=== PATIENT | female | born 1940 | race Caucasian/White ===

== ENCOUNTER → 2016-11-12 | Outpatient (CLI) | payer OTHER, MEDICARE ==
[~2016-11-12] MED LIST: ALBINS INH; CARV25TA2 PO; CITA10TA4 PO; DYZ PO; PANT1TAB48 PO; THY30 PO; ZNTT/150 PO
[2016-11-12 10:51] LABS: ALT/SGPT 24 U/L (12-78); AST/SGOT 16 U/L (15-37); BLOOD UREA NITROGEN 30 mg/dl (7-18); BUN/CREATININE RATIO 22.8 (10-20); CALCIUM 8.9 mg/dl (8.5-10.1); CARBON DIOXIDE 27 mmol/L (21-32); CHLORIDE 106 mmol/L (98-107); GLUCOSE 105 mg/dl (70-99); POTASSIUM 3.5 mmol/L (3.5-5.1); SODIUM 143 mmol/L (136-145)
[2016-11-12 10:54] LABS: ALB/GLOB RATIO 1.2 (0.9-2); ALKALINE PHOSPHATASE 60 U/L (45-117); CHOLESTEROL 234 mg/dl (0-200); CHOLESTEROL/HDL RATIO 3.6; HDL CHOLESTEROL 65 mg/dl; LDL CHOLESTEROL CALCULATED 145 mg/dl; TRIGLYCERIDES 118 mg/dl (0-150); VERY LOW DENSITY LIPOPROT CALC 24 mg/dl
== END | disposition home or self-care (01) ==
LOC: C.LAB1850 08:59
PROVIDERS: ATTEND Nurse Practitioner
DX: E03.9 Hypothyroidism, unspecified (principal); E55.9 Vitamin D deficiency, unspecified; E78.5 Hyperlipidemia, unspecified; I10 Essential (primary) hypertension

== ENCOUNTER → 2016-12-18 | Outpatient (CLI) | payer OTHER, MEDICARE ==
[2016-12-18 12:03] LABS: MEAN CELL VOLUME 91.1 fL (80-100); MEAN CORPUSCULAR HEMOGLOBIN 30.4 pg (25-34); MEAN CORPUSCULAR HGB CONC 33.4 g/dl (32-36); MEAN PLATELET VOLUME 10.6 fL (7.4-10.4); PLATELET COUNT 228 K/uL (130-400); WHITE BLOOD COUNT 5.83 K/uL (4.8-10.8)
[2016-12-18 12:09] LABS: URINE APPEARANCE CLEAR (CLEAR); URINE BILIRUBIN NEG (NEG); URINE COLOR YELLOW; URINE EPITHELIAL CELL AUTO 20-30 /lpf (0-5); URINE NITRITE NEG (NEG); URINE PH 6.5 (4.5-7.5); URINE SPECIFIC GRAVITY 1.016 (1.000-1.030); UROBILINOGEN NEG (NEG)
[2016-12-18 12:16] LABS: MANUAL MICROSCOPIC REQUIRED? NO; REVIEW REQ? NO
[2016-12-18 12:28] LABS: URINE PROTIEN/CREAT RATIO 0.1 (0-0.2); URINE TOTAL PROTEIN 8.8 mg/dl (0-11.9)
[2016-12-18 13:04] LABS: ESTIMATED AVERAGE GLUCOSE 128 mg/dl; HA1C FLAG Normal (Normal)
[2016-12-18 13:24] LABS: BLOOD UREA NITROGEN 33 mg/dl (7-18); BUN/CREATININE RATIO 25.2 (10-20); CARBON DIOXIDE 29 mmol/L (21-32); CHLORIDE 106 mmol/L (98-107); GLUCOSE 75 mg/dl (70-99); SODIUM 141 mmol/L (136-145)
== END | disposition home or self-care (01) ==
LOC: C.LAB1850 10:46
PROVIDERS: ATTEND Nurse Practitioner
DX: I10 Essential (primary) hypertension (principal); R79.89 Other specified abnormal findings of blood chemistry; E06.3 Autoimmune thyroiditis; N28.9 Disorder of kidney and ureter, unspecified; R73.01 Impaired fasting glucose; N18.3 Chronic kidney disease, stage 3 (moderate); M54.2 Cervicalgia

== ENCOUNTER → 2016-12-18 | Outpatient (CLI) | payer OTHER, MEDICARE ==
--- NOTE | 2016-12-18 12:12 | DIAGNOSTIC IMAGING REPORT ---
CERVICAL SPINE 5 VIEWS HISTORY: Pain. Neuropathy. MUSCULOSKELETAL NECK PAIN, NECK PAIN COMPARISON: None. FINDINGS: The cervical spine is visualized from C1 through the superior endplate of T1. There is no fracture. Subtle grade 1. Reversal subluxation of C5 on C6 felt to be secondary to degenerative changes of posterior elements. Moderate degenerative disc changes throughout. Prevertebral soft tissues and the atlantodens interval are intact. IMPRESSION: Degenerative change. No acute process. Electronically signed by: Bobby Orozco M.D. 12/18/2016 12:11 PM Dictated Date/Time: 12/18/2016 12:10 PM
== END | disposition home or self-care (01) ==
LOC: C.RADBC 11:47
PROVIDERS: ATTEND Nurse Practitioner
DX: M54.2 Cervicalgia (principal)

== ENCOUNTER → 2017-03-14 | Outpatient (CLI) | payer OTHER, MEDICARE ==
[2017-03-14 18:29] LABS: BLOOD UREA NITROGEN 29 mg/dl (7-18); BUN/CREATININE RATIO 23.8 (10-20); CALCIUM 9.9 mg/dl (8.5-10.1); CARBON DIOXIDE 27 mmol/L (21-32); CHLORIDE 104 mmol/L (98-107); GLUCOSE 104 mg/dl (70-99); POTASSIUM 3.7 mmol/L (3.5-5.1); SODIUM 140 mmol/L (136-145)
== END | disposition home or self-care (01) ==
LOC: C.LABPVFM 13:50
PROVIDERS: ATTEND Nurse Practitioner
DX: N18.3 Chronic kidney disease, stage 3 (moderate) (principal)

== ENCOUNTER → 2017-05-24 | Outpatient (CLI) | payer OTHER, MEDICARE ==
[2017-05-24 13:42] LABS: THYROID STIMULATING HORMONE 2.84 uIu/ml (0.300-4.500)
== END | disposition home or self-care (01) ==
LOC: C.LAB1850 11:29
PROVIDERS: ATTEND Internal Medicine Endocrinology, Diabetes & Metabolism
DX: E03.9 Hypothyroidism, unspecified (principal)

== ENCOUNTER → 2017-06-04 | Outpatient (CLI) | payer OTHER, MEDICARE ==
--- NOTE | 2017-06-04 14:30 | DIAGNOSTIC IMAGING REPORT ---
LEFT ELBOW 3 VIEWS HISTORY: Left ELBOW PAIN COMPARISON: None. FINDINGS: There is no fracture or dislocation. No elbow effusion. Mild soft tissue swelling at the olecranon. No radiopaque foreign bodies. IMPRESSION: No fracture or dislocation within the left elbow. Mild soft tissue swelling at the olecranon. This could be due to the recent trauma or an olecranon bursitis. Electronically signed by: Juan Carlos Schmitz M.D. 06/04/2017 2:29 PM Dictated Date/Time: 06/04/2017 2:26 PM
== END | disposition home or self-care (01) ==
LOC: C.RADPV 14:05
PROVIDERS: ATTEND Nurse Practitioner
DX: M25.522 Pain in left elbow (principal)

== ENCOUNTER → 2017-06-24 | Outpatient (CLI) | payer OTHER, MEDICARE ==
[2017-06-24 16:42] LABS: HEMATOCRIT 42.3 % (37-47); MEAN CELL VOLUME 92.2 fL (80-100); MEAN CORPUSCULAR HEMOGLOBIN 30.1 pg (25-34); MEAN CORPUSCULAR HGB CONC 32.6 g/dl (32-36); MEAN PLATELET VOLUME 10.9 fL (7.4-10.4); PLATELET COUNT 253 K/uL (130-400); RED BLOOD COUNT 4.59 M/uL (4.2-5.4); WHITE BLOOD COUNT 6.49 K/uL (4.8-10.8)
[2017-06-24 16:53] LABS: BLOOD UREA NITROGEN 21 mg/dl (7-18); BUN/CREATININE RATIO 14.3 (10-20); CALCIUM 9.2 mg/dl (8.5-10.1); CARBON DIOXIDE 29 mmol/L (21-32); CHLORIDE 104 mmol/L (98-107); GLUCOSE 145 mg/dl (70-99); PHOSPHORUS 2.6 mg/dl (2.5-4.9); POTASSIUM 3.4 mmol/L (3.5-5.1); SODIUM 140 mmol/L (136-145)
[2017-06-24 16:55] LABS: URINE APPEARANCE CLOUDY (CLEAR); URINE BILIRUBIN NEG (NEG); URINE COLOR YELLOW; URINE EPITHELIAL CELL AUTO 0-5 /lpf (0-5); URINE NITRITE NEG (NEG); URINE SPECIFIC GRAVITY 1.015 (1.000-1.030); UROBILINOGEN NEG (NEG)
[2017-06-24 17:00] LABS: MANUAL MICROSCOPIC REQUIRED? NO; REVIEW REQ? NO
[2017-06-24 17:01] LABS: THYROID STIMULATING HORMONE 1.4 uIu/ml (0.300-4.500)
[2017-06-24 17:06] LABS: URINE PROTIEN/CREAT RATIO 0.1 (0-0.2); URINE TOTAL PROTEIN 7.9 mg/dl (0-11.9)
== END | disposition home or self-care (01) ==
LOC: C.LAB1850 14:12
PROVIDERS: ATTEND Internal Medicine Nephrology
DX: E03.9 Hypothyroidism, unspecified (principal); I12.9 Hypertensive chronic kidney disease with stage 1 through stage 4 chronic kidney disease, or unspecified chronic kidney disease; N18.3 Chronic kidney disease, stage 3 (moderate); E55.9 Vitamin D deficiency, unspecified

== ENCOUNTER → 2017-06-28 | Outpatient (CLI) | payer OTHER, MEDICARE ==
--- NOTE | 2017-06-28 13:21 | DIAGNOSTIC IMAGING REPORT ---
THYROID ULTRASOUND HISTORY: MULTIPLE THYROID NODULES COMPARISON: Thyroid ultrasound 12/15/2013. FINDINGS: Right lobe: 5.0 x 1.1 x 1.5 cm. 4 mm hypoechoic nodule within the lower pole. This is similar to the prior study. Left lobe: 5.0 x 1.4 x 1.2 cm. There is a heterogeneous and solid 1.4 x 1.1 x 0.7 cm nodule. This is unchanged compared to the prior study. A 3 mm cyst within the upper pole. Isthmus: 5 mm in thickness. A 1.0 x 0.9 x 0.7 cm heterogeneous solid nodule is not significantly changed. IMPRESSION: Stable bilateral thyroid nodules. These do not meet sonographic criteria for biopsy at this time. Electronically signed by: Juan Carlos Schmitz M.D. 06/28/2017 1:19 PM Dictated Date/Time: 06/28/2017 1:16 PM
== END | disposition home or self-care (01) ==
LOC: C.ULTR 12:35
PROVIDERS: ATTEND Internal Medicine Endocrinology, Diabetes & Metabolism
DX: E04.2 Nontoxic multinodular goiter (principal)

== ENCOUNTER → 2017-10-17 | Outpatient (CLI) | payer OTHER, MEDICARE ==
[~2017-10-17] MED LIST changes: +PANT1TAB3 PO; -PANT1TAB48 PO
== END | disposition home or self-care (01) ==
LOC: C.LABSPEC 16:59
PROVIDERS: ATTEND Podiatrist Primary Podiatric Medicine
DX: B35.1 Tinea unguium (principal)

== ENCOUNTER → 2017-11-08 | Outpatient (CLI) | payer OTHER, MEDICARE ==
[~2017-11-08] MED LIST changes: +RANI150T85 PO; -ZNTT/150 PO
== END | disposition home or self-care (01) ==
LOC: C.RDSM 09:35
PROVIDERS: ATTEND Physical Medicine & Rehabilitation Sports Medicine
DX: M70.22 Olecranon bursitis, left elbow (principal)

== ENCOUNTER → 2017-12-25 | Outpatient (CLI) | payer OTHER, MEDICARE ==
[2017-12-25 10:27] LABS: HEMATOCRIT 42.1 % (37-47); HEMOGLOBIN 14.4 g/dL (12.0-16.0); MEAN CELL VOLUME 91.3 fL (80-100); MEAN CORPUSCULAR HEMOGLOBIN 31.2 pg (25-34); MEAN CORPUSCULAR HGB CONC 34.2 g/dl (32-36); MEAN PLATELET VOLUME 10.2 fL (7.4-10.4); PLATELET COUNT 238 K/uL (130-400); RED CELL DISTRIBUTION WIDTH CV 13.2 % (11.5-14.5); RED CELL DISTRIBUTION WIDTH SD 43.7 fL (36.4-46.3); WHITE BLOOD COUNT 5.32 K/uL (4.8-10.8)
[2017-12-25 10:41] LABS: ALBUMIN 3.9 gm/dl (3.4-5.0); BLOOD UREA NITROGEN 26 mg/dl (7-18); CALCIUM 9.4 mg/dl (8.5-10.1); CARBON DIOXIDE 28 mmol/L (21-32); CREATININE 1.29 mg/dl (0.60-1.20); GLUCOSE 114 mg/dl (70-99); POTASSIUM 3.5 mmol/L (3.5-5.1); SODIUM 139 mmol/L (136-145)
[2017-12-25 10:45] LABS: HEMOGLOBIN A1C 6.2 % (4.5-5.6)
[2017-12-25 10:52] LABS: PHOSPHORUS 3.3 mg/dl (2.5-4.9)
== END | disposition home or self-care (01) ==
LOC: C.LAB1850 08:53
PROVIDERS: ATTEND Nurse Practitioner
DX: E03.9 Hypothyroidism, unspecified (principal); N18.3 Chronic kidney disease, stage 3 (moderate)

== ENCOUNTER 2018-12-25 11:55 | Observation (INO) ==
[2018-12-25 12:43] LABS: Basophils # (auto) 0.01 K/uL (0-0.2); Basophils % (auto) 0.1 %; Eosinophils # (auto) 0.32 K/uL (0-0.5); Eosinophils % (auto) 4.5 %; Hematocrit (blood only) 41.3 % (37-47); Hemoglobin 13.9 g/dL (12.0-16.0); Immature Granulocytes # (auto) 0.02 K/uL (0.00-0.02); Immature Granulocytes % (auto) 0.3 %; Lymphocytes # (auto) 1.73 K/uL (1.2-3.4); Lymphocytes % (auto) 24.4 %; Mean Corpuscular Hgb Conc 33.7 g/dL (32-36); Mean Corpuscular Volume 91.4 fL (80-100); Mean Platelet Volume 10.7 fL (7.4-10.4); Monocytes # (auto) 0.87 K/uL (0.11-0.59); Monocytes % (auto) 12.3 %; Neutrophils # (auto) 4.14 K/uL (1.4-6.5); Neutrophils % (auto) 58.4 %; Platelet Count 213 K/uL (130-400); RDW Coefficient of Variation 13.2 % (11.5-14.5); RDW Standard Deviation 43.9 fL (36.4-46.3); Red Blood Count 4.52 M/uL (4.2-5.4); White Blood Count 7.09 K/uL (4.8-10.8)
[2018-12-25 12:55] LABS: Partial Thromboplastin Time 26.1 Seconds (21.0-31.0); Prothrombin Time 10.3 Seconds (9.0-12.0)
--- NOTE | 2018-12-25 12:56 | XRay Report ---
TWO VIEW CHEST CLINICAL HISTORY: Atypical chest pain. FINDINGS: PA and lateral chest radiographs are compared to study dated 12/20/2015. The heart is mildly enlarged and there is atherosclerotic calcification of the thoracic aorta. The pulmonary vasculature is noncongested. Chronic interstitial thickening is similar to previous. There is mild elevation of right hemidiaphragm and bibasilar atelectasis. No airspace consolidation or pleural effusion is ident ified. There is no pneumothorax. The skeletal structures are osteopenic. Degenerative change is noted throughout the thoracic spine. The bony thorax appears intact. IMPRESSION: Mild cardiac enlargement with no acute cardiopulmonary abnormality. Electronically signed by: Satish Dyson M.D. 12/25/2018 12:54 PM
[2018-12-25 12:58] LABS: D Dimer 1280 ug/L FEU (0-500)
[2018-12-25 12:59] LABS: Alanine Aminotransferase 23 U/L (12-78); Albumin Level 3.6 gm/dl (3.4-5.0); Aspartate Aminotransferase 19 U/L (15-37); BUN Creatinine Ratio 19.2 (10-20); Bilirubin Direct 0.1 mg/dl (0-0.2); Blood Urea Nitrogen 24 mg/dl (7-18); Calcium 9.1 mg/dl (8.5-10.1); Carbon Dioxide 29 mmol/L (21-32); Chloride 106 mmol/L (98-107); Creatinine Clr Calc Pharmacy 40.6 ml/min; Est GFR (African American) 46.2; Est GFR (Non-African American) 39.8; Glucose 85 mg/dl (70-99); Potassium 3.7 mmol/L (3.5-5.1); Sodium 141 mmol/L (136-145)
[2018-12-25 13:04] LABS: Alkaline Phosphatase 73 U/L (45-117); Bilirubin,Total 0.6 mg/dl (0.2-1); Total Protein 7.1 gm/dl (6.4-8.2); Troponin I < 0.015 ng/ml (0-0.045)
[2018-12-25] MEDS ORDERED: methylPREDNISolone 125 MG/2 ML VIAL IV STA (13:13)
[2018-12-25] MEDS ORDERED: DiphenhydrAMINE HCL 50 MG/ML VIAL IV STA (13:13)
[2018-12-25] MEDS ORDERED: SODIUM CHLORIDE 0.9% 1000ML 1,000 ML IV SCH (13:15)
[2018-12-25] MEDS ORDERED: OPTIRAY 320 125ml IV PRN (13:30)
--- NOTE | 2018-12-25 13:52 | CT Scan Report ---
CT angio chest PE protocol CLINICAL HISTORY: 78 years-old Female presenting with atypical chest pain, concern for pulmonary embo jo. TECHNIQUE: Multidetector CT angiography of the chest was performed after administration of intravenou s contrast. 3-D volumetric and/or maximum intensity projection (MIP) images were subsequently reconst ructed for review. IV contrast: 119 mL of Optiray 320. One or more dose lowering techniques were used consistent with the principles of ALARA (as low as reasonably achievable), including automatic expos ure control, mA or kV adjustment to individual patient size, and/or use of iterative reconstruction. COMPARISON: Chest x-ray from earlier today. CT DOSE (mGy.cm): The estimated cumulative dose is 387.94 mGy.cm. 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 Pulmonary vasculature: The study is suboptimal for the assessment of the pulmonary vascular tree secondary to respiratory mo tion artifact. No filling defect within the pulmonary arteries to suggest embolus. Main pulmonary art britt is mildly enlarged, measuring 3.3 cm in diameter. No flattening of the interventricular septum. N o intracardiac filling defect. No reflux of contrast into the hepatic veins. Remaining chest: Soft tissues: Subcentimeter nodule in the left lobe of the thyroid. No axillary, supraclavicular, med iastinal, or hilar lymphadenopathy. Atherosclerosis of the aorta. Ectasia of the ascending aorta, kulwant suring 4.3 cm in diameter. Mild multichamber enlargement of the heart. No pericardial or pleural effu harini. Upper abdomen normal. Lungs and airways: No pneumothorax. Central airways patent. Linear arteries mildly enlarged relative to adjacent bronchi. No interlobular septal thickening. Allowing for respiratory motion artifact, whi ch mildly degrades evaluation of the lung parenchyma, groundglass opacities noted dependently in the lower lobes likely atelectasis. Pulmonary nodules enumerated below: 1. Solid 3 mm nodule in the posterior segment of the right upper lobe (series 4 image 121). 2. Solid 6 mm nodule in the superior segment of the right lower lobe (series 4 image 89). 3. Solid 5 mm nodule in the lateral-basal segment of the right lower lobe (series 4 image 41). 4. Solid 3 mm nodule in the superior segment of the lingula (series 4 image 155). Musculoskeletal: Degenerative changes of the spine. IMPRESSION: 1. No evidence of pulmonary embolus. 2. Multiple solid pulmonary nodules measuring up to 6 mm. Follow-up per Fleischner Society 2017 zaria mmendations below. 3. Mild cardiomegaly with trace volume overload. No congestive change or pulmonary edema. 4. Ectasia of the ascending aorta and main pulmonary artery. Summary of Fleischner Society 2017 Recommendations (Alesia López et al. Guidelines for management of i ncidental pulmonary nodules detected on CT images: From the Fleischner Society 2017. Radiology 2017; 284: 228-243.) SOLID NODULES Single nodule; size < 6 mm * Low risk patients: No routine follow-up * High risk patients: Optional CT at 12 months Single nodule; size 6-8 mm * Low risk patients: CT at 6-12 months, then consider CT at 18-24 months * High risk patients: CT at 6-12 months, then at 18-24 months Single nodule; size > 8 mm * Either low or high risk patients: Considered CT at 3 months, PET/CT, or tissue sampling Multiple nodules; size < 6 mm * Low risk patients: No routine follow up * High risk patients: Optional CT at 12 months Multiple nodules; size 6-8 mm * Low risk patients: CT at 3-6 months, then consider CT at 18-24 months * High risk patients: CT at 3-6 months, then at 18-24 months Multiple nodules; size > 8 mm * Low risk patients: CT at 3-6 months, then consider at 18-24 months * High risk patients: CT at 3-6 months, then at 18-24 months SUBSOLID NODULES Single ground-glass nodule * Nodule size < 6 mm: No routine follow-up * Nodule size > or = 6 mm: CT at 6-12 months to confirm persistence, then CT every 2 years until 5 y ears Single part-solid nodule * Nodule size < 6 mm: No routine follow-up * Nodules size > or = 6 mm: CT at 3-6 months to confirm persistence. If unchanged and solid componen t remains < 6 mm, annual CT should be performed for 5 years Multiple nodules * Nodule size < 6 mm: CT at 3-6 months. If stable, consider CT at 2 and 4 years. * Nodules size > or = 6 mm: CT at 3-6 months. Subsequent management based on the most suspicious nod ule(s) NOTE: 1) These guidelines apply to incidental nodules. These guidelines do NOT apply to patients younger th an 35 years, immunocompromised patients, or patients with cancer. 2) Risk categories: * Low risk patients: Minimal or absent history of smoking and/or other known risk factors * High risk patients: History of smoking, exposure to other carcinogens, emphysema, fibrosis, upper lobe location, family history of lung cancer, etc. 3) If a nodule up to 8 mm is partly solid or is ground glass, further follow-up is required after 24 months to exclude possible slow growing adenocarcinoma. Electronically signed by: Jerad Miranda M.D. 12/25/2018 1:51 PM
--- NOTE | 2018-12-25 14:37 | Emergency Department Note ---
Entered by Chana Canas acting as a scribe for History of Present Illness General Chief complaint: Chest Pain Stated complaint: PAIN HEART Time Seen by Provider: 12/25/18 12:09 Source: patient Limitations: no limitations History of Present Illness Provider complaint: chest pain Onset (ago): hour(s) Location: chest Radiation: back Maximum Pain Intensity: 5 Current Pain Intensity: 5 Quality: + sharp Associated symptoms: + denies other symptoms (blood in urine, blood in stool) and + other (+back pain); no nausea/vomiting Treatments prior to arrival: none The patient is a 78 year old female who presents to the Emergency Room with complaints of chest pain that began earlier in the morning prior to arrival. The patient describes the pain as sudden and sharp and rates her pain a 5/10 in severity upon arrival. The patient states that the pain radiates to her back. The patient states that she waited to see if her pain would subside but states that it didn't go away completely. The patient denies any blood in her urine, blood in her stool, nausea, and vomiting. The patient denies using any hormone creams or any long recent travels. The patient states that she has a history of Takotsubo cardiomyopathy and states that she sees Dr. Camp for Cardiology. She states that the chest pain does not feel similar to when she was diagnosed with Takotsubo cardia myopathy in the past. Home Medications Home Medications Medication Instructions Recorded Confirmed Type carvedilol 12.5 mg PO QAM 12/25/18 12/25/18 History carvedilol 25 mg PO DAILY 12/25/18 12/25/18 History lorazepam 1 mg PO DAILY PRN 12/25/18 12/25/18 History pantoprazole 40 mg PO DAILY 12/25/18 12/25/18 History sucralfate 1 g PO QPM 12/25/18 12/25/18 History temazepam 15 mg PO HS PRN 12/25/18 12/25/18 History thyroid (pork) [[place] Thyroid] 60 mg PO DAILY 12/25/18 12/25/18 History triamterene-hydrochlorothiazid 1 cap PO BID 12/25/18 12/25/18 History Allergies Allergy/AdvReac Type Severity Reaction Status Date / Time aspirin Allergy Unknown UPSET Verified 12/25/18 12:35 STOMACH/STOMACH PAIN codeine Allergy Unknown Verified 12/25/18 12:35 ketorolac Allergy Unknown kidney Verified 12/25/18 12:35 failure latex Allergy Unknown LOCAL RASH Verified 12/25/18 12:35 Sulfa (Sulfonamide Allergy Unknown Verified 12/25/18 12:35 Antibiotics) tromethamine Allergy Unknown kidney Verified 12/25/18 12:35 failure CONTRASTMEDIA Allergy Intermediate Unknown Uncoded 12/25/18 12:35 Past Med/Surg History Medical History Acute tubular necrosis Anxiety Asthma Coronary artery disease Diverticulosis GERD (gastroesophageal reflux disease) Hyperlipidemia Hypertension Hypothyroidism Major depression Myocardial infarction Takotsubo syndrome Vitamin D deficiency Surgical History History of right hip replacement Social History Feels Safe at Home: Yes Smoking Status: Never smoker Review of Systems See HPI for pertinent positives & negatives. and A total of 10 systems reviewed and were otherwise negative See HPI for pertinent positives & negatives. A total of 10 systems reviewed and were otherwise negative. Physical Exam Vital Signs Vital Signs - 24 hr 12/25/18 12:02 12/25/18 12:21 12/25/18 13:56 Temperature 36.4 C L Temperature Source Oral Sepsis Recent Fever Within 48 Hours No Sepsis New/Unexplained Change in Mental Status No Sepsis Action Taken by Nursing No Action Required Pulse Rate 72 Pulse Rate [Right Apical] 85 Respiratory Rate 20 16 Respiratory Effort / Characteristics Non-Labored Respiratory Depth Normal Blood Pressure 186/89 H Blood Pressure [Right Arm] 150/77 H Blood Pressure Mean 121 Blood Pressure Mean [Right Arm] 101 Pulse Oximetry 95 95 97 Oxygen Delivery Method Room Air Room Air Room Air GENERAL: She is oriented to person, place, and time. She appears well-developed and well-nourished. She does not appear distressed. HENT: Exam performed. Head: Normocephalic and atraumatic. Right Ear: External ear normal. No mastoid tenderness. Left Ear: External ear normal. No mastoid tenderness. Mouth/Throat: The oropharynx is clear and moist. No trismus in the jaw. No dental abscesses or uvula swelling. No oropharyngeal exudate or tonsillar abscesses. EYES: Conjunctivae and EOM are normal. Pupils are equal, round, and reactive to light. Right eye exhibits no discharge. Left eye exhibits no discharge. No scleral icterus. NECK: Normal range of motion. Neck supple. No JVD present. No spinous process tenderness present. No carotid bruit present. No rigidity. No tracheal deviation and normal range of motion present. No Brudzinski's sign and no Kernig's sign noted. CV: Normal rate, regular rhythm, normal heart sounds and intact distal pulses. There is no peripheral edema. Palpable radial pulses bue. PULM/CHEST: Effort normal and breath sounds normal. No respiratory distress. No stridor. She has no wheezes. She has no rales. Chest Wall: She exhibits no tenderness. ABD: The abdomen is soft. Bowel sounds are normal. She has no distension. No mass is present. There is no tenderness. There is no rebound, no guarding, no Henley's sign and no tenderness at McBurney's point. Rovsig negative MUSC/SKEL: Normal range of motion. There is no peripheral edema, tenderness or deformity. LYMPH: No cervical adenopathy. NEURO: She is alert and oriented to person, place, and time. She has normal strength. No cranial nerve deficit or sensory deficit. Coordination and gait normal. GCS eye subscore is 4. GCS verbal subscore is 5. GCS motor subscore is 6. cerbellar tests wnl. SKIN: Skin is warm and dry. She is not diaphoretic. PSYCH: She has a normal mood and affect. Her behavior is normal. Judgment and thought content normal. Course 1215: Past medical records reviewed. The patient was evaluated in room A11B, and a complete history and physical examination were performed. 1320: EKG shows new T wave inversions. Vital signs stable. Troponin negative. The patient's DDimer came back positive. Will obtain CT of the chest. Patient reports she has an allergy to contrast dye, reports she has had hives in the past after receiving catheterization. Patient will be treated prior to CTA with Benadryl and Solu-Medrol. 1408: The patient's vital signs are stable. No rash status post CTA. CT of the chest shows no PE. Given the patient's new T wave inversions in her long history and age, the patient will be admitted to the hospital service for further cardiac workup. I [facility] the patient's [facility] who will evaluate the patient for further hospitalization. Consultations Consultation #1[facility] Time: 14:08 Administered Medications Sodium Chloride (Nss 1000ml) 1,000 mls @ 125 mls/hr IV .Q8H MEDINA Stop: 01/24/19 13:14 Last Admin: 12/25/18 13:25 Dose: 125 mls/hr Documented by: [id number] Ioversol (Optiray 320 125ml) 119 ml IV ONCE PRN PRN Reason: Interaction Checking Stop: 12/29/18 13:29 Last Admin: 12/25/18 13:31 Dose: 1 ml Documented by: [id number] Discontinued Medications Diphenhydramine HCl (Benadryl) 25 mg IV NOW STA Stop: 12/25/18 13:14 Last Admin: 12/25/18 13:20 Dose: 25 mg Documented by: [id number] Methylprednisolone (Solumedrol) 125 mg IV NOW STA Stop: 12/25/18 13:14 Last Admin: 12/25/18 13:21 Dose: 125 mg Documented by: [id number] Medical Decision Making Medical Records Attestation: I reviewed the patient's medical records. Home Medications Current Medication List: was personally reviewed by me Laboratory Data Attestation: I reviewed the patient's lab results. Result diagrams: 12/25/18 12:30 12/25/18 12:30 Lab Results 12/25/18 12/25/18 12/25/18 Range/Units 12:30 12:30 12:30 WBC 7.09 (4.8-10.8) K/uL RBC 4.52 (4.2-5.4) M/uL Hgb 13.9 (12.0-16.0) g/dL Hct 41.3 (37-47) % MCV 91.4 (80-100) fL MCH 30.8 (25-34) pg MCHC 33.7 (32-36) g/dL RDW Std Deviation 43.9 (36.4-46.3) fL RDW Coeff of Virgilio 13.2 (11.5-14.5) % Plt Count 213 (130-400) K/uL MPV 10.7 H (7.4-10.4) fL Immature Gran % (Auto) 0.3 % Neut % (Auto) 58.4 % Lymph % (Auto) 24.4 % [place] % (Auto) 12.3 % Eos % (Auto) 4.5 % Baso % (Auto) 0.1 % Immature Gran # (Auto) 0.02 (0.00-0.02) K/uL Neut # (Auto) 4.14 (1.4-6.5) K/uL Lymph # (Auto) 1.73 (1.2-3.4) K/uL [place] # (Auto) 0.87 H (0.11-0.59) K/uL Eos # (Auto) 0.32 (0-0.5) K/uL Baso # (Auto) 0.01 (0-0.2) K/uL PT 10.3 (9.0-12.0) Seconds INR 1.0 (0.9-1.1) APTT 26.1 (21.0-31.0) Seconds PTT Ratio 1.0 D-Dimer 1280 H* (0-500) ug/L FEU Sodium 141 (136-145) mmol/L Potassium 3.7 (3.5-5.1) mmol/L Chloride 106 (98-107) mmol/L Carbon Dioxide 29 (21-32) mmol/L Anion Gap 6.0 (3-11) BUN 24 H (7-18) mg/dl Creatinine 1.27 H (0.6-1.2) mg/dl Est Cr Clr Drug Dosing 40.6 ml/min Est GFR ( Amer) 46.2 Est GFR (Non-Af Amer) 39.8 BUN/Creatinine Ratio 19.2 (10-20) Glucose 85 (70-99) mg/dl Calcium 9.1 (8.5-10.1) mg/dl Total Bilirubin 0.6 (0.2-1) mg/dl Direct Bilirubin 0.1 (0-0.2) mg/dl AST 19 (15-37) U/L ALT 23 (12-78) U/L Alkaline Phosphatase 73 (45-117) U/L Troponin I < 0.015 (0-0.045) ng/ml Total Protein 7.1 (6.4-8.2) gm/dl Albumin 3.6 (3.4-5.0) gm/dl Lipase 109 (73-393) U/L Imaging Data Radiologist's Impression: Radiology results as stated below per my review and the radiologist's interpretation: TWO VIEW CHEST CLINICAL HISTORY: Atypical chest pain. FINDINGS: PA and lateral chest radiographs are compared to study dated 12/20/2015. The heart is mildly enlarged and there is atherosclerotic calcifica tion of the thoracic aorta. The pulmonary vasculature is noncongested. Chronic interstitial thickening is similar to previous. There is mild elevation of right hemidiaphragm and bibasilar atelectasis. No airspace consolidation or pleural effusion is identified. There is no pneumothorax. The skeletal structures are osteopenic. Degenerative change is noted throughout the thoracic spine. The bony thorax appears intact. IMPRESSION: Mild cardiac enlargement with no acute cardiopulmonary abnormality. Electronically signed by: Satish Dyson M.D. 12/25/2018 12:[address] angio chest PE protocol CLINICAL HISTORY: 78 years-old Female presenting with atypical chest pain, co ncern for pulmonary embolus. TECHNIQUE: Multidetector CT angiography of the chest was performed after administration of intravenous contrast. 3-D volumetric and/or maximum intensity projection (MIP) images were subsequently reconstructed for review. IV contrast: 119 mL of Optiray 320. One or more dose lowering techniques were used consistent with the principles of ALARA (as low as reasonably achievable), including automatic exposure control, mA or kV adjustment to individual patient size, and/ or use of iterative reconstruction. COMPARISON: Chest x-ray from earlier today. CT DOSE (mGy.cm): The estimated cumulative dose is 387.94 mGy.cm. FINDINGS: Woven Label Designer topogram: Unremarkable. Pulmonary vasculature: The study is suboptimal for the assessment of the pulmonary vascular tree secondary to respiratory motion artifact. No filling defect within the pulmonary arteries to suggest embolus. Main pulmonary artery is mildly enlarged, measuring 3.3 cm in diameter. No flattening of the interventricular septum. No intracardiac filling defect. No reflux of contrast into the hepatic veins. Remaining chest: Soft tissues: Subcentimeter nodule in the left lobe of the thyroid. No axillary, supraclavicular, mediastinal, or hilar lymphadenopathy. Atherosclerosis of the aorta. Ectasia of the ascending aorta, measuring 4.3 cm in diameter. Mild multichamber enlargement of the heart. No pericardial or pleural effusion. Upper abdomen normal. Lungs and airways: No pneumothorax. Central airways patent. Linear arteries mildly enlarged relative to adjacent bronchi. No interlobular septal thickening. Allowing for respiratory motion artifact, which mildly degrades evaluation of the lung parenchyma, groundglass opacities noted dependently in the lower lobes likely atelectasis. Pulmonary nodules enumerated below: 1. Solid 3 mm nodule in the posterior segment of the right upper lobe (series 4 image 121). 2. Solid 6 mm nodule in the superior segment of the right lower lobe (series 4 image 89). 3. Solid 5 mm nodule in the lateral-basal segment of the right lower lobe (series 4 image 41). 4. Solid 3 mm nodule in the superior segment of the lingula (series 4 image 155). Musculoskeletal: Degenerative changes of the spine. IMPRESSION: 1. No evidence of pulmonary embolus. 2. Multiple solid pulmonary nodules measuring up to 6 mm. Follow-up per Fleischner Society 2017 recommendations below. 3. Mild cardiomegaly with trace volume overload. No congestive change or pulmonary edema. 4. Ectasia of the ascending aorta and main pulmonary artery. Summary of Fleischner Society 2017 Recommendations (H Maribel et al. Guidelines for management of incidental pulmonary nodules detected on CT images: From the Fleischner Society 2017. Radiology 2017; 284: 228-243.) SOLID NODULES Single nodule; size < 6 mm * Low risk patients: No routine follow-up * High risk patients: Optional CT at 12 months Single nodule; size 6-8 mm * Low risk patients: CT at 6-12 months, then consider CT at 18-24 months * High risk patients: CT at 6-12 months, then at 18-24 months Single nodule; size > 8 mm * Either low or high risk patients: Considered CT at 3 months, PET/CT, or tissue sampling Multiple nodules; size < 6 mm * Low risk patients: No routine follow up * High risk patients: Optional CT at 12 months Multiple nodules; size 6-8 mm * Low risk patients: CT at 3-6 months, then consider CT at 18-24 months * High risk patients: CT at 3-6 months, then at 18-24 months Multiple nodules; size > 8 mm * Low risk patients: CT at 3-6 months, then consider at 18-24 months * High risk patients: CT at 3-6 months, then at 18-24 months SUBSOLID NODULES Single ground-glass nodule * Nodule size < 6 mm: No routine follow-up * Nodule size > or = 6 mm: CT at 6-12 months to confirm persistence, then CT every 2 years until 5 years Single part-solid nodule * Nodule size < 6 mm: No routine follow-up * Nodules size > or = 6 mm: CT at 3-6 months to confirm persistence. If unchanged and solid component remains < 6 mm, annual CT should be performed for 5 years Multiple nodules * Nodule size < 6 mm: CT at 3-6 months. If stable, consider CT at 2 and 4 years. * Nodules size > or = 6 mm: CT at 3-6 months. Subsequent management based on the most suspicious nodule(s) NOTE: 1) These guidelines apply to incidental nodules. These guidelines do NOT apply to patients younger than 35 years, immunocompromised patients, or patients with cancer. 2) Risk categories: * Low risk patients: Minimal or absent history of smoking and/or other known risk factors * High risk patients: History of smoking, exposure to other carcinogens, emphysema, fibrosis, upper lobe location, family history of lung cancer, etc. 3) If a nodule up to 8 mm is partly solid or is ground glass, further follow-up is required after 24 months to exclude possible slow growing adenocarcinoma. Electronically signed by: Jerad Miranda M.D. 12/25/2018 1:51 PM ECG Data Attestation: I personally reviewed and interpreted this ECG as follows: Indication: chest pain Rate (beats per minute): 66 Rhythm: sinus rhythm Findings: + other (NH and QRS intervals within normal limits, left ventricular hypertrophy ) and + T-wave inversion (in AVL leads V4-V6); no ST depression and no ST elevation Comparison ECG Date: from (2010) Change: the following changes noted (T waves in leads V4-V6 are new ) Blood Pressure Blood Pressure Findings: Elevated blood pressure Blood Pressure Disposition: further management by hospitalist RUBEN Narrative 1215: Past medical records reviewed. The patient was evaluated in room A11B, and a complete history and physical examination were performed. 1320: EKG shows new T wave inversions. Vital signs stable. Troponin negative. The patient's DDimer came back positive. Will obtain CT of the chest. Patient reports she has an allergy to contrast dye, reports she has had hives in the past after receiving catheterization. Patient will be treated prior to CTA with Benadryl and Solu-Medrol. 1408: The patient's vital signs are stable. No rash status post CTA. CT of the chest shows no PE. Given the patient's new T wave inversions in her long history and age, the patient will be admitted to the hospital service for further cardiac workup. I discussed the patient's case with Luis Meléndez- [facility] Hospitalist who will evaluate the patient for further hospitalization. Impression & Plan Chest pain Discharge Plan Visit Data Chief Complaint: Chest Pain Stated Complaint: PAIN HEART ED Provider: Fran Willis Discharge Problem: Chest pain Patient Disposition: Admitted As Inpatient Forms Stand Alone Forms: Call Back Authorization, My [facility] Prescriptions Prescriptions: No Action carvedilol 25 mg tablet 12.5 mg PO QAM RF: 0 carvedilol 25 mg tablet 25 mg PO DAILY RF: 0 sucralfate 1 gram tablet 1 g PO QPM RF: 0 triamterene-hydrochlorothiazid 37.5-25 mg capsule 1 cap PO BID RF: 0 temazepam 15 mg capsule 15 mg PO HS PRN (Reason: Sleep) RF: 0 pantoprazole 40 mg tablet,delayed release (DR/EC) 40 mg PO DAILY RF: 0 lorazepam 1 mg tablet 1 mg PO DAILY PRN (Reason: Anxiety) RF: 0 thyroid (pork) [[place] Thyroid] 60 mg tablet 60 mg PO DAILY RF: 0 Referrals Referrals: Marvin Avila MD [Primary Care Provider] - Discharge Problem: Chest pain Qualifiers: Chest pain type: unspecified Qualified Code(s): R07.9 - Chest pain, unspecified The scribe's documentation has been prepared under my direction and personally reviewed by me in its entirety. I confirm that the note above accurately reflects all work, treatment, procedures, and medical decision making performed by me.
--- NOTE | 2018-12-25 15:31 | History & Physical Report ---
Date of Service December 25, 2018 Assessment & Plan (1) Chest pain: Atypical story with chest pain onset at rest, sharp, non-radiating, and no associated symptoms. EKG shows TWI in I, aVL, and V4-V6. No ST changes per my read. First troponin negative. No prior coronary artery disease. Pain abated without treatment. Stress echo in 2014 was negative for ischemia. - Trend troponins and EKGs - Telemetry - Discussed with patient that she is fairly low risk and can pursue outpatient stress; patient agreed. (2) Takotsubo syndrome: Two episodes of Takotsubo's in 1996 & 2006. Mostly for this reason she came to the ED. - Echo - If normal, can follow up with outpatient ward supervisor, Dr. Camp (3) Hypertension: BP is 140/70 at present. - Continue home meds (4) Hypothyroidism: TSH was 2.5 in 11/2018. No signs/symptoms of hypo-/hyperthyroidism. - Hold home pig thyroid while in the hospital; can restart it if she desires after discharge (5) CKD (chronic kidney disease) stage 3, GFR 30-59 ml/min: Baseline Cr ~1.1 - 1.2, eGFR ~40. Cr was 1.3 on admission, so mildly higher, but not an RUTH. - Monitor Cr - Renally-dose medications (6) GERD (gastroesophageal reflux disease): No GERD-type symptoms at present. - Continue home medications (7) Anxiety: - Continue home benzo. (8) Pulmonary nodules: Pulmonary nodules seen on CTA chest on 12/25. Recommend repeat CT chest in 6-12 months. (9) DVT prophylaxis: SCDs - Low risk per calculator History of Present Illness Primary Care Provider: Marvin Avila MD Pleasant 78-year-old female with past mental history of 2 episodes of cardiomyopathy, hypertension, GERD who presents with chest pain. She reports that she went to bed in her normal state of health; however, she woke up feeling "tired." She was sitting at her table after eating breakfast and reports an acute onset, sharp, 6/10 left substernal chest pain which radiated around to the sternum and then around to the back. She denies any other symptoms with the chest pain, including shortness of breath, lightheadedness, dizziness, cris phoresis, nausea, vomiting. She did not attempt to take anything for the pain, but presented to the emergency department due to her prior history of cardiomyopathies. She reports that the pain has gradually faded while in the emergency department, and that she is now chest pain-free. She denies any previous pain like this. Her prior cardiomyopathy presented more with fatigue than any sort of pain. Allergies Allergy/AdvReac Type Severity Reaction Status Date / Time aspirin Allergy Unknown UPSET Verified 12/25/18 12:35 STOMACH/STOMACH PAIN codeine Allergy Unknown Verified 12/25/18 12:35 ketorolac Allergy Unknown kidney Verified 12/25/18 12:35 failure latex Allergy Unknown LOCAL RASH Verified 12/25/18 12:35 Sulfa (Sulfonamide Allergy Unknown Verified 12/25/18 12:35 Antibiotics) tromethamine Allergy Unknown kidney Verified 12/25/18 12:35 failure CONTRASTMEDIA Allergy Intermediate Unknown Uncoded 12/25/18 12:35 Home Medications Home Medications Medication Instructions Recorded Confirmed Type carvedilol 12.5 mg PO QAM 12/25/18 12/25/18 History carvedilol 25 mg PO DAILY 12/25/18 12/25/18 History lorazepam 1 mg PO DAILY PRN 12/25/18 12/25/18 History pantoprazole 40 mg PO DAILY 12/25/18 12/25/18 History sucralfate 1 g PO QPM 12/25/18 12/25/18 History temazepam 15 mg PO HS PRN 12/25/18 12/25/18 History thyroid (pork) [[place] Thyroid] 60 mg PO DAILY 12/25/18 12/25/18 History triamterene-hydrochlorothiazid 1 cap PO BID 12/25/18 12/25/18 History Past Med/Surg History Medical History Acute tubular necrosis Anxiety Asthma Coronary artery disease Diverticulosis GERD (gastroesophageal reflux disease) Hyperlipidemia Hypertension Hypothyroidism Major depression Myocardial infarction Takotsubo syndrome Vitamin D deficiency Surgical History History of right hip replacement Family History Mother Hypertension Social History Preferred Language: Lao Communication Ability: Effective Business Development Professional Required: No Beliefs That Will Affect Care: None Current Living Situation: Spouse Other Information That Helps Us Care for You: No Feels Safe at Home: Yes Safety Concerns: Feels Safe At This Time Smoking Status: Never smoker Hx Alcohol Use: Yes Hx Substance Use: No Review of Systems Constitutional: no fever, no chills and no sweats Eyes: no diplopia Ear, Nose, Mouth, Throat: no ear trauma, no nasal discharge and no dental pain Respiratory: no cough, no chest congestion and no dyspnea Cardiovascular: + chest pain and + chest pain at rest; no chest pain with activity, no radiating jaw, neck or arm pain, no dyspnea, no dyspnea at rest, no dyspnea on exertion, no palpitations, no lightheadedness, no syncope and no edema Gastrointestinal: no abdominal pain, no belching, no constipation, no diarrhea/loose stools, no blood in stools and no melena Musculoskeletal: no back pain, no joint pain and no muscle weakness Integumentary: no rash, no skin ulcer and no erythema Neurologic: no generalized weakness, no loss of sensation, no numbness and no paresthesia Psychiatric: no depression and no anxiety Endocrine: no fatigue, no polydipsia and no polyphagia Physical Exam Vital Signs (Past 24 Hours): Last Vital Signs Temp 36.4 C L 12/25/18 12:02 Pulse 67 12/25/18 15:26 Resp 18 12/25/18 15:26 BP 182/68 H 12/25/18 15:26 Pulse Ox 96 12/25/18 15:26 Constitutional: WD/WN, vitals as above Eyes: EOM intact bilaterally; no conjunctival abnormality ENMT: external ear and nose normal, oropharynx normal Neck: trachea midline, no thyromegaly normal visual inspection Respiratory: normal respiratory effort, lungs clear to auscultation no respiratory distress Cardiovascular: RRR, no murmur, no edema Gastrointestinal (Abdomen): Inspection/Auscultation: abdomen normal to inspection; abdomen not distended Percussion/Palpation: abdomen soft; abdomen nontender, no guarding and abdomen not rigid Musculoskeletal: no cyanosis or clubbing, extremities motor strength 5/5 Skin: no rashes, warm and dry Neurologic: moves all extremities and awake Psychiatric: Orientation: alert, oriented to person and cooperative (1) Chest pain Chest pain type: unspecified Qualified Code(s): R07.9 - Chest pain, unspecified
[2018-12-25] MEDS ORDERED: LORazepam 1 MG TAB PO PRN (16:46)
[2018-12-25] MEDS ORDERED: ACETAMINOPHEN 325 MG TAB PO PRN (16:46)
[2018-12-25] MEDS ORDERED: ALUMINUM/MAGNESIUM SUSP 30 ML UDC PO PRN (16:46)
[2018-12-25] MEDS ORDERED: Nursing to Pharmacy Communication ONE (17:17)
[2018-12-25] MEDS: PANTOprazole 40 MG TAB PO SCH (17:38)
[2018-12-25] MEDS: TRIAMTERENE/HCTZ 37.5/25MG CAP PO SCH (19:13)
[2018-12-25] MEDS ORDERED: CARVEDILOL 25 MG TAB PO SCH (21:00)
[2018-12-25] MEDS ORDERED: SUCRALFATE 1 GM TAB PO SCH (21:00)
[2018-12-25] MEDS ORDERED: ZOLPIDEM TARTRATE 5 MG TAB PO ONE (22:45)
[2018-12-26 06:54] LABS: Hematocrit (blood only) 40.6 % (37-47); Hemoglobin 13.7 g/dL (12.0-16.0); Mean Corpuscular Hgb Conc 33.7 g/dL (32-36); Mean Corpuscular Volume 90.6 fL (80-100); Platelet Count 207 K/uL (130-400); RDW Coefficient of Variation 13.2 % (11.5-14.5); Red Blood Count 4.48 M/uL (4.2-5.4); White Blood Count 10.71 K/uL (4.8-10.8)
[2018-12-26 07:24] LABS: BUN Creatinine Ratio 18.7 (10-20); Blood Urea Nitrogen 29 mg/dl (7-18); Calcium 9.2 mg/dl (8.5-10.1); Carbon Dioxide 29 mmol/L (21-32); Chloride 108 mmol/L (98-107); Creatinine Clr Calc Pharmacy 33.8 ml/min; Est GFR (African American) 36.8; Est GFR (Non-African American) 31.8; Glucose 157 mg/dl (70-99); Magnesium 2.1 mg/dl (1.8-2.4); Potassium 3.8 mmol/L (3.5-5.1); Sodium 142 mmol/L (136-145)
[2018-12-26 07:29] LABS: Troponin I < 0.015 ng/ml (0-0.045)
[2018-12-26] MEDS: TRIAMTERENE/HCTZ 37.5/25MG CAP PO SCH (07:43)
[2018-12-26] MEDS ORDERED: SODIUM CHLORIDE 0.9% 1000ML 1,000 ML IV SCH (08:45)
[2018-12-26] MEDS ORDERED: PANTOprazole 40 MG TAB PO SCH (09:00)
[2018-12-26] MEDS ORDERED: CARVEDILOL 12.5 MG TAB PO SCH (09:00)
--- NOTE | 2018-12-26 12:23 | Cardiology Consultation ---
Date of Consultation December 26, 2018 Assessment & Plan (1) Chest pain: All the patient's symptoms of chest discomfort could be ischemic in nature, she had a fairly extended episode of symptoms without elevation in her biomarkers. Her EKG is abnormal but generally unchanged from prior. She was mainly concerned about a repeat episode of stress cardiomyopathy. However, she has not had any increased stress recently. She is feeling better today. Echocardiogram performed today did not reveal any evidence of repeat LV dysfunction. With her normal biomarkers, atypical nature of her symptoms and normal echocardiogram, I think it would be safe for discharge. I did not recommend any change in her medical regimen. History of Present Illness Reason for Consultation: Chest pain Requesting Physician: Neelam Attending Physician: Christina Richter MD History of Present Illness Patient is an 78-year-old woman with a history of stress-induced cardiomyopathy who experienced an episode of chest discomfort yesterday. Patient states that around 930 in the morning she began to experience some sharp discomfort in the left lateral chest area. This was around the axilla. This discomfort later generalized to involve the left side of the chest and left arm. There also was some intrascapular discomfort. Patient did not have associated breathing difficulty in the did not appear to be a pleuritic component to her symptoms. The symptoms were not reminiscent of prior episodes of stress-induced cardiomyopathy. The discomfort was not positional. It lasted approximately 2 hours before it eventually resolved. There was no specific intervention which led to the resolution of her symptoms. In general she is a sedentary individual but is accustomed to routine work around the house and in the yard. She did not report symptoms of exertional chest discomfort or limiting dyspnea. She does go hiking fairly frequently and does have some dyspnea while at ascending hills or hiking at altitude. She has not had dizziness or lightheadedness recently. She has not suffered a syncopal episode. She has not been aware of any palpitations. She denies any significant swelling in her lower extremities. Currently she is feeling well. She has not had any recurrence of her chest discomfort. Allergies Allergy/AdvReac Type Severity Reaction Status Date / Time codeine Allergy Unknown Unknown Verified 12/26/18 08:40 latex Allergy Unknown LOCAL RASH Verified 12/25/18 12:35 Sulfa (Sulfonamide Allergy Unknown Unknown Verified 12/26/18 08:40 Antibiotics) tromethamine Allergy Unknown kidney Verified 12/25/18 12:35 failure aspirin AdvReac Unknown UPSET Verified 12/26/18 08:40 STOMACH/STOMACH PAIN ketorolac AdvReac Unknown kidney Verified 12/26/18 08:40 failure CONTRASTMEDIA Allergy Intermediate Unknown Uncoded 12/25/18 12:35 Home Medications Home Medications Medication Instructions Recorded Confirmed Type carvedilol 12.5 mg PO QAM 12/25/18 12/25/18 History carvedilol 25 mg PO DAILY 12/25/18 12/25/18 History lorazepam 1 mg PO DAILY PRN 12/25/18 12/25/18 History pantoprazole 40 mg PO DAILY 12/25/18 12/25/18 History sucralfate 1 g PO QPM 12/25/18 12/25/18 History temazepam 15 mg PO HS PRN 12/25/18 12/25/18 History thyroid (pork) [[place] Thyroid] 60 mg PO DAILY 12/25/18 12/25/18 History triamterene-hydrochlorothiazid 1 cap PO BID 12/25/18 12/25/18 History Patient History Medical History Acute tubular necrosis Anxiety Asthma Coronary artery disease Diverticulosis GERD (gastroesophageal reflux disease) Hyperlipidemia Hypertension Hypothyroidism Major depression Myocardial infarction Takotsubo syndrome Vitamin D deficiency Surgical History History of right hip replacement Family History Mother Hypertension Social History Preferred Language: Bengali Communication Ability: Effective 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 Pertinent positives noted in history of present illness. No recent constitutional symptoms such as fevers or chills. No notable the emotional events recently. Physical Exam Vital Signs (Past 24 Hours): Last Vital Signs Temp 36.7 C 12/26/18 11:41 Pulse 67 12/26/18 11:41 Resp 18 12/26/18 11:41 BP 100/55 L 12/26/18 11:41 Pulse Ox 93 12/26/18 11:41 Physical Exam: She is alert and oriented x3. Mood affect appear normal. She answered all questions appropriately. HEENT: Sclerae are anicteric. Pupils are equal and reactive to light and accommodation. Extraocular movements were intact. Neuro: Cranial nerves intact Neck: Examination of the submandibular region did not reveal any significant lymphadenopathy. Carotids are palpable bilaterally and free of bruits on auscultation. There was no evidence of jugular venous distention. The thyroid was not enlarged. Lungs: Lungs are clear to auscultation bilaterally. There are no rales wheezes or rhonchi. She has normal respiratory effort without use of accessory muscles. There is normal pulmonary excursion. Cardiac: The rhythm was regular. S1 and S2 were normal. There are no murmurs on examination. The PMI was not markedly displaced on palpation. Abdomen: The abdomen was soft and nontender. Extremities: Patient has bilateral radial pulses that are equal in intensity. There is no evidence cyanosis or clubbing. There was no evidence of significant peripheral edema bilaterally. Skin: There are no rashes noted on examination today. Results & Data Laboratory Results Abnormal Lab Results 12/25/18 12/25/18 12/25/18 12:30 12:30 12:30 WBC 7.09 RBC 4.52 Hgb 13.9 Hct 41.3 MCV 91.4 MCH 30.8 MCHC 33.7 RDW Std Deviation 43.9 RDW Coeff of Virgilio 13.2 Plt Count 213 MPV 10.7 H Immature Gran % (Auto) 0.3 Neut % (Auto) 58.4 Lymph % (Auto) 24.4 [place] % (Auto) 12.3 Eos % (Auto) 4.5 Baso % (Auto) 0.1 Immature Gran # (Auto) 0.02 Neut # (Auto) 4.14 Lymph # (Auto) 1.73 [place] # (Auto) 0.87 H Eos # (Auto) 0.32 Baso # (Auto) 0.01 PT 10.3 INR 1.0 APTT 26.1 PTT Ratio 1.0 D-Dimer 1280 H* Sodium 141 Potassium 3.7 Chloride 106 Carbon Dioxide 29 Anion Gap 6.0 BUN 24 H Creatinine 1.27 H Est Cr Clr Drug Dosing 40.6 Est GFR ( Amer) 46.2 Est GFR (Non-Af Amer) 39.8 BUN/Creatinine Ratio 19.2 Glucose 85 Calcium 9.1 Magnesium Total Bilirubin 0.6 Direct Bilirubin 0.1 AST 19 ALT 23 Alkaline Phosphatase 73 Troponin I < 0.015 Total Protein 7.1 Albumin 3.6 Lipase 109 12/25/18 12/26/18 12/26/18 22:08 06:19 06:19 WBC 10.71 RBC 4.48 Hgb 13.7 Hct 40.6 MCV 90.6 MCH 30.6 MCHC 33.7 RDW Std Deviation 43.0 RDW Coeff of Virgilio 13.2 Plt Count 207 MPV 11.0 H Immature Gran % (Auto) Neut % (Auto) Lymph % (Auto) [place] % (Auto) Eos % (Auto) Baso % (Auto) Immature Gran # (Auto) Neut # (Auto) Lymph # (Auto) [place] # (Auto) Eos # (Auto) Baso # (Auto) PT INR APTT PTT Ratio D-Dimer Sodium 142 Potassium 3.8 Chloride 108 H Carbon Dioxide 29 Anion Gap 5.0 BUN 29 H Creatinine 1.53 H Est Cr Clr Drug Dosing 33.8 Est GFR ( Amer) 36.8 Est GFR (Non-Af Amer) 31.8 BUN/Creatinine Ratio 18.7 Glucose 157 H Calcium 9.2 Magnesium 2.1 Total Bilirubin Direct Bilirubin AST ALT Alkaline Phosphatase Troponin I < 0.015 < 0.015 Total Protein Albumin Lipase Diagnostic Findings Echocardiogram performed today revealed preserved LV systolic function without regional wall motion abnormalities. ECG Additional Comments: EKG demonstrates sinus rhythm with chronic ST and T-wave changes. (1) Chest pain Chest pain type: unspecified Qualified Code(s): R07.9 - Chest pain, unspecified
[2018-12-26] MEDS: PANTOprazole 40 MG TAB PO SCH (16:22)
--- NOTE | 2018-12-26 16:54 | Ultrasound Report ---
US venous doppler LE CLINICAL HISTORY: 78 years-old Female presenting with leg swelling,elevated D-dimer,r/o DVT. TECHNIQUE: Real-time grayscale and color and spectral Doppler ultrasound imaging of the veins of the bilateral lower extremities was performed. Compression and augmentation were also utilized. COMPARISON: 05/04/2010. FINDINGS: RIGHT: Common femoral vein: Patent. Greater saphenous vein (superficial): Patent. Deep femoral vein: Patent. Femoral vein: Patent. Popliteal vein: Patent. Calf veins: Patent. LEFT: Common femoral vein: Patent. Greater saphenous vein (superficial): Patent. Deep femoral vein: Patent. Femoral vein: Patent. Popliteal vein: Patent. Calf veins: Patent. Other: None. IMPRESSION: No evidence of deep venous thrombosis. Electronically signed by: Jerad Miranda M.D. 12/26/2018 4:52 PM
--- NOTE | 2018-12-26 17:56 | Discharge Summary ---
Date of Service December 26, 2018 Admission HPI Per Admitting Provider Pleasant 78-year-old female with past mental history of 2 episodes of cardiomyopathy, hypertension, GERD who presents with chest pain. She reports that she went to bed in her normal state of health; however, she woke up feeling "tired." She was sitting at her table after eating breakfast and reports an acute onset, sharp, 6/10 left substernal chest pain which radiated around to the sternum and then around to the back. She denies any other symptoms with the chest pain, including shortness of breath, lightheadedness, dizziness, diaphoresis, nausea, vomiting. She did not attempt to take anything for the pain, but presented to the emergency department due to her prior history of cardiomyopathies. She reports that the pain has gradually faded while in the emergency department, and that she is now chest pain-free. She denies any previous pain like this. Her prior cardiomyopathy presented more with fatigue than any sort of pain. Principal Diagnosis Atypical chest pain Discharge Exam Constitutional WD/WN, vitals as above Eyes PERRL, conjunctivae normal, anicteric sclerae ENMT external ear and nose normal, oropharynx normal Neck trachea midline, no thyromegaly Respiratory normal respiratory effort, lungs clear to auscultation Cardiovascular RRR, no murmur, no edema Gastrointestinal (Abdomen) normal bowel sounds, soft, nontender, no hepatosplenomegaly Musculoskeletal Extremities: extremities normal to inspection; no cyanosis and no clubbing Skin no rashes, warm and dry Neurologic moves all extremities and awake; no focal motor deficits Psychiatric A+Ox3, euthymic affect Discharge Data Allergies Allergy/AdvReac Type Severity Reaction Status Date / Time codeine Allergy Unknown Unknown Verified 12/26/18 08:40 latex Allergy Unknown LOCAL RASH Verified 12/25/18 12:35 Sulfa (Sulfonamide Allergy Unknown Unknown Verified 12/26/18 08:40 Antibiotics) tromethamine Allergy Unknown kidney Verified 12/25/18 12:35 failure aspirin AdvReac Unknown UPSET Verified 12/26/18 08:40 STOMACH/STOMACH PAIN ketorolac AdvReac Unknown kidney Verified 12/26/18 08:40 failure CONTRASTMEDIA Allergy Intermediate Unknown Uncoded 12/25/18 12:35 Consultations 12/25/18 14:07 ED Decision to Admit Stat 12/26/18 07:34 Consult Cardiology Routine Ordered Studies 12/25/18 13:04 CT angio chest PE protocol Stat 12/26/18 13:30 US venous doppler [facility] Urgent Chest x-ray Hospital Course (1) Chest pain: Atypical story with chest pain onset at rest, sharp, non-radiating, left- sided and around the rib cage to the back and no associated symptoms. EKG shows TWI in I, aVL, and V4-V6 which improved on subsequent ECG. Cardiology reviewed the case in consultation and did not feel it was significant. Serial troponins were negative. Echocardiogram was without wall motion abnormalities and had normal LV function. No prior coronary artery disease. Pain abated without treatment and may have been related to either musculoskeletal pain, early shingles, or perhaps esophageal spasm.. A d-dimer was drawn in the ER which was positive at 1200. CT angiogram of the chest showed no large PEs but was nondiagnostic for smaller PEs. Doppler of lower extremities was negative for DVT. Stress echo in 2014 was negative for ischemia and did not feel that she needed an ischemic risk assessment as an inpatient or an outpatient. She had no recurrence of the pain at all through 24 hours of hospital stay. She had no significant events on telemetry. Stable for discharge to home (2) Takotsubo syndrome: Two episodes of Takotsubo's in 1996 & 2006. Mostly for this reason she came to the ED. - Echo here is normal (3) Hypertension: Controlled -Continue home Dyazide (4) Hypothyroidism: TSH was 2.5 in 11/2018. No signs/symptoms of hypo-/hyperthyroidism. -Continue home pig thyroid (5) CKD (chronic kidney disease) stage 3, GFR 30-59 ml/min: Baseline Cr ~1.1 - 1.2, eGFR ~40. Cr was 1.3 on admission and increased to 1.5 on the day after admission, so mildly higher, but not an RUTH. This may been due to mild prerenal AK I secondary to poor p.o. intake the day of admission, but she also did receive IV contrast with her CT scan of the chest - Monitor Cr as an outpatient early next week with PCP - Renally-dose medications (6) GERD (gastroesophageal reflux disease): No GERD-type symptoms at present. - Continue home medications (7) Anxiety: - Continue home benzo. (8) Pulmonary nodules: Pulmonary nodules seen on CTA chest on 12/25. Recommend repeat CT chest in 6-12 months. She is low risk with no history of smoking (9) DVT prophylaxis: SCDs were provided Disposition-stable for discharge to home Total Time Total Time Spent Total Time Spent (In Minutes): Greater than 30 minutes Total Time Includes: Examination of the Patient, Discharge Planning, Medication Reconciliation and Communication With Other Providers (Cardiology) Discharge Plan Discharge Items Patient Disposition: Home - Self-Care Reason For Visit: CHEST PAIN Discharge Diagnosis: Chest pain Condition: Good Discharge Goals: Decrease discomfort, Diagnostic testing and Learn about illness Activity: Resume your previous activity Lifting: Gradually increase as tolerated Bathing: No limitations Exercise/Sports: Gradually increase as tolerated Driving/Machine Use: No limitations Non-emergency contact: Primary Care Provider Call non-emergency contact if: you have any medication questions, your symptoms worsen, your pain is not controlled, your pain is worsening, your pain is unusual for you and your pain is concerning for you Follow-up/Referrals: Marvin Avila MD [Primary Care Provider] - Diet: Heart Healthy Addtl Provider Instructions: You were admitted with chest pain and had testing of your heart that showed all was normal. You had a CT of the chest and an ultrasound of you rlegs that were negative for blood clots. This pain may have been related to a GI issue, a musculoskeletal issue, or perhaps early shingles. Please have your kidney function checked early next week by your PCP. Your CT of the chest incidentally found some small nodules. You should talk to your doctor about ordering a repeat CT of the chest in 3-6 months to follow these to make sure they are not getting larger. Please follow up with your PCP within 1 week after discharge. Prescriptions: Continued carvedilol 25 mg tablet 12.5 mg PO QAM RF: 0 sucralfate 1 gram tablet 1 g PO QPM RF: 0 triamterene-hydrochlorothiazid 37.5-25 mg capsule 1 cap PO BID RF: 0 temazepam 15 mg capsule 15 mg PO HS PRN (Reason: Sleep) RF: 0 pantoprazole 40 mg tablet,delayed release (DR/EC) 40 mg PO DAILY RF: 0 lorazepam 1 mg tablet 1 mg PO DAILY PRN (Reason: Anxiety) RF: 0 thyroid (pork) [[place] Thyroid] 60 mg tablet 60 mg PO DAILY RF: 0 Changed carvedilol 25 mg tablet 25 mg PO HS Qty: 0 RF: 0 Stand-Alone Forms: Call Back Authorization, [facility] Discharge Orders: Discharge Order (Routine); Ordered 12/26/18 Ordered By: Christina Richter Admission Data Admit Date/Time: 12/25/18 15:25 Attending Provider: Christina Richter Admit Provider: Luis Meléndez Primary Care Provider: Marvin Avila Other Providers: Luis Meléndez ; [place] Service: Telemetry Medical Other Pending Studies at Discharge: No
== END 2018-12-26 18:54 | disposition home or self-care (01) ==
LOC: ED 11:55 → 2N 11:55 → SUATTDRO 15:25 → 2N 16:23

== ENCOUNTER 2019-02-09 18:34 | Inpatient (IN) ==
--- NOTE | 2019-02-09 19:33 | Emergency Department Note ---
ED Provider Note CHIEF COMPLAINT: Nausea, fever HISTORY OF PRESENT ILLNESS: The patient is a 79 y/o female with cardiomyopathy, hypertension, GERD who presents to the ER because of nausea and fatigue. The patient also notes the following associated symptoms: low grade fever, constipation and new urinary difficulty and occasional incontinence. SHe was recently treated with amoxicillin and prednisone for bronchitis. The symptoms started 24 hrs ago and are worsening. The patient has tried the following for relief : No medication. She has no appetite. Pt denies LOC, headache, fevers, chills, diaphoresis, visual changes, neck pain, chest pain, breathing difficulties, vomiting, abdominal pain, back pain, melena, hematochezia, numbness, weakness, lymphadenopathy, rash, or other complaints. REVIEW OF SYSTEMS: See HPI for pertinent positives and negatives. A total of ten systems were reviewed and were otherwise negative. PMHx/PSHx: cardiomyopathy, hypertension, GERD SOCIAL HISTORY: Patient lives at home. PHYSICAL EXAM: GENERAL: Awake, alert, well-appearing, in no distress HENT: Normocephalic, atraumatic. Oropharynx unremarkable. EYES: PERRL. Normal conjunctiva. Sclera non-icteric. NECK: Inspection normal. Non-tender. Supple. No nuchal rigidity. FROM. No masses. RESPIRATORY: Clear to auscultation. No wheezes. No rales. Normal respiratory effort. CARDIAC: Normal rate. Normal rhythm. No murmurs. No rubs. Extremities warm and well perfused. Pulses equal. No JVD. GI: Soft, non-distended. No tenderness to palpation. No rebound or guarding. No masses. RECTAL: Deferred. MUSCULOSKELETAL: Atraumatic. Chest examination reveals no tenderness. The back is symmetrical on inspection without obvious abnormality. There is no CVA tenderness to palpation. No joint edema. LOWER EXTREMITIES: Calves are equal size bilaterally and non-tender. No edema. No discoloration. NEURO: Normal sensorium. No sensory or motor deficits noted. SKIN: No rash or jaundice noted. MEDICAL DECISION MAKING: Triage Nursing notes reviewed. The patient's presentation and history were concerning for fever, nausea and urinary symptoms. Etiologies such as viral syndrome, medication side effect, otitis, pharyngitis, pneumonia, urinary tract infection, sepsis, bacteremia, diverticulitis, gastritis,, as well as others were entertained. The patient states she is a significant history of GERD. She was treated with amoxicillin and prednisone recently respiratory issues. The patient was treated with IV Zofran tonight for her nausea. Her bladder imaging was unremarkable. CBC and chemistry panel was unremarkable except for minimal decrease in her potassium. LFTs and lipase negative. The patient did note some new urinary symptoms however she has a negative urinalysis. Her troponin was within normal limits at 0.021. A repeat troponin was ordered. Patient's ECG shows a normal sinus rhythm at 87 bpm. There is left axis deviation with LVH and repolarization abnormality. When compared to January [id number] there is no significant change. The troponin was still in process. Her case was signed out to Dr. Ramirez at the change of shift. IMPRESSION: Nausea History of cardiomyopathy PLAN: Still a patient Impression & Plan Nausea Past Med/Surg History Medical History GERD (gastroesophageal reflux disease) (Chronic) Acute tubular necrosis Anxiety Asthma Bronchospasm Coronary artery disease Diverticulosis Hyperlipidemia Hypertension Hypothyroidism Major depression Myocardial infarction Takotsubo syndrome Vitamin D deficiency Surgical History History of right hip replacement Social History Preferred Language: Bulgarian Communication Ability: Effective Residential Mortgage Underwriter Required: No Beliefs That Will Affect Care: None Current Living Situation: Spouse Other Information That Helps Us Care for You: No Feels Safe at Home: Yes Safety Concerns: Feels Safe At This Time Smoking Status: Never smoker Do You Dip or Chew Tobacco: No Second Hand Exposure: No Hx Alcohol Use: No Hx Substance Use: No Results & Data Vital Signs Vital Signs - 24 hr 02/09/19 18:37 02/09/19 21:14 02/09/19 22:56 Temperature 36.9 C Temperature Source Oral Sepsis Recent Fever Within 48 Hours No Sepsis New/Unexplained Change in Mental Status No Sepsis Action Taken by Nursing No Action Required Pulse Rate 100 H Pulse Rate [Right] 82 80 Pulse Rhythm [Right] Regular Regular Pulse Strength [Right] Normal Normal Respiratory Rate 16 18 17 Respiratory Effort / Characteristics Non-Labored Spontaneous Non-Labored Respiratory Depth Normal Normal Respiratory Pattern Regular Regular Blood Pressure 160/80 H Blood Pressure [Left Arm] 135/68 149/87 H Blood Pressure Mean 106 Blood Pressure Mean [Left Arm] 90 107 Blood Pressure Position [Left Arm] Lying Sitting Pulse Oximetry 97 91 90 Oxygen Delivery Method Room Air Room Air Room Air Oxygen Flow Rate 02/09/19 23:29 02/09/19 23:42 02/09/19 23:45 Temperature Temperature Source Sepsis Recent Fever Within 48 Hours Sepsis New/Unexplained Change in Mental Status Sepsis Action Taken by Nursing Pulse Rate Pulse Rate [Right] 84 90 Pulse Rhythm [Right] Regular Pulse Strength [Right] Respiratory Rate 18 18 18 Respiratory Effort / Characteristics Non-Labored Spontaneous Non-Labored Spontaneous Respiratory Depth Normal Normal Respiratory Pattern Blood Pressure Blood Pressure [Left Arm] 145/69 H Blood Pressure Mean Blood Pressure Mean [Left Arm] 94 Blood Pressure Position [Left Arm] Sitting Pulse Oximetry 94 86 L 95 Oxygen Delivery Method Room Air Room Air Nasal Cannula Oxygen Flow Rate 2 02/10/19 00:29 Temperature 37.6 C H Temperature Source Oral Sepsis Recent Fever Within 48 Hours Sepsis New/Unexplained Change in Mental Status Sepsis Action Taken by Nursing Pulse Rate Pulse Rate [Right] Pulse Rhythm [Right] Pulse Strength [Right] Respiratory Rate Respiratory Effort / Characteristics Respiratory Depth Respiratory Pattern Blood Pressure Blood Pressure [Left Arm] Blood Pressure Mean Blood Pressure Mean [Left Arm] Blood Pressure Position [Left Arm] Pulse Oximetry Oxygen Delivery Method Oxygen Flow Rate Laboratory Data Result diagrams: 02/10/19 06:31 02/10/19 06:31 Lab Results 02/09/19 02/09/19 02/09/19 Range/Units 19:45 19:54 19:54 WBC 7.66 (4.8-10.8) K/uL RBC 4.82 (4.2-5.4) M/uL Hgb 14.9 (12.0-16.0) g/dL Hct 42.2 (37-47) % MCV 87.6 (80-100) fL MCH 30.9 (25-34) pg MCHC 35.3 (32-36) g/dL RDW Std Deviation 43.1 (36.4-46.3) fL RDW Coeff of Virgilio 13.4 (11.5-14.5) % Plt Count 121 L (130-400) K/uL MPV 9.8 (7.4-10.4) fL Immature Gran % (Auto) 0.8 % Neut % (Auto) 84.7 % Lymph % (Auto) 6.4 % Scurry % (Auto) 8.0 % Eos % (Auto) 0.0 % Baso % (Auto) 0.1 % Immature Gran # (Auto) 0.06 H (0.00-0.02) K/uL Neut # (Auto) 6.49 (1.4-6.5) K/uL Lymph # (Auto) 0.49 L (1.2-3.4) K/uL Scurry # (Auto) 0.61 H (0.11-0.59) K/uL Eos # (Auto) 0.00 (0-0.5) K/uL Baso # (Auto) 0.01 (0-0.2) K/uL Sodium 135 L (136-145) mmol/L Potassium 3.2 L (3.5-5.1) mmol/L Chloride 100 (98-107) mmol/L Carbon Dioxide 26 (21-32) mmol/L Anion Gap 9.0 (3-11) BUN 24 H (7-18) mg/dl Creatinine 1.28 H (0.6-1.2) mg/dl Est Cr Clr Drug Dosing 40.4 ml/min Est GFR ( Amer) 45.4 Est GFR (Non-Af Amer) 39.2 BUN/Creatinine Ratio 18.5 (10-20) Glucose 116 H (70-99) mg/dl POC Lactic Acid Jose Eduardo 0.93 (0.90-1.70) mmol/L Calcium 9.2 (8.5-10.1) mg/dl Total Bilirubin 0.7 (0.2-1) mg/dl AST 31 (15-37) U/L ALT 28 (12-78) U/L Alkaline Phosphatase 66 (45-117) U/L Troponin I 0.021 (0-0.045) ng/ml Total Protein 6.8 (6.4-8.2) gm/dl Albumin 3.3 L (3.4-5.0) gm/dl Globulin 3.5 (2.5-4.0) gm/dl Albumin/Globulin Ratio 0.9 (0.9-2) Lipase 161 (73-393) U/L Urine Color Urine Appearance (Clear) Urine pH (4.5-7.5) Ur Specific [place] (1.000-1.030) Urine Protein (Negative) Urine Glucose (UA) (Negative) Urine Ketones (Negative) Urine Blood (Negative) Urine Nitrite (Negative) Urine Bilirubin (Negative) Urine Urobilinogen (Negative) Ur Leukocyte Esterase (Negative) Urine WBC (Auto) (0-5) /hpf Urine RBC (Auto) (0-4) /hpf U Hyaline Cast (Auto) (0-5) /lpf U Epithel Cells (Auto) (0-5) /lpf Urine Bacteria (Auto) (Negative) 02/09/19 02/09/19 02/09/19 Range/Units 20:00 21:20 23:36 WBC (4.8-10.8) K/uL RBC (4.2-5.4) M/uL Hgb (12.0-16.0) g/dL Hct (37-47) % MCV (80-100) fL MCH (25-34) pg MCHC (32-36) g/dL RDW Std Deviation (36.4-46.3) fL RDW Coeff of Virgilio (11.5-14.5) % Plt Count (130-400) K/uL MPV (7.4-10.4) fL Immature Gran % (Auto) % Neut % (Auto) % Lymph % (Auto) % Scurry % (Auto) % Eos % (Auto) % Baso % (Auto) % Immature Gran # (Auto) (0.00-0.02) K/uL Neut # (Auto) (1.4-6.5) K/uL Lymph # (Auto) (1.2-3.4) K/uL Scurry # (Auto) (0.11-0.59) K/uL Eos # (Auto) (0-0.5) K/uL Baso # (Auto) (0-0.2) K/uL Sodium (136-145) mmol/L Potassium (3.5-5.1) mmol/L Chloride (98-107) mmol/L Carbon Dioxide (21-32) mmol/L Anion Gap (3-11) BUN (7-18) mg/dl Creatinine (0.6-1.2) mg/dl Est Cr Clr Drug Dosing ml/min Est GFR ( Amer) Est GFR (Non-Af Amer) BUN/Creatinine Ratio (10-20) Glucose (70-99) mg/dl POC Lactic Acid Jose Eduardo (0.90-1.70) mmol/L Calcium (8.5-10.1) mg/dl Total Bilirubin (0.2-1) mg/dl AST (15-37) U/L ALT (12-78) U/L Alkaline Phosphatase (45-117) U/L Troponin I 0.027 0.035 (0-0.045) ng/ml Total Protein (6.4-8.2) gm/dl Albumin (3.4-5.0) gm/dl Globulin (2.5-4.0) gm/dl Albumin/Globulin Ratio (0.9-2) Lipase (73-393) U/L Urine Color Yellow Urine Appearance Clear (Clear) Urine pH 5.5 (4.5-7.5) Ur Specific [place] 1.021 (1.000-1.030) Urine Protein 1+ H (Negative) Urine Glucose (UA) Negative (Negative) Urine Ketones Negative (Negative) Urine Blood Trace H (Negative) Urine Nitrite Negative (Negative) Urine Bilirubin Negative (Negative) Urine Urobilinogen Negative (Negative) Ur Leukocyte Esterase Negative (Negative) Urine WBC (Auto) 1-5 (0-5) /hpf Urine RBC (Auto) 5-10 H (0-4) /hpf U Hyaline Cast (Auto) 0 (0-5) /lpf U Epithel Cells (Auto) >30 H (0-5) /lpf Urine Bacteria (Auto) Negative (Negative) Administered Medications Carvedilol (Coreg) 12.5 mg PO QAM [facility] Stop: 03/12/19 08:59 Last Admin: 02/10/19 08:19 Dose: 12.5 mg Documented by: [id number] Heparin Sodium (Porcine) (Heparin Sodium (Porcine)) 5,000 units SQ Q12 [facility] Stop: 03/12/19 08:59 Last Admin: 02/10/19 08:20 Dose: 5,000 units Documented by: [id number] Cosigned by: [id number] Ioversol (Optiray 320 125ml) 125 ml IV ONCE PRN PRN Reason: Interaction Checking Stop: 02/13/19 23:25 Last Admin: 02/09/19 23:27 Dose: 80 ml Documented by: [id number] Pantoprazole Sodium (Protonix) 40 mg PO DAILY [facility] Stop: 03/12/19 08:59 Last Admin: 02/10/19 10:20 Dose: 40 mg Documented by: [id number] Thyroid ([place] Thyroid) 60 mg PO DAILY [facility] Stop: 03/12/19 08:59 Last Admin: 02/10/19 08:19 Dose: 60 mg Documented by: [id number] Triamterene/HCTZ (Dyazide 37.5/25mg) 1 cap PO BID [facility] Stop: 03/12/19 08:59 Last Admin: 02/10/19 08:20 Dose: 1 cap Documented by: [id number] Discontinued Medications Diphenhydramine HCl (Benadryl) 25 mg IV NOW STA Stop: 02/09/19 22:45 Last Admin: 02/09/19 22:52 Dose: 25 mg Documented by: [id number] Sodium Chloride (Nss) 500 mls @ 999 mls/hr IV .Q31M [facility] Stop: 02/09/19 20:15 Last Infusion: 02/09/19 20:33 Dose: 0 mls/hr Documented by: [id number] Admin: 02/09/19 19:56 Dose: 999 mls/hr Documented by: [id number] Methylprednisolone 125 mg/ (Syringe) 2 mls @ 1.5 mls/min IV NOW STA Stop: 02/09/19 22:44 Last Admin: 02/09/19 23:01 Dose: Not Given Documented by: [id number] Sodium Chloride (Nss 1000ml) 1,000 mls @ 150 mls/hr IV .[id number] [facility] Stop: 03/11/19 22:44 Last Admin: 02/10/19 04:29 Dose: Not Given Documented by: [id number] Magnesium Sulfate/Dextrose (Magnesium Sulfate / D5w) 1 gm in 100 mls @ 100 mls/hr IV ONE ONE Stop: 02/10/19 04:14 Last Infusion: 02/10/19 05:12 Dose: 0 mls/hr Documented by: [id number] Admin: 02/10/19 03:52 Dose: 100 mls/hr Documented by: [id number] Sodium Chloride (Nss 1000ml) 1,000 mls @ 80 mls/hr IV .[id number] [facility] Stop: 02/10/19 15:18 Last Infusion: 02/10/19 16:21 Dose: 0 mls/hr Documented by: [id number] Admin: 02/10/19 03:52 Dose: 80 mls/hr Documented by: [id number] Potassium Chloride (K Chidi / Wtr) 10 meq in 100 mls @ 100 mls/hr IV Q1H [facility] Stop: 02/10/19 05:29 Last Infusion: 02/10/19 06:14 Dose: 0 mls/hr Documented by: [id number] Admin: 02/10/19 05:08 Dose: 100 mls/hr Documented by: [id number] Infusion: 02/10/19 04:56 Dose: 100 mls/hr Documented by: [id number] Admin: 02/10/19 03:56 Dose: 100 mls/hr Documented by: [id number] Methylprednisolone (Solumedrol) Confirm Administered Dose 125 mg .ROUTE .STK-MED ONE Stop: 02/09/19 22:50 Last Admin: 02/09/19 22:53 Dose: 125 mg Documented by: [id number] Ondansetron HCl (Zofran) 4 mg IV NOW STA Stop: 02/09/19 19:35 Last Admin: 02/09/19 19:56 Dose: 4 mg Documented by: [id number] Ondansetron HCl (Zofran) 4 mg IV NOW STA Stop: 02/09/19 21:21 Last Admin: 02/09/19 21:28 Dose: 4 mg Documented by: [id number] Discharge Plan Visit Data *Final* Discharge Date/Time: 02/10/19 02:21 Chief Complaint: Nausea Stated Complaint: NAUSEA, FATIGUE ED Provider: Sudheer Kate Discharge Problem: Nausea Patient Disposition: Admitted As Inpatient Discharge Instructions Interventions: ED Discharge Assessment Last Done: 02/10/19 02:21
[2019-02-09] MEDS ORDERED: ONDANSETRON INJ 2 MG/ML 2 ML VIAL IV STA ×2 (19:34→21:20)
[2019-02-09] MEDS ORDERED: SODIUM CHLORIDE 0.9% 500 ML IV SCH (19:45)
--- NOTE | 2019-02-09 20:08 | XRay Report ---
XR chest 1V portable HISTORY: 79 years-old Female fever acute fever with nausea COMPARISON: Chest radiograph and CTA chest 12/25/2018 TECHNIQUE: Portable AP view of the chest FINDINGS: Cardiomediastinal and hilar silhouettes are unchanged. Mild mostly linear subsegmental bibasilar opac ities are noted. No pneumothorax, large pleural effusion or overt pulmonary edema. Ill-defined opacit ies about the right midlung suggests summation density with pulmonary vasculature. Mild blunting abou t the left costophrenic angle likely secondary to atelectasis or scarring. IMPRESSION: Mild subsegmental bibasilar opacities suggest probable atelectasis. The above report was generated using voice recognition software. It may contain grammatical, syntax o r spelling errors. Electronically signed by: Trever Geller M.D. 02/09/2019 8:06 PM
[2019-02-09 20:09] LABS: Basophils # (auto) 0.01 K/uL (0-0.2); Basophils % (auto) 0.1 %; Hematocrit (blood only) 42.2 % (37-47); Hemoglobin 14.9 g/dL (12.0-16.0); Immature Granulocytes # (auto) 0.06 K/uL (0.00-0.02); Immature Granulocytes % (auto) 0.8 %; Lymphocytes # (auto) 0.49 K/uL (1.2-3.4); Lymphocytes % (auto) 6.4 %; Mean Corpuscular Hgb Conc 35.3 g/dL (32-36); Mean Corpuscular Volume 87.6 fL (80-100); Mean Platelet Volume 9.8 fL (7.4-10.4); Monocytes # (auto) 0.61 K/uL (0.11-0.59); Neutrophils # (auto) 6.49 K/uL (1.4-6.5); Neutrophils % (auto) 84.7 %; Platelet Count 121 K/uL (130-400); RDW Coefficient of Variation 13.4 % (11.5-14.5); RDW Standard Deviation 43.1 fL (36.4-46.3); Red Blood Count 4.82 M/uL (4.2-5.4); White Blood Count 7.66 K/uL (4.8-10.8)
[2019-02-09 20:22] LABS: Albumin Level 3.3 gm/dl (3.4-5.0); BUN Creatinine Ratio 18.5 (10-20); Calcium 9.2 mg/dl (8.5-10.1); Creatinine Clr Calc Pharmacy 40.4 ml/min; Est GFR (African American) 45.4; Est GFR (Non-African American) 39.2; Potassium 3.2 mmol/L (3.5-5.1)
[2019-02-09 20:27] LABS: Albumin Globulin Ratio 0.9 (0.9-2); Bilirubin,Total 0.7 mg/dl (0.2-1); Globulin 3.5 gm/dl (2.5-4.0); Total Protein 6.8 gm/dl (6.4-8.2); Troponin I 0.021 ng/ml (0-0.045)
[2019-02-09 20:47] LABS: Appearance Urine Clear (Clear); Bacteria Urine Automated Negative (Negative); Bilirubin Urine Negative (Negative); Blood Urine Trace (Negative); Cast Urine Automated 0 /lpf (0-5); Color Urine Yellow; Epithelial Cell Urine Auto >30 /lpf (0-5); Glucose Urine UA Negative (Negative); Ketones Urine Negative (Negative); Leukocyte Esterase Urine Negative (Negative); Nitrite Urine Negative (Negative); Protein Urine 1+ (Negative); Specific Gravity Urine 1.021 (1.000-1.030); Urobilinogen Urine Negative (Negative); pH Urine 5.5 (4.5-7.5)
--- NOTE | 2019-02-09 21:02 | Ultrasound Report ---
US gallbladder HISTORY: 79 years-old Female ruq abd pain, fever acute right upper quadrant abdominal pain with feve r COMPARISON: CT abdomen and pelvis 12/05/2010 TECHNIQUE: Multiple real-time sonographic images of the abdominal right upper quadrant were obtained assessing grayscale appearance and color flow FINDINGS: Limited exam secondary to patient cooperation and coughing throughout the study. Nonspecific mildly heterogeneous appearance of the visualized pancreas. Slightly heterogeneous appear ance of the liver without focal mass or marginal nodularity to suggest cirrhosis. No intrahepatic del ayed ductal dilation. The gallbladder is unremarkable without shadowing cholelithiasis, wall thickeni ng or pericholecystic fluid. Sonographic Henley sign was not reported. Common bile duct is normal, 4 mm. Imaged right kidney is unremarkable without hydronephrosis. IMPRESSION: 1. No cholelithiasis or sonographic evidence of acute cholecystitis. 2. No biliary ductal dilation. The above report was generated using voice recognition software. It may contain grammatical, syntax o r spelling errors. Electronically signed by: Trever Geller M.D. 02/09/2019 9:00 PM
--- NOTE | 2019-02-09 21:30 | CT Scan Report ---
ABDOMEN AND PELVIS CT WITHOUT CONTRAST CT DOSE: 693.75 mGy.cm HISTORY: Acute nausea with fever fever, nausea TECHNIQUE: Multiaxial CT images of the abdomen and pelvis were performed without contrast. A dose lo wering technique was utilized adhering to the principles of ALARA. COMPARISON STUDY: Right upper quadrant abdominal ultrasound of same day, CT abdomen and pelvis 011. FINDINGS: Subsegmental bibasilar atelectasis/scarring. No pneumatosis or pneumoperitoneum. Imaged inferior card iac chambers are mildly enlarged with aortic annular calcifications noted. Is suggestion of mild hepatic steatosis. The liver is otherwise unremarkable. Gallbladder, spleen and adrenal glands are unremarkable. Moderate generalized pancreatic atrophy. No biliary ductal dilation identified. Probable cyst of the superior pole right kidney, 1.3 cm. The kidneys, ureters, urinary b ladder, uterus and adnexa appear unremarkable. Trace free pelvic fluid. Moderate calcified plaque of the aorta without aneurysm. No adenopathy. No bowel obstruction or focal bowel wall thickening. Moderate formed stool noted about the colon and rectum. Colonic diverticulosis without acute diverticulitis. Terminal ileum and appendix appear afua l. No ascites or mesenteric inflammation. Streak artifact from right hip arthroplasty limits evaluati on of the pelvic structures. The breast parenchyma and soft tissues are within normal limits. Degener ative changes of the pelvis, hips and spine. IMPRESSION: 1. No bowel obstruction or focal bowel wall thickening. Normal appendix. 2. Moderate constipation. 3. Colonic diverticulosis without acute diverticulitis. 4. Additional findings as above. Electronically signed by: Trever Geller M.D. 02/09/2019 9:28 PM
[2019-02-09] MEDS ORDERED: methylPREDNISolone 125 MG in SYRINGE 0 ML IV STA (22:43)
[2019-02-09] MEDS ORDERED: DiphenhydrAMINE HCL 50 MG/ML VIAL IV STA (22:44)
[2019-02-09] MEDS ORDERED: SODIUM CHLORIDE 0.9% 1000ML 1,000 ML IV SCH (22:45)
[2019-02-09] MEDS ORDERED: methylPREDNISolone 125 MG/2 ML VIAL ONE (22:49)
[2019-02-09] MEDS ORDERED: OPTIRAY 320 125ml IV PRN (23:26)
--- NOTE | 2019-02-10 00:34 | Emergency Department Note ---
Entered by Larissa Pink acting as a scribe for Wendy Ramirez MD ED Visit Note I received this patient in signout at the change of shift from Dr. Kate pending repeat troponin. The patient has had some vague symptoms with a low- grade fever, nausea and some upper chest discomfort but denies any pain. She describes a "bronchitis or pneumonia" over the last several weeks that she has been taking clindamycin for, per her account. Patient also has been using a nebulizer. Patient had a repeat troponin at 90 minutes that was slightly higher than the initial. On my reevaluation, patient was noted to have a moist cough. Chest x-ray was reviewed once again and reveals atelectasis at the bases bilaterally. Given the persistent shortness of breath and cough despite antibiotic therapy and a low-grade fever, CT rule out PE was ordered. Patient did require IV Solu-Medrol and IV Benadryl for pretreatment prior to contrast. This study is read as below: CTA CHEST: Compared to 12/25/18 No clear PE within limitations due to motion. Distended central arteries suggesting pulmonary hypertension. Ascending aortic ectasia measuring 4 cm. No dissection in the ascending segment. Left greater than right base subsegmental atelectasis. Cardiomegaly. Radiologist: Wilfrid Amador M.D. . On my reevaluation the patient, she was diaphoretic. She is noted to have a temperature of 37 6 orally. The results were discussed. Patient was noted to desaturate to 86% on room air by nursing staff. The etiology of the patient's symptoms are unclear but may be related to pulmonary hypertension as noted above. Given the patient's hypoxia, slightly elevated troponin, shortness of breath and nausea/chest discomfort, the patient will be evaluated by the hospitalist, Dr. Hernadez, for further management. Patient is aware of the plan and agrees. The scribe's documentation has been prepared under my direction and personally reviewed by me in its entirety. I confirm that the note above accurately reflects all work, treatment, procedures, and medical decision making performed by me.
--- NOTE | 2019-02-10 02:15 | History & Physical Report ---
Date of Service February 10, 2019 Assessment & Plan (1) NSTEMI (non-ST elevated myocardial infarction): 79-year-old female with a past medical history of hypertension, Takotsubo cardiomyopathy, hypothyroidism, GERD, asthma presents with severe nausea. In the ED, the patient was found to be hypoxic, febrile and with a positive troponin. NSTEMIendocarditis/myocarditis versus cardiomyopathy versus demand ischemia Mild elevation in troponin, continue to trend until peak Admit to telemetry Blood cultures Echocardiogram, cardiology consult Nausea, febrile illness, hypoxia IV fluids 80 cc/h Tylenol for fevers Albuterol as needed No consolidation seen on chest x-ray, UA negative/asymptomatic Determine need for antibiotics based on blood cultures Acute on chronic kidney disease Appears to be around baseline Holding triameterene-hctz Hypertension Continue carvedilol GERD Continue PPI Hypothyroidism Continue [place] Thyroid DVT prophylaxis Heparin subcu CODE STATUS Full code, patient has advanced directive. Discussed with patient to bring in to confirm (2) Bronchitis: (3) Nausea: (4) Hypoxia: (5) Hypothyroid: (6) Asthma: (7) Anxiety: (8) CKD (chronic kidney disease) stage 3, GFR 30-59 ml/min: (9) GERD (gastroesophageal reflux disease): History of Present Illness Primary Care Provider: Marvin Avila MD 79-year-old female with a past medical history of hypertension, Takotsubo cardiomyopathy and GERD presents with acute nausea. Patient states that she woke up yesterday morning from a restless sleep and felt extremely weak and nauseated. She stated that she slept most of the day which is unusual for her. Later in the day, the nausea became severe enough that she decided to come to the hospital. She states that she has been suffering from an upper respiratory infection for the past 2 weeksshe was treated with antibiotics, steroids and nebulized breathing treatments. She states that her symptoms have improved overall, but she still has a lingering cough. Today in the ED, the patient is requiring oxygen and is febrile. She denies being on oxygen at home. She does endorse having asthma. She denies being a smoker. She endorses a history of Takotsubo cardiomyopathy (1996, 2006). She has since been placed on a beta-verónica to control adrenergic activity. She is also treated for hypertension. 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 Cough as described above Abdomen; nausea as described above, denies abdominal pain, vomiting or diarrhea Allergies Allergy/AdvReac Type Severity Reaction Status Date / Time codeine Allergy Unknown Unknown Verified 02/09/19 23:22 latex Allergy Unknown LOCAL RASH Verified 02/09/19 23:22 Sulfa (Sulfonamide Allergy Unknown Unknown Verified 02/09/19 23:22 Antibiotics) tromethamine Allergy Unknown kidney Verified 02/09/19 23:22 failure aspirin AdvReac Unknown UPSET Verified 02/09/19 23:22 STOMACH/STOMACH PAIN ketorolac AdvReac Unknown kidney Verified 02/09/19 23:22 failure CONTRASTMEDIA Allergy Intermediate Unknown Uncoded 02/09/19 23:22 Home Medications Home Medications Medication Instructions Recorded Confirmed Type carvedilol 12.5 mg PO QAM 12/25/18 02/09/19 History lorazepam 1 mg PO DAILY PRN 12/25/18 02/09/19 History pantoprazole 40 mg PO DAILY 12/25/18 02/09/19 History sucralfate 1 g PO QPM PRN 12/25/18 02/09/19 History temazepam 15 mg PO HS PRN 12/25/18 02/09/19 History thyroid (pork) [[place] Thyroid] 60 mg PO DAILY 12/25/18 02/09/19 History triamterene-hydrochlorothiazid 1 cap PO BID 12/25/18 02/09/19 History carvedilol 25 mg PO HS #0 tab 12/26/18 02/09/19 Rx albuterol sulfate 2.5 mg INH Q6H PRN #30 ea 01/31/19 02/09/19 Rx benzonatate 200 mg PO TID PRN 01/31/19 02/09/19 History Past Med/Surg History Medical History GERD (gastroesophageal reflux disease) (Chronic) Acute tubular necrosis Anxiety Asthma Bronchospasm Coronary artery disease Diverticulosis Hyperlipidemia Hypertension Hypothyroidism Major depression Myocardial infarction Takotsubo syndrome Vitamin D deficiency Surgical History History of right hip replacement Social History Preferred Language: Nigerien Communication Ability: Effective Beliefs That Will Affect Care: None Current Living Situation: Spouse Feels Safe at Home: Yes Smoking Status: Never smoker Second Hand Exposure: No Hx Alcohol Use: Yes Alcohol type: beer Hx Substance Use: No Review of Systems Review of Systems: All systems reviewed & are unremarkable except as noted in HPI & below Physical Exam Constitutional: WD/WN, vitals as above Eyes: PERRL, conjunctivae normal, anicteric sclerae ENMT: external ear and nose normal, oropharynx normal Neck: trachea midline, no thyromegaly Respiratory: normal respiratory effort, lungs clear to auscultation Cardiovascular: Rate/Rhythm: regular rate and regular rhythm Heart Sounds: no gallop, no murmur and no cardiac rub Vessels: normal peripheral pulses Extremities: + pedal edema (+1); no calf tenderness Gastrointestinal (Abdomen): normal bowel sounds, soft, nontender, no hepatosplenomegaly Skin: no rashes, warm and dry Neurologic: PERRL, EOMI, accommodation nl, no face palsy, no dysarthria Psychiatric: A+Ox3, euthymic affect Results & Data Vital Signs (Past 12 Hours) Vital Signs Temp Pulse Pulse Resp BP BP Pulse Ox 02/10/19 00:29 37.6 C H 02/09/19 23:45 18 95 02/09/19 23:42 90 18 86 L 02/09/19 23:29 84 18 145/69 H 94 02/09/19 22:56 80 17 149/87 H 90 02/09/19 21:14 82 18 135/68 91 02/09/19 18:37 36.9 C 100 H 16 160/[address] Scan Report Patient: DESIRE REES Date: 02/09/19 MR#: [id number]: [address] [place] [address] Acct ID:[id number]: Date: 1940[facility] [address] Zip: [place] [address] Age: 79Location: ED Sex: F Room/Bed: Att Phy: Diagnosis: NAUSEA, FATIGUE Daisy Phy: MarvinViki MDService Date: 02/09/19 [facility] Phy: Interpreting Phy: Rashawn Geller Admit Phy: Ordering Phy: Sudheer Kate MD cc: ~ ABDOMEN AND PELVIS CT WITHOUT CONTRAST CT DOSE: 693.75 mGy.cm HISTORY: Acute nausea with fever fever, nausea TECHNIQUE: Multiaxial CT images of the abdomen and pelvis were performed without contrast. A dose lowering technique was utilized adhering to the principles of ALARA. COMPARISON STUDY: Right upper quadrant abdominal ultrasound of same day, CT abdomen and pelvis 12/05/2010. FINDINGS: Subsegmental bibasilar atelectasis/scarring. No pneumatosis or pneumoperitoneum. Imaged inferior cardiac chambers are mildly enlarged with aortic annular calcifications noted. Is suggestion of mild hepatic steatosis. The liver is otherwise unremarkable. Gallbladder, spleen and adrenal glands are unremarkable. Moderate generalized pancreatic atrophy. No biliary ductal dilation identified. Probable cyst of the superior pole right kidney, 1.3 cm. The kidneys, ureters, urinary bladder, uterus and adnexa appear unremarkable. Trace free pelvic fluid. Moderate calcified plaque of the aorta without aneurysm. No adenopathy. No bowel obstruction or focal bowel wall thickening. Moderate formed stool noted about the colon and rectum. Colonic diverticulosis without acute diverticulitis. Terminal ileum and appendix appear normal. No ascites or mesenteric inflammation . Streak artifact from right hip arthroplasty limits evaluation of the pelvic structures. The breast parenchyma and soft tissues are within normal limits. Degenerative changes of the pelvis, hips and spine. IMPRESSION: 1. No bowel obstruction or focal bowel wall thickening. Normal appendix. 2. Moderate constipation. 3. Colonic diverticulosis without acute diverticulitis. 4. Additional findings as above. Electronically signed by: Trever Geller M.D. 02/09/2019 9:28 PM Dictated: 02/09/192121 Transcribed: 02/09/192121 [facility] [phone] Ultrasound Report Patient: DESIRE REES Date: 02/09/19 MR#: [id number]: [address] [place] [address] Acct ID:[id number]: Date: 1940[facility] Zip: [place] [address] Age: 79Location: ED Sex: F Room/Bed: Att Phy: Diagnosis: NAUSEA, FATIGUE Daisy Phy: Marvin Avila MDService Date: 02/09/19 Fam Phy: Interpreting Phy: Rashawn Geller Admit Phy: Ordering Phy: Sudheer Kate MD cc: ~ US gallbladder HISTORY: 79 years-old Female ruq abd pain, fever acute right upper quadrant abdominal pain with fever COMPARISON: CT abdomen and pelvis 12/05/2010 TECHNIQUE: Multiple real-time sonographic images of the abdominal right upper quadrant were obtained assessing grayscale appearance and color flow FINDINGS: Limited exam secondary to patient cooperation and coughing throughout the study. Nonspecific mildly heterogeneous appearance of the visualized pancreas. Slightly heterogeneous appearance of the liver without focal mass or marginal nodularity to suggest cirrhosis. No intrahepatic delayed ductal dilation. The gallbladder is unremarkable without shadowing cholelithiasis, wall thickening or pericholecystic fluid. Sonographic Henley sign was not reported. Common bile duct is normal, 4 mm. Imaged right kidney is unremarkable without hydronephrosis. IMPRESSION: 1. No cholelithiasis or sonographic evidence of acute cholecystitis. 2. No biliary ductal dilation. The above report was generated using voice recognition software. It may contain grammatical, syntax or spelling errors. Electronically signed by: Trever Geller M.D. 02/09/2019 9:00 PM Dictated: 02/09/192057 Transcribed: 02/09/192057 [place] [phone] XRay Report Patient: DESIRE REES Date: 02/09/19 MR#: [id number]: [address] [place] [address] Acct ID:[id number]: Date: 1940City Zip: [place] [address] Age: 79Location: ED Sex: F Room/Bed: Att Phy: Diagnosis: NAUSEA, FATIGUE Daisy Phy: Marvin Avila MDService Date: 02/09/19 Fam Phy: Interpreting Phy: Rashawn Geller Admit Phy: Ordering Phy: Sudheer Kate MD cc: ~ XR chest 1V portable HISTORY: 79 years-old Female fever acute fever with nausea COMPARISON: Chest radiograph and CTA chest 12/25/2018 TECHNIQUE: Portable AP view of the chest FINDINGS: Cardiomediastinal and hilar silhouettes are unchanged. Mild mostly linear subsegmental bibasilar opacities are noted. No pneumothorax, large pleural effusion or overt pulmonary edema. Ill-defined opacities about the right midlung suggests summation density with pulmonary vasculature. Mild blunting about the left costophrenic angle likely secondary to atelectasis or scarring. IMPRESSION: Mild subsegmental bibasilar opacities suggest probable atelectasis. The above report was generated using voice recognition software. It may contain grammatical, syntax or spelling errors. Electronically signed by: Trever Geller M.D. 02/09/2019 8:06 PM Dictated: 02/09/192004 Transcribed: 02/09/192004 Supervising Physician Co-Signing Physician Notes Pt seen/examined in conjunction with resident MD Rao Waggoner. Orders and plan of admission formulated with resident. 79 y/o F Hx HTN, hypothyroid, CKD III, Takotsubo syndrome, GERD - presents with acute nausea and fever. Initial labs were notable for a detectable trop although not technically +, and mild hypokalemia. There were no acute changes noted on EKG. A CT chest was clear. OE AAO x 3 S1,2 R CTAB NT, ND No CCE P: Fever and nausea are of unclear etiology. Blood cultures are pending although we have not treated her empirically. She will have a repeat echo AM. We would consider a cardiology consult if her trop trended upward. We will continue her B verónica and Synthroid. Resident Activity Tracking Resident Involvement: Resident Care Provided Care Provided: Adult [facility]
[2019-02-10] MEDS ORDERED: ACETAMINOPHEN 325 MG TAB PO PRN (02:49)
[2019-02-10] MEDS ORDERED: SODIUM CHLORIDE 0.9% 1000ML 1,000 ML IV SCH (02:49)
[2019-02-10] MEDS ORDERED: LORazepam 1 MG TAB PO PRN (02:49)
[2019-02-10] MEDS ORDERED: ALBUT/IPRATROP 3MG/0.5MG NEB 3 ML VIAL INH PRN (02:49)
[2019-02-10] MEDS ORDERED: SUCRALFATE 1 GM TAB PO PRN (02:49)
[2019-02-10] MEDS ORDERED: MAGNESIUM SULFATE / D5W 1 GM/100 ML BAG IV ONE (03:15)
[2019-02-10] MEDS: POTASSIUM CHLORIDE / WTR 10 MEQ/100 ML PLCT IV SCH ×2 (03:56→05:08)
--- NOTE | 2019-02-10 06:24 | CT Scan Report ---
CT angio chest PE protocol CT DOSE: 311.36 mGy.cm HISTORY: Chest pain. Dyspnea. PE-CKD, low dose contrast, premedicated TECHNIQUE: Multiaxial CT images of the chest were performed following the intravenous administration of contrast to evaluate the pulmonary arteries. Maximal intensity projection images were also obtaine d. A dose lowering technique was utilized adhering to the principles of ALARA. COMPARISON STUDY: 12/25/2018 FINDINGS: Slightly compromised exam due to respiratory and somatic motion. The major pulmonary vessel s enhance appropriately. Continues to be mild 4 cm ectasia of the thoracic aorta as a cine component. The lungs are grossly clear. Minimal basilar atelectatic change. May be minimal infiltrative process at the left base posteriorly. Prominence of the central pulmonary arterial vasculature is again noted which is unchanged. Mid and u pper lungs are completely clear. IMPRESSION: 1. No evidence for pulmonary embolus. 2. Suboptimal exam due to patient respiratory and somatic motion. 3. Unchanging ectasia of the descending thoracic aorta at 4 cm. 4. Mild bibasilar atelectatic change with potential minimal infiltrative change posterior left base. The above report was generated using voice recognition software. It may contain grammatical, syntax or spelling errors. Electronically signed by: Bobby Orozco M.D. 02/10/2019 6:23 AM
[2019-02-10 06:53] LABS: Hematocrit (blood only) 41.4 % (37-47); Hemoglobin 14.1 g/dL (12.0-16.0); Immature Granulocytes # (auto) 0.04 K/uL (0.00-0.02); Immature Granulocytes % (auto) 0.6 %; Lymphocytes # (auto) 0.31 K/uL (1.2-3.4); Lymphocytes % (auto) 4.5 %; Mean Corpuscular Hgb Conc 34.1 g/dL (32-36); Mean Corpuscular Volume 88.7 fL (80-100); Mean Platelet Volume 10.2 fL (7.4-10.4); Monocytes # (auto) 0.16 K/uL (0.11-0.59); Monocytes % (auto) 2.3 %; Neutrophils # (auto) 6.33 K/uL (1.4-6.5); Neutrophils % (auto) 92.6 %; Platelet Count 106 K/uL (130-400); RDW Coefficient of Variation 13.7 % (11.5-14.5); RDW Standard Deviation 44.2 fL (36.4-46.3); Red Blood Count 4.67 M/uL (4.2-5.4); White Blood Count 6.84 K/uL (4.8-10.8)
[2019-02-10 07:20] LABS: BUN Creatinine Ratio 16.1 (10-20); Calcium 8.2 mg/dl (8.5-10.1); Est GFR (African American) 39.7; Est GFR (Non-African American) 34.3; Potassium 3.6 mmol/L (3.5-5.1)
[2019-02-10] MEDS: ARMOUR THYROID 30 MG TAB PO SCH (08:19)
[2019-02-10] MEDS: CARVEDILOL 12.5 MG TAB PO SCH (08:19)
[2019-02-10] MEDS: HEPARIN SOD 5,000 UNIT/0.5 ML VIAL SQ SCH ×2 (08:20→20:43)
[2019-02-10] MEDS ORDERED: TRIAMTERENE/HCTZ 37.5/25MG CAP PO SCH ×2 (09:00)
[2019-02-10] MEDS: PANTOprazole 40 MG TAB PO SCH (10:20)
--- NOTE | 2019-02-10 17:33 | Family Medicine Progress Note ---
Date of Service February 10, 2019 Assessment & Plan (1) NSTEMI (non-ST elevated myocardial infarction): 79-year-old female with a past medical history of hypertension, Takotsubo cardiomyopathy, hypothyroidism, GERD, asthma presents with severe nausea. In the ED, the patient was found to be hypoxic, febrile, with RUTH Fever, unknown cause -May be related to residual bronchitis Troponin never positive -Blood cultures pending Echocardiogram normal -Tylenol PRN Bronchitis IV fluids 80 cc/h Tylenol for fevers Duoneb q6h -Will repeat CXR in AM Determine need for antibiotics based on blood cultures, unlikely Acute on chronic kidney disease Baseline 1.2. On admit, 1.4 -IVF NSS @ 80; monitor Holding triameterene-hctz Hypertension Continue carvedilol GERD Continue PPI Hypothyroidism Continue [place] Thyroid DVT prophylaxis Heparin subcu CODE STATUS Full code, patient has advanced directive. Discussed with patient to bring in to confirm Dispo: med/surg. Home tomorrow if prelim blood cultures negative, fever free x 24 hours, no oxygen req's, improved renal fx. (2) Bronchitis: (3) Nausea: (4) Hypoxia: (5) Hypothyroid: (6) Asthma: (7) Anxiety: (8) CKD (chronic kidney disease) stage 3, GFR 30-59 ml/min: (9) GERD (gastroesophageal reflux disease): Supervising Physician Co-Signing Physician Notes I saw the patient concurrent with the resident physician and confirmed aponte portions of the history and physical exam. Agree with the impression and plan as noted above The patient feels pretty well this morning. She does note some constipation. Denies nausea or vomiting. Her troponins were all negative. There is no indication that this is a cardiac event. She does tell me that she took a Hemp supplement yesterday and she wonders if this could cause the nausea and other symptoms she had yesterday. This is a possibility and though it does not explain fever, low-grade albeit. The patient does tell me that she was treated for an upper respiratory infection with Zithromax and a short course of prednisone as an outpatient. Fever Perhaps residual from her upper respiratory infection Repeat chest x-ray in AM Cultures pending Acute on chronic kidney Gentle fluids BMP in AM Subjective Patient feels great this morning. Reports minimal residual chest congestion related to bronchitis. Denies fever, dyspnea, chest pain, diaphoresis. She states that she thinks she knows what happened to her and reports that as she was feeling unwell with the bronchitis, she took a CBD gummy at her friend's recommendation. She ended up sleeping for over 24 hours straight, felt nauseated, had not drank anything, etc. She also wonders if being on the z pack and steroid course, with that ending, if it would make a difference in her symptoms. Review of Systems Review of Systems: All systems reviewed & are unremarkable except as noted in HPI & below Constitutional: no fever, no chills and no body aches Respiratory: + cough and + chest congestion; no dyspnea and no pain with cough Cardiovascular: no chest pain and no radiating jaw, neck or arm pain Gastrointestinal: no abdominal pain, no nausea and no vomiting Physical Exam Constitutional: WD/WN, vitals as above Eyes: PERRL, conjunctivae normal, anicteric sclerae ENMT: external ear and nose normal, oropharynx normal Neck: trachea midline, no thyromegaly Respiratory: normal respiratory effort, lungs clear to auscultation Cardiovascular: Rate/Rhythm: regular rate and regular rhythm Heart Sounds: no gallop, no murmur and no cardiac rub Vessels: normal peripheral pulses Extremities: + pedal edema (+1); no calf tenderness Gastrointestinal (Abdomen): normal bowel sounds, soft, nontender, no hepatosplenomegaly Skin: no rashes, warm and dry Neurologic: PERRL, EOMI, accommodation nl, no face palsy, no dysarthria Psychiatric: A+Ox3, euthymic affect Results & Data Vital Signs (Past 12 Hours) Vital Signs Temp Pulse Pulse Resp BP Pulse Ox 02/10/19 16:00 59 L 02/10/19 15:39 36.5 C 66 18 146/78 H 92 02/10/19 11:26 36.4 C L 58 L 18 103/60 91 02/10/19 10:31 54 L 02/10/19 07:45 36.5 C 57 L 19 112/62 93 Laboratory Results 02/10/19 02/10/19 02/10/19 Range/Units 13:48 06:31 06:31 WBC (4.8-10.8) K/uL RBC (4.2-5.4) M/uL Hgb (12.0-16.0) g/dL Hct (37-47) % MCV (80-100) fL MCH (25-34) pg MCHC (32-36) g/dL RDW Std Deviation (36.4-46.3) fL RDW Coeff of Virgilio (11.5-14.5) % Plt Count (130-400) K/uL MPV (7.4-10.4) fL Immature Gran % (Auto) % Neut % (Auto) % Lymph % (Auto) % Carroll % (Auto) % Eos % (Auto) % Baso % (Auto) % Immature Gran # (Auto) (0.00-0.02) K/uL Neut # (Auto) (1.4-6.5) K/uL Lymph # (Auto) (1.2-3.4) K/uL Carroll # (Auto) (0.11-0.59) K/uL Eos # (Auto) (0-0.5) K/uL Baso # (Auto) (0-0.2) K/uL Sodium 134 L (136-145) mmol/L Potassium 3.6 (3.5-5.1) mmol/L Chloride 99 (98-107) mmol/L Carbon Dioxide 28 (21-32) mmol/L Anion Gap 7.0 (3-11) BUN 23 H (7-18) mg/dl Creatinine 1.43 H (0.6-1.2) mg/dl Est Cr Clr Drug Dosing 36.0 ml/min Est GFR ( Amer) 39.7 Est GFR (Non-Af Amer) 34.3 BUN/Creatinine Ratio 16.1 (10-20) Glucose 183 H (70-99) mg/dl POC Lactic Acid Jose Eduardo (0.90-1.70) mmol/L Calcium 8.2 L (8.5-10.1) mg/dl Total Bilirubin (0.2-1) mg/dl AST (15-37) U/L ALT (12-78) U/L Alkaline Phosphatase (45-117) U/L Troponin I < 0.015 0.022 (0-0.045) ng/ml Total Protein (6.4-8.2) gm/dl Albumin (3.4-5.0) gm/dl Globulin (2.5-4.0) gm/dl Albumin/Globulin Ratio (0.9-2) Lipase (73-393) U/L Urine Color Urine Appearance (Clear) Urine pH (4.5-7.5) Ur Specific [place] (1.000-1.030) Urine Protein (Negative) Urine Glucose (UA) (Negative) Urine Ketones (Negative) Urine Blood (Negative) Urine Nitrite (Negative) Urine Bilirubin (Negative) Urine Urobilinogen (Negative) Ur Leukocyte Esterase (Negative) Urine WBC (Auto) (0-5) /hpf Urine RBC (Auto) (0-4) /hpf U Hyaline Cast (Auto) (0-5) /lpf U Epithel Cells (Auto) (0-5) /lpf Urine Bacteria (Auto) (Negative) 02/10/19 02/09/19 02/09/19 Range/Units 06:31 23:36 21:20 WBC 6.84 (4.8-10.8) K/uL RBC 4.67 (4.2-5.4) M/uL Hgb 14.1 (12.0-16.0) g/dL Hct 41.4 (37-47) % MCV 88.7 (80-100) fL MCH 30.2 (25-34) pg MCHC 34.1 (32-36) g/dL RDW Std Deviation 44.2 (36.4-46.3) fL RDW Coeff of Virgilio 13.7 (11.5-14.5) % Plt Count 106 L (130-400) K/uL MPV 10.2 (7.4-10.4) fL Immature Gran % (Auto) 0.6 % Neut % (Auto) 92.6 % Lymph % (Auto) 4.5 % Carroll % (Auto) 2.3 % Eos % (Auto) 0.0 % Baso % (Auto) 0.0 % Immature Gran # (Auto) 0.04 H (0.00-0.02) K/uL Neut # (Auto) 6.33 (1.4-6.5) K/uL Lymph # (Auto) 0.31 L (1.2-3.4) K/uL Carroll # (Auto) 0.16 (0.11-0.59) K/uL Eos # (Auto) 0.00 (0-0.5) K/uL Baso # (Auto) 0.00 (0-0.2) K/uL Sodium (136-145) mmol/L Potassium (3.5-5.1) mmol/L Chloride (98-107) mmol/L Carbon Dioxide (21-32) mmol/L Anion Gap (3-11) BUN (7-18) mg/dl Creatinine (0.6-1.2) mg/dl Est Cr Clr Drug Dosing ml/min Est GFR ( Amer) Est GFR (Non-Af Amer) BUN/Creatinine Ratio (10-20) Glucose (70-99) mg/dl POC Lactic Acid Jose Eduardo (0.90-1.70) mmol/L Calcium (8.5-10.1) mg/dl Total Bilirubin (0.2-1) mg/dl AST (15-37) U/L ALT (12-78) U/L Alkaline Phosphatase (45-117) U/L Troponin I 0.035 0.027 (0-0.045) ng/ml Total Protein (6.4-8.2) gm/dl Albumin (3.4-5.0) gm/dl Globulin (2.5-4.0) gm/dl Albumin/Globulin Ratio (0.9-2) Lipase (73-393) U/L Urine Color Urine Appearance (Clear) Urine pH (4.5-7.5) Ur Specific [place] (1.000-1.030) Urine Protein (Negative) Urine Glucose (UA) (Negative) Urine Ketones (Negative) Urine Blood (Negative) Urine Nitrite (Negative) Urine Bilirubin (Negative) Urine Urobilinogen (Negative) Ur Leukocyte Esterase (Negative) Urine WBC (Auto) (0-5) /hpf Urine RBC (Auto) (0-4) /hpf U Hyaline Cast (Auto) (0-5) /lpf U Epithel Cells (Auto) (0-5) /lpf Urine Bacteria (Auto) (Negative) 02/09/19 02/09/19 02/09/19 Range/Units 20:00 19:54 19:54 WBC 7.66 (4.8-10.8) K/uL RBC 4.82 (4.2-5.4) M/uL Hgb 14.9 (12.0-16.0) g/dL Hct 42.2 (37-47) % MCV 87.6 (80-100) fL MCH 30.9 (25-34) pg MCHC 35.3 (32-36) g/dL RDW Std Deviation 43.1 (36.4-46.3) fL RDW Coeff of Virgilio 13.4 (11.5-14.5) % Plt Count 121 L (130-400) K/uL MPV 9.8 (7.4-10.4) fL Immature Gran % (Auto) 0.8 % Neut % (Auto) 84.7 % Lymph % (Auto) 6.4 % Carroll % (Auto) 8.0 % Eos % (Auto) 0.0 % Baso % (Auto) 0.1 % Immature Gran # (Auto) 0.06 H (0.00-0.02) K/uL Neut # (Auto) 6.49 (1.4-6.5) K/uL Lymph # (Auto) 0.49 L (1.2-3.4) K/uL [place] # (Auto) 0.61 H (0.11-0.59) K/uL Eos # (Auto) 0.00 (0-0.5) K/uL Baso # (Auto) 0.01 (0-0.2) K/uL Sodium 135 L (136-145) mmol/L Potassium 3.2 L (3.5-5.1) mmol/L Chloride 100 (98-107) mmol/L Carbon Dioxide 26 (21-32) mmol/L Anion Gap 9.0 (3-11) BUN 24 H (7-18) mg/dl Creatinine 1.28 H (0.6-1.2) mg/dl Est Cr Clr Drug Dosing 40.4 ml/min Est GFR ( Amer) 45.4 Est GFR (Non-Af Amer) 39.2 BUN/Creatinine Ratio 18.5 (10-20) Glucose 116 H (70-99) mg/dl POC Lactic Acid Jose Eduardo (0.90-1.70) mmol/L Calcium 9.2 (8.5-10.1) mg/dl Total Bilirubin 0.7 (0.2-1) mg/dl AST 31 (15-37) U/L ALT 28 (12-78) U/L Alkaline Phosphatase 66 (45-117) U/L Troponin I 0.021 (0-0.045) ng/ml Total Protein 6.8 (6.4-8.2) gm/dl Albumin 3.3 L (3.4-5.0) gm/dl Globulin 3.5 (2.5-4.0) gm/dl Albumin/Globulin Ratio 0.9 (0.9-2) Lipase 161 (73-393) U/L Urine Color Yellow Urine Appearance Clear (Clear) Urine pH 5.5 (4.5-7.5) Ur Specific [place] 1.021 (1.000-1.030) Urine Protein 1+ H (Negative) Urine Glucose (UA) Negative (Negative) Urine Ketones Negative (Negative) Urine Blood Trace H (Negative) Urine Nitrite Negative (Negative) Urine Bilirubin Negative (Negative) Urine Urobilinogen Negative (Negative) Ur Leukocyte Esterase Negative (Negative) Urine WBC (Auto) 1-5 (0-5) /hpf Urine RBC (Auto) 5-10 H (0-4) /hpf U Hyaline Cast (Auto) 0 (0-5) /lpf U Epithel Cells (Auto) >30 H (0-5) /lpf Urine Bacteria (Auto) Negative (Negative) 02/09/19 Range/Units 19:45 WBC (4.8-10.8) K/uL RBC (4.2-5.4) M/uL Hgb (12.0-16.0) g/dL Hct (37-47) % MCV (80-100) fL MCH (25-34) pg MCHC (32-36) g/dL RDW Std Deviation (36.4-46.3) fL RDW Coeff of Virgilio (11.5-14.5) % Plt Count (130-400) K/uL MPV (7.4-10.4) fL Immature Gran % (Auto) % Neut % (Auto) % Lymph % (Auto) % Carroll % (Auto) % Eos % (Auto) % Baso % (Auto) % Immature Gran # (Auto) (0.00-0.02) K/uL Neut # (Auto) (1.4-6.5) K/uL Lymph # (Auto) (1.2-3.4) K/uL [place] # (Auto) (0.11-0.59) K/uL Eos # (Auto) (0-0.5) K/uL Baso # (Auto) (0-0.2) K/uL Sodium (136-145) mmol/L Potassium (3.5-5.1) mmol/L Chloride (98-107) mmol/L Carbon Dioxide (21-32) mmol/L Anion Gap (3-11) BUN (7-18) mg/dl Creatinine (0.6-1.2) mg/dl Est Cr Clr Drug Dosing ml/min Est GFR ( Amer) Est GFR (Non-Af Amer) BUN/Creatinine Ratio (10-20) Glucose (70-99) mg/dl POC Lactic Acid Jose Eduardo 0.93 (0.90-1.70) mmol/L Calcium (8.5-10.1) mg/dl Total Bilirubin (0.2-1) mg/dl AST (15-37) U/L ALT (12-78) U/L Alkaline Phosphatase (45-117) U/L Troponin I (0-0.045) ng/ml Total Protein (6.4-8.2) gm/dl Albumin (3.4-5.0) gm/dl Globulin (2.5-4.0) gm/dl Albumin/Globulin Ratio (0.9-2) Lipase (73-393) U/L Urine Color Urine Appearance (Clear) Urine pH (4.5-7.5) Ur Specific [place] (1.000-1.030) Urine Protein (Negative) Urine Glucose (UA) (Negative) Urine Ketones (Negative) Urine Blood (Negative) Urine Nitrite (Negative) Urine Bilirubin (Negative) Urine Urobilinogen (Negative) Ur Leukocyte Esterase (Negative) Urine WBC (Auto) (0-5) /hpf Urine RBC (Auto) (0-4) /hpf U Hyaline Cast (Auto) (0-5) /lpf U Epithel Cells (Auto) (0-5) /lpf Urine Bacteria (Auto) (Negative) Medications Administered Current Inpatient Medications Acetaminophen (Tylenol) 650 mg PO Q4H PRN PRN Reason: Pain or Fever Stop: 03/12/19 02:48 Albuterol (Duoneb) 3 ml INH Q6H PRN PRN Reason: shortness of breath or wheezing Stop: 03/12/19 02:48 Albuterol (Duoneb) 3 ml NEB Q6R MEDINA Stop: 03/12/19 19:59 Carvedilol (Coreg) 12.5 mg PO QAM MEDINA Stop: 03/12/19 08:59 Last Admin: 02/10/19 08:19 Dose: 12.5 mg Documented by: Carvedilol (Coreg) 25 mg PO HS MEDINA Stop: 03/12/19 20:59 Heparin Sodium (Porcine) (Heparin Sodium (Porcine)) 5,000 units SQ Q12 MEDINA Stop: 03/12/19 08:59 Last Admin: 02/10/19 08:20 Dose: 5,000 units Documented by: Sodium Chloride (Nss 1000ml) 1,000 mls @ 80 mls/hr IV .[id number] MEDINA Stop: 03/12/19 16:29 Ioversol (Optiray 320 125ml) 125 ml IV ONCE PRN PRN Reason: Interaction Checking Stop: 02/13/19 23:25 Last Admin: 02/09/19 23:27 Dose: 80 ml Documented by: Lorazepam (Ativan) 1 mg PO Q6H PRN PRN Reason: Anxiety Stop: 03/12/19 02:48 Ondansetron HCl (Zofran) 4 mg IV Q6H PRN PRN Reason: Nausea Stop: 03/12/19 02:48 Pantoprazole Sodium (Protonix) 40 mg PO DAILY MEDINA Stop: 03/12/19 08:59 Last Admin: 02/10/19 10:20 Dose: 40 mg Documented by: Sucralfate (Carafate Tab) 1 gm PO QPM PRN PRN Reason: Acid Reflux Stop: 03/12/19 02:48 Thyroid ([place] Thyroid) 60 mg PO DAILY MEDINA Stop: 03/12/19 08:59 Last Admin: 02/10/19 08:19 Dose: 60 mg Documented by: Triamterene/HCTZ (Dyazide 37.5/25mg) 1 cap PO BID MEDINA Stop: 03/12/19 08:59 Last Admin: 02/10/19 08:20 Dose: 1 cap Documented by: Resident Activity Tracking Resident Involvement: Resident Care Provided Care Provided: Adult Hospital Medicine
[2019-02-10] MEDS: ALBUT/IPRATROP 3MG/0.5MG NEB 3 ML VIAL NEB SCH (18:12)
[2019-02-10] MEDS: SODIUM CHLORIDE 0.9% 1000ML 1,000 ML IV SCH (19:17)
[2019-02-10] MEDS ORDERED: COUGH DROP (SUGAR FREE) LOZ 24 LOZ/1 BOX BUCCAL PRN (19:58)
[2019-02-10] MEDS ORDERED: COUGH DROP (SUGAR FREE) LOZ 24 LOZ/1 BOX BUCCAL ONE (20:09)
[2019-02-10] MEDS ORDERED: CARVEDILOL 25 MG TAB PO SCH (21:00)
[2019-02-11] MEDS: ALBUT/IPRATROP 3MG/0.5MG NEB 3 ML VIAL NEB SCH ×2 (01:52→11:05)
[2019-02-11] MEDS: ONDANSETRON INJ 2 MG/ML 2 ML VIAL IV PRN ×2 (05:01→10:26)
--- NOTE | 2019-02-11 07:09 | XRay Report ---
XR chest 1V portable CLINICAL HISTORY: monitor infiltrative change L base COMPARISON STUDY: 02/09/2019 FINDINGS: Small parenchymal infiltrate/atelectasis left base unchanged. Lungs otherwise appear clear. Mild chronic elevation right hemidiaphragm. Minimal atelectasis right base. IMPRESSION: Stable left and to a lesser extent right basilar atelectatic/infiltrative change. No new findings. The above report was generated using voice recognition software. It may contain grammatical, syntax or spelling errors. Electronically signed by: Bobby Orozco M.D. 02/11/2019 7:07 AM
[2019-02-11 08:07] LABS: Calcium 8.1 mg/dl (8.5-10.1); Creatinine Clr Calc Pharmacy 40.2 ml/min; Est GFR (African American) 45.4; Est GFR (Non-African American) 39.2; Potassium 3.1 mmol/L (3.5-5.1)
[2019-02-11] MEDS: SODIUM CHLORIDE 0.9% 1000ML 1,000 ML IV SCH (08:19)
[2019-02-11] MEDS: PANTOprazole 40 MG TAB PO SCH (08:20)
[2019-02-11] MEDS: ARMOUR THYROID 30 MG TAB PO SCH (08:20)
[2019-02-11] MEDS: CARVEDILOL 12.5 MG TAB PO SCH (08:20)
[2019-02-11] MEDS: HEPARIN SOD 5,000 UNIT/0.5 ML VIAL SQ SCH (08:22)
[2019-02-11 08:30] LABS: Mean Platelet Volume 11.1 fL (7.4-10.4)
[2019-02-11 08:32] LABS: Hemoglobin 12.4 g/dL (12.0-16.0); Mean Corpuscular Hgb Conc 33.5 g/dL (32-36); Mean Corpuscular Volume 89.8 fL (80-100); Platelet Count 44 K/uL (130-400); RDW Coefficient of Variation 13.8 % (11.5-14.5); Red Blood Count 4.12 M/uL (4.2-5.4); White Blood Count 6.24 K/uL (4.8-10.8)
[2019-02-11 08:40] LABS: Immature Granulocytes # (auto) 0.03 K/uL (0.00-0.02); Immature Granulocytes % (auto) 0.5 %; Lymphocytes # (auto) 0.26 K/uL (1.2-3.4); Lymphocytes % (auto) 4.2 %; Monocytes % (auto) 4.8 %; Neutrophils # (auto) 5.65 K/uL (1.4-6.5); Neutrophils % (auto) 90.5 %
[2019-02-11 08:42] LABS: Toxic Vacuolation 1+
[2019-02-11] MEDS ORDERED: ONDANSETRON HOME PACK 4MG OD TAB PO ONE (09:57)
[2019-02-11] MEDS ORDERED: AMOXICILLIN/CLAVULANATE 875MG HOME PACK PO ONE (10:15)
--- NOTE | 2019-02-11 11:27 | Discharge Summary ---
Date of Service February 11, 2019 Admission HPI Per Admitting Provider 79-year-old female with a past medical history of hypertension, Takotsubo cardiomyopathy and GERD presents with acute nausea. Patient states that she woke up yesterday morning from a restless sleep and felt extremely weak and nauseated. She stated that she slept most of the day which is unusual for her. Later in the day, the nausea became severe enough that she decided to come to the hospital. She states that she has been suffering from an upper respiratory infection for the past 2 weeksshe was treated with antibiotics, steroids and nebulized breathing treatments. She states that her symptoms have improved o verall, but she still has a lingering cough. Today in the ED, the patient is requiring oxygen and is febrile. She denies being on oxygen at home. She does endorse having asthma. She denies being a smoker. She endorses a history of Takotsubo cardiomyopathy (1996, 2006). She has since been placed on a beta-verónica to control adrenergic activity. She is also treated for hypertension. 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 Cough as described above Abdomen; nausea as described above, denies abdominal pain, vomiting or diarrhea Principal Diagnosis fever, nausea Discharge Exam Constitutional WD/WN, vitals as above Eyes PERRL, conjunctivae normal, anicteric sclerae ENMT external ear and nose normal, oropharynx normal Neck trachea midline, no thyromegaly Respiratory normal respiratory effort, lungs clear to auscultation Cardiovascular RRR, no murmur, no edema Gastrointestinal (Abdomen) normal bowel sounds, soft, nontender, no hepatosplenomegaly Musculoskeletal Extremities: extremities normal to inspection; no cyanosis and no clubbing Skin no rashes, warm and dry Neurologic moves all extremities and awake; no focal motor deficits Psychiatric A+Ox3, euthymic affect Constitutional WD/WN, vitals as above Eyes PERRL, conjunctivae normal, anicteric sclerae ENMT external ear and nose normal, oropharynx normal Neck trachea midline, no thyromegaly Respiratory normal respiratory effort, lungs clear to auscultation Cardiovascular Rate/Rhythm: regular rate and regular rhythm Heart Sounds: no gallop, no murmur and no cardiac rub Vessels: normal peripheral pulses Extremities: + pedal edema (+1); no calf tenderness Gastrointestinal (Abdomen) normal bowel sounds, soft, nontender, no hepatosplenomegaly Skin no rashes, warm and dry Neurologic PERRL, EOMI, accommodation nl, no face palsy, no dysarthria Psychiatric A+Ox3, euthymic affect Discharge Data Allergies Allergy/AdvReac Type Severity Reaction Status Date / Time Iodinated Contrast- Oral and Allergy Intermediate Unknown Verified 02/10/19 03:06 IV Dye codeine Allergy Unknown Unknown Verified 02/09/19 23:22 latex Allergy Unknown LOCAL RASH Verified 02/09/19 23:22 Sulfa (Sulfonamide Allergy Unknown Unknown Verified 02/09/19 23:22 Antibiotics) tromethamine Allergy Unknown kidney Verified 02/09/19 23:22 failure aspirin AdvReac Unknown UPSET Verified 02/09/19 23:22 STOMACH/STOMACH PAIN ketorolac AdvReac Unknown kidney Verified 02/09/19 23:22 failure Consultations 02/10/19 00:24 ED Decision to Admit Stat 02/10/19 02:49 Consult Case Management - Discharge Planning Routine Ordered Studies 02/09/19 20:15 US gallbladder Stat 02/09/19 20:53 CT abd pelvis wo con Stat 02/09/19 22:42 CT angio chest PE protocol Urgent Hospital Course (1) Bronchitis: 79-year-old female with a past medical history of hypertension, Takotsubo cardiomyopathy, hypothyroidism, GERD, asthma presents with severe nausea. In the ED, the patient was found to be hypoxic, febrile, with RUTH Fever, unknown cause -May be related to residual bronchitis Troponin never positive -Blood cultures pending, no growth after 24 hrs Echocardiogram normal -Tylenol PRN. Two fevers in 24 hours, came down within 30 min of tylenol Bronchitis Tylenol for fevers Duoneb q6h -Never needed oxygen aside from in ER. -Repeat CXR shows small and improving infiltrates. ?pna Will send home with course of augmentin x 1 week Acute on chronic kidney disease Baseline 1.2. On admit, 1.4 -Improved to baseline after IVF Resume home meds, monitor as outpatient Hypertension Continue carvedilol GERD Continue PPI, dietary interventions Hypothyroidism Continue [place] Thyroid CODE STATUS Full code, patient has advanced directive. Discussed with patient to bring in to PCP if she has not already done so (2) Nausea: (3) Hypoxia: (4) Hypothyroid: (5) Asthma: (6) Anxiety: (7) CKD (chronic kidney disease) stage 3, GFR 30-59 ml/min: (8) GERD (gastroesophageal reflux disease): Total Time Total Time Spent Total Time Spent (In Minutes): 30 Discharge Plan Discharge Items Patient Disposition: Home - Self-Care Reason For Visit: NSTEMI, HYPOXIA Discharge Diagnosis: Fever, nausea, elevated creatinine Discharge Goals: Prevent disease and Therapeutic intervention Activity: Per 'Additional Instructions' section Non-emergency contact: Primary Care Provider Call non-emergency contact if: you have any medication questions, your symptoms worsen and your temperature is above 101.5 Follow-up/Referrals: Marvin Avila MD [Primary Care Provider] - Diet: Heart Healthy Addtl Provider Instructions: During this visit you were evaluated for fever, low oxygen, and elevated kidney levels. Chest xray showed what might be a brewing infection in your lungs. In the setting of your fever, we will send you home on a different antibiotic than you had been on. Please take this antibiotic as long as you can. Discuss stopping the antibiotic with your primary care doc to ensure your blood cultures are negative. Please see your PCP within the next 7-14 days. Continue with your home breathing treatments as needed. Use tylenol as needed for fever. If your symptoms worsen, do not hesitate to see your PCP or present to the ER. Continue to drink plenty of fluids. Prescriptions: New amoxicillin-pot clavulanate [Augmentin] 875-125 mg tablet 1 tab PO BID Qty: 14 RF: 0 ondansetron HCl [Zofran] 4 mg tablet 4 mg PO Q6H PRN (Reason: nausea and vomiting) Qty: 10 RF: 0 Continued albuterol sulfate 2.5 mg/0.5 mL solution for nebulization 2.5 mg INH Q6H PRN (Reason: shortness of breath or wheezing) Qty: 30 RF: 0 benzonatate 200 mg capsule 200 mg PO TID PRN (Reason: Cough) RF: 0 carvedilol 25 mg tablet 12.5 mg PO QAM RF: 0 sucralfate 1 gram tablet 1 g PO QPM PRN (Reason: Acid Reflux) RF: 0 temazepam 15 mg capsule 15 mg PO HS PRN (Reason: Sleep) RF: 0 pantoprazole 40 mg tablet,delayed release (DR/EC) 40 mg PO DAILY RF: 0 lorazepam 1 mg tablet 1 mg PO DAILY PRN (Reason: Anxiety) RF: 0 thyroid (pork) [[place] Thyroid] 60 mg tablet 60 mg PO DAILY RF: 0 carvedilol 25 mg tablet 25 mg PO HS Qty: 0 RF: 0 Stand-Alone Forms: [facility] Discharge Orders: Discharge Order (Routine); Ordered 02/11/19 Ordered By: Carrie Waller Admission Data Admit Date/Time: 02/10/19 01:51 Attending Provider: Kendell Alexander Admit Provider: Steve Waggoner Primary Care Provider: Marvin Avila Other Providers: Dez Hernadez Service: Medical Other Interventions: Discharge Summary Assessment (RN) Last Done: 02/11/19 10:28 DC Date/Time DO NOT enter until pt leaves facility: 02/11/19 12:30 Supervising Physician Co-Signing Physician Notes I saw the patient concurrent with the resident physician and confirmed aponte portions of the history and physical exam. Agree with the impression and plan as noted above The patient notes increasing GERD symptoms this morning but otherwise feels fine. 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 Fever Cultures are negative Chest x-ray hints at a infiltrate and this could fit with her recent history of being treated for bronchitis; clinically, her lungs are clear and she is nontoxic. Agree with course of Augmentin as noted above Acute on chronic kidney Creatinine improved this morning Potassium slightly low which should improve with improved p.o. intake Resident Activity Tracking Resident Involvement: Resident Care Provided Care Provided: Adult Hospital Medicine
--- NOTE | 2019-02-17 10:08 | Coding Query ---
CODING QUERY To promote full compliance with coding requirements relating to patient care, provider participation is requested in all cases of core setter uncertainty. Please assist us with the question(s) below: Please clarify the meaning of RUTH. RUTH is not a valid abbreviation. Thank you. ( ) Acute Kidney Injury ( X) Acute Kidney Insufficiency ( ) Other (Specify): Principal Diagnosis: "that condition established after study, to be chiefly responsible for occasioning the admission of the patient to the hospital for care." Co-Existing Principal Diagnosis: "when two or more diagnoses equally meet the criteria for principal diagnosis as determined by the circumstances of admission, diagnostic work up, and/or therapy provided, and the Alphabetic Index, Tabular List, or another coding guideline does not provide sequencing direction, any one of the diagnoses may be sequenced first." "When the physician has documented what appears to be a current diagnosis in the body of the record, but has not included the diagnosis in the final diagnostic statement, the physician should be asked whether the diagnosis should be added." (Source [facility]oding [facility] 2 QTR90. p3-4) RENÉ
--- NOTE | 2019-02-17 10:10 | Coding Query ---
CODING QUERY To promote full compliance with coding requirements relating to patient care, provider participation is requested in all cases of admeasurer uncertainty. Please assist us with the question(s) below: Coding Question(s): Please clarify below, in your clinical opinion, regarding the Bronchitis. ( X ) Acute Bronchitis ( ) Chronic Bronchitis ( ) Other: Please Specify Physician's Response(s): Thank you Susanna Jeter Principal Diagnosis: "that condition established after study, to be chiefly responsible for occasioning the admission of the patient to the hospital for care." Co-Existing Principal Diagnosis: "when two or more diagnoses equally meet the criteria for principal diagnosis as determined by the circumstances of admission, diagnostic work up, and/or therapy provided, and the Alphabetic Index, Tabular List, or another coding guideline does not provide sequencing direction, any one of the diagnoses may be sequenced first." "When the physician has documented what appears to be a current diagnosis in the body of the record, but has not included the diagnosis in the final diagnostic statement, the physician should be asked whether the diagnosis should be added." (Source [facility] 2 QTR90. p3-4) RENÉ
== END 2019-02-11 12:30 | disposition home or self-care (01) | DRG 202 ==
LOC: ED 18:34 → 2S 02-10 01:51 → SUATTDRO 02-10 01:51 → 2S 02-10 02:21 → 4E 02-10 15:03

== ENCOUNTER 2020-11-06 22:14 | Observation (INO) ==
[2020-11-06] MEDS ORDERED: SODIUM CHLORIDE 0.9% 1000ML 500 ML IV ONE (22:48)
[2020-11-06] MEDS ORDERED: ONDANSETRON INJ 2 MG/ML 2 ML VIAL IV STA (23:03)
[2020-11-06] MEDS ORDERED: diphenhydrAMINE 50 MG/ML VIAL IV STA (23:20)
--- NOTE | 2020-11-06 23:20 | Emergency Department Note ---
History of Present Illness General Chief complaint: Syncope (Near Syncope) Stated complaint: HEADACHE, FATIGUE Time Seen by Provider: 11/06/20 22:30 History of Present Illness This 80-year-old presents to the ER complaining of lightheaded not feeling right and weak this evening. Location: Generalized Quality: Not feeling right Severity: Moderate Duration: Tonight Timing: Started tonight Context: Patient was concerned and came in Modifying factors: better with rest; worse with activity Patient states she was laying down and got up felt lightheaded and did not feel right and felt like she might pass out and then was incontinent. She states this lasted for a while but now feels back at baseline. Patient states she has had a decreased appetite and not feeling well for quite some time. Her D-dimer keeps on going up. She worried that she has cancer. Her last year. Patient denies chest pain, dyspnea, abdominal pain, back pain, numbness, tingling, localized weakness, difficulty speaking. Home Medications Medication Instructions Recorded Confirmed Type pantoprazole 40 mg tablet,delayed 40 mg PO PM #30 tab 04/08/20 11/06/20 Rx release triamterene 37.5 1 cap PO DAILY #90 cap 05/02/20 11/06/20 Rx mg-hydrochlorothiazide 25 mg capsule escitalopram oxalate 20 mg tablet 20 mg PO DAILY #30 tab 10/13/20 11/06/20 Rx montelukast 10 mg tablet 10 mg PO DAILY #30 tab 10/13/20 11/06/20 Rx temazepam 15 mg capsule 15 mg PO HS #30 cap 10/13/20 11/06/20 Rx thyroid (pork) 60 mg tablet 60 mg PO QAM #30 tab 10/13/20 11/06/20 Rx Allergies Allergy/AdvReac Type Severity Reaction Status Date / Time tromethamine Allergy Severe kidney Verified 11/06/20 23:07 failure Iodinated Contrast Media Allergy Intermediate Rash Verified 11/06/20 23:57 [Iodinated Contrast- Oral and IV Dye] Penicillins Allergy Intermediate RASH, HIVES Verified 11/06/20 23:07 diclofenac [From Voltaren] Allergy Mild RASH ON Verified 11/06/20 23:07 HANDS latex Allergy Mild LOCAL RASH Verified 11/06/20 23:07 amlodipine [From Norvasc] Allergy Unknown CAN'T Verified 11/06/20 23:07 REMEMBER codeine Allergy Unknown Unknown Verified 11/06/20 23:07 esomeprazole [From Nexium] Allergy Unknown CAN'T Verified 11/06/20 23:07 REMEMBER lisinopril Allergy Unknown CAN'T Verified 11/06/20 23:07 REMEMBER Sulfa (Sulfonamide Allergy Unknown CAN'T Verified 11/06/20 23:07 Antibiotics) REMEMBER ketorolac AdvReac Severe kidney Verified 11/06/20 23:07 failure aspirin AdvReac Intermediate UPSET Verified 11/06/20 23:07 STOMACH/STOMACH PAIN citalopram Allergy Unknown CAN'T Uncoded 11/06/20 23:07 REMEMBER Past Med/Surg History Medical History (Updated 11/07/20 @ 00:55 by Cassandra Weiner PA-C) Acute tubular necrosis Anxiety Asthma Bronchitis (2018) Bronchospasm Diverticulosis Diverticulosis of colon GERD (gastroesophageal reflux disease) Elva's thyroiditis Hyperlipidemia Hypertension Hypothyroidism Impacted cerumen Major depression Mixed hearing loss, bilateral Myocardial infarction Solitary pulmonary nodule on lung CT Spinal stenosis Takotsubo syndrome (1996) Vitamin D deficiency Surgical History History of right hip replacement S/P appendectomy S/P cataract extraction S/P cholecystectomy S/P knee surgery Family History Mother Hypertension Breast cancer COPD (chronic obstructive pulmonary disease) Grandmother Breast cancer Denies family history of Colon cancer Ovarian cancer Prostate cancer Myocardial infarction Social History Smoking Status: Never smoker Second Hand Exposure: No; Hx Alcohol Use: No Hx Substance Use: No Preferred Language: Icelandic Communication Ability: Effective Visual Impairment: No Limitations Hearing Ability: Normal Business Integration Manager Required: No Beliefs That Will Affect Care: None marital status: Current Living Situation: Alone current occupational status: retired Feels Safe at Home: Yes Childhood Exposure to Second-Hand Smoke: Yes Dental Care, Regularly: Yes Physical Activity Frequency: 5-6 Times per Week Seatbelt Use: always Sunscreen Use: No Assistive Devices: Glasses Review of Systems A total of 10 systems reviewed and were otherwise negative Physical Exam Vital Signs Vital Signs - 24 hr 11/06/20 22:18 11/06/20 23:07 11/06/20 23:15 Temperature 36.9 C Temperature Source Temporal Artery Scan Pulse Rate 67 60 63 Pulse Rate from SpO2 Sensor 59 L 59 L Respiratory Rate 18 23 21 Respiratory Effort / Characteristics Non-Labored Spontaneous Respiratory Depth Normal Respiratory Pattern Regular Blood Pressure 148/73 H 147/74 H Blood Pressure Mean 98 98 Blood Pressure Position Sitting Pulse Oximetry 94 94 95 Oxygen Delivery Method Room Air Room Air Room Air Sepsis Recent Fever Within 48 Hours No Sepsis New/Unexplained Change in Mental Status No Sepsis Action Taken by Nursing No Action Required 11/06/20 23:30 Temperature Temperature Source Pulse Rate 71 Pulse Rate from SpO2 Sensor 69 Respiratory Rate 17 Respiratory Effort / Characteristics Respiratory Depth Respiratory Pattern Blood Pressure Blood Pressure Mean Blood Pressure Position Pulse Oximetry 96 Oxygen Delivery Method Room Air Sepsis Recent Fever Within 48 Hours Sepsis New/Unexplained Change in Mental Status Sepsis Action Taken by Nursing VITALS: Vitals are noted on the nurse's note and reviewed by myself. Vital signs stable. GENERAL: Elderly female hard of hearing, in no acute distress, nondiaphoretic, well-developed well-nourished. SKIN: The skin was without rashes, erythema, edema, or bruising. There is no tenting of the skin. Capillary reflex less than 2 seconds. HEAD: Normocephalic atraumatic. EARS: External auditory canals clear EYES: Pupils equal round and reactive to light and accommodation. Conjunctivae without injection, sclerae without icterus. Extraocular movements intact. NOSE: Patent, turbinates without inflammation or discharge. MOUTH: Mucous membranes moist. Pharynx without erythema or exudate. Uvula midline. Airway patent. Tongue does not deviate. NECK: Supple without nuchal rigidity. No lymphadenopathy. No thyromegaly. Cervical spine is nontender. No JVD. HEART: Regular rate and rhythm LUNGS: Clear to auscultation bilaterally without wheezes, rales or rhonchi. No retractions or accessory muscle use. ABDOMEN: Positive bowel sounds x 4. Normal tympanic percussion. Soft, nontender, without masses or organomegaly. Henley sign negative. No guarding or rebound tenderness. No CVA tenderness MUSCULOSKELETAL: No muscle atrophy, erythema, or edema noted. NEURO: Patient was alert and oriented to person place and time. Normal sensation to light and sharp touch. No focal neurological deficits. Cranial nerves II through XII grossly intact. No pronator drift. Cerebellar exam intact. Course Administered Medications Discontinued Medications Diphenhydramine HCl (Diphenhydramine 50 Mg/Ml Vial) 25 mg IV NOW STA Stop: 11/06/20 23:21 Last Admin: 11/06/20 23:28 Dose: 25 mg Documented by: [id number] Sodium Chloride (Nss 1000ml) 500 mls @ 999 mls/hr IV .Q31M ONE Stop: 11/06/20 23:18 Last Infusion: 11/06/20 23:56 Dose: 0 mls/hr Documented by: [id number] Admin: 11/06/20 23:15 Dose: 999 mls/hr Documented by: [id number] Ioversol (Optiray 320 125ml) 125 ml IV ONCE ONE Stop: 11/07/20 00:12 Last Admin: 11/07/20 00:11 Dose: 102 ml Documented by: [id number] Ondansetron HCl (Ondansetron Inj 2 Mg/Ml 2 Ml Vial) 4 mg IV NOW STA Stop: 11/06/20 23:04 Last Admin: 11/06/20 23:14 Dose: 4 mg Documented by: [id number] Medical Decision Making Medical Records Attestation: I reviewed the patient's medical records. Home Medications Current Medication List: was personally reviewed by me Laboratory Data Attestation: I reviewed the patient's lab results. Result diagrams: 11/06/20 23:03 11/06/20 23:03 Lab Results 11/06/20 11/06/20 11/06/20 Range/Units 23:00 23:03 23:03 WBC 7.86 (4.8-10.8) K/uL RBC 4.29 (4.2-5.4) M/uL Hgb 13.4 (12.0-16.0) g/dL Hct 40.2 (37-47) % MCV 93.7 (80-100) fL MCH 31.2 (25-34) pg MCHC 33.3 (32-36) g/dL RDW Std Deviation 45.7 (36.4-46.3) fL RDW Coeff of Virgilio 13.3 (11.5-14.5) % Plt Count 215 (130-400) K/uL MPV 11.1 H (7.4-10.4) fL Immature Gran % (Auto) 0.1 % Neut % (Auto) 69.3 % Lymph % (Auto) 16.9 % [place] % (Auto) 11.1 % Eos % (Auto) 2.5 % Baso % (Auto) 0.1 % Neut # (Auto) 5.44 (1.4-6.5) K/uL Lymph # (Auto) 1.33 (1.2-3.4) K/uL [place] # (Auto) 0.87 H (0.11-0.59) K/uL Eos # (Auto) 0.20 (0-0.5) K/uL Baso # (Auto) 0.01 (0-0.2) K/uL Immature Gran # (Auto) 0.01 (0.00-0.02) K/uL Sodium 142 (136-145) mmol/L Potassium 4.0 (3.5-5.1) mmol/L Chloride 106 (98-107) mmol/L Carbon Dioxide 29 (21-32) mmol/L Anion Gap 7.0 (3-11) BUN 27 H (7-18) mg/dl Creatinine 1.29 H (0.6-1.2) mg/dl Est Cr Clr Drug Dosing 37.0 ml/min Est GFR ( Amer) 44.7 Est GFR (Non-Af Amer) 38.5 BUN/Creatinine Ratio 20.6 H (10-20) Glucose 131 H (70-99) mg/dl Calcium 9.2 (8.5-10.1) mg/dl Magnesium 2.2 (1.8-2.4) mg/dl Total Bilirubin 0.4 (0.2-1) mg/dl AST 30 (15-37) U/L ALT 36 (12-78) U/L Alkaline Phosphatase 78 (45-117) U/L Total Creatine Kinase 94 (26-192) U/L Troponin I < 0.015 (0-0.045) ng/ml Total Protein 6.9 (6.4-8.2) gm/dl Albumin 3.6 (3.4-5.0) gm/dl Globulin 3.3 (2.5-4.0) gm/dl Albumin/Globulin Ratio 1.1 (0.9-2) TSH 3.080 (0.300-4.500) uIu/ml Urine Color Yellow Urine Appearance Clear (Clear) Urine pH 7.5 (4.5-7.5) Ur Specific [place] 1.020 (1.000-1.030) Urine Protein Negative (Negative) Urine Glucose (UA) Negative (Negative) Urine Ketones Negative (Negative) Urine Blood Negative (Negative) Urine Nitrite Negative (Negative) Urine Bilirubin Negative (Negative) Urine Urobilinogen Negative (Negative) Ur Leukocyte Esterase Trace H (Negative) Urine WBC (Auto) 1-5 (0-5) /hpf Urine RBC (Auto) 0-4 (0-4) /hpf U Hyaline Cast (Auto) 0 (0-5) /lpf U Epithel Cells (Auto) 10-20 H (0-5) /lpf Urine Bacteria (Auto) Negative (Negative) Imaging Data Attestation: I personally reviewed and interpreted this imaging study as follows: MDM Narrative Prior records/ancillary studies reviewed and summarized above. Nursing notes reviewed. The patient's history was concerning for not feeling right, elevated D-dimer and near syncope. Differential diagnosis: Etiologies such as metabolic, infection, hypo/hyperglycemia, electrolyte abnormalities, cardiac sources, intracerebral event, toxicologic, neurologic, as well as others were entertained. Physical examination: As above. ER treatment provided: IV Lock An order was placed for continuous cardiac monitoring. The monitor shows a rate of 60-100 with a sinus rhythm. IV fluids, Zofran On reassessment the patient felt better. Diagnostics interpretation by me: ECG: Ordered for near syncope EKG: Normal sinus, T wave inversions in the anterolateral leads, left axis deviation, rate of 62. EKG compared to prior EKG with normal sinus rhythm with new T wave inversions in the anterolateral leads interpreted by myself I think arrhythmia is unlikely. EKG shows normal sinus rhythm with no interval abnormalities such as QT prolongation or WPW. There are no findings to suggest Brugada syndrome. Cardiac monitoring in the emergency department reveals no tachycardic or bradycardic dysrhythmia. Hypertrophic cardiomyopathy was considered but there are no clear historical elements pointing toward this. EKG is not suggestive. The QRS voltage is not extremely large and there are no suggestive Q waves. The labs revealed negative troponin. Negative urine Euthyroid Imaging studies: CT HEAD: No ICH, mass effect or edema. No evidence of acute cortical stroke. Visualized sinuses and mastoid air cells are clear. Radiologist: Dale Huber MD Chest x-ray with no acute consolidation, pneumothorax or free air from interpretation Preliminary Findings Only See Final Report For Complete Findings CTA CHEST: Direct comparison is made to a prior study of June 20, 2020. Heart is mildly enlarged there is left ventricular enlargement and thickening. Aortic root is mildly distended measuring 4.4 cm. There is mild atherosclerotic change in the distal aorta. There is no pulmonary embolism. Thoracic esophagus appears normal. Mediastinal lymph nodes are not enlarged. There are no confluent areas of airspace consolidation. There are 2 subpleural subcentimeter pulmonary nodules in the right lower lobe measuring 7 mm and 5 mm. These were present at the time of the previous study. There is no pneumothorax or pleural fluid collection. Impression: No pulmonary embolism. Stable nonspecific subcentimeter pulmonary nodules in the right lower lobe Radiologist: Dale Huber MD Consultation: A consultation was placed with the hospitalist, Dr Guillory. The case was discussed and diagnostics were reviewed. The patient was evaluated in the ER for further treatment. Exam and history seem consistent with abnormal EKG with near syncope. Patient will be evaluated for admission. Negative imaging. Stable labs. Patient is agreeable. By the evaluation outlined above emergent etiologies such as infection, electrolyte abnormalities, toxologic, abnormalities blood glucose, metabolic, as well as others were deemed relatively unlikely. The pt informed about the findings as listed above. All questions were answered and pleased with the treatment. Case reviewed with my attending. The chart was completed utilizing [employer] Speech voice recognition software. Grammatical errors, random word insertions, pronoun errors, and incomplete sentences are an occassional consequence of this system due to software li mitations, ambient noise, and hardware issues. Any formal questions or concerns about the content, text, or information contained within the body of this dictation should be directly addressed to the physician clinical assistant professor for clarification. Impression & Plan Abnormal ECG, Near syncope Discharge Plan Visit Data Chief Complaint: Syncope (Near Syncope) Stated Complaint: HEADACHE, FATIGUE ED Provider: Nicola Millan ED Midlevel Provider: Cassandra Weiner Discharge Problem: Abnormal ECG, Near syncope Patient Disposition: Admitted As Inpatient Condition: Good Forms Stand Alone Forms: My [employer] Prescriptions Prescriptions: No Action pantoprazole 40 mg tablet,delayed release (DR/EC) 40 mg PO PM Qty: 30 RF: 0 triamterene-hydrochlorothiazid 37.5-25 mg capsule 1 cap PO DAILY Qty: 90 RF: 3 montelukast 10 mg tablet 10 mg PO DAILY Qty: 30 RF: 5 thyroid (pork) [[place] Thyroid] 60 mg tablet 60 mg PO QAM Qty: 30 RF: 5 temazepam 15 mg capsule 15 mg PO HS Qty: 30 RF: 0 escitalopram oxalate 20 mg tablet 20 mg PO DAILY Qty: 30 RF: 6 Referrals Referrals: Marvin Avila MD [Primary Care Provider] -
[2020-11-06 23:22] LABS: Basophils # (auto) 0.01 K/uL (0-0.2); Basophils % (auto) 0.1 %; Eosinophils % (auto) 2.5 %; Hematocrit (blood only) 40.2 % (37-47); Hemoglobin 13.4 g/dL (12.0-16.0); Immature Granulocytes # (auto) 0.01 K/uL (0.00-0.02); Immature Granulocytes % (auto) 0.1 %; Lymphocytes # (auto) 1.33 K/uL (1.2-3.4); Lymphocytes % (auto) 16.9 %; Mean Corpuscular Hemoglobin 31.2 pg (25-34); Mean Corpuscular Hgb Conc 33.3 g/dL (32-36); Mean Corpuscular Volume 93.7 fL (80-100); Mean Platelet Volume 11.1 fL (7.4-10.4); Monocytes # (auto) 0.87 K/uL (0.11-0.59); Monocytes % (auto) 11.1 %; Neutrophils # (auto) 5.44 K/uL (1.4-6.5); Neutrophils % (auto) 69.3 %; Platelet Count 215 K/uL (130-400); RDW Coefficient of Variation 13.3 % (11.5-14.5); RDW Standard Deviation 45.7 fL (36.4-46.3); Red Blood Count 4.29 M/uL (4.2-5.4); White Blood Count 7.86 K/uL (4.8-10.8)
[2020-11-06 23:31] LABS: Appearance Urine Clear (Clear); Bacteria Urine Automated Negative (Negative); Bilirubin Urine Negative (Negative); Blood Urine Negative (Negative); Cast Urine Automated 0 /lpf (0-5); Color Urine Yellow; Glucose Urine UA Negative (Negative); Ketones Urine Negative (Negative); Leukocyte Esterase Urine Trace (Negative); Nitrite Urine Negative (Negative); Protein Urine Negative (Negative); RBC Urine Automated 0-4 /hpf (0-4); Urobilinogen Urine Negative (Negative); pH Urine 7.5 (4.5-7.5)
--- NOTE | 2020-11-06 23:37 | Emergency Department Note ---
ED Visit Note Patient was seen and evaluated at the bedside w/ Corinne Weiner PA-C. Please see their note for history, physical, details, and disposition. Patient does have some EKG changes does have a history of Takotsubo's and did have some near syncopal type symptoms. Patient was admitted to the medicine service. .
[2020-11-06 23:41] LABS: Alanine Aminotransferase 36 U/L (12-78); Albumin Level 3.6 gm/dl (3.4-5.0); Aspartate Aminotransferase 30 U/L (15-37); BUN Creatinine Ratio 20.6 (10-20); Blood Urea Nitrogen 27 mg/dl (7-18); Calcium 9.2 mg/dl (8.5-10.1); Carbon Dioxide 29 mmol/L (21-32); Chloride 106 mmol/L (98-107); Est GFR (African American) 44.7; Est GFR (Non-African American) 38.5; Glucose 131 mg/dl (70-99); Magnesium 2.2 mg/dl (1.8-2.4); Sodium 142 mmol/L (136-145)
[2020-11-06 23:51] LABS: Albumin Globulin Ratio 1.1 (0.9-2); Alkaline Phosphatase 78 U/L (45-117); Bilirubin,Total 0.4 mg/dl (0.2-1); Creatine Kinase 94 U/L (26-192); Globulin 3.3 gm/dl (2.5-4.0); Total Protein 6.9 gm/dl (6.4-8.2); Troponin I < 0.015 ng/ml (0-0.045)
[2020-11-07] MEDS ORDERED: OPTIRAY 320 125ml IV ONE (00:11)
--- NOTE | 2020-11-07 02:04 | History & Physical Report ---
Date of Service November 07, 2020 Assessment & Plan (1) Near syncope: Patient feels well at present. Denies CP, palpitations, SOB. Possibly some lightheadedness and dizziness preceding event. Patient reports urinary incontinence. No known seizure activity. History of takotsubo cardiomyopathy, TWI present on EKG -Admit to medical with telemetry -Check orthostatic VS -Check 2D echo -Fall precautions Present on Admission?: Yes (2) Elevated d-dimer: Patient has had an elevated d-dimer, being followed by outpatient PCP. Etiology uncertain. She does not have SOB, cough, hemoptysis. No PE. She is concerned about possibility of malignancy and is scheduled for outpatient PET scan for workup of this issue. Present on Admission?: Yes (3) Hypertension: Blood pressure mildly elevated -Hold Triamterene/HCTZ for now - patient appears slightly dry, elevated BUN/Cr -Continue to monitor BP Present on Admission?: Yes (4) GERD (gastroesophageal reflux disease): Chronic -Continue Protonix 40mg po daily Present on Admission?: Yes (5) Hypothyroid: Chronic -Continue thyroid supplementation Present on Admission?: Yes (6) CKD (chronic kidney disease) stage 3, GFR 30-59 ml/min: Chronic. Mildly elevated BUN and Cr. Patient appears slightly dry on exam -Check orthostatic VS -Hold diuretic -Avoid nephrotoxic agents -Renal dosing where needed -Gentle IVF - LR at 125ml/hr F/E/N - LR at 125mL/hr x 1 liter, electrolytes WNL, Heart healthy diet as tolerated Ppx - Lovenox Code - DNR/DNI per discussion with patient Dispo - Admit to medical with telemetry DIRK - Jimena (friend and medical POA) [phone] History of Present Illness Chief Complaint: SYNCOPE Primary Care Provider: Marvin Avila MD Korin Pichardo is an 80yo female wtih history of HTN, CAD, GERD, prior Takotsubo cardiomyopathy x 2 episodes presenting from home after a syncopal event. Patient reports feeling ill this evening at 20:30. She felt like she had a pressure in her head. She felt lightheaded, dizzy and weak. She had a syncopal event at home as well as urinary incontinence. She called her friend (who is a retired nurse and patient's medical POA) who stated she sounded confused. Her friend went to check on her and states she was confused, speaking in Burmese, pale, shaky and unsteady on her feet. She did not note any focal weakness, facial droop or dysarthria. Patient denies chest pain, palpitations, SOB Denies abdominal pain, vomiting. She has had some nausea as well as chronic abdominal/pelvic pain No additional complaints at this time ER Course: Jayant. Gage. NSS Allergies Allergy/AdvReac Type Severity Reaction Status Date / Time tromethamine Allergy Severe kidney Verified 11/06/20 23:07 failure Iodinated Contrast Media Allergy Intermediate Rash Verified 11/06/20 23:57 [Iodinated Contrast- Oral and IV Dye] Penicillins Allergy Intermediate RASH, HIVES Verified 11/06/20 23:07 diclofenac [From Voltaren] Allergy Mild RASH ON Verified 11/06/20 23:07 HANDS latex Allergy Mild LOCAL RASH Verified 11/06/20 23:07 amlodipine [From Norvasc] Allergy Unknown CAN'T Verified 11/06/20 23:07 REMEMBER codeine Allergy Unknown Unknown Verified 11/06/20 23:07 esomeprazole [From Nexium] Allergy Unknown CAN'T Verified 11/06/20 23:07 REMEMBER lisinopril Allergy Unknown CAN'T Verified 11/06/20 23:07 REMEMBER Sulfa (Sulfonamide Allergy Unknown CAN'T Verified 11/06/20 23:07 Antibiotics) REMEMBER ketorolac AdvReac Severe kidney Verified 11/06/20 23:07 failure aspirin AdvReac Intermediate UPSET Verified 11/06/20 23:07 STOMACH/STOMACH PAIN citalopram Allergy Unknown CAN'T Uncoded 11/06/20 23:07 REMEMBER Home Medications Medication Instructions Recorded Confirmed Type pantoprazole 40 mg tablet,delayed 40 mg PO PM #30 tab 04/08/20 11/06/20 Rx release triamterene 37.5 1 cap PO DAILY #90 cap 05/02/20 11/06/20 Rx mg-hydrochlorothiazide 25 mg capsule escitalopram oxalate 20 mg tablet 20 mg PO DAILY #30 tab 10/13/20 11/06/20 Rx montelukast 10 mg tablet 10 mg PO DAILY #30 tab 10/13/20 11/06/20 Rx temazepam 15 mg capsule 15 mg PO HS #30 cap 10/13/20 11/06/20 Rx thyroid (pork) 60 mg tablet 60 mg PO QAM #30 tab 10/13/20 11/06/20 Rx Past Med/Surg History Medical History (Updated 11/07/20 @ 02:08 by Regina Guillory DO) Acute tubular necrosis Anxiety Asthma Bronchitis (2019) Bronchospasm Diverticulosis Diverticulosis of colon GERD (gastroesophageal reflux disease) Elva's thyroiditis Hyperlipidemia Hypertension Hypothyroidism Impacted cerumen Major depression Mixed hearing loss, bilateral Myocardial infarction Solitary pulmonary nodule on lung CT Spinal stenosis Takotsubo syndrome (1996) Vitamin D deficiency Surgical History History of right hip replacement S/P appendectomy S/P cataract extraction S/P cholecystectomy S/P knee surgery Family History Mother Hypertension Breast cancer COPD (chronic obstructive pulmonary disease) Grandmother Breast cancer Denies family history of Colon cancer Ovarian cancer Prostate cancer Myocardial infarction Social History Smoking Status: Never smoker Second Hand Exposure: No; Hx Alcohol Use: No Hx Substance Use: No Preferred Language: Persian Communication Ability: Effective Visual Impairment: No Limitations Hearing Ability: Normal Rust Proofer Required: No Beliefs That Will Affect Care: None marital status: Current Living Situation: Alone current occupational status: retired Feels Safe at Home: Yes Childhood Exposure to Second-Hand Smoke: Yes Dental Care, Regularly: Yes Physical Activity Frequency: 5-6 Times per Week Seatbelt Use: always Sunscreen Use: No Assistive Devices: Glasses Review of Systems Review of Systems: All systems reviewed & are unremarkable except as noted in HPI & below Physical Exam Physical Exam: General: patient resting comfortably, NAD, non-toxic in appearance, AA&O x 4 Skin: warm, dry, intact, no rashes or lesions HEENT: NC/AT, PERRL, EOMI, anicteric sclera, conjunctiva without injection, external ear normal to inspection and nontender, nares patent, moist mucus membranes, dentition intact, no oropharyngeal lesions, neck supple, trachea midline, no LAD, no thyromegaly, no JVD Heart: +S1/S2, regular, no m/r/g Lungs: equal air entry bilaterally, no rales/rhonchi/wheezes Abd: +BS, soft, NT/ND, no masses/organomegaly/ascites Ext: warm, 2+ pulses in UE/LE bilaterally, no clubbing/cyanosis or edema Neuro: nonfocal, patient AA&O x 4, speech intact, no facial droop, moving all extremities on command with equal strength 5/5 Results & Data Results & Data ([facility]) Vital Signs (Past 12 Hours) Vital Signs Temp Pulse Resp BP Pulse Ox 11/07/20 01:30 62 22 96 11/07/20 01:01 60 14 96 11/07/20 01:00 64 14 151/64 H 96 11/07/20 00:55 65 17 96 11/07/20 00:54 65 19 168/71 H 95 11/06/20 23:30 71 17 96 11/06/20 23:15 63 21 95 11/06/20 23:07 60 23 147/74 H 94 11/06/20 22:18 36.9 C 67 18 148/73 H 94 Laboratory Results Lab Results 11/06/20 11/06/20 11/06/20 Range/Units 23:00 23:03 23:03 WBC 7.86 (4.8-10.8) K/uL RBC 4.29 (4.2-5.4) M/uL Hgb 13.4 (12.0-16.0) g/dL Hct 40.2 (37-47) % MCV 93.7 (80-100) fL MCH 31.2 (25-34) pg MCHC 33.3 (32-36) g/dL RDW Std Deviation 45.7 (36.4-46.3) fL RDW Coeff of Virgilio 13.3 (11.5-14.5) % Plt Count 215 (130-400) K/uL MPV 11.1 H (7.4-10.4) fL Immature Gran % (Auto) 0.1 % Neut % (Auto) 69.3 % Lymph % (Auto) 16.9 % [place]yer % (Auto) 11.1 % Eos % (Auto) 2.5 % Baso % (Auto) 0.1 % Neut # (Auto) 5.44 (1.4-6.5) K/uL Lymph # (Auto) 1.33 (1.2-3.4) K/uL [place]yer # (Auto) 0.87 H (0.11-0.59) K/uL Eos # (Auto) 0.20 (0-0.5) K/uL Baso # (Auto) 0.01 (0-0.2) K/uL Immature Gran # (Auto) 0.01 (0.00-0.02) K/uL Sodium 142 (136-145) mmol/L Potassium 4.0 (3.5-5.1) mmol/L Chloride 106 (98-107) mmol/L Carbon Dioxide 29 (21-32) mmol/L Anion Gap 7.0 (3-11) BUN 27 H (7-18) mg/dl Creatinine 1.29 H (0.6-1.2) mg/dl Est Cr Clr Drug Dosing 37.0 ml/min Est GFR ( Amer) 44.7 Est GFR (Non-Af Amer) 38.5 BUN/Creatinine Ratio 20.6 H (10-20) Glucose 131 H (70-99) mg/dl Calcium 9.2 (8.5-10.1) mg/dl Magnesium 2.2 (1.8-2.4) mg/dl Total Bilirubin 0.4 (0.2-1) mg/dl AST 30 (15-37) U/L ALT 36 (12-78) U/L Alkaline Phosphatase 78 (45-117) U/L Total Creatine Kinase 94 (26-192) U/L Troponin I < 0.015 (0-0.045) ng/ml Total Protein 6.9 (6.4-8.2) gm/dl Albumin 3.6 (3.4-5.0) gm/dl Globulin 3.3 (2.5-4.0) gm/dl Albumin/Globulin Ratio 1.1 (0.9-2) TSH 3.080 (0.300-4.500) uIu/ml Urine Color Yellow Urine Appearance Clear (Clear) Urine pH 7.5 (4.5-7.5) Ur Specific [place] 1.020 (1.000-1.030) Urine Protein Negative (Negative) Urine Glucose (UA) Negative (Negative) Urine Ketones Negative (Negative) Urine Blood Negative (Negative) Urine Nitrite Negative (Negative) Urine Bilirubin Negative (Negative) Urine Urobilinogen Negative (Negative) Ur Leukocyte Esterase Trace H (Negative) Urine WBC (Auto) 1-5 (0-5) /hpf Urine RBC (Auto) 0-4 (0-4) /hpf U Hyaline Cast (Auto) 0 (0-5) /lpf U Epithel Cells (Auto) 10-20 H (0-5) /lpf Urine Bacteria (Auto) Negative (Negative) COVID-19 Eval Order 11/07/20 Range/Units 01:46 WBC (4.8-10.8) K/uL RBC (4.2-5.4) M/uL Hgb (12.0-16.0) g/dL Hct (37-47) % MCV (80-100) fL MCH (25-34) pg MCHC (32-36) g/dL RDW Std Deviation (36.4-46.3) fL RDW Coeff of Virgilio (11.5-14.5) % Plt Count (130-400) K/uL MPV (7.4-10.4) fL Immature Gran % (Auto) % Neut % (Auto) % Lymph % (Auto) % [place] % (Auto) % Eos % (Auto) % Baso % (Auto) % Neut # (Auto) (1.4-6.5) K/uL Lymph # (Auto) (1.2-3.4) K/uL [place] # (Auto) (0.11-0.59) K/uL Eos # (Auto) (0-0.5) K/uL Baso # (Auto) (0-0.2) K/uL Immature Gran # (Auto) (0.00-0.02) K/uL Sodium (136-145) mmol/L Potassium (3.5-5.1) mmol/L Chloride (98-107) mmol/L Carbon Dioxide (21-32) mmol/L Anion Gap (3-11) BUN (7-18) mg/dl Creatinine (0.6-1.2) mg/dl Est Cr Clr Drug Dosing ml/min Est GFR ( Amer) Est GFR (Non-Af Amer) BUN/Creatinine Ratio (10-20) Glucose (70-99) mg/dl Calcium (8.5-10.1) mg/dl Magnesium (1.8-2.4) mg/dl Total Bilirubin (0.2-1) mg/dl AST (15-37) U/L ALT (12-78) U/L Alkaline Phosphatase (45-117) U/L Total Creatine Kinase (26-192) U/L Troponin I (0-0.045) ng/ml Total Protein (6.4-8.2) gm/dl Albumin (3.4-5.0) gm/dl Globulin (2.5-4.0) gm/dl Albumin/Globulin Ratio (0.9-2) TSH (0.300-4.500) uIu/ml Urine Color Urine Appearance (Clear) Urine pH (4.5-7.5) Ur Specific [place] (1.000-1.030) Urine Protein (Negative) Urine Glucose (UA) (Negative) Urine Ketones (Negative) Urine Blood (Negative) Urine Nitrite (Negative) Urine Bilirubin (Negative) Urine Urobilinogen (Negative) Ur Leukocyte Esterase (Negative) Urine WBC (Auto) (0-5) /hpf Urine RBC (Auto) (0-4) /hpf U Hyaline Cast (Auto) (0-5) /lpf U Epithel Cells (Auto) (0-5) /lpf Urine Bacteria (Auto) (Negative) COVID-19 Eval [facility] Diagnostic Findings CTA - No PE. Stable pulmonary nodules. CT Head - unremarkable ECG Additional Comments: TWI in lateral leads V5-V6 PG Care Time/CCT Total # of Minutes Spent Total Time Spent with Patient: Total time spent is greater than 50% in coordination of care (as documented) at patient's floor/unit and/or counseling patient: Coding Level of Care Code 58130 Initial Inpt Care Lvl 3 Diagnoses Near syncope R55 Elevated d-dimer R79.89 Hypertension I10 Hypertension type: essential hypertension GERD (gastroesophageal reflux disease) K21.9 Esophagitis presence: esophagitis presence not specified Hypothyroid E03.9 Hypothyroidism type: unspecified CKD (chronic kidney disease) stage 3, GFR 30-59 ml/min N18.30 Chronic kidney disease stage 3 subtype: unspecified whether 3a or 3b (1) Hypertension Hypertension type: essential hypertension Qualified Code(s): I10 - Essential (primary) hypertension (2) GERD (gastroesophageal reflux disease) Esophagitis presence: esophagitis presence not specified Qualified Code(s): K21.9 - Gastro-esophageal reflux disease without esophagitis (3) Hypothyroid Hypothyroidism type: unspecified Qualified Code(s): E03.9 - Hypothyroidism, unspecified (4) CKD (chronic kidney disease) stage 3, GFR 30-59 ml/min Chronic kidney disease stage 3 subtype: unspecified whether 3a or 3b Qualified Code(s): N18.30 - Chronic kidney disease, stage 3 unspecified
[2020-11-07] MEDS ORDERED: ONDANSETRON INJ 2 MG/ML 2 ML VIAL IV PRN (03:06)
[2020-11-07] MEDS ORDERED: ACETAMINOPHEN 325 MG TAB PO PRN (03:06)
[2020-11-07] MEDS ORDERED: LACTATED RINGER'S 1,000 ML IV SCH (03:06)
--- NOTE | 2020-11-07 07:34 | XRay Report ---
XR chest 1V portable CLINICAL HISTORY: weak COMPARISON STUDY: Chest radiograph June 07, 2019. Chest CT June 20, 2020. FINDINGS: Lung volumes are normal. Mild left basilar opacity favors atelectasis. There is no pneumoth orax or pleural effusion. Cardiac size is stable. Mediastinal contours are normal. There is no eviden ce for pulmonary edema. IMPRESSION: No acute cardiopulmonary findings. No change in appearance of the chest. ACT 112: Negative or not required by law. Electronically signed by: Max Alvarez M.D. 11/07/2020 7:33 AM
[2020-11-07] MEDS: ARMOUR THYROID 30 MG TAB PO SCH (07:47)
[2020-11-07] MEDS: ESCITALOPRAM OXALATE 20 MG TAB PO SCH (07:47)
[2020-11-07] MEDS: MONTELUKAST SODIUM 10 MG TABLET PO SCH (07:48)
[2020-11-07] MEDS: ENOXAPARIN INJ 30 MG/0.3 ML SYR SQ SCH (07:48)
--- NOTE | 2020-11-07 07:58 | CT Scan Report ---
CT OF THE HEAD WITHOUT CONTRAST CLINICAL HISTORY: syncope COMPARISON STUDY: Head CT August 05, 2020. CT DOSE: 638.56 mGycm TECHNIQUE: Helical axial images of the head were obtained without IV contrast. Automated exposure con trol was utilized for the study. A dose lowering technique was utilized adhering to the principles o f ALARA. FINDINGS: No acute intracranial hemorrhage, midline shift or mass effect is present. Matter hypodensi ties are unchanged and suggest small vessel disease. The ventricular system is unremarkable. The basa l cisterns are patent. No extra-axial collections are present. There are no findings to suggest acute dural sinus thrombosis or acute territorial infarct. No significant calvarial abnormalities are pres ent. Visualized portions of the sinuses and mastoid air cells are clear. IMPRESSION: 1. No acute intracranial findings. 2. No calvarial fracture. ACT 112: Negative or not required by law. Electronically signed by: Max Alvarez M.D. 11/07/2020 7:56 AM
--- NOTE | 2020-11-07 08:27 | CT Scan Report ---
CHEST CTA for PULMONARY ARTERIES CT DOSE: 568.51 mGycm HISTORY: Syncope. Assess for pulmonary embolus. Elevated d-dimer. TECHNIQUE: Multiaxial CT images of the chest were performed following the intravenous administration of contrast to evaluate the pulmonary arteries. Maximal intensity projection images were also obtaine d. A dose lowering technique was utilized adhering to the principles of ALARA. COMPARISON STUDY: Chest CTA 06/12/2020. FINDINGS: The ascending thoracic aorta measures up to 4.4 cm in diameter. No evidence for an aortic d issection. The heart remains enlarged. No filling defects within the pulmonary arteries to suggest pu lmonary embolus. Limited views the upper abdomen demonstrate normal liver and spleen. Normal caliber esophagus. No mediastinal lymphadenopathy. Stable prominent hilar lymph nodes. No pleural or pericard ial effusions. No fractures. No pneumothorax. The central airways are patent. Bibasilar linear densit ies favor subsegmental atelectasis. A few scattered subcentimeter pulmonary nodules remain stable. Do minant nodule within the right lower lobe on image 108 measures 5 mm. No new pulmonary nodules identi fied. No new focal lung consolidations to suggest pneumonia. IMPRESSION: 1. No evidence for pulmonary embolus. 2. Persistent aneurysmal dilatation of the ascending thoracic aorta measures up to 4.4 cm in diameter . 3. Stable cardiomegaly. 4. Stable subcentimeter pulmonary nodules measure up to 5 mm. ACT 112: Negative or not required by law. Electronically signed by: Juan Carlos Schmitz M.D. 11/07/2020 8:25 AM
--- NOTE | 2020-11-07 18:46 | Hospitalist Progress Note ---
Date of Service November 07, 2020 Assessment & Plan (1) Syncope: orthostatics negative today, but did receive IVF yesterday and BUN / Cr were elevated at time of presentation. can't rule out mild volume depletion at presentation. with that said her EKG is markedly changed from previous with inverted T waves anterolateral. repeat EKG today with similar findings. awaiting echo to check wall motion and EF. if echo is normal consider MRI brain, r/o subacute stroke, as cause of syncope/presentation. consider outpatient event monitor -- about 2 months ago there was some concern of tachyarrhythmia. can't rule out abnormal rhythm issue that contributed to yesterday's event. hold off on discharge today (2) Abnormal ECG: see above await echo cont tele (3) Hypertension: hold diuretic likely resume tomorrow (4) Takotsubo syndrome: history of such x 2 episodes most recent echo was normal await repeat echo but negative troponin and no obvious symptoms of Takotsubo at this time (5) Hypothyroid: TSH wnl cont replacement (6) CKD (chronic kidney disease) stage 3, GFR 30-59 ml/min: Cr stable repeat BMP am (7) DVT prophylaxis: lovenox 30mg daily Admission and Anticipated Discharge Date Admission Date: November 07, 2020 Subjective tele normal since admission patient feels well no complaints patient is very good historian states that before passing out she had a "horrible stabbing pain" in her head when she came to after the syncopal episode the pain was not there no headache today she confirms that her friend told her she was speaking in [place] during the spell; patient doesn't recall this before passing out had prodromal dizziness no chest pain or dyspnea of late performs all ADLs goes for hikes outside w/o limitation about 2 months ago visited our ER due to palpitations and HR >100 Dr Camp saw her in f/u in [facility] - tachyarrhythmia suspected Review of Systems Constitutional: no fever, no chills, no fatigue and no anorexia Respiratory: no cough and no dyspnea Cardiovascular: no chest pain, no dyspnea on exertion, no palpitations and no edema Gastrointestinal: no abdominal pain Physical Exam Constitutional: well developed and well nourished; no acute distress and no altered mental status ENMT: external ear and nose normal, oropharynx normal Respiratory: normal respiratory effort, lungs clear to auscultation Cardiovascular: Rate/Rhythm: regular rate and regular rhythm Heart Sounds: normal S1 and normal S2; no murmur Vessels: posterior tibial pulses present and dorsalis pedis pulses present; no JVD Extremities: no edema Gastrointestinal (Abdomen): normal bowel sounds, soft, nontender, no hepatosplenomegaly Neurologic: deep tendon reflexes 2+ bilaterally and moves all extremities; no focal motor deficits Coordination: normal [id number] test Psychiatric: A+Ox3, euthymic affect Results & Data Results & Data ([facility]) Vital Signs (Past 12 Hours) Vital Signs Temp Pulse Pulse Resp BP Pulse Ox 11/07/20 15:18 59 L 11/07/20 15:01 36.8 C 59 L 20 142/69 H 95 11/07/20 11:44 36.6 C 58 L 20 142/74 H 94 11/07/20 07:42 36.5 C 55 L 20 143/69 H 93 Laboratory Results Laboratory Results - last 24 hr 11/06/20 11/06/20 11/06/20 23:00 23:03 23:03 WBC 7.86 RBC 4.29 Hgb 13.4 Hct 40.2 MCV 93.7 MCH 31.2 MCHC 33.3 RDW Std Deviation 45.7 RDW Coeff of Virgilio 13.3 Plt Count 215 MPV 11.1 H Immature Gran % (Auto) 0.1 Neut % (Auto) 69.3 Lymph % (Auto) 16.9 [place] % (Auto) 11.1 Eos % (Auto) 2.5 Baso % (Auto) 0.1 Neut # (Auto) 5.44 Lymph # (Auto) 1.33 [place] # (Auto) 0.87 H Eos # (Auto) 0.20 Baso # (Auto) 0.01 Immature Gran # (Auto) 0.01 Sodium 142 Potassium 4.0 Chloride 106 Carbon Dioxide 29 Anion Gap 7.0 BUN 27 H Creatinine 1.29 H Est Cr Clr Drug Dosing 37.0 Est GFR ( Amer) 44.7 Est GFR (Non-Af Amer) 38.5 BUN/Creatinine Ratio 20.6 H Glucose 131 H Calcium 9.2 Magnesium 2.2 Total Bilirubin 0.4 AST 30 ALT 36 Alkaline Phosphatase 78 Total Creatine Kinase 94 Troponin I < 0.015 Total Protein 6.9 Albumin 3.6 Globulin 3.3 Albumin/Globulin Ratio 1.1 TSH 3.080 Urine Color Yellow Urine Appearance Clear Urine pH 7.5 Ur Specific [place] 1.020 Urine Protein Negative Urine Glucose (UA) Negative Urine Ketones Negative Urine Blood Negative Urine Nitrite Negative Urine Bilirubin Negative Urine Urobilinogen Negative Ur Leukocyte Esterase Trace H Urine WBC (Auto) 1-5 Urine RBC (Auto) 0-4 U Hyaline Cast (Auto) 0 U Epithel Cells (Auto) 10-20 H Urine Bacteria (Auto) Negative COVID-19 Eval Order SARS-CoV-2, RNA, NAAT 11/07/20 11/07/20 01:46 01:46 WBC RBC Hgb Hct MCV MCH MCHC RDW Std Deviation RDW Coeff of Virgilio Plt Count MPV Immature Gran % (Auto) Neut % (Auto) Lymph % (Auto) [place] % (Auto) Eos % (Auto) Baso % (Auto) Neut # (Auto) Lymph # (Auto) [place] # (Auto) Eos # (Auto) Baso # (Auto) Immature Gran # (Auto) Sodium Potassium Chloride Carbon Dioxide Anion Gap BUN Creatinine Est Cr Clr Drug Dosing Est GFR ( Amer) Est GFR (Non-Af Amer) BUN/Creatinine Ratio Glucose Calcium Magnesium Total Bilirubin AST ALT Alkaline Phosphatase Total Creatine Kinase Troponin I Total Protein Albumin Globulin Albumin/Globulin Ratio TSH Urine Color Urine Appearance Urine pH Ur Specific [place] Urine Protein Urine Glucose (UA) Urine Ketones Urine Blood Urine Nitrite Urine Bilirubin Urine Urobilinogen Ur Leukocyte Esterase Urine WBC (Auto) Urine RBC (Auto) U Hyaline Cast (Auto) U Epithel Cells (Auto) Urine Bacteria (Auto) COVID-19 Eval Order Covid19 [facility] SARS-CoV-2, RNA, NAAT NEGATIVE repeat EKG 11/07 -- my reading -- NSR, anterolateral ST depressions - similar to yesterday's EKG, but DIFFERENT in comparison to prior EKGs PG Care Time/CCT Total # of Minutes Spent Total Time Spent with Patient: Total time spent is greater than 50% in c oordination of care (as documented) at patient's floor/unit and/or counseling patient: Coding Level of Care Code 45453 Subseq Hosp Care Lvl 2 Diagnoses Syncope R55 Abnormal ECG R94.31 Hypertension I10 Hypertension type: essential hypertension Takotsubo syndrome I51.81 Hypothyroid E03.9 Hypothyroidism type: unspecified CKD (chronic kidney disease) stage 3, GFR 30-59 ml/min N18.30 Chronic kidney disease stage 3 subtype: unspecified whether 3a or 3b DVT prophylaxis Z29.9 (1) Hypertension Hypertension type: essential hypertension Qualified Code(s): I10 - Essential (primary) hypertension (2) Hypothyroid Hypothyroidism type: unspecified Qualified Code(s): E03.9 - Hypothyroidism, unspecified (3) CKD (chronic kidney disease) stage 3, GFR 30-59 ml/min Chronic kidney disease stage 3 subtype: unspecified whether 3a or 3b Qualified Code(s): N18.30 - Chronic kidney disease, stage 3 unspecified
--- NOTE | 2020-11-07 19:11 | XCELERA ---
[id number]
[2020-11-07] MEDS ORDERED: PANTOprazole 40 MG TAB PO SCH (21:00)
[2020-11-07] MEDS ORDERED: TEMAZEPAM 15 MG CAPSULE PO SCH (21:00)
--- NOTE | 2020-11-08 05:51 | Electrocardiogram Report ---
Test Reason : Blood Pressure : / mmHG Vent. Rate : 062 BPM Atrial Rate : 062 BPM P-R Int : 226 ms QRS Dur : 110 ms QT Int : 448 ms P-R-T Axes : 073 -49 106 degrees QTc Int : 454 ms Sinus rhythm with 1st degree A-V block Left axis deviation Moderate voltage criteria for LVH, may be normal variant T wave abnormality, consider lateral ischemia Abnormal ECG When compared with ECG of 20-JUN-2020 20:28, Vent. rate has decreased BY 46 BPM T wave inversion more evident in Lateral leads Confirmed by Antonio Friedman ([id number]) on 11/08/2020 5:51:12 AM Referred By: REFERRED SELF Confirmed By:Antonio Friedman
[2020-11-08 06:16] LABS: Basophils # (auto) 0.01 K/uL (0-0.2); Basophils % (auto) 0.2 %; Eosinophils # (auto) 0.27 K/uL (0-0.5); Eosinophils % (auto) 5.6 %; Hematocrit (blood only) 39.2 % (37-47); Hemoglobin 12.7 g/dL (12.0-16.0); Immature Granulocytes # (auto) 0.01 K/uL (0.00-0.02); Immature Granulocytes % (auto) 0.2 %; Lymphocytes # (auto) 1.57 K/uL (1.2-3.4); Lymphocytes % (auto) 32.4 %; Mean Corpuscular Hemoglobin 30.4 pg (25-34); Mean Corpuscular Hgb Conc 32.4 g/dL (32-36); Mean Corpuscular Volume 93.8 fL (80-100); Mean Platelet Volume 11.3 fL (7.4-10.4); Monocytes # (auto) 0.67 K/uL (0.11-0.59); Monocytes % (auto) 13.8 %; Neutrophils # (auto) 2.32 K/uL (1.4-6.5); Neutrophils % (auto) 47.8 %; Platelet Count 186 K/uL (130-400); RDW Coefficient of Variation 13.1 % (11.5-14.5); RDW Standard Deviation 44.6 fL (36.4-46.3); Red Blood Count 4.18 M/uL (4.2-5.4); White Blood Count 4.85 K/uL (4.8-10.8)
[2020-11-08 06:43] LABS: BUN Creatinine Ratio 20.5 (10-20); Calcium 8.7 mg/dl (8.5-10.1); Creatinine Clr Calc Pharmacy 42.5 ml/min; Est GFR (African American) 52.4; Est GFR (Non-African American) 45.2; Potassium 3.5 mmol/L (3.5-5.1)
--- NOTE | 2020-11-08 06:44 | Electrocardiogram Report ---
Test Reason : Blood Pressure : / mmHG Vent. Rate : 063 BPM Atrial Rate : 063 BPM P-R Int : 200 ms QRS Dur : 106 ms QT Int : 436 ms P-R-T Axes : 057 -46 105 degrees QTc Int : 446 ms Normal sinus rhythm Left axis deviation T wave abnormality, consider lateral ischemia Abnormal ECG When compared with ECG of 06-NOV-2020 23:03, No significant change was found Confirmed by Antonio Friedman ([id number] on 11/08/2020 6:44:25 AM Referred By: REFERRED SELF Confirmed By:Antonio Friedman
[2020-11-08] MEDS: ARMOUR THYROID 30 MG TAB PO SCH (08:44)
[2020-11-08] MEDS: ENOXAPARIN INJ 30 MG/0.3 ML SYR SQ SCH (08:44)
[2020-11-08] MEDS: MONTELUKAST SODIUM 10 MG TABLET PO SCH (08:44)
[2020-11-08] MEDS: ESCITALOPRAM OXALATE 20 MG TAB PO SCH (08:44)
[2020-11-08] MEDS ORDERED: TRIAMTERENE/HCTZ 37.5/25MG CAP PO SCH (10:30)
--- NOTE | 2020-11-08 12:58 | Magnetic Resonance Report ---
MRI OF THE BRAIN WITHOUT CONTRAST CLINICAL HISTORY: ?TIA, recent headache COMPARISON STUDY: MRI of the brain February 01, 2010. Head CT November 06, 2020. TECHNIQUE: Utilizing a 1.5 Shanika magnet and dedicated coil, multiplanar, multiecho imaging of the bra in was performed without IV contrast. FINDINGS: There are no foci of restricted diffusion to suggest acute infarct. No acute intracranial h emorrhage, midline shift or mass effect is present. No intracranial masses identified on this unenhan cesar examination. Basal cisterns are patent. There are no extra-axial collections. Flow-voids for the major intracranial vessels are present. Multiple white matter T2 hyperintense foci are noted. These h ave mildly progressed since MRI of February 01, 2010. These favor small vessel disease. Moderate atrophy i s noted. Calvarial signal is normal. Orbits are unremarkable on this unenhanced exam. IMPRESSION: 1. No acute intracranial findings. 2. White matter T2 hyperintense foci suggestive of moderate small vessel disease. Moderate atrophy. ACT 112: Negative or not required by law. Electronically signed by: Max Alvarez M.D. 11/08/2020 12:56 PM
--- NOTE | 2020-11-08 15:17 | Ultrasound Report ---
ULTRASOUND OF THE CAROTID ARTERIES CLINICAL HISTORY: TIA COMPARISON STUDY: None. TECHNIQUE: Real-time, grayscale, and color Doppler sonography of the carotid arteries was performed. Imaging reviewed in the transverse and longitudinal planes. NASCET criteria was utilized for stenosis calcification. FINDINGS: There is minor atherosclerotic plaque present . The peak systolic velocity within the right internal carotid artery is 60 cm/sec. The systolic velocity ratio of right internal to common carotid artery is 1.2. The peak systolic velocity within the left internal carotid artery is 99 cm/sec. The systolic velocity ratio left internal to common carotid artery is 0.9. Antegrade flow is seen in the vertebral arteries. The external carotid arteries are patent. IMPRESSION: No evidence of hemodynamically significant carotid stenosis. ACT 112: Negative or not required by law. Electronically signed by: Yonas Rodríguez M.D. 11/08/2020 3:15 PM
--- NOTE | 2020-11-08 16:03 | Communication Note ---
Date of Service: November 08, 2020 By CMS guidelines, a determination that the admission or continued stay is not medically necessary has been made by a member of the UR committee and eleanor gibson for this hospital stay, therefore a Code 44 will be completed and the Inpatient admission will be changed to outpatient. Wilfrid Cade MD
--- NOTE | 2020-11-08 16:15 | Discharge Summary ---
Date of Service date of admission - November 07, 2020 date of discharge - November 08, 2020 Admission HPI Per Admitting Provider Korin Pichardo is an 80yo female wtih history of HTN, CAD, GERD, prior Takotsubo cardiomyopathy x 2 episodes presenting from home after a syncopal event. Preston pina reports feeling ill this evening at 20:30. She felt like she had a pressure in her head. She felt lightheaded, dizzy and weak. She had a syncopal event at home as well as urinary incontinence. She called her friend (who is a retired nurse and patient's medical POA) who stated she sounded confused. Her friend went to check on her and states she was confused, speaking in [place], pale, shaky and unsteady on her feet. She did not note any focal weakness, facial droop or dysarthria. Patient denies chest pain, palpitations, SOB Denies abdominal pain, vomiting. She has had some nausea as well as chronic abdominal/pelvic pain No additional complaints at this time ER Course: Jayant. Gage. NSS Principal Diagnosis Syncope Discharge Exam Constitutional well developed and well nourished; no acute distress and no altered mental status ENMT external ear and nose normal, oropharynx normal Respiratory normal respiratory effort, lungs clear to auscultation Cardiovascular Rate/Rhythm: regular rate and regular rhythm Heart Sounds: normal S1 and normal S2; no murmur Vessels: posterior tibial pulses present and dorsalis pedis pulses present; no JVD Extremities: no edema Gastrointestinal (Abdomen) normal bowel sounds, soft, nontender, no hepatosplenomegaly Neurologic deep tendon reflexes 2+ bilaterally and moves all extremities; no focal motor deficits Coordination: normal [id number] test Psychiatric A+Ox3, euthymic affect Discharge Data Allergies Allergy/AdvReac Type Severity Reaction Status Date / Time tromethamine Allergy Severe kidney Verified 11/06/20 23:07 failure Iodinated Contrast Media Allergy Intermediate Rash Verified 11/06/20 23:57 [Iodinated Contrast- Oral and IV Dye] Penicillins Allergy Intermediate RASH, HIVES Verified 11/06/20 23:07 diclofenac [From Voltaren] Allergy Mild RASH ON Verified 11/06/20 23:07 HANDS latex Allergy Mild LOCAL RASH Verified 11/06/20 23:07 amlodipine [From Norvasc] Allergy Unknown CAN'T Verified 11/06/20 23:07 REMEMBER Citalopram Analogues Allergy Unknown CAN'T Verified 11/07/20 03:11 REMEMBER codeine Allergy Unknown Unknown Verified 11/06/20 23:07 esomeprazole [From Nexium] Allergy Unknown CAN'T Verified 11/06/20 23:07 REMEMBER lisinopril Allergy Unknown CAN'T Verified 11/06/20 23:07 REMEMBER Sulfa (Sulfonamide Allergy Unknown CAN'T Verified 11/06/20 23:07 Antibiotics) REMEMBER ketorolac AdvReac Severe kidney Verified 11/06/20 23:07 failure aspirin AdvReac Intermediate UPSET Verified 11/06/20 23:07 STOMACH/STOMACH PAIN Ordered Studies 11/06/20 22:46 CT head/brain wo con Urgent IMPRESSION: 1. No acute intracranial findings. 2. No calvarial fracture. 11/06/20 22:47 CT angio chest PE protocol Urgent IMPRESSION: 1. No evidence for pulmonary embolus. 2. Persistent aneurysmal dilatation of the ascending thoracic aorta measures up to 4.4 cm in diameter. 3. Stable cardiomegaly. 4. Stable subcentimeter pulmonary nodules measure up to 5 mm. 11/08/20 06:20 MR brain wo con Routine IMPRESSION: 1. No acute intracranial findings. 2. White matter T2 hyperintense foci suggestive of moderate small vessel disease. Moderate atrophy. 11/08/20 15:00 US carotid doppler BI Urgent -- no ICA stenosis. Normal antegrade flow through the vertebrals. Echocardiogram: * EF 65-70% * no regional wall motion abnormalities * moderate mitral regurgitation * moderate tricuspid regurgitation * possible PFO * mildly dilated RV but normal RV systolic function Hospital Course (1) Syncope: The exact cause of the patient's brief syncopal event was uncertain. Orthostatics were negative but she did receive IVF and her BUN / Cr ratio was elevated at time of presentation. Thus, mild volume depletion at time of admission may have contributed to her brief syncopal event (prodromal symptoms support such). With that said her EKG was markedly changed from previous EKG with inverted T waves anterolaterally. Echocardiogram this admission showed normal wall motion and preserved EF. No specific features of Takotsubo were found. To rule out subacute stroke as the cause of her presentation an MRI brain was obtained. This did not show acute/subacute or old stroke. This did not reveal ICH. Carotid duplex study was normal. Telemetry was normal during the stay. Echo showed a possible PFO. Although echo showed a possible PFO I do not think that this event was TIA. Thus, aspirin daily was not recommended to the patient. At discharge a 30-day event monitor was recommended to rule out tachyarrhythmia as the cause of her syncopal event. She does have history of palpitations and rapid heart rate based on records. Her primary demographer, Dr Lenin Camp, was informed of the patient's hospital stay for syncope. (2) Abnormal ECG: see above. echocardiogram with normal wall motion and normal LV function. history of cardiac cath with no obstructive CAD. (3) Hypertension: Labile BPs throughout her hospitalization. Diuretics were initially held briefly on hospital day #1 but resumed hospital day #2. May need BP medication adjustment post-discharge if BPs remain elevated. (4) Takotsubo syndrome: history of such x 2 episodes in the past. repeat echo this admission negative for findings concerning for Takotsubo. negative troponin and no obvious symptoms of Takotsubo at this time despite her EKG findings. (5) Hypothyroid: TSH 3 on 11/06/20. cont synthroid replacement. (6) CKD (chronic kidney disease) stage 3, GFR 30-59 ml/min: Cr stable at 1.1 during the visit (baseline). (7) Thoracic aortic aneurysm: 4.4cm in size. Should have annual screening at minimum. Total Time Total Time Spent Total Time Spent (In Minutes): 45 Total Time Includes: Examination of the Patient, Discharge Planning, Medication Reconciliation and Communication With Other Providers Discharge Plan Discharge Items Patient Disposition: Home - Self-Care Reason For Visit: SYNCOPE Discharge Diagnosis: Dizziness and Syncope (passing out spell) - exact cause uncertain. Condition on Discharge: Good Activity: Resume your previous activity Non-emergency contact: Primary Care Provider and Assistant Winemaker Call non-emergency contact if: you have any medication questions and your symptoms worsen Follow-up/Referrals: Conrado Camp MD [Physician] - (4 weeks ) Marvin Avila MD [Primary Care Provider] - (see Dr Avila within 1 week ) Diet: Heart Healthy Addtl Attending Provider Instructions: Rg San were admitted to the hospital due to a severe episode of dizziness followed by brief episode of passing out. It was also associated with a questionable brief episode of confusion. You underwent an extensive work-up for this. The following were normal -- CAT scan of the lungs; echocardiogram; MRI brain; and carotid ultrasound. We did not find blood clots of the lungs, blood clots in the heart, old or new stroke, brain tumors, blocked arteries in the neck, or "broken heart syndrome." At this time I am uncertain what caused your symptoms. I would recommend -- 1. Consider taking a baby aspirin 81mg every day. Please speak to Dr Avila first before initiating aspirin every day. 2. Complete a 30-day heart monitor at home. It will be mailed to your house with instructions. The results will go to Dr Camp. Follow-up -- see separate section Return to [facility] if - * you have fevers over 100 degrees * you have recurrent episodes of passing out * you have shortness of breath or chest pain * you have weakness of any limb, difficulty speaking or difficulting swallowing * any other concerns I enjoyed caring for you! -Dr Cade Pending Studies at Discharge: No Stand-Alone Forms: My [facility], Smoking Cessation Medications and DC Order Prescriptions: Continued pantoprazole 40 mg tablet,delayed release (DR/EC) 40 mg PO PM Qty: 30 RF: 0 triamterene-hydrochlorothiazid 37.5-25 mg capsule 1 cap PO DAILY Qty: 90 RF: 3 montelukast 10 mg tablet 10 mg PO DAILY Qty: 30 RF: 5 thyroid (pork) [[place] Thyroid] 60 mg tablet 60 mg PO QAM Qty: 30 RF: 5 temazepam 15 mg capsule 15 mg PO HS Qty: 30 RF: 0 escitalopram oxalate 20 mg tablet 20 mg PO DAILY Qty: 30 RF: 6 Discharge Orders: Discharge Order (Routine); Ordered 11/08/20 Ordered By: Wilfrid Cade Admission Data Admit Date/Time: 11/07/20 01:50 Attending Provider: Wilfrid Cade Admit Provider: Regina Guillory Primary Care Provider: Marvin Avila Other Providers: Regina Guilolry Other Interventions: Discharge Summary Assessment (RN) Last Done: 11/08/20 16:03 Coding Level of Care Code 43227 OBS Care - Discharge Diagnoses Syncope R55 Abnormal ECG R94.31 Hypertension I10 Hypertension type: essential hypertension Takotsubo syndrome I51.81 Hypothyroid E03.9 Hypothyroidism type: unspecified CKD (chronic kidney disease) stage 3, GFR 30-59 ml/min N18.30 Chronic kidney disease stage 3 subtype: unspecified whether 3a or 3b Thoracic aortic aneurysm I71.2
== END 2020-11-08 16:35 | disposition home or self-care (01) ==
LOC: ED 22:14 → INTOOBSV 11-07 01:50 → 2W 11-07 01:50 → SUATTDRO 11-07 01:50 → 2W 11-07 02:36
DX: E03.9 Hypothyroidism, unspecified; I51.81 Takotsubo syndrome; R55 Syncope and collapse; Z88.6 Allergy status to analgesic agent; R94.31 Abnormal electrocardiogram [ECG] [EKG]; Z66 Do not resuscitate; H90.6 Mixed conductive and sensorineural hearing loss, bilateral; N18.30 Chronic kidney disease, stage 3 unspecified; Z91.040 Latex allergy status; E55.9 Vitamin D deficiency, unspecified; Z88.8 Allergy status to other drugs, medicaments and biological substances; K21.9 Gastro-esophageal reflux disease without esophagitis; J45.909 Unspecified asthma, uncomplicated; Z88.2 Allergy status to sulfonamides; I12.9 Hypertensive chronic kidney disease with stage 1 through stage 4 chronic kidney disease, or unspecified chronic kidney disease; Z88.5 Allergy status to narcotic agent; E78.5 Hyperlipidemia, unspecified; Z91.041 Radiographic dye allergy status; Z79.899 Other long term (current) drug therapy; R79.89 Other specified abnormal findings of blood chemistry

== ENCOUNTER 2021-01-05 14:10 | Observation (INO) ==
[2021-01-05] MEDS ORDERED: SODIUM CHLORIDE 0.9% 1000ML 1,000 ML IV ONE (15:10)
[2021-01-05] MEDS ORDERED: FAMOTIDINE 20MG IV PUSH 20 MG/5 ML SYR IV STA (15:15)
--- NOTE | 2021-01-05 15:18 | Emergency Department Note ---
Impression & Plan COVID-19, Nausea, Dizziness, Weakness ED Provider Note Provider: Vic Denson MD DATE OF SERVICE: 01/05/2021 CHIEF COMPLAINT: Weakness, dizzy, nausea HISTORY OF PRESENT ILLNESS: Patient is a 80-year-old female with a history of CAD, thyroiditis, CKD, GERD presenting from home today complaining over the last several days of worsening weakness dizziness and nausea. Patient states she felt near faint but has not fainted or fallen at home. Patient states she is currently on a course of steroids from her PCPs office and diagnosed with Covid from a swab 6 days ago. initially had some bronchitis symptoms but this is improving and minimal now. Denies fever. Denies exam myalgias but endorses generalized fatigue. has not been eating or drinking very much and is very fatigued and sleeping. Today again began more weak and somewhat dizzy and became concerned that she could fall. She lives alone and isolated house with multiple stairs and has concerns given her illness that she could fall and harm her self thus presents here. Patient denies falling likely. Patient reports some nausea at this time but no significant diarrhea. Patient does endorse some heartburn symptoms. Not currently on heartburn medication. Did not take her morning dose of steroid prescribed previously has her stomach was off. REVIEW OF SYSTEMS: A total of 10 review of systems was obtained and negative except as stated above in the HPI. PAST MEDICAL HISTORY: As noted above MEDICATIONS: Reviewed home medications SOCIAL HISTORY: , lives at home with dog by herself PHYSICAL EXAM: GENERAL: alert and oriented in no acute distress on stretcher Head: normocephalic and atraumatic EYES: No injection, discharge or icterus. NECK: Trachea midline. LUNGS: Airway patent. No retractions without tachypnea. HEART: Regular rate and rhythm. ABDOMEN: Soft and non-tender, without guarding or rebound. SKIN: Acyanotic, warm, dry, without rashes EXTREMITIES: Without swelling, tenderness or deformity NEUROLOGICAL: No focal deficits. No aphasia. No facial droop or slurred speech. EK bpm sinus bradycardia with sinus arrhythmia and first-degree AV block. No PVC or PAC. No acute ST segment elevation or depression with lateral T wave inversions new version 1 and aVL. CONTINUOUS CARDIAC MONITORING: was ordered and showed a heart rate of 50s and 60s bpm in sinus bradycardia and normal sinus rhythm Patient's laboratory studies and imaging reviewed. Differential includes Infection, dehydration, metabolic abnormality, hypo/hyperglycemia, electrolyte disturbance, anemia, hypoxia, cardiac sources, intracerebral event, toxicologic, neurologic, as well as other pathologies. IMPRESSION/MEDICAL DECISION MAKING: Patient presents known Covid positive with some weakness and dizziness decreased intake. Patient is concerned about possible dehydration and this appears a valid concern. Fatigue and weakness likely related to infection. Benign abdomen on exam and doubt acute intra-abdominal process such as perforation, cholecystitis, appendicitis, diverticulitis, however do have some concern could have some underlying gastritis the patient was agreeable with small amount of Pepcid. EKG was obtained as well as basic blood work. X-rays obtained of the abdomen as well as a chest x-ray. Not significantly hypoxic here. No significant focal neurological deficit or speech issues and doubt this represents acute stroke. Patient does not appear meningitic. No fevers reported and afebrile here and lower suspicion for sepsis at this time. Blood work is reassuring here without significant electrolyte abnormality or renal dysfunction. X-rays per radiology without significant abnormalities noted. Patient after liter of fluids states she was having some improvement states she still dizzy when she tried to sit up. Discussed with her her safety going home and still with some fatigue and likely related to the coronavirus. Given this discussed with the hospitalist further observation here. DIAGNOSIS: COVID-19, nausea, weakness, dizziness DISPOSITION: Hospitalist will evaluate Patient was agreeable with this plan. Past Med/Surg History Medical History Abnormal ECG Acute tubular necrosis Anxiety Asthma Bronchitis (2019) Bronchospasm CKD (chronic kidney disease) stage 3, GFR 30-59 ml/min Diverticulosis Diverticulosis of colon GERD (gastroesophageal reflux disease) GERD (gastroesophageal reflux disease) Elva's thyroiditis Hyperlipidemia Hypothyroid Hypothyroidism Impacted cerumen Major depression Mixed hearing loss, bilateral Myocardial infarction Solitary pulmonary nodule on lung CT Spinal stenosis Vitamin D deficiency Surgical History (Updated 12/27/20 @ 10:40 by Delma Justin MD, FACOG) History of right hip replacement S/P ear surgery Family History Mother Hypertension Breast cancer COPD (chronic obstructive pulmonary disease) Grandmother Breast cancer Denies family history of Colon cancer Ovarian cancer Prostate cancer Myocardial infarction Social History Smoking Status: Never smoker Second Hand Exposure: No; Hx Alcohol Use: No Hx Substance Use: No Preferred Language: Ukrainian Communication Ability: Effective Visual Impairment: No Limitations Hearing Ability: Normal 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 Beliefs That Will Affect Care: None marital status: Current Living Situation: Alone current occupational status: retired Feels Safe at Home: Yes Childhood Exposure to Second-Hand Smoke: Yes Dental Care, Regularly: Yes Physical Activity Frequency: 5-6 Times per Week Seatbelt Use: always Sunscreen Use: No Assistive Devices: None Allergies Allergies Allergy/AdvReac Type Severity Reaction Status Date / Time tromethamine Allergy Severe kidney Verified 01/05/21 16:38 failure Iodinated Contrast Media Allergy Intermediate Rash Verified 01/05/21 16:38 [Iodinated Contrast- Oral and IV Dye] Penicillins Allergy Intermediate RASH, HIVES Verified 01/05/21 16:38 diclofenac [From Voltaren] Allergy Mild RASH ON Verified 01/05/21 16:38 HANDS latex Allergy Mild LOCAL RASH Verified 01/05/21 16:38 amlodipine [From Norvasc] Allergy Unknown CAN'T Verified 01/05/21 16:38 REMEMBER Citalopram Analogues Allergy Unknown CAN'T Verified 01/05/21 16:38 REMEMBER codeine Allergy Unknown Unknown Verified 01/05/21 16:38 esomeprazole [From Nexium] Allergy Unknown CAN'T Verified 01/05/21 16:38 REMEMBER lisinopril Allergy Unknown CAN'T Verified 01/05/21 16:38 REMEMBER Sulfa (Sulfonamide Allergy Unknown CAN'T Verified 01/05/21 16:38 Antibiotics) REMEMBER ketorolac AdvReac Severe kidney Verified 01/05/21 16:38 failure aspirin AdvReac Intermediate UPSET Verified 01/05/21 16:38 STOMACH/STOMACH PAIN Home Meds Home Medications Medication Instructions Recorded Confirmed carvedilol 12.5 mg PO BID 01/05/21 01/05/21 Previous Rx's Medication Instructions Recorded triamterene 37.5 1 cap PO DAILY #90 cap 05/02/20 mg-hydrochlorothiazide 25 mg capsule escitalopram oxalate 20 mg tablet 20 mg PO DAILY #30 tab 10/13/20 montelukast 10 mg tablet 10 mg PO DAILY #30 tab 10/13/20 thyroid (pork) 60 mg tablet 60 mg PO QAM #30 tab 10/13/20 estradiol 1 g VAGINAL .COMPLEX #42.5 g 12/27/20 albuterol sulfate 2.5 mg INHALATION QID PRN #75 ml 12/30/20 methylprednisolone 4 mg tablets in See Rx Instructions .ROUTE 12/30/20 a dose pack .COMPLEX #21 ea Results & Data (ED) Vital Signs Vital Signs - 24 hr 01/05/21 14:24 01/05/21 16:01 Temperature 36.5 C Temperature Source Temporal Artery Scan Pulse Rate 62 Pulse Rate [Right Finger] 51 L Pulse Rhythm [Right Finger] Regular Pulse Strength [Right Finger] Normal Respiratory Rate 18 18 Respiratory Effort / Characteristics Non-Labored Non-Labored Spontaneous Respiratory Depth Normal Normal Respiratory Pattern Regular Blood Pressure 170/82 H Blood Pressure [Left Arm] 161/94 H Blood Pressure Mean 111 Blood Pressure Mean [Left Arm] 116 Blood Pressure Position [Left Arm] Semi-fowlers Pulse Oximetry 95 95 Oxygen Delivery Method Room Air Room Air Sepsis Recent Fever Within 48 Hours No Sepsis New/Unexplained Change in Mental Status No Sepsis Action Taken by Nursing No Action Required Laboratory Data Result diagrams: 01/05/21 15:41 01/05/21 15:41 Lab Results 01/05/21 01/05/21 01/05/21 Range/Units 15:41 15:41 15:41 WBC 6.63 (4.8-10.8) K/uL RBC 4.28 (4.2-5.4) M/uL Hgb 13.3 (12.0-16.0) g/dL Hct 38.5 (37-47) % MCV 90.0 (80-100) fL MCH 31.1 (25-34) pg MCHC 34.5 (32-36) g/dL RDW Std Deviation 44.2 (36.4-46.3) fL RDW Coeff of Virgilio 13.4 (11.5-14.5) % Plt Count 158 (130-400) K/uL MPV 10.7 H (7.4-10.4) fL Immature Gran % (Auto) 0.6 % Neut % (Auto) 61.3 % Lymph % (Auto) 21.0 % [place] % (Auto) 16.0 % Eos % (Auto) 0.9 % Baso % (Auto) 0.2 % Neut # (Auto) 4.07 (1.4-6.5) K/uL Lymph # (Auto) 1.39 (1.2-3.4) K/uL [place] # (Auto) 1.06 H (0.11-0.59) K/uL Eos # (Auto) 0.06 (0-0.5) K/uL Baso # (Auto) 0.01 (0-0.2) K/uL Immature Gran # (Auto) 0.04 H (0.00-0.02) K/uL PT 9.8 (9.0-12.0) Seconds INR 1.0 (0.9-1.1) Sodium 139 (136-145) mmol/L Potassium 3.5 (3.5-5.1) mmol/L Chloride 105 (98-107) mmol/L Carbon Dioxide 28 (21-32) mmol/L Anion Gap 6.0 (3-11) BUN 18 (7-18) mg/dl Creatinine 0.77 (0.6-1.2) mg/dl Est Cr Clr Drug Dosing Not Reportable Est GFR ( Amer) 83.3 Est GFR (Non-Af Amer) 71.9 BUN/Creatinine Ratio 24.0 H (10-20) Glucose 97 (70-99) mg/dl Calcium 8.7 (8.5-10.1) mg/dl Magnesium 2.0 (1.8-2.4) mg/dl Total Bilirubin 0.5 (0.2-1) mg/dl AST 23 (15-37) U/L ALT 30 (12-78) U/L Alkaline Phosphatase 73 (45-117) U/L Troponin I < 0.015 (0-0.045) ng/ml C-Reactive Protein (0-0.29) mg/dl Total Protein 6.6 (6.4-8.2) gm/dl Albumin 3.1 L (3.4-5.0) gm/dl Globulin 3.5 (2.5-4.0) gm/dl Albumin/Globulin Ratio 0.9 (0.9-2) Lipase 102 (73-393) U/L Urine Color Urine Appearance (Clear) Urine pH (4.5-7.5) Ur Specific [place] (1.000-1.030) Urine Protein (Negative) Urine Glucose (UA) (Negative) Urine Ketones (Negative) Urine Blood (Negative) Urine Nitrite (Negative) Urine Bilirubin (Negative) Urine Urobilinogen (Negative) Ur Leukocyte Esterase (Negative) COVID-19 Eval Order SARS-CoV-2 (PCR) (Negative) Influenza Type A (PCR) (Neg) Influenza Type B (PCR) (Neg) RSV (RT-PCR) (Neg) 01/05/21 01/05/21 01/05/21 Range/Units 15:41 Unknown Unknown WBC (4.8-10.8) K/uL RBC (4.2-5.4) M/uL Hgb (12.0-16.0) g/dL Hct (37-47) % MCV (80-100) fL MCH (25-34) pg MCHC (32-36) g/dL RDW Std Deviation (36.4-46.3) fL RDW Coeff of Virgilio (11.5-14.5) % Plt Count (130-400) K/uL MPV (7.4-10.4) fL Immature Gran % (Auto) % Neut % (Auto) % Lymph % (Auto) % [place] % (Auto) % Eos % (Auto) % Baso % (Auto) % Neut # (Auto) (1.4-6.5) K/uL Lymph # (Auto) (1.2-3.4) K/uL [place] # (Auto) (0.11-0.59) K/uL Eos # (Auto) (0-0.5) K/uL Baso # (Auto) (0-0.2) K/uL Immature Gran # (Auto) (0.00-0.02) K/uL PT (9.0-12.0) Seconds INR (0.9-1.1) Sodium (136-145) mmol/L Potassium (3.5-5.1) mmol/L Chloride (98-107) mmol/L Carbon Dioxide (21-32) mmol/L Anion Gap (3-11) BUN (7-18) mg/dl Creatinine (0.6-1.2) mg/dl Est Cr Clr Drug Dosing Est GFR ( Amer) Est GFR (Non-Af Amer) BUN/Creatinine Ratio (10-20) Glucose (70-99) mg/dl Calcium (8.5-10.1) mg/dl Magnesium (1.8-2.4) mg/dl Total Bilirubin (0.2-1) mg/dl AST (15-37) U/L ALT (12-78) U/L Alkaline Phosphatase (45-117) U/L Troponin I (0-0.045) ng/ml C-Reactive Protein 2.38 H (0-0.29) mg/dl Total Protein (6.4-8.2) gm/dl Albumin (3.4-5.0) gm/dl Globulin (2.5-4.0) gm/dl Albumin/Globulin Ratio (0.9-2) Lipase (73-393) U/L Urine Color Yellow Urine Appearance Clear (Clear) Urine pH 6.5 (4.5-7.5) Ur Specific [place] 1.015 (1.000-1.030) Urine Protein Negative (Negative) Urine Glucose (UA) Negative (Negative) Urine Ketones Negative (Negative) Urine Blood Negative (Negative) Urine Nitrite Negative (Negative) Urine Bilirubin Negative (Negative) Urine Urobilinogen Negative (Negative) Ur Leukocyte Esterase Negative (Negative) COVID-19 Eval Order [facility] at [facility] SARS-CoV-2 (PCR) (Negative) Influenza Type A (PCR) (Neg) Influenza Type B (PCR) (Neg) RSV (RT-PCR) (Neg) 01/05/21 Range/Units Unknown WBC (4.8-10.8) K/uL RBC (4.2-5.4) M/uL Hgb (12.0-16.0) g/dL Hct (37-47) % MCV (80-100) fL MCH (25-34) pg MCHC (32-36) g/dL RDW Std Deviation (36.4-46.3) fL RDW Coeff of Virgilio (11.5-14.5) % Plt Count (130-400) K/uL MPV (7.4-10.4) fL Immature Gran % (Auto) % Neut % (Auto) % Lymph % (Auto) % [place] % (Auto) % Eos % (Auto) % Baso % (Auto) % Neut # (Auto) (1.4-6.5) K/uL Lymph # (Auto) (1.2-3.4) K/uL [place] # (Auto) (0.11-0.59) K/uL Eos # (Auto) (0-0.5) K/uL Baso # (Auto) (0-0.2) K/uL Immature Gran # (Auto) (0.00-0.02) K/uL PT (9.0-12.0) Seconds INR (0.9-1.1) Sodium (136-145) mmol/L Potassium (3.5-5.1) mmol/L Chloride (98-107) mmol/L Carbon Dioxide (21-32) mmol/L Anion Gap (3-11) BUN (7-18) mg/dl Creatinine (0.6-1.2) mg/dl Est Cr Clr Drug Dosing Est GFR ( Amer) Est GFR (Non-Af Amer) BUN/Creatinine Ratio (10-20) Glucose (70-99) mg/dl Calcium (8.5-10.1) mg/dl Magnesium (1.8-2.4) mg/dl Total Bilirubin (0.2-1) mg/dl AST (15-37) U/L ALT (12-78) U/L Alkaline Phosphatase (45-117) U/L Troponin I (0-0.045) ng/ml C-Reactive Protein (0-0.29) mg/dl Total Protein (6.4-8.2) gm/dl Albumin (3.4-5.0) gm/dl Globulin (2.5-4.0) gm/dl Albumin/Globulin Ratio (0.9-2) Lipase (73-393) U/L Urine Color Urine Appearance (Clear) Urine pH (4.5-7.5) Ur Specific [place] (1.000-1.030) Urine Protein (Negative) Urine Glucose (UA) (Negative) Urine Ketones (Negative) Urine Blood (Negative) Urine Nitrite (Negative) Urine Bilirubin (Negative) Urine Urobilinogen (Negative) Ur Leukocyte Esterase (Negative) COVID-19 Eval Order SARS-CoV-2 (PCR) POSITIVE A* (Negative) Influenza Type A (PCR) Negative (Neg) Influenza Type B (PCR) Negative (Neg) RSV (RT-PCR) Negative (Neg) Administered Medications Discontinued Medications Sodium Chloride (Nss 1000ml) 1,000 mls @ 999 mls/hr IV .[id number] ONE Stop: 01/05/21 16:10 Last Admin: 01/05/21 15:45 Dose: 999 mls/hr Documented by: [id number] Famotidine (Pepcid 20mg Iv Push) 20 mg in 5 mls @ 2.5 mls/min IV NOW STA Stop: 01/05/21 15:16 Last Admin: 01/05/21 15:45 Dose: 2.5 mls/min Documented by: [id number] Imaging Data Radiologist's Impression: Chest X-Ray 01/05/21 15:16 SINGLE VIEW CHEST CLINICAL HISTORY: Nausea. Covid. FINDINGS: An AP, portable, upright chest radiograph is compared to chest x-ray and chest CT dated 11/06/2020. The heart is enlarged noting atherosclerotic calcification of the thoracic aorta. The pulmonary vasculature is noncongested. Chronic interstitial thickening is similar to previous. There is bibasilar scarring/atelectasis. No airspace consolidation or large pleural effusion is identified. No pneumothorax is seen. The skeletal structures are osteopenic. The bony thorax is grossly intact. IMPRESSION: Cardiomegaly with no active disease in the chest. ACT 112: Negative or not required by law. Electronically signed by: Satish Dyson M.D. 01/05/2021 3:35 PM KUB X-Ray 01/05/21 15:16 KUB CLINICAL HISTORY: Nausea. Covid. FINDINGS: 2 AP, portable, supine abdominal radiographs are correlated with abdominal CT dated 02/09/2019. There is a nonobstructed abdominal bowel gas pa ttern noting moderate colonic fecal retention. No evidence of intraperitoneal free air is seen on these supine images. There are no abnormal abdominal calcifications. The skeletal structures are osteopenic and appear intact. A right hip arthroplasty is in place. There is moderate lumbosacral spondylosis. The heart is enlarged and the lung bases are clear as imaged. IMPRESSION: Moderate colonic fecal retention. Electronically signed by: Satish Dyson M.D. 01/05/2021 3:37 PM Discharge Plan Visit Data Chief Complaint: Nausea Stated Complaint: [id number] POSITIVE ED Provider: Janiya,Vic T Discharge Problem: COVID-19, Nausea, Dizziness, Weakness Forms Stand Alone Forms: My [facility] [employer] Prescriptions Prescriptions: No Action triamterene-hydrochlorothiazid 37.5-25 mg capsule 1 cap PO DAILY Qty: 90 RF: 3 montelukast 10 mg tablet 10 mg PO DAILY Qty: 30 RF: 5 thyroid (pork) [[place] Thyroid] 60 mg tablet 60 mg PO QAM Qty: 30 RF: 5 escitalopram oxalate 20 mg tablet 20 mg PO DAILY Qty: 30 RF: 6 methylprednisolone [Medrol (Castillo)] 4 mg tablets,dose pack See Rx Instructions .ROUTE .COMPLEX Qty: 21 RF: 0 albuterol sulfate 2.5 mg /3 mL (0.083 %) solution for nebulization 2.5 mg inhalation QID PRN (Reason: shortness of breath or wheezing) Qty: 75 RF: 0 estradiol 0.01 % (0.1 mg/gram) cream 1 g vaginal .COMPLEX Qty: 42.5 RF: 2 carvedilol 12.5 mg tablet 12.5 mg PO BID RF: 0
--- NOTE | 2021-01-05 15:36 | XRay Report ---
SINGLE VIEW CHEST CLINICAL HISTORY: Nausea. Covid. FINDINGS: An AP, portable, upright chest radiograph is compared to chest x-ray and chest CT dated 10/24. The heart is enlarged noting atherosclerotic calcification of the thoracic aorta. The pulmona ry vasculature is noncongested. Chronic interstitial thickening is similar to previous. There is biba silar scarring/atelectasis. No airspace consolidation or large pleural effusion is identified. No pne umothorax is seen. The skeletal structures are osteopenic. The bony thorax is grossly intact. IMPRESSION: Cardiomegaly with no active disease in the chest. ACT 112: Negative or not required by law. Electronically signed by: Satish Dyson M.D. 01/05/2021 3:35 PM
--- NOTE | 2021-01-05 15:38 | XRay Report ---
KUB CLINICAL HISTORY: Nausea. Covid. FINDINGS: 2 AP, portable, supine abdominal radiographs are correlated with abdominal CT dated 02/10/20 19. There is a nonobstructed abdominal bowel gas pattern noting moderate colonic fecal retention. No evidence of intraperitoneal free air is seen on these supine images. There are no abnormal abdominal calcifications. The skeletal structures are osteopenic and appear intact. A right hip arthroplasty is in place. There is moderate lumbosacral spondylosis. The heart is enlarged and the lung bases are cl ear as imaged. IMPRESSION: Moderate colonic fecal retention. Electronically signed by: Satish Dyson M.D. 01/05/2021 3:37 PM
[2021-01-05 15:57] LABS: Basophils # (auto) 0.01 K/uL (0-0.2); Basophils % (auto) 0.2 %; Eosinophils # (auto) 0.06 K/uL (0-0.5); Eosinophils % (auto) 0.9 %; Hematocrit (blood only) 38.5 % (37-47); Hemoglobin 13.3 g/dL (12.0-16.0); Immature Granulocytes # (auto) 0.04 K/uL (0.00-0.02); Immature Granulocytes % (auto) 0.6 %; Lymphocytes # (auto) 1.39 K/uL (1.2-3.4); Mean Corpuscular Hemoglobin 31.1 pg (25-34); Mean Corpuscular Hgb Conc 34.5 g/dL (32-36); Mean Platelet Volume 10.7 fL (7.4-10.4); Monocytes # (auto) 1.06 K/uL (0.11-0.59); Neutrophils # (auto) 4.07 K/uL (1.4-6.5); Neutrophils % (auto) 61.3 %; Platelet Count 158 K/uL (130-400); RDW Coefficient of Variation 13.4 % (11.5-14.5); RDW Standard Deviation 44.2 fL (36.4-46.3); Red Blood Count 4.28 M/uL (4.2-5.4); White Blood Count 6.63 K/uL (4.8-10.8)
[2021-01-05 16:06] LABS: Prothrombin Time 9.8 Seconds (9.0-12.0)
[2021-01-05 16:16] LABS: Alanine Aminotransferase 30 U/L (12-78); Albumin Level 3.1 gm/dl (3.4-5.0); Aspartate Aminotransferase 23 U/L (15-37); Blood Urea Nitrogen 18 mg/dl (7-18); Calcium 8.7 mg/dl (8.5-10.1); Carbon Dioxide 28 mmol/L (21-32); Chloride 105 mmol/L (98-107); Est GFR (African American) 83.3; Est GFR (Non-African American) 71.9; Glucose 97 mg/dl (70-99); Lipase 102 U/L (73-393); Potassium 3.5 mmol/L (3.5-5.1); Sodium 139 mmol/L (136-145)
[2021-01-05 16:21] LABS: Albumin Globulin Ratio 0.9 (0.9-2); Alkaline Phosphatase 73 U/L (45-117); Bilirubin,Total 0.5 mg/dl (0.2-1); Globulin 3.5 gm/dl (2.5-4.0); Total Protein 6.6 gm/dl (6.4-8.2); Troponin I < 0.015 ng/ml (0-0.045)
--- NOTE | 2021-01-05 17:10 | History & Physical Report ---
Date of Service January 05, 2021 Assessment & Plan (1) COVID-19: No significant hypoxia or chest x-ray findings to suggest need for treatment. COVID isolation precautions (2) Nausea: Ondansetron as needed (3) Dizziness: Hold triamterene/hydrochlorothiazide. (4) Weakness: PT/OT (5) Asthma: DuoNebs as needed (6) Hypothyroidism: TSH WNL in October Continue [place] Thyroid 60 mg p.o. daily (7) Hypertension: Hold Dyazide as above. Continue carvedilol 12.5 mg p.o. twice daily (8) Anxiety: Continue Lexapro 20 mg p.o. daily (9) DVT prophylaxis: Lovenox 40 mg subcu daily Admission and Anticipated Discharge Date Admission Date: January 05, 2021 History of Present Illness Chief Complaint: Fatigue, poor appetite Primary Care Provider: Marvin Avila MD Korin Pichardo is an 80-year-old female who presents to the ER with generalized fatigue, weakness and dizziness with known COVID-19. She denies any significant fever, chills, shortness of breath, loss of taste or smell, headache, sore throat, diarrhea, nausea/vomiting, nasal congestion, chest or abdominal pain. She received monoclonal antibody 2 days ago reports feeling more fatigued after this. She lives alone and currently feels she is not coping well at home, not eating well or drinking enough. She has chronic bronchitis with a chronic cough which is no worse than usual with this illness. She believes her initial symptoms started on December 27, therefore is on day 9 of illness. In the ER chest x-ray was unremarkable. Due to possibility of a false positive SARS-CoV-2 test due to lack of chest x-ray findings and normal lymphocyte count, this was repeated and subsequently positive. She is referred to medicine for admission and ongoing management of COVID-19 pneumonia without hypoxia. Allergies Allergy/AdvReac Type Severity Reaction Status Date / Time tromethamine Allergy Severe kidney Verified 01/05/21 16:38 failure Iodinated Contrast Media Allergy Intermediate Rash Verified 01/05/21 16:38 [Iodinated Contrast- Oral and IV Dye] Penicillins Allergy Intermediate RASH, HIVES Verified 01/05/21 16:38 diclofenac [From Voltaren] Allergy Mild RASH ON Verified 01/05/21 16:38 HANDS latex Allergy Mild LOCAL RASH Verified 01/05/21 16:38 amlodipine [From Norvasc] Allergy Unknown CAN'T Verified 01/05/21 16:38 REMEMBER Citalopram Analogues Allergy Unknown CAN'T Verified 01/05/21 16:38 REMEMBER codeine Allergy Unknown Unknown Verified 01/05/21 16:38 esomeprazole [From Nexium] Allergy Unknown CAN'T Verified 01/05/21 16:38 REMEMBER lisinopril Allergy Unknown CAN'T Verified 01/05/21 16:38 REMEMBER Sulfa (Sulfonamide Allergy Unknown CAN'T Verified 01/05/21 16:38 Antibiotics) REMEMBER ketorolac AdvReac Severe kidney Verified 01/05/21 16:38 failure aspirin AdvReac Intermediate UPSET Verified 01/05/21 16:38 STOMACH/STOMACH PAIN Home Medications Medication Instructions Recorded Confirmed Type triamterene 37.5 1 cap PO DAILY #90 cap 05/02/20 01/05/21 Rx mg-hydrochlorothiazide 25 mg capsule escitalopram oxalate 20 mg tablet 20 mg PO DAILY #30 tab 10/13/20 01/05/21 Rx montelukast 10 mg tablet 10 mg PO DAILY #30 tab 10/13/20 01/05/21 Rx thyroid (pork) 60 mg tablet 60 mg PO QAM #30 tab 10/13/20 01/05/21 Rx estradiol 1 g VAGINAL .COMPLEX #42.5 g 12/27/20 01/05/21 Rx albuterol sulfate 2.5 mg INHALATION QID PRN #75 ml 12/30/20 01/05/21 Rx methylprednisolone 4 mg tablets in See Rx Instructions .ROUTE 12/30/20 01/05/21 Rx a dose pack .COMPLEX #21 ea carvedilol 12.5 mg PO BID 01/05/21 01/05/21 History Past Med/Surg History Medical History Abnormal ECG Acute tubular necrosis Anxiety Asthma Bronchitis (2019) Bronchospasm CKD (chronic kidney disease) stage 3, GFR 30-59 ml/min Diverticulosis Diverticulosis of colon GERD (gastroesophageal reflux disease) Elva's thyroiditis Hyperlipidemia Hypothyroid Hypothyroidism Impacted cerumen Major depression Mixed hearing loss, bilateral Myocardial infarction Solitary pulmonary nodule on lung CT Spinal stenosis Vitamin D deficiency Surgical History History of right hip replacement S/P ear surgery Family History Mother Hypertension Breast cancer COPD (chronic obstructive pulmonary disease) Grandmother Breast cancer Denies family history of Colon cancer Ovarian cancer Prostate cancer Myocardial infarction Social History Smoking Status: Never smoker Second Hand Exposure: No; Hx Alcohol Use: No Hx Substance Use: No Preferred Language: Kittitian Communication Ability: Effective Visual Impairment: No Limitations Hearing Ability: Normal Nurse Transition Required: No Beliefs That Will Affect Care: None marital status: Current Living Situation: Alone current occupational status: retired Other Information That Helps Us Care for You: No Feels Safe at Home: Yes Safety Concerns: Feels Safe At This Time Childhood Exposure to Second-Hand Smoke: Yes Dental Care, Regularly: Yes Physical Activity Frequency: 5-6 Times per Week Seatbelt Use: always Sunscreen Use: No Assistive Devices: Glasses and Hearing Aid - Bilateral Review of Systems Review of Systems: All systems reviewed & are unremarkable except as noted in HPI & below Physical Exam Constitutional: well developed and well nourished; no acute distress Eyes: + anicteric sclerae; normal pupil size ENMT: external ear and nose normal, oropharynx normal Respiratory: normal respiratory effort, lungs clear to auscultation Cardiovascular: RRR, no murmur, no edema Gastrointestinal (Abdomen): normal bowel sounds, soft, nontender, no hepatosplenomegaly Musculoskeletal: no cyanosis or clubbing, extremities motor strength 5/5 Skin: no rashes, warm and dry Neurologic: moves all extremities and awake; not confused Psychiatric: A+Ox3, euthymic affect Results & Data Results & Data ([facility]) Vital Signs (Past 12 Hours) Vital Signs Temp Pulse Pulse Resp BP BP Pulse Ox 01/05/21 16:01 51 L 18 161/94 H 95 01/05/21 14:24 36.5 C 62 18 170/82 H 95 Diagnostic Findings SINGLE VIEW CHEST IMPRESSION: Cardiomegaly with no active disease in the chest. KUB IMPRESSION: Moderate colonic fecal retention. Medications Administered ER medications given: NSS 1 hour bolus Famotidine 20 mg IV ECG Rhythm: sinus bradycardia and sinus with SA Findings: + T-wave inversion (Anterolateral) Comparison ECG Date: from (11/07/2020) Change: the following changes noted (T wave inversion more evident in anterolateral leads) Code Status & VTE Plan Code Status DNR/DNI VTE Prophylaxis Plan VTE Prophylaxis will be ordered: Yes PG Care Time/CCT Total # of Minutes Spent Total Time Spent with Patient: Total time spent is greater than 50% in coordination of care (as documented) at patient's floor/unit and/or counseling patient: Coding Level of Care Code 73023 OBS Care - Level 2 Diagnoses COVID-19 U07.1 Nausea R11.0 Dizziness R42 Weakness R53.1 Asthma J45.20 Asthma complication type: uncomplicated Asthma persistence: intermittent Asthma severity: mild Hypothyroidism E03.8; E06.3 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
[2021-01-05 18:11] LABS: Appearance Urine Clear (Clear); Bilirubin Urine Negative (Negative); Blood Urine Negative (Negative); Color Urine Yellow; Glucose Urine UA Negative (Negative); Ketones Urine Negative (Negative); Leukocyte Esterase Urine Negative (Negative); Nitrite Urine Negative (Negative); Protein Urine Negative (Negative); Specific Gravity Urine 1.015 (1.000-1.030); Urobilinogen Urine Negative (Negative); pH Urine 6.5 (4.5-7.5)
[2021-01-05 18:39] LABS: Influenza A virus by PCR Negative (Neg); Influenza B virus by PCR Negative (Neg); RSV by PCR Negative (Neg)
[2021-01-05 18:46] LABS: SARS CoV2 RNA(COVID-19) InHosp POSITIVE (Negative)
[2021-01-05] MEDS: carvediloL 12.5 MG TAB PO SCH (21:46)
[2021-01-05] MEDS ORDERED: ALBUT/IPRATROP 3MG/0.5MG NEB 3 ML VIAL NEB PRN (21:49)
[2021-01-05] MEDS ORDERED: hydrALAZINE HCL 20 MG/ML VIAL IV PRN (22:17)
[2021-01-05] MEDS ORDERED: ONDANSETRON INJ 2 MG/ML 2 ML VIAL IV PRN (22:18)
[2021-01-06] MEDS ORDERED: MELATONIN 3 MG TAB PO PRN (01:03)
[2021-01-06] MEDS ORDERED: hydrOXYzine HCl 10 MG TAB PO ONE (02:32)
--- NOTE | 2021-01-06 06:50 | Electrocardiogram Report ---
Test Reason : Blood Pressure : / mmHG Vent. Rate : 054 BPM Atrial Rate : 054 BPM P-R Int : 232 ms QRS Dur : 100 ms QT Int : 484 ms P-R-T Axes : 055 -45 105 degrees QTc Int : 458 ms Sinus bradycardia with sinus arrhythmia with 1st degree A-V block Left axis deviation Minimal voltage criteria for LVH, may be normal variant T wave abnormality, consider anterolateral ischemia Abnormal ECG When compared with ECG of 07-NOV-2020 16:01, FL interval has increased T wave inversion more evident in Anterolateral leads Confirmed by Antonio Friedman ([id number]) on 01/06/2021 6:50:32 AM Referred By: REFERRED SELF Confirmed By:Antonio Friedman
[2021-01-06] MEDS: carvediloL 12.5 MG TAB PO SCH (07:52)
[2021-01-06] MEDS ORDERED: ENOXAPARIN INJ 40 MG/0.4 ML SYR SQ SCH (09:00)
[2021-01-06] MEDS ORDERED: MONTELUKAST SODIUM 10 MG TABLET PO SCH (09:00)
[2021-01-06] MEDS ORDERED: ARMOUR THYROID 30 MG TAB PO SCH (09:00)
[2021-01-06] MEDS ORDERED: ESCITALOPRAM OXALATE 20 MG TAB PO SCH (09:00)
--- NOTE | 2021-01-06 14:36 | Discharge Summary ---
Date of Service Admission date: January 05, 2021 Discharge date: January 06, 2021 Admission HPI Per Admitting Provider Korin Pichardo is an 80-year-old female who presents to the ER with generalized fatigue, weakness and dizziness with known COVID-19. She denies any significant fever, chills, shortness of breath, loss of taste or smell, headache, sore throat, diarrhea, nausea/vomiting, nasal congestion, chest or abdominal pain. She received monoclonal antibody 2 days ago reports feeling more fatigued after this. She lives alone and currently feels she is not coping well at home, not eating well or drinking enough. She has chronic bronchitis with a chronic cough which is no worse than usual with this illness. She believes her initial symptoms started on December 27, therefore is on day 9 of illness. In the ER chest x-ray was unremarkable. Due to possibility of a false positive SARS-CoV-2 test due to lack of chest x-ray findings and normal lymphocyte count, this was repeated and subsequently positive. She is referred to medicine for admission and ongoing management of COVID-19 pneumonia without hypoxia. Admission Exam Per Admitting Provider Constitutional: well developed and well nourished; no acute distress Eyes: + anicteric sclerae; normal pupil size ENMT: external ear and nose normal, oropharynx normal Respiratory: normal respiratory effort, lungs clear to auscultation Cardiovascular: RRR, no murmur, no edema Gastrointestinal (Abdomen): normal bowel sounds, soft, nontender, no hepatosplenomegaly Musculoskeletal: no cyanosis or clubbing, extremities motor strength 5/5 Skin: no rashes, warm and dry Neurologic: moves all extremities and awake; not confused Psychiatric: A+Ox3, euthymic affect Principal Diagnosis COVID-19 Discharge Exam Constitutional well developed and well nourished; no acute distress Respiratory normal respiratory effort, lungs clear to auscultation Cardiovascular RRR, no murmur, no edema Gastrointestinal (Abdomen) normal bowel sounds, soft, nontender, no hepatosplenomegaly Neurologic moves all extremities and awake; not confused Psychiatric A+Ox3, euthymic affect Discharge Data Allergies Allergy/AdvReac Type Severity Reaction Status Date / Time tromethamine Allergy Severe kidney Verified 01/05/21 16:38 failure Iodinated Contrast Media Allergy Intermediate Rash Verified 01/05/21 16:38 [Iodinated Contrast- Oral and IV Dye] Penicillins Allergy Intermediate RASH, HIVES Verified 01/05/21 16:38 diclofenac [From Voltaren] Allergy Mild RASH ON Verified 01/05/21 16:38 HANDS latex Allergy Mild LOCAL RASH Verified 01/05/21 16:38 amlodipine [From Norvasc] Allergy Unknown CAN'T Verified 01/05/21 16:38 REMEMBER Citalopram Analogues Allergy Unknown CAN'T Verified 01/05/21 16:38 REMEMBER codeine Allergy Unknown Unknown Verified 01/05/21 16:38 esomeprazole [From Nexium] Allergy Unknown CAN'T Verified 01/05/21 16:38 REMEMBER lisinopril Allergy Unknown CAN'T Verified 01/05/21 16:38 REMEMBER Sulfa (Sulfonamide Allergy Unknown CAN'T Verified 01/05/21 16:38 Antibiotics) REMEMBER ketorolac AdvReac Severe kidney Verified 01/05/21 16:38 failure aspirin AdvReac Intermediate UPSET Verified 01/05/21 16:38 STOMACH/STOMACH PAIN Consultations 01/05/21 16:40 ED Decision to Admit Stat Hospital Course (1) COVID-19: Korin Pichardo is an 80-year-old female who presents to the ER on January 05 due to COVID-19 pneumonia. She was not hypoxic but lives alone and was considerably fatigued with associated dizziness and poor oral intake. She felt unable to return home at that time. She was observed overnight and did well with holding her usual Dyazide antihypertensive. Recommended she continues to hold Dyazide while her oral intake remains low and resuming on advice of her PCP or when her oral intake is back to baseline. She was discharged the following day feeling improved and safe to go home. She was advised to return to the emergency room if develop symptoms of DVT or pulmonary embolism or worsening shortness of breath. (2) Nausea: (3) Dizziness: (4) Weakness: (5) Asthma: (6) Hypothyroidism: (7) Hypertension: (8) Anxiety: Total Time Total Time Spent Total Time Spent (In Minutes): 25 Total Time Includes: Examination of the Patient, Discharge Planning and Medication Reconciliation Discharge Plan Discharge Items Patient Disposition: Home - Self-Care Reason For Visit: COVID-19 FATIGUE DIZZINESS Discharge Diagnosis: COVID-19, fatigue, dizziness Activity: Resume your previous activity Non-emergency contact: Primary Care Provider Call non-emergency contact if: you have any medication questions and your symptoms worsen Follow-up/Referrals: Marvin Avila MD [Primary Care Provider] - Diet: Regular Addtl Attending Provider Instructions: You are observed overnight at [facility] from January 05-2020 due to generalized fatigue, weakness and dizziness secondary to COVID-19. Your symptoms improved overnight with holding your usual Dyazide antihypertensive medication. Recommend continue to hold this on discharge and following up with your primary care physician or your oral intake is back to normal. Please continue to take your other medications as prescribed. Kind regards, Dr. Wilfrid Oliveira Pending Studies at Discharge: No Stand-Alone Forms: My [facility], Smoking Cessation Medications and DC Order Prescriptions: Continued montelukast 10 mg tablet 10 mg PO DAILY Qty: 30 RF: 5 thyroid (pork) [[place] Thyroid] 60 mg tablet 60 mg PO QAM Qty: 30 RF: 5 escitalopram oxalate 20 mg tablet 20 mg PO DAILY Qty: 30 RF: 6 methylprednisolone [Medrol (Cast[place])] 4 mg tablets,dose pack See Rx Instructions .ROUTE .COMPLEX Qty: 21 RF: 0 albuterol sulfate 2.5 mg /3 mL (0.083 %) solution for nebulization 2.5 mg inhalation QID PRN (Reason: shortness of breath or wheezing) Qty: 75 RF: 0 estradiol 0.01 % (0.1 mg/gram) cream 1 g vaginal .COMPLEX Qty: 42.5 RF: 2 carvedilol 12.5 mg tablet 12.5 mg PO BID RF: 0 triamterene-hydrochlorothiazid 37.5-25 mg capsule 1 cap PO DAILY Qty: 90 RF: 3 Discharge Orders: Discharge Order (Routine); Ordered 01/06/21 Ordered By: Wilfrid Salas/Other Patient Handouts: 2019-nCoV Admission Data Admit Date/Time: 01/05/21 19:13 Attending Provider: Wilfrid Oliveira Admit Provider: Wilfrid Oliveira Primary Care Provider: Marvin Avila Other Providers: Wilfrid Oliveira Coding Level of Care Code 77647 OBS Care - Discharge Diagnoses COVID-19 U07.1 Nausea R11.0 Dizziness R42 Weakness R53.1 Asthma J45.20 Asthma complication type: uncomplicated Asthma persistence: intermittent Asthma severity: mild Hypothyroidism E03.8; E06.3 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
== END 2021-01-06 16:10 | disposition home or self-care (01) ==
LOC: 2W 14:10 → ED 14:10 → 2W 20:18

== ENCOUNTER 2023-10-09 14:47 | Observation (INO) ==
--- NOTE | 2023-10-09 14:56 | ED Triage Note ---
Date of Service October 09, 2023 Provider in Triage Author: Doanld Moran. History of Present Illness This patient was briefly evaluated while in triage. An abbreviated physical exam was performed. This patient is a 83-year-old Female who presents to the ED for evaluation of fatigue yesterday. Today feels hot nauseated and weak. No chest pain. Feels hard to breathe. Friend relates she has a cardiac history. She feels sweaty right now. Physical Exam CONSTITUTIONAL: in no acute pain or distress, resting comfortably SKIN: pink, warm, dry CARDIAC: tachycardic rate and regular rhythm RESPIRATORY: in no respiratory distress, lungs clear to auscultation Initial orders for labs and / or imaging were placed and patient was placed in the waiting area until a bed is available. Please see further documentation for the full ED course.
[2023-10-09] MEDS ORDERED: SODIUM CHLORIDE 0.9% 1,000 ML IV SCH (15:45)
[2023-10-09 15:57] LABS: Albumin Globulin Ratio 1.4 (0.9-2); Albumin Level 4.1 gm/dl (3.4-5.0); BUN Creatinine Ratio 14.5 (10-20); Bilirubin,Total 0.7 mg/dl (0.2-1.0); Calcium 9.7 mg/dl (8.6-10.3); Creatinine Clr Calc Pharmacy 42.6 ml/min; Est GFR (Non-African American) 45.7 ml/min; Magnesium 1.7 mg/dl (1.7-2.4); Potassium 4.2 mmol/L (3.5-5.1); Total Protein 7.1 gm/dl (6.0-8.3)
[2023-10-09 16:03] LABS: Troponin I High Sensitivity 29.2 pg/ml (0-14)
--- NOTE | 2023-10-09 16:10 | Emergency Department Note ---
Impression & Plan Fatigue, Nausea, Hypertension, Elevated troponin, Abnormal ECG ED Provider Note ED Provider Note NAME: DESIRE REES AGE:83 SEX: Female : 1940 ARRIVES VIA: Private vehicle INFORMANT: Patient ED PROVIDER(s): Ann Hubbard DO CHIEF COMPLAINT: Fatigue, nausea HPI: This is an 83-year-old female presents emergency department due to concern for fatigue, nausea, decreased intake. Patient states she first began feeling "lousy" yesterday evening. She states she has not had anything to eat or drink all day today. She states she has not had vomiting but had persistent nausea. She states she feels weak. She denies any change in urine or stools. She states a little over a week ago she did have a respiratory infection and did take a weeks worth of antibiotics, she has been off those now for 3 days. She does not recall the name of the antibiotic. She denies any current cough or cold symptoms, denies shortness of breath, chest pain, or abdominal pain. She states she feels as though she has a hard time remembering things today. PAST MEDICAL HISTORY:See Below PAST SURGICAL HISTORY:See Below FAMILY HISTORY:See Below SOCIAL HISTORY:See Below HOME MEDICATIONS:See Below ALLERGIES:See Below VITALS:See Below PHYSICAL EXAMINATION: GENERAL: alert, well appearing, well nourished, no distress, non-toxic EYE EXAM: normal conjunctiva, PERRL and EOM's grossly intact OROPHARYNX: no exudate, no erythema, lips, buccal mucosa, and tongue normal and mucous membranes are dry NECK: supple, no nuchal rigidity, no adenopathy, non-tender LUNGS: Clear to auscultation. Normal chest wall mechanics, no w/r/r HEART: no murmurs, S1 normal and S2 normal ABDOMEN: abdomen soft, non-tender, normo-active bowel sounds, no masses, no rebound or guarding. BACK: Back is symmetrical on inspection and there is no deformity, no midline tenderness, no CVA tenderness. SKIN: no rashes, petechiae, orbruising UPPER EXTREMITIES: upper extremities are grossly normal. FROM, nml pulses b/l. LOWER EXTREMITIES: No pitting edema. FROM, nml pulses b/l. NEURO EXAM: Normal sensorium, cranial nerves II-XII grossly intact, normal speech, no facial droop,nogross weakness of arms, no gross weakness of legs. Gross sensation intact. No ataxia. Vital Signs: reviewed and remarkable Differential Diagnosis: dehydration, stroke, anemia, hypoglycemia, hyponatremia, hypernatremia, urinary tract infection, pneumonia, bronchitis, sepsis, gastroenteritis, additional abdominal pathology, metabolic abnormalities, as well as others were considered MEDICAL DECISION MAKING: This is an 83-year-old female who presents from home due to concern for fatigue, decreased appetite, or nausea. She was noted to be hypertensive however other vital signs stable and patient afebrile. Labs drawn and sent, IV established, EKG and chest x-ray performed bedside interpreted by me and patient monitored on telemetry. She was started on gentle IV fluid rehydration. She was given additional medication for nausea and reported feeling improved. Patient was noted to have a mildly elevated troponin initially. A repeat troponin was drawn and sent and repeat EKG performed 2 hours later and the troponin was uptrending and patient with evolving EKG changes. She continued to denied chest pain or shortness of breath although does admit with prodding by friend at bedside that she is more winded than usual with exertion and has had increased fatigue. Nasal swab negative for any acute viral infection. No other significant lab abnormalities noted, chest x-ray unremarkable. Case discussed [facility] hospitalist team as well as on-call [facility] cardiology for additional evaluation and management. She was given IV labetalol in the emergency department due to persistent hypertension despite her reporting feeling improved. It is unclear if this could be contributing to the elevated troponin and EKG changes additionally. Patient does have risk factors for ACS despite prior negative cardiac catheterization in 2017 per cardiology notes. Consultation(s): 1919: Discussed with Dr. Guillory, [facility] hospitalist team, for additional evaluation and management 2008: Discussed with Dr. Horn. Recommends no heparin at this time. Agrees with repeat troponin. ER Treatment Provided: See below 184: Updated patient and friend at bedside. Patient states she does see Dr. Jones of cardiology. She states she has had Takotsubo's twice in her life. 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 She states she is feeling better since being here and is asking to eat and drink. Friend also notes she has seemed more winded and out of breath. Diagnostics Interpreted By Me: -ECG: Sinus tachycardia at 101, first-degree AV block, leftward axis, normal QRS and QTc, inverted T waves noted in 1, aVL, and V2; T wave inversions seen in 1 and aVL on EKG from May 31, 2023 EKG #2: Normal sinus at 77, first-degree AV block, leftward axis, normal QRS and QTc, inverted T waves noted in 1, aVL, V2, and V4 through V6 -Cardiac Monitoring: An order was placed for continuous cardiac monitoring. The monitor shows a rate of 80 with normal sinus rhythm. -Laboratory studies: As stated above and show below. -Imaging studies: X-ray Chest: A single view study of the chest was reviewed and was negative for cardiomegaly, focal infiltrate, effusion, pulmonary edema, or wide mediastinum. Triage Nursing Note Reviewed Prior/Outside Records Reviewed -cardiology visit reviewed Past Med/Surg History Medical History Adjustment disorder with depressed mood History of COVID-19 01/11 Hypertension Syncope Abnormal ECG Elevated d-dimer Diverticulosis of colon Elva's thyroiditis Solitary pulmonary nodule on lung CT Spinal stenosis Impacted cerumen Bronchitis (2018) Mixed hearing loss, bilateral Hypothyroid Bronchospasm CKD (chronic kidney disease) stage 3, GFR 30-59 ml/min Hypothyroidism Vitamin D deficiency Hypertension Major depression GERD (gastroesophageal reflux disease) Takotsubo syndrome (1996) Diverticulosis Myocardial infarction hx, heart cath 2006 Acute tubular necrosis Anxiety Hyperlipidemia Asthma Surgical History History of right cataract surgery History of surgery dental implants History of cardiac cath 2006 S/P ear surgery History of right hip replacement Family History Mother Hypertension Breast cancer COPD (chronic obstructive pulmonary disease) Grandmother Breast cancer Denies family history of Colon cancer Ovarian cancer Prostate cancer Myocardial infarction Social History Smoking Status: Never smoker Second Hand Exposure: No; Do You Dip or Chew Tobacco: No; Hx Alcohol Use: Yes Alcohol type: beer Hx Substance Use: No Preferred Language: Thai Communication Ability: Effective Visual Impairment: No Limitations Hearing Ability: Use of Hearing Aid Tabber Required: No Beliefs That Will Affect Care: None marital status: Current Living Situation: Alone current occupational status: retired How many Children do You have: 2 Feels Safe at Home: Yes Childhood Exposure to Second-Hand Smoke: Yes Diet: regular caffeine: Yes during the past year weight has: remained stable Dental Care, Regularly: Yes Physical Activity Frequency: 5-6 Times per Week Seatbelt Use: always Sunscreen Use: No Assistive Devices: Cane Allergies Allergies Allergy/AdvReac Type Severity Reaction Status Date / Time tromethamine Allergy Severe kidney Verified 09/25/23 09:49 failure Iodinated Contrast Media Allergy Intermediate Rash Verified 09/25/23 09:49 [Iodinated Contrast- Oral and IV Dye] Penicillins Allergy Intermediate RASH, HIVES Verified 09/25/23 09:49 diclofenac [From Voltaren] Allergy Mild RASH ON Verified 09/25/23 09:49 HANDS latex Allergy Mild LOCAL RASH Verified 09/25/23 09:49 Citalopram Analogues Allergy Unknown CAN'T Verified 09/25/23 09:49 REMEMBER codeine Allergy Unknown Unknown Verified 09/25/23 09:49 esomeprazole [From Nexium] Allergy Unknown CAN'T Verified 09/25/23 09:49 REMEMBER lisinopril Allergy Unknown CAN'T Verified 09/25/23 09:49 REMEMBER Sulfa (Sulfonamide Allergy Unknown CAN'T Verified 09/25/23 09:49 Antibiotics) REMEMBER ketorolac AdvReac Severe kidney Verified 09/25/23 09:49 failure aspirin AdvReac Intermediate UPSET Verified 09/25/23 09:49 STOMACH/STOMACH PAIN Home Meds Home Medications Medication Instructions Recorded Confirmed cholecalciferol (vitamin D3) 25 25 mcg PO QDL 08/31/21 10/09/23 mcg (1,000 unit) tablet (Vitamin D3) montelukast 10 mg tablet 10 mg PO QAM 08/31/21 10/09/23 temazepam 15 mg capsule 15 mg PO HS PRN Sleep 08/31/21 10/09/23 gabapentin 300 mg capsule 300 mg PO TID 06/03/23 10/09/23 carvedilol 3.125 mg tablet 3.125 mg PO BID 10/09/23 10/09/23 Previous Rx's Medication Instructions Recorded fluticasone 250 mcg-salmeterol 50 1 inh inhalation BID #60 ea 03/16/23 mcg/dose blistr powdr for inhalation thyroid (pork) 120 mg tablet 120 mg PO DAILY #30 tabs 01/23/23 spironolactone 25 mg tablet 25 mg PO BID #180 tabs 01/29/23 furosemide 20 mg tablet 20 mg PO DAILY #90 tabs 06/03/23 ipratropium 20 mcg-albuterol 100 1 puff inhalation Q6H #4 grams 06/10/23 mcg/actuation mist for inhalation lisinopril 20 mg tablet 20 mg PO DAILY #30 tabs 06/10/23 sertraline 100 mg tablet 100 mg PO DAILY #30 tabs 06/10/23 hydrocodone 5 mg-acetaminophen 325 1 tab PO Q6H PRN pain #30 tabs 09/25/23 mg tablet Results & Data (ED) Vital Signs Vital Signs - 24 hr 10/09/23 14:52 10/09/23 15:32 10/09/23 15:36 Temperature 36.8 C Temperature Source Temporal Artery Scan Pulse Rate 101 H 88 Pulse Rate from SpO2 Sensor Respiratory Rate 18 Respiratory Effort / Characteristics Non-Labored Spontaneous Respiratory Depth Normal Respiratory Pattern Regular Blood Pressure 200/112 H Blood Pressure Mean 141 Pulse Oximetry 96 98 Oxygen Delivery Method Room Air Room Air Sepsis Recent Fever Within 48 Hours No Sepsis New/Unexplained Change in Mental Status N/A Sepsis Action Taken by Nursing No Action Required 10/09/23 16:00 10/09/23 17:42 10/09/23 18:00 Temperature Temperature Source Pulse Rate 87 78 76 Pulse Rate from SpO2 Sensor 86 78 76 Respiratory Rate 23 22 28 H Respiratory Effort / Characteristics Respiratory Depth Respiratory Pattern Blood Pressure 181/117 H 172/115 H 197/99 H Blood Pressure Mean 138 134 131 Pulse Oximetry 96 95 95 Oxygen Delivery Method Room Air Room Air Room Air Sepsis Recent Fever Within 48 Hours Sepsis New/Unexplained Change in Mental Status Sepsis Action Taken by Nursing 10/09/23 19:00 10/09/23 19:10 10/09/23 19:16 Temperature Temperature Source Pulse Rate 78 73 Pulse Rate from SpO2 Sensor 72 Respiratory Rate 18 Respiratory Effort / Characteristics Respiratory Depth Respiratory Pattern Blood Pressure 209/108 H 209/108 H 182/106 H Blood Pressure Mean 141 131 Pulse Oximetry 95 Oxygen Delivery Method Sepsis Recent Fever Within 48 Hours Sepsis New/Unexplained Change in Mental Status Sepsis Action Taken by Nursing 10/09/23 19:23 10/09/23 19:46 Temperature Temperature Source Pulse Rate 73 72 Pulse Rate from SpO2 Sensor 73 Respiratory Rate 16 Respiratory Effort / Characteristics Respiratory Depth Respiratory Pattern Blood Pressure 179/92 H Blood Pressure Mean 121 Pulse Oximetry 95 Oxygen Delivery Method Room Air Sepsis Recent Fever Within 48 Hours Sepsis New/Unexplained Change in Mental Status Sepsis Action Taken by Nursing Laboratory Data 10/09/23 17:04 10/09/23 15:20 Lab Results 10/09/23 10/09/23 10/09/23 Range/Units 15:03 15:20 17:04 WBC Cancelled 10.37 RBC Cancelled 4.28 Hgb Cancelled 13.2 Hct Cancelled 39.5 MCV Cancelled 92.3 MCH Cancelled 30.8 MCHC Cancelled 33.4 RDW Std Deviation Cancelled 43.4 RDW Coeff of Virgilio Cancelled 12.9 Plt Count Cancelled 188 MPV Cancelled 10.4 Immature Gran % (Auto) Cancelled 0.9 Neut % (Auto) Cancelled 78.2 Lymph % (Auto) Cancelled 10.6 Alfalfa % (Auto) Cancelled 9.0 Eos % (Auto) Cancelled 1.1 Baso % (Auto) Cancelled 0.2 Neut # (Auto) Cancelled 8.12 H Lymph # (Auto) Cancelled 1.10 L Alfalfa # (Auto) Cancelled 0.93 H Eos # (Auto) Cancelled 0.11 Baso # (Auto) Cancelled 0.02 Immature Gran # (Auto) Cancelled 0.09 Absolute Nucleated RBC Cancelled Nucleated RBC % (auto) Cancelled Neutrophils % (Manual) Cancelled Band Neutrophils % Cancelled Lymphocytes % (Manual) Cancelled Prolymphocyte % Cancelled Reactive Lymphs % (Man) Cancelled Monocytes % (Manual) Cancelled Eosinophils % (Manual) Cancelled Basophils % (Manual) Cancelled Metamyelocytes % (Man) Cancelled Myelocytes % (Man) Cancelled Promyelocytes % (Man) Cancelled Blast Cells % (Manual) Cancelled Plasma Cell % (Manual) Cancelled Other Cells % Cancelled Nucleated RBC % Cancelled Neutrophils # (Manual) Cancelled Band Neutrophils # Cancelled Total Absolute Neuts Cancelled Lymphocytes # (Manual) Cancelled Prolymphocyte # Cancelled Reactive Lymphs # Cancelled Total Abs Lymphocytes Cancelled Monocytes # (Manual) Cancelled Eosinophils # (Manual) Cancelled Basophils # (Manual) Cancelled Metamyelocytes # (Man) Cancelled Myelocytes # (Manual) Cancelled Promyelocytes # (Man) Cancelled Blast Cells # (Man) Cancelled Plasma Cell # (Manual) Cancelled Other Cells # Cancelled Nucleated RBCs # (Man) Cancelled Hypersegmented Neuts Cancelled Hyposegmented Neuts Cancelled Hypogranular Neuts Cancelled Large Granular Lymphs Cancelled # Lrg Granular Lymphs Cancelled Hairy Cells Cancelled Smudge Cells Cancelled Toxic Granulation Cancelled Toxic Vacuolation Cancelled Dohle Bodies Cancelled Zeus Rods Cancelled Platelet Estimate Cancelled Hypogranular Platelets Cancelled Giant Platelets Cancelled Platelet Satelliting Cancelled RBC Morphology Cancelled Polychromasia Cancelled Hypochromasia Cancelled Poikilocytosis Cancelled Basophilic Stippling Cancelled Anisocytosis Cancelled Microcytosis Cancelled Macrocytosis Cancelled Spherocytes Cancelled Pappenheimer Bodies Cancelled Sickle Cells Cancelled Target Cells Cancelled Tear Drop Cells Cancelled Ovalocytes Cancelled Stomatocytes Cancelled Mcgarry-Camilla Bodies Cancelled Echinocytes Cancelled Acanthocytes (Spur) Cancelled Rouleaux Cancelled RBC Agglutinates Cancelled Schistocytes Cancelled Sezary Cell Cancelled Sodium 139 (136-145) mmol/L Potassium 4.2 (3.5-5.1) mmol/L Chloride 105 (98-107) mmol/L Carbon Dioxide 27 (21-32) mmol/L Anion Gap 7 (3-11) BUN 16 (6-23) mg/dl Creatinine 1.10 (0.6-1.2) mg/dl Est Cr Clr Drug Dosing 42.6 ml/min Est GFR ( Amer) 53.0 ml/min Est GFR (Non-Af Amer) 45.7 ml/min BUN/Creatinine Ratio 14.5 (10-20) Glucose 116 H (70-99(Fasting)) mg/dl POC Glucose 110 H (70-99) mg/dl Calcium 9.7 (8.6-10.3) mg/dl Magnesium 1.7 (1.7-2.4) mg/dl Total Bilirubin 0.7 (0.2-1.0) mg/dl AST 19 (13-39) U/L ALT 12 (7-52) U/L Alkaline Phosphatase 80 (34-104) U/L Troponin I High Sens 29.2 H (0-14) pg/ml Total Protein 7.1 (6.0-8.3) gm/dl Albumin 4.1 (3.4-5.0) gm/dl Globulin 3.0 (2.5-4.0) gm/dl Albumin/Globulin Ratio 1.4 (0.9-2) Lipase 6 L (11-82) U/L TSH 2.382 (0.300-4.500) uIu/ml Adenovirus (PCR) Not Detected (NotDetected) B. pertussis DNA (PCR) Not Detected (NotDetected) B.parapertussis DNA PCR Not Detected (NotDetected) Lyme Disease IgG Ab Negative (Negative) Lyme Disease IgM Ab Negative (Negative) C. pneumoniae DNA (PCR) Not Detected (NotDetected) Coronavirus OC43 (PCR) Not Detected (NotDetected) Coronavirus HKU1 (PCR) Not Detected (NotDetected) Coronavirus 229E (PCR) Not Detected (NotDetected) SARS-CoV-2 (PCR) Not Detected (NotDetected) Coronavirus NL63 (PCR) Not Detected (NotDetected) Human Metapneumovir PCR Not Detected (NotDetected) Influenza Type A (PCR) Not Detected (NotDetected) Influenza Type B (PCR) Not Detected (NotDetected) M. pneumoniae (PCR) Not Detected (NotDetected) Parainfluenza 1 (PCR) Not Detected (NotDetected) Parainfluenza 2 (PCR) Not Detected (NotDetected) Parainfluenza 3 (PCR) Not Detected (NotDetected) Parainfluenza 4 (PCR) Not Detected (NotDetected) RSV (PCR) Not Detected (NotDetected) Entero/Rhino (PCR) Not Detected (NotDetected) Blood Parasites ID Cancelled 10/09/23 Range/Units 17:37 WBC RBC Hgb Hct MCV MCH MCHC RDW Std Deviation RDW Coeff of Virgilio Plt Count MPV Immature Gran % (Auto) Neut % (Auto) Lymph % (Auto) Alfalfa % (Auto) Eos % (Auto) Baso % (Auto) Neut # (Auto) Lymph # (Auto) Alfalfa # (Auto) Eos # (Auto) Baso # (Auto) Immature Gran # (Auto) Absolute Nucleated RBC Nucleated RBC % (auto) Neutrophils % (Manual) Band Neutrophils % Lymphocytes % (Manual) Prolymphocyte % Reactive Lymphs % (Man) Monocytes % (Manual) Eosinophils % (Manual) Basophils % (Manual) Metamyelocytes % (Man) Myelocytes % (Man) Promyelocytes % (Man) Blast Cells % (Manual) Plasma Cell % (Manual) Other Cells % Nucleated RBC % Neutrophils # (Manual) Band Neutrophils # Total Absolute Neuts Lymphocytes # (Manual) Prolymphocyte # Reactive Lymphs # Total Abs Lymphocytes Monocytes # (Manual) Eosinophils # (Manual) Basophils # (Manual) Metamyelocytes # (Man) Myelocytes # (Manual) Promyelocytes # (Man) Blast Cells # (Man) Plasma Cell # (Manual) Other Cells # Nucleated RBCs # (Man) Hypersegmented Neuts Hyposegmented Neuts Hypogranular Neuts Large Granular Lymphs # Lrg Granular Lymphs Hairy Cells Smudge Cells Toxic Granulation Toxic Vacuolation Dohle Bodies Zeus Rods Platelet Estimate Hypogranular Platelets Giant Platelets Platelet Satelliting RBC Morphology Polychromasia Hypochromasia Poikilocytosis Basophilic Stippling Anisocytosis Microcytosis Macrocytosis Spherocytes Pappenheimer Bodies Sickle Cells Target Cells Tear Drop Cells Ovalocytes Stomatocytes Mcgarry-Camilla Bodies Echinocytes Acanthocytes (Spur) Rouleaux RBC Agglutinates Schistocytes Sezary Cell Sodium (136-145) mmol/L Potassium (3.5-5.1) mmol/L Chloride (98-107) mmol/L Carbon Dioxide (21-32) mmol/L Anion Gap (3-11) BUN (6-23) mg/dl Creatinine (0.6-1.2) mg/dl Est Cr Clr Drug Dosing ml/min Est GFR ( Amer) ml/min Est GFR (Non-Af Amer) ml/min BUN/Creatinine Ratio (10-20) Glucose (70-99(Fasting)) mg/dl POC Glucose (70-99) mg/dl Calcium (8.6-10.3) mg/dl Magnesium (1.7-2.4) mg/dl Total Bilirubin (0.2-1.0) mg/dl AST (13-39) U/L ALT (7-52) U/L Alkaline Phosphatase (34-104) U/L Troponin I High Sens 43.8 H D (0-14) pg/ml Total Protein (6.0-8.3) gm/dl Albumin (3.4-5.0) gm/dl Globulin (2.5-4.0) gm/dl Albumin/Globulin Ratio (0.9-2) Lipase (11-82) U/L TSH (0.300-4.500) uIu/ml Adenovirus (PCR) (NotDetected) B. pertussis DNA (PCR) (NotDetected) B.parapertussis DNA PCR (NotDetected) Lyme Disease IgG Ab (Negative) Lyme Disease IgM Ab (Negative) C. pneumoniae DNA (PCR) (NotDetected) Coronavirus OC43 (PCR) (NotDetected) Coronavirus HKU1 (PCR) (NotDetected) Coronavirus 229E (PCR) (NotDetected) SARS-CoV-2 (PCR) (NotDetected) Coronavirus NL63 (PCR) (NotDetected) Human Metapneumovir PCR (NotDetected) Influenza Type A (PCR) (NotDetected) Influenza Type B (PCR) (NotDetected) M. pneumoniae (PCR) (NotDetected) Parainfluenza 1 (PCR) (NotDetected) Parainfluenza 2 (PCR) (NotDetected) Parainfluenza 3 (PCR) (NotDetected) Parainfluenza 4 (PCR) (NotDetected) RSV (PCR) (NotDetected) Entero/Rhino (PCR) (NotDetected) Blood Parasites ID Administered Medications Discontinued Medications Albuterol (Albuterol Hfa 8 Gm Inhaler (Combivent Respimat P&T Subs)) 1 puffs INH Q6R [facility]; Protocol Stop: 11/09/23 00:59 Last Admin: 10/10/23 12:30 Dose: Not Given Documented By: Admin: 10/10/23 09:40 Dose: Not Given Documented By: Admin: 10/10/23 09:38 Dose: 1 puffs Documented By: PROSPER Carvedilol (Carvedilol 3.125 Mg Tab) 3.125 mg PO BID [facility] Stop: 11/08/23 22:34 Last Admin: 10/10/23 08:38 Dose: 3.125 mg Documented By: Admin: 10/10/23 00:55 Dose: 3.125 mg Documented By: MICHAEL Fluticasone/Vilanterol (Fluticasone/Vilanterol 200/25mcg 14 Puffs/Inhaler) 1 puffs INH DAILY [facility] Stop: 11/09/23 08:59 Last Admin: 10/10/23 08:38 Dose: 1 puffs Documented By: DONI Furosemide (Furosemide 20 Mg Tab) 20 mg PO DAILY [facility] Stop: 11/09/23 08:59 Last Admin: 10/10/23 08:37 Dose: 20 mg Documented By: DONI Gabapentin (Gabapentin 300 Mg Cap) 300 mg PO TID [facility] Stop: 11/08/23 22:34 Last Admin: 10/10/23 08:38 Dose: 300 mg Documented By: Admin: 10/10/23 00:55 Dose: 300 mg Documented By: MICHAEL Sodium Chloride (Nss) 1,000 mls @ 125 mls/hr IV .Q8H [facility] Stop: 11/08/23 15:44 Last Infusion: 10/09/23 22:59 Dose: Infused Documented By: Admin: 10/09/23 15:48 Dose: 125 mls/hr Documented By: ADRIANNE Magnesium Sulfate/Dextrose (Magnesium Sulfate / D5w) 1 gm in 100 mls @ 50 mls/hr IV Q2H [facility] Stop: 10/10/23 02:34 Last Infusion: 10/10/23 05:09 Dose: Infused Documented By: Admin: 10/10/23 02:55 Dose: 50 mls/hr Documented By: Infusion: 10/10/23 02:54 Dose: Infused Documented By: Admin: 10/10/23 00:54 Dose: 50 mls/hr Documented By: MICHAEL Ipratropium Corona (Ipratropium Hfa Inhaler (Combivent Respimat P&T Subs)) 1 puffs INH Q6R [facility]; Protocol Stop: 11/09/23 00:59 Last Admin: 10/10/23 12:30 Dose: Not Given Documented By: Admin: 10/10/23 09:40 Dose: Not Given Documented By: Admin: 10/10/23 09:37 Dose: 1 puffs Documented By: PROSPER Labetalol HCl (Labetalol Hcl Iv 5 Mg/Ml 20ml) 10 mg IV NOW STA Stop: 10/09/23 19:08 Last Admin: 10/09/23 19:10 Dose: 10 mg Documented By: ADRIANNE Co-signed By: SREE Lisinopril (Lisinopril 20 Mg Tab) 20 mg PO DAILY [facility] Stop: 11/09/23 08:59 Last Admin: 10/10/23 08:37 Dose: 20 mg Documented By: DONI Montelukast Sodium (Montelukast Sodium 10 Mg Tablet) 10 mg PO QAM [facility] Stop: 11/09/23 08:59 Last Admin: 10/10/23 08:37 Dose: 10 mg Documented By: DONI Sertraline HCl (Sertraline Hcl 100 Mg Tablet) 100 mg PO DAILY [facility] Stop: 11/09/23 08:59 Last Admin: 10/10/23 08:37 Dose: 100 mg Documented By: DONI Spironolactone (Spironolactone 25 Mg Tab) 25 mg PO [id number] [facility] Stop: 11/08/23 22:34 Last Admin: 10/10/23 08:39 Dose: 25 mg Documented By: Admin: 10/10/23 00:55 Dose: 25 mg Documented By: MICHAEL Temazepam (Temazepam 15 Mg Capsule) 15 mg PO NOW STA Stop: 10/09/23 21:50 Last Admin: 10/09/23 22:20 Dose: 15 mg Documented By: ADRIANNE Thyroid (Preston Thyroid 30 Mg Tab) 120 mg PO DAILYBB [facility] Stop: 11/09/23 06:29 Last Admin: 10/10/23 05:43 Dose: 120 mg Documented By: MICHAEL Imaging Data Radiologist's Impression: Chest X-Ray 10/09/23 14:56 XR chest 1V portable HISTORY: 83 years-old Female weakness. recent URI acute shortness of breath with weakness COMPARISON: 08/23/2023 TECHNIQUE: AP view of the chest FINDINGS: Cardiac silhouette is enlarged. Mild subsegmental bibasilar densities. No pneumothorax, large pleural effusion or pulmonary edema. Degenerative changes of the shoulders and spine. IMPRESSION: 1. Cardiomegaly without acute process. 2. Mild subsegmental bibasilar densities favor atelectasis. ACT 112: Negative or not required by law. The above report was generated using voice recognition software. It may contain grammatical, syntax or spelling errors. Electronically signed by: Rashawn Geller M.D. 10/09/2023 4:22 PM Discharge Plan Visit Data Chief Complaint: Illness Stated Complaint: WEEK NAUSEA ED Provider: Ann Hubbard Discharge Problem: Fatigue, Nausea, Hypertension, Elevated troponin, Abnormal ECG Patient Disposition: Admitted As Inpatient Discharge Instructions Interventions: ED Discharge Assessment Last Done: 10/09/23 22:26
[2023-10-09 16:13] LABS: Thyroid Stimulating Hormone 2.382 uIu/ml (0.300-4.500)
--- NOTE | 2023-10-09 16:23 | XRay Report ---
XR chest 1V portable HISTORY: 83 years-old Female weakness. recent URI acute shortness of breath with weakness COMPARISON: 08/23/2023 TECHNIQUE: AP view of the chest FINDINGS: Cardiac silhouette is enlarged. Mild subsegmental bibasilar densities. No pneumothorax, large pleural effusion or pulmonary edema. Degenerative changes of the shoulders and spine. IMPRESSION: 1. Cardiomegaly without acute process. 2. Mild subsegmental bibasilar densities favor atelectasis. ACT 112: Negative or not required by law. The above report was generated using voice recognition software. It may contain grammatical, syntax o r spelling errors. Electronically signed by: Rashawn Geller M.D. 10/09/2023 4:22 PM
[2023-10-09 16:32] LABS: Adenovirus PCR Not Detected (NotDetected); Bordetella parapertussis PCR Not Detected (NotDetected); Bordetella pertussis PCR Not Detected (NotDetected); Chlamydia pneumoniae PCR Not Detected (NotDetected); Coronavirus 229E PCR Not Detected (NotDetected); Coronavirus CoV-2 (COVID19)PCR Not Detected (NotDetected); Coronavirus HKU1 PCR Not Detected (NotDetected); Coronavirus NL63 PCR Not Detected (NotDetected); Coronavirus OC43PCR Not Detected (NotDetected); Human Metapneumovirus PCR Not Detected (NotDetected); Influenza A PCR Not Detected (NotDetected); Influenza B PCR Not Detected (NotDetected); Mycoplasma pneumoniae PCR Not Detected (NotDetected); Parainfluenza Virus 1 PCR Not Detected (NotDetected); Parainfluenza Virus 2 PCR Not Detected (NotDetected); Parainfluenza Virus 3 PCR Not Detected (NotDetected); Parainfluenza Virus 4 PCR Not Detected (NotDetected); Respiratory Syncytial VirusPCR Not Detected (NotDetected); Rhinovirus/Enterovirus PCR Not Detected (NotDetected)
[2023-10-09 17:31] LABS: Basophils # (auto) 0.02 K/uL (0.00-0.20); Basophils % (auto) 0.2 %; Eosinophils # (auto) 0.11 K/uL (0.00-0.50); Eosinophils % (auto) 1.1 %; Hematocrit (blood only) 39.5 % (37.0-47.0); Hemoglobin 13.2 g/dl (12.0-16.0); Immature Granulocytes # (auto) 0.09 K/uL (0.01-0.20); Immature Granulocytes % (auto) 0.9 %; Lymphocytes % (auto) 10.6 %; Mean Corpuscular Hemoglobin 30.8 pg (25.0-34.0); Mean Corpuscular Hgb Conc 33.4 g/dL (32.0-36.0); Mean Corpuscular Volume 92.3 fL (80.0-100.0); Mean Platelet Volume 10.4 fL (9.4-12.4); Monocytes # (auto) 0.93 K/uL (0.11-0.59); Neutrophils # (auto) 8.12 K/uL (1.40-6.50); Neutrophils % (auto) 78.2 %; Platelet Count 188 K/uL (130-400); RDW Coefficient of Variation 12.9 % (11.5-14.5); RDW Standard Deviation 43.4 fL (36.4-46.3); Red Blood Count 4.28 M/uL (4.20-5.40); White Blood Count 10.37 K/ul (4.8-10.8)
[2023-10-09] MEDS ORDERED: LABETALOL HCL IV 5 MG/ML 20ML IV STA (19:07)
--- NOTE | 2023-10-09 19:51 | History & Physical Report ---
Date of Service October 09, 2023 Assessment & Plan (1) Fatigue: Plan: 83yo female presenting with fatigue, poor appetite and decreased oral intake. Some increased work of breathing and edema noted by her friend. Patient with recent URI - had been on antibiotic and steroid - possibly contributing to fluid retention. Patient does not appear to be in overt volume overload. History of Takotsubo cardiomyopathy on two prior occasions -Observation to medical with telemetry -Check 2D echo -Repeat troponin -Continue Carvedilol, Lisinopril and Spironolactone (2) Hypertension: Plan: Blood pressure elevated in ER. Improved now with dose of IV Labetalol -Continue home blood pressure medications -Continue Lisinopril, Carvedilol -Continue Spironolactone (3) Hypothyroidism: Plan: Chronic. TSH WNL -Continue home Thyroid tab History of Present Illness Chief Complaint: weakness and fatigue Primary Care Provider: Amy Ulloa MD Korin Pichardo is an 3yo female with history of HTN, Hypothyroidism, GERD and Takotsubo cardiomyopathy presenting with 1 day of fatigue, generalized weakness, poor appetite and decreased oral intake. Patient had a URI 1 week ago. She completed a course of antibiotics as well as steroids. She has had some episodes of nausea as well as feeling hot and sweaty as well as headache. Her friend at bedside reports that her breathing appears to be somewhat labored and she looks slightly swollen in the legs, hands and face. She denies chest pain, palpitations, abdominal pain, nausea, vomiting, diarrhea or constipation. She denies cough and shortness of breath. In the ER she is afebrile, hypertensive otherwise HD stable. ER Course: NSS Labetalol 10mg IV Temazepam 15mg po Allergies Allergy/AdvReac Type Severity Reaction Status Date / Time tromethamine Allergy Severe kidney Verified 09/25/23 09:49 failure Iodinated Contrast Media Allergy Intermediate Rash Verified 09/25/23 09:49 [Iodinated Contrast- Oral and IV Dye] Penicillins Allergy Intermediate RASH, HIVES Verified 09/25/23 09:49 diclofenac [From Voltaren] Allergy Mild RASH ON Verified 09/25/23 09:49 HANDS latex Allergy Mild LOCAL RASH Verified 09/25/23 09:49 Citalopram Analogues Allergy Unknown CAN'T Verified 09/25/23 09:49 REMEMBER codeine Allergy Unknown Unknown Verified 09/25/23 09:49 esomeprazole [From Nexium] Allergy Unknown CAN'T Verified 09/25/23 09:49 REMEMBER lisinopril Allergy Unknown CAN'T Verified 09/25/23 09:49 REMEMBER Sulfa (Sulfonamide Allergy Unknown CAN'T Verified 09/25/23 09:49 Antibiotics) REMEMBER ketorolac AdvReac Severe kidney Verified 09/25/23 09:49 failure aspirin AdvReac Intermediate UPSET Verified 09/25/23 09:49 STOMACH/STOMACH PAIN Home Medications Medication Instructions Recorded Confirmed Type cholecalciferol (vitamin D3) 25 25 mcg PO QDL 08/31/21 10/09/23 History mcg (1,000 unit) tablet (Vitamin D3) montelukast 10 mg tablet 10 mg PO QAM 08/31/21 10/09/23 History temazepam 15 mg capsule 15 mg PO HS PRN Sleep 08/31/21 10/09/23 History fluticasone 250 mcg-salmeterol 50 1 inh inhalation BID #60 ea 12/06/22 10/09/23 Rx mcg/dose blistr powdr for inhalation thyroid (pork) 120 mg tablet 120 mg PO DAILY #30 tabs 01/23/23 10/09/23 Rx spironolactone 25 mg tablet 25 mg PO BID #180 tabs 01/29/23 10/09/23 Rx furosemide 20 mg tablet 20 mg PO DAILY #90 tabs 06/03/23 10/09/23 Rx gabapentin 300 mg capsule 300 mg PO TID 06/03/23 10/09/23 History ipratropium 20 mcg-albuterol 100 1 puff inhalation Q6H #4 grams 06/10/23 10/09/23 Rx mcg/actuation mist for inhalation lisinopril 20 mg tablet 20 mg PO DAILY #30 tabs 06/10/23 10/09/23 Rx sertraline 100 mg tablet 100 mg PO DAILY #30 tabs 06/10/23 10/09/23 Rx hydrocodone 5 mg-acetaminophen 325 1 tab PO Q6H PRN pain #30 tabs 09/25/23 10/09/23 Rx mg tablet carvedilol 3.125 mg tablet 3.125 mg PO BID 10/09/23 10/09/23 History Past Med/Surg History Medical History Adjustment disorder with depressed mood History of COVID-19 01/11 Hypertension Syncope Abnormal ECG Elevated d-dimer Diverticulosis of colon Elva's thyroiditis Solitary pulmonary nodule on lung CT Spinal stenosis Impacted cerumen Bronchitis (2018) Mixed hearing loss, bilateral Hypothyroid Bronchospasm CKD (chronic kidney disease) stage 3, GFR 30-59 ml/min Hypothyroidism Vitamin D deficiency Hypertension Major depression GERD (gastroesophageal reflux disease) Takotsubo syndrome (1996) Diverticulosis Myocardial infarction hx, heart cath 2006 Acute tubular necrosis Anxiety Hyperlipidemia Asthma Surgical History History of right cataract surgery History of surgery dental implants History of cardiac cath 2006 S/P ear surgery History of right hip replacement Family History Mother Hypertension Breast cancer COPD (chronic obstructive pulmonary disease) Grandmother Breast cancer Denies family history of Colon cancer Ovarian cancer Prostate cancer Myocardial infarction Social History Smoking Status: Never smoker Second Hand Exposure: No; Do You Dip or Chew Tobacco: No; Hx Alcohol Use: Yes Alcohol type: beer Hx Substance Use: No Preferred Language: Ukrainian Communication Ability: Effective Visual Impairment: No Limitations Hearing Ability: Use of Hearing Aid 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: No Beliefs That Will Affect Care: None marital status: Current Living Situation: Alone current occupational status: retired How many Children do You have: 2 Other Information That Helps Us Care for You: No Feels Safe at Home: Yes Safety Concerns: Feels Safe At This Time Childhood Exposure to Second-Hand Smoke: Yes Diet: regular caffeine: Yes during the past year weight has: remained stable Dental Care, Regularly: Yes Physical Activity Frequency: 5-6 Times per Week Seatbelt Use: always Sunscreen Use: No Assistive Devices: Hearing Aid - Bilateral Review of Systems Review of Systems: All systems reviewed & are unremarkable except as noted in HPI & below Physical Exam Physical Exam: General: patient resting comfortably, NAD, non-toxic in appearance, AA&O x 4 Skin: warm, dry, intact, no rashes or lesions HEENT: NC/AT, PERRL, EOMI, anicteric sclera, conjunctiva without injection, external ear normal to inspection and nontender, nares patent, moist mucus membranes, dentition intact, no oropharyngeal lesions, neck supple, trachea midline, no LAD, no thyromegaly, no JVD Heart: +S1/S2, regular, no m/r/g Lungs: equal air entry bilaterally, faint crackles in bilateral bases, no rhonchi/wheezes Abd: +BS, soft, NT/ND, no masses/organomegaly/ascites Ext: warm, 2+ pulses in UE/LE bilaterally, no clubbing/cyanosis, trace pitting edema of bilateral LE Neuro: nonfocal, patient AA&O x 4, speech intact, no facial droop, moving all extremities on command with equal strength 5/5 Results & Data Results & Data Vital Signs (Past 12 Hours) Vital Signs Temp Pulse Resp BP Pulse Ox O2 Del Method 10/09/23 19:46 72 10/09/23 19:23 73 16 179/92 H 95 Room Air 10/09/23 19:16 73 18 182/106 H 95 10/09/23 19:10 78 209/108 H 10/09/23 19:00 209/108 H 10/09/23 18:00 76 28 H 197/99 H 95 Room Air 10/09/23 17:42 78 22 172/115 H 95 Room Air 10/09/23 16:00 87 23 181/117 H 96 Room Air 10/09/23 15:36 88 10/09/23 15:32 98 Room Air 10/09/23 14:52 36.8 C 101 H 18 200/112 H 96 Room Air Laboratory Results Laboratory Results WBC 10.37 K/ul (4.8-10.8) 10/09/23 17:04 RBC 4.28 M/uL (4.20-5.40) 10/09/23 17:04 Hgb 13.2 g/dl (12.0-16.0) 10/09/23 17:04 Hct 39.5 % (37.0-47.0) 10/09/23 17:04 MCV 92.3 fL (80.0-100.0) 10/09/23 17:04 MCH 30.8 pg (25.0-34.0) 10/09/23 17:04 MCHC 33.4 g/dL (32.0-36.0) 10/09/23 17:04 RDW Std Deviation 43.4 fL (36.4-46.3) 10/09/23 17:04 RDW Coeff of Virgilio 12.9 % (11.5-14.5) 10/09/23 17:04 Plt Count 188 K/uL (130-400) 10/09/23 17:04 MPV 10.4 fL (9.4-12.4) 10/09/23 17:04 Immature Gran % (Auto) 0.9 % 10/09/23 17:04 Neut % (Auto) 78.2 % 10/09/23 17:04 Lymph % (Auto) 10.6 % 10/09/23 17:04 [place] % (Auto) 9.0 % 10/09/23 17:04 Eos % (Auto) 1.1 % 10/09/23 17:04 Baso % (Auto) 0.2 % 10/09/23 17:04 Neut # (Auto) 8.12 K/uL (1.40-6.50) H 10/09/23 17:04 Lymph # (Auto) 1.10 K/uL (1.20-3.40) L 10/09/23 17:04 [place] # (Auto) 0.93 K/uL (0.11-0.59) H 10/09/23 17:04 Eos # (Auto) 0.11 K/uL (0.00-0.50) 10/09/23 17:04 Baso # (Auto) 0.02 K/uL (0.00-0.20) 10/09/23 17:04 Immature Gran # (Auto) 0.09 K/uL (0.01-0.20) 10/09/23 17:04 Absolute Nucleated RBC Cancelled 10/09/23 15:20 Nucleated RBC % (auto) Cancelled 10/09/23 15:20 Neutrophils % (Manual) Cancelled 10/09/23 15:20 Band Neutrophils % Cancelled 10/09/23 15:20 Lymphocytes % (Manual) Cancelled 10/09/23 15:20 Prolymphocyte % Cancelled 10/09/23 15:20 Reactive Lymphs % (Man) Cancelled 10/09/23 15:20 Monocytes % (Manual) Cancelled 10/09/23 15:20 Eosinophils % (Manual) Cancelled 10/09/23 15:20 Basophils % (Manual) Cancelled 10/09/23 15:20 Metamyelocytes % (Man) Cancelled 10/09/23 15:20 Myelocytes % (Man) Cancelled 10/09/23 15:20 Promyelocytes % (Man) Cancelled 10/09/23 15:20 Blast Cells % (Manual) Cancelled 10/09/23 15:20 Plasma Cell % (Manual) Cancelled 10/09/23 15:20 Other Cells % Cancelled 10/09/23 15:20 Nucleated RBC % Cancelled 10/09/23 15:20 Neutrophils # (Manual) Cancelled 10/09/23 15:20 Band Neutrophils # Cancelled 10/09/23 15:20 Total Absolute Neuts Cancelled 10/09/23 15:20 Lymphocytes # (Manual) Cancelled 10/09/23 15:20 Prolymphocyte # Cancelled 10/09/23 15:20 Reactive Lymphs # Cancelled 10/09/23 15:20 Total Abs Lymphocytes Cancelled 10/09/23 15:20 Monocytes # (Manual) Cancelled 10/09/23 15:20 Eosinophils # (Manual) Cancelled 10/09/23 15:20 Basophils # (Manual) Cancelled 10/09/23 15:20 Metamyelocytes # (Man) Cancelled 10/09/23 15:20 Myelocytes # (Manual) Cancelled 10/09/23 15:20 Promyelocytes # (Man) Cancelled 10/09/23 15:20 Blast Cells # (Man) Cancelled 10/09/23 15:20 Plasma Cell # (Manual) Cancelled 10/09/23 15:20 Other Cells # Cancelled 10/09/23 15:20 Nucleated RBCs # (Man) Cancelled 10/09/23 15:20 Hypersegmented Neuts Cancelled 10/09/23 15:20 Hyposegmented Neuts Cancelled 10/09/23 15:20 Hypogranular Neuts Cancelled 10/09/23 15:20 Large Granular Lymphs Cancelled 10/09/23 15:20 # Lrg Granular Lymphs Cancelled 10/09/23 15:20 Hairy Cells Cancelled 10/09/23 15:20 Smudge Cells Cancelled 10/09/23 15:20 Toxic Granulation Cancelled 10/09/23 15:20 Toxic Vacuolation Cancelled 10/09/23 15:20 Dohle Bodies Cancelled 10/09/23 15:20 Zeus Rods Cancelled 10/09/23 15:20 Platelet Estimate Cancelled 10/09/23 15:20 Hypogranular Platelets Cancelled 10/09/23 15:20 Giant Platelets Cancelled 10/09/23 15:20 Platelet Satelliting Cancelled 10/09/23 15:20 RBC Morphology Cancelled 10/09/23 15:20 Polychromasia Cancelled 10/09/23 15:20 Hypochromasia Cancelled 10/09/23 15:20 Poikilocytosis Cancelled 10/09/23 15:20 Basophilic Stippling Cancelled 10/09/23 15:20 Anisocytosis Cancelled 10/09/23 15:20 Microcytosis Cancelled 10/09/23 15:20 Macrocytosis Cancelled 10/09/23 15:20 Spherocytes Cancelled 10/09/23 15:20 Pappenheimer Bodies Cancelled 10/09/23 15:20 Sickle Cells Cancelled 10/09/23 15:20 Target Cells Cancelled 10/09/23 15:20 Tear Drop Cells Cancelled 10/09/23 15:20 Ovalocytes Cancelled 10/09/23 15:20 Stomatocytes Cancelled 10/09/23 15:20 [place] Bodies Cancelled 10/09/23 15:20 Echinocytes Cancelled 10/09/23 15:20 Acanthocytes (Spur) Cancelled 10/09/23 15:20 Rouleaux Cancelled 10/09/23 15:20 RBC Agglutinates Cancelled 10/09/23 15:20 Schistocytes Cancelled 10/09/23 15:20 Sezary Cell Cancelled 10/09/23 15:20 Sodium 139 mmol/L (136-145) 10/09/23 15:20 Potassium 4.2 mmol/L (3.5-5.1) 10/09/23 15:20 Chloride 105 mmol/L (98-107) 10/09/23 15:20 Carbon Dioxide 27 mmol/L (21-32) 10/09/23 15:20 Anion Gap 7 (3-11) 10/09/23 15:20 BUN 16 mg/dl (6-23) 10/09/23 15:20 Creatinine 1.10 mg/dl (0.6-1.2) 10/09/23 15:20 Est Cr Clr Drug Dosing 42.6 ml/min 10/09/23 15:20 Est GFR ( Amer) 53.0 ml/min 10/09/23 15:20 Est GFR (Non-Af Amer) 45.7 ml/min 10/09/23 15:20 BUN/Creatinine Ratio 14.5 (10-20) 10/09/23 15:20 Glucose 116 mg/dl (70-99(Fasting)) H 10/09/23 15:20 POC Glucose 110 mg/dl (70-99) H 10/09/23 15:03 Calcium 9.7 mg/dl (8.6-10.3) 10/09/23 15:20 Magnesium 1.7 mg/dl (1.7-2.4) 10/09/23 15:20 Total Bilirubin 0.7 mg/dl (0.2-1.0) 10/09/23 15:20 AST 19 U/L (13-39) 10/09/23 15:20 ALT 12 U/L (7-52) 10/09/23 15:20 Alkaline Phosphatase 80 U/L (34-104) 10/09/23 15:20 Troponin I High Sens 43.8 pg/ml (0-14) H D 10/09/23 17:37 Total Protein 7.1 gm/dl (6.0-8.3) 10/09/23 15:20 Albumin 4.1 gm/dl (3.4-5.0) 10/09/23 15:20 Globulin 3.0 gm/dl (2.5-4.0) 10/09/23 15:20 Albumin/Globulin Ratio 1.4 (0.9-2) 10/09/23 15:20 Lipase 6 U/L (11-82) L 10/09/23 15:20 TSH 2.382 uIu/ml (0.300-4.500) 10/09/23 15:20 Urine Color Yellow 10/09/23 20:15 Urine Appearance Clear (Clear) 10/09/23 20:15 Urine pH 7.5 (4.5-7.5) 10/09/23 20:15 Ur Specific [place] 1.012 (1.000-1.030) 10/09/23 20:15 Urine Protein Negative (Negative) 10/09/23 20:15 Urine Glucose (UA) Negative (Negative) 10/09/23 20:15 Urine Ketones Negative (Negative) 10/09/23 20:15 Urine Blood Negative (Negative) 10/09/23 20:15 Urine Nitrite Negative (Negative) 10/09/23 20:15 Urine Bilirubin Negative (Negative) 10/09/23 20:15 Urine Urobilinogen Negative (Negative) 10/09/23 20:15 Ur Leukocyte Esterase Negative (Negative) 10/09/23 20:15 Adenovirus (PCR) Not Detected (NotDetected) 10/09/23 15:20 B. pertussis DNA (PCR) Not Detected (NotDetected) 10/09/23 15:20 B.parapertussis DNA PCR Not Detected (NotDetected) 10/09/23 15:20 Lyme Disease IgG Ab Negative (Negative) 10/09/23 15:20 Lyme Disease IgM Ab Negative (Negative) 10/09/23 15:20 C. pneumoniae DNA (PCR) Not Detected (NotDetected) 10/09/23 15:20 Coronavirus OC43 (PCR) Not Detected (NotDetected) 10/09/23 15:20 Coronavirus HKU1 (PCR) Not Detected (NotDetected) 10/09/23 15:20 Coronavirus 229E (PCR) Not Detected (NotDetected) 10/09/23 15:20 SARS-CoV-2 (PCR) Not Detected (NotDetected) 10/09/23 15:20 Coronavirus NL63 (PCR) Not Detected (NotDetected) 10/09/23 15:20 Human Metapneumovir PCR Not Detected (NotDetected) 10/09/23 15:20 Influenza Type A (PCR) Not Detected (NotDetected) 10/09/23 15:20 Influenza Type B (PCR) Not Detected (NotDetected) 10/09/23 15:20 M. pneumoniae (PCR) Not Detected (NotDetected) 10/09/23 15:20 Parainfluenza 1 (PCR) Not Detected (NotDetected) 10/09/23 15:20 Parainfluenza 2 (PCR) Not Detected (NotDetected) 10/09/23 15:20 Parainfluenza 3 (PCR) Not Detected (NotDetected) 10/09/23 15:20 Parainfluenza 4 (PCR) Not Detected (NotDetected) 10/09/23 15:20 RSV (PCR) Not Detected (NotDetected) 10/09/23 15:20 Entero/Rhino (PCR) Not Detected (NotDetected) 10/09/23 15:20 Blood Parasites ID Cancelled 10/09/23 15:20 Impressions Chest X-Ray 10/09/23 14:56 XR chest 1V portable HISTORY: 83 years-old Female weakness. recent URI acute shortness of breath with weakness COMPARISON: 08/23/2023 TECHNIQUE: AP view of the chest FINDINGS: Cardiac silhouette is enlarged. Mild subsegmental bibasilar densities. No pneumothorax, large pleural effusion or pulmonary edema. Degenerative changes of the shoulders and spine. IMPRESSION: 1. Cardiomegaly without acute process. 2. Mild subsegmental bibasilar densities favor atelectasis. ACT 112: Negative or not required by law. The above report was generated using voice recognition software. It may contain grammatical, syntax or spelling errors. Electronically signed by: Rashawn Gellre M.D. 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
[2023-10-09 20:11] LABS: Lyme Ab IgG w/WB Rflx Negative (Negative); Lyme Ab IgM w/WB Rflx Negative (Negative)
[2023-10-09 21:22] LABS: Appearance Urine Clear (Clear); Bilirubin Urine Negative (Negative); Blood Urine Negative (Negative); Color Urine Yellow; Glucose Urine UA Negative (Negative); Ketones Urine Negative (Negative); Leukocyte Esterase Urine Negative (Negative); Nitrite Urine Negative (Negative); Protein Urine Negative (Negative); Specific Gravity Urine 1.012 (1.000-1.030); Urobilinogen Urine Negative (Negative); pH Urine 7.5 (4.5-7.5)
[2023-10-09] MEDS ORDERED: TEMAZEPAM 15 MG CAPSULE PO STA (21:49)
[2023-10-09] MEDS ORDERED: HYDROCODONE/ACETAMOPHEN 5/325MG TAB PO PRN (22:35)
[2023-10-09] MEDS ORDERED: IPRATROPIUM BROMIDE/ALBUTEROL respimat INH INH SCH (22:35)
[2023-10-09] MEDS ORDERED: ONDANSETRON INJ 2 MG/ML 2 ML VIAL IV PRN (22:35)
[2023-10-09] MEDS ORDERED: ACETAMINOPHEN 325 MG TAB PO PRN (22:35)
[2023-10-09] MEDS ORDERED: TEMAZEPAM 15 MG CAPSULE PO PRN (22:35)
[2023-10-10] MEDS: MAGNESIUM SULFATE / D5W 1 GM/100 ML BAG IV SCH ×2 (00:54→02:55)
[2023-10-10] MEDS: carvediloL 3.125 MG TAB PO SCH ×2 (00:55→08:38)
[2023-10-10] MEDS: GABAPENTIN 300 MG CAP PO SCH ×2 (00:55→08:38)
[2023-10-10] MEDS: SPIRONOLACTONE 25 MG TAB PO SCH ×2 (00:55→08:39)
[2023-10-10] MEDS ORDERED: ARMOUR THYROID 30 MG TAB PO SCH (06:30)
[2023-10-10] MEDS ORDERED: MICONAZOLE NITRATE POWDER 85 GM EXT PRN (07:44)
[2023-10-10] MEDS ORDERED: SERTRALINE HCL 100 MG TABLET PO SCH (09:00)
[2023-10-10] MEDS ORDERED: lisinopril 20 MG TAB PO SCH (09:00)
[2023-10-10] MEDS ORDERED: FUROSEMIDE 20 MG TAB PO SCH (09:00)
[2023-10-10] MEDS ORDERED: FLUTICASONE/VILANTEROL 200/25MCG 14 PUFFS/INHALER INH SCH (09:00)
[2023-10-10] MEDS ORDERED: MONTELUKAST SODIUM 10 MG TABLET PO SCH (09:00)
[2023-10-10] MEDS: Ipratropium HFA Inhaler (Combivent Respimat P&T Subs) INH SCH ×3 (09:37→12:30)
[2023-10-10] MEDS: Albuterol HFA 8 GM Inhaler (Combivent Respimat P&T Subs) INH SCH ×3 (09:38→12:30)
[2023-10-10 09:42] VITALS: PULSE 80
[2023-10-10 11:39] VITALS: RESP 18; TEMP 97.5; O2SAT 92
--- NOTE | 2023-10-10 12:20 | Discharge Summary ---
Date of Service October 10, 2023 Admission HPI Per Admitting Provider Korin Pichardo is an 3yo female with history of HTN, Hypothyroidism, GERD and Takotsubo cardiomyopathy presenting with 1 day of fatigue, generalized weakness, poor appetite and decreased oral intake. Patient had a URI 1 week ago. She completed a course of antibiotics as well as steroids. She has had some episodes of nausea as well as feeling hot and sweaty as well as headache. Her friend at bedside reports that her breathing appears to be somewhat labored and she looks slightly swollen in the legs, hands and face. She denies chest pain, palpitations, abdominal pain, nausea, vomiting, diarrhea or constipation. She denies cough and shortness of breath. In the ER she is afebrile, hypertensive otherwise HD stable. ER Course: NSS Labetalol 10mg IV Temazepam 15mg po Principal Diagnosis Fatigue Discharge Exam The patient is awake, alert and oriented 3, well developed and well nourished, normocephalic and atraumatic, lying in bed and in no acute distress. HEENT--PERRL, EOMI, mucous membranes and oropharynx mildly dry Neck--supple. No JVD. No bruits. Thyroid normal, trachea midline, no adenopathy. Heart--normal S1 and S2. No murmurs, rubs or gallops. Lungs--clear bilaterally, no respiratory distress, no accessory muscle use. Abdomen--normal bowel sounds and soft. Mild epigastric and left sided abdominal pain Extremities--no cyanosis or clubbing. No edema. Dermatologic--normal skin turgor, normal color, no abnormal lymph nodes, no rash. Neurologic--cranial nerves II through XII grossly intact. Rheumatologic--normal range of motion. Psychiatric--normal affect. Discharge Data Allergies Allergy/AdvReac Type Severity Reaction Status Date / Time tromethamine Allergy Severe kidney Verified 09/25/23 09:49 failure Iodinated Contrast Media Allergy Intermediate Rash Verified 09/25/23 09:49 [Iodinated Contrast- Oral and IV Dye] Penicillins Allergy Intermediate RASH, HIVES Verified 09/25/23 09:49 diclofenac [From Voltaren] Allergy Mild RASH ON Verified 09/25/23 09:49 HANDS latex Allergy Mild LOCAL RASH Verified 09/25/23 09:49 Citalopram Analogues Allergy Unknown CAN'T Verified 09/25/23 09:49 REMEMBER codeine Allergy Unknown Unknown Verified 09/25/23 09:49 esomeprazole [From Nexium] Allergy Unknown CAN'T Verified 09/25/23 09:49 REMEMBER lisinopril Allergy Unknown CAN'T Verified 09/25/23 09:49 REMEMBER Sulfa (Sulfonamide Allergy Unknown CAN'T Verified 09/25/23 09:49 Antibiotics) REMEMBER ketorolac AdvReac Severe kidney Verified 09/25/23 09:49 failure aspirin AdvReac Intermediate UPSET Verified 09/25/23 09:49 STOMACH/STOMACH PAIN Consultations 10/09/23 19:28 ED Decision to Admit Stat Hospital Course (1) Fatigue: 83yo female presenting with fatigue, poor appetite and decreased oral intake. Some increased work of breathing and edema noted by her friend. Patient with recent URI - had been on antibiotic and steroid - possibly contributing to fluid retention. Patient does not appear to be in overt volume overload. History of Takotsubo cardiomyopathy on two prior occasions -Upon reevaluation Patient stated she is back to her baseline She was to be discharged home (2) Hypertension: Blood pressure elevated in ER. Improved now with dose of IV Labetalol -Continue home blood pressure medications -Continue Lisinopril, Carvedilol -Continue Spironolactone (3) Hypothyroidism: Chronic. TSH WNL -Continue home Thyroid tab Plan Discharge home Total Time Total Time Spent Total Time Spent (In Minutes): 35 Discharge Plan Discharge Items Patient Disposition: Home - Self-Care Reason For Visit: WEAKNESS, FATIGUE, ELEVATED TROPONIN Discharge Diagnosis: fatigue Activity: Resume your previous activity Non-emergency contact: Primary Care Provider Call non-emergency contact if: you have any medication questions Follow-up/Referrals: Amy Ulloa MD [Primary Care Provider] - Diet: Regular Addtl Attending Provider Instructions: Please make appointment to follow-up with her regular PCP Pending Studies at Discharge: No Stand-Alone Forms: [employer], Smoking Cessation Medications and DC Order Prescriptions: Continued thyroid (pork) 120 mg tablet 120 mg PO DAILY Qty: 30 5RF Rx Instructions: This is on dr list but I can not see it on her pharmacy list. furosemide 20 mg tablet 20 mg PO DAILY Qty: 90 3RF gabapentin 300 mg capsule 300 mg PO TID hydrocodone-acetaminophen 5-325 mg tablet 1 tab PO Q6H PRN (Reason: pain) Qty: 30 0RF fluticasone propion-salmeterol 250-50 mcg/dose blister with device 1 inh inhalation BID Qty: 60 2RF lisinopril 20 mg tablet 20 mg PO DAILY Qty: 30 2RF ipratropium-albuterol 20-100 mcg/actuation mist 1 puff inhalation Q6H Qty: 4 2RF sertraline 100 mg tablet 100 mg PO DAILY Qty: 30 6RF spironolactone 25 mg tablet 25 mg PO BID Qty: 180 3RF cholecalciferol (vitamin D3) [Vitamin D3] 25 mcg (1,000 unit) Tablet 25 mcg PO QDL temazepam 15 mg capsule 15 mg PO HS PRN (Reason: Sleep) montelukast 10 mg tablet 10 mg PO QAM carvedilol 3.125 mg tablet 3.125 mg PO BID Rx Instructions: This is what is filled @ [facility] Discharge Orders: Discharge Order (Routine); Ordered 10/10/23 Ordered By: Gardenia Sesay Admission Data Admit Date/Time: 10/09/23 19:50 Attending Provider: Gardenia Sesay Admit Provider: Regina Guillory Primary Care Provider: Amy Ulloa Other Providers: Regina Guillory Coding Level of Care Code 08761 INP/OBS DISCH >30 MIN Diagnoses Fatigue R53.83 Hypertension I10 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
[2023-10-10 14:08] VITALS: BP 188/84
--- NOTE | 2023-10-10 17:56 | XCELERA ---
[id number] [id number]
--- NOTE | 2023-10-11 22:11 | Electrocardiogram Report ---
Test Reason : Blood Pressure : / mmHG Vent. Rate : 101 BPM Atrial Rate : 101 BPM P-R Int : 202 ms QRS Dur : 082 ms QT Int : 326 ms P-R-T Axes : 061 -59 087 degrees QTc Int : 422 ms Sinus tachycardia Left axis deviation Minimal voltage criteria for LVH, may be normal variant ( R in aVL ) T wave abnormality, consider lateral ischemia Abnormal ECG When compared with ECG of 31-MAY-2023 18:04, Premature atrial complexes are no longer Present T wave inversion less evident in Lateral leads Confirmed by Antonio Friedman ([id number]) on 10/11/2023 10:11:10 PM Referred By: REFERRED SELF Confirmed By:Antonio Friedman
--- NOTE | 2023-10-11 22:27 | Electrocardiogram Report ---
Test Reason : Blood Pressure : / mmHG Vent. Rate : 077 BPM Atrial Rate : 077 BPM P-R Int : 216 ms QRS Dur : 094 ms QT Int : 398 ms P-R-T Axes : 063 -43 101 degrees QTc Int : 450 ms Sinus rhythm with sinus arrhythmia with 1st degree A-V block Left axis deviation Minimal voltage criteria for LVH, may be normal variant ( R in aVL ) T wave abnormality, consider anterolateral ischemia Abnormal ECG When compared with ECG of 09-OCT-2023 15:10, T wave inversion more evident in Lateral leads Confirmed by Antonio Friedman ([id number] on 10/11/2023 10:26:43 PM Referred By: REFERRED SELF Confirmed By:Antonio Friedman
== END 2023-10-10 15:01 | disposition home or self-care (01) ==
LOC: ED 14:47 → EDINP 14:47 → SUATTDRO 19:50 → 2N 22:26
DX: R53.83 Other fatigue; Z88.2 Allergy status to sulfonamides; I10 Essential (primary) hypertension; I25.2 Old myocardial infarction; Z91.040 Latex allergy status; Z88.8 Allergy status to other drugs, medicaments and biological substances; Z86.16 Personal history of COVID-19; Z79.899 Other long term (current) drug therapy; Z88.0 Allergy status to penicillin; Z91.041 Radiographic dye allergy status; R79.89 Other specified abnormal findings of blood chemistry; R94.31 Abnormal electrocardiogram [ECG] [EKG]; Z11.52 Encounter for screening for COVID-19; Z88.6 Allergy status to analgesic agent; R11.0 Nausea; E06.3 Autoimmune thyroiditis

== ENCOUNTER 2024-07-27 09:36 | Inpatient (IN) ==
--- NOTE | 2024-07-02 13:52 | PAT Medication Instructions ---
Medication Instructions Date of Service July 02, 2024 Home Medications Medication Instructions Recorded fluticasone 250 mcg-salmeterol 50 1 inh inhalation BID #60 ea 12/06/22 mcg/dose blistr powdr for inhalation furosemide 20 mg tablet 20 mg PO DAILY #90 tabs 06/03/23 ondansetron 4 mg disintegrating 4 mg PO Q8H PRN nausea and 10/17/23 tablet vomiting #20 tabs hydrocodone 5 mg-acetaminophen 325 1 tab PO Q6H PRN pain #30 tabs 01/24/24 mg tablet thyroid (pork) 120 mg tablet 120 mg PO DAILY #30 tabs 02/10/24 sertraline 100 mg tablet 100 mg PO DAILY #30 tabs 02/25/24 tramadol 50 mg tablet 50 mg PO TID PRN pain #30 tabs 03/09/24 gabapentin 100 mg capsule 100 mg PO DAILY #90 caps 03/17/24 losartan 50 mg tablet 50 mg PO DAILY #30 tabs 04/02/24 spironolactone 25 mg tablet 25 mg PO BID #180 tabs 04/21/24 omeprazole 20 mg capsule,delayed 20 mg PO BID #60 caps 04/29/24 release ipratropium 20 mcg-albuterol 100 1 puff inhalation Q6H #4 grams 05/27/24 mcg/actuation mist for inhalation fluticasone 250 mcg-salmeterol 50 mcg/dose blistr powdr for inhalation 1 inh inhalation BID furosemide 20 mg tablet 20 mg PO DAILY carvedilol 3.125 mg tablet 3.125 mg PO BID ondansetron 4 mg disintegrating tablet 4 mg PO Q8H PRN nausea and vomiting hydrocodone 5 mg-acetaminophen 325 mg tablet 1 tab PO Q6H PRN pain thyroid (pork) 120 mg tablet 120 mg PO DAILY sertraline 100 mg tablet 100 mg PO DAILY tramadol 50 mg tablet 50 mg PO TID PRN pain gabapentin 100 mg capsule 100 mg PO DAILY gabapentin 300 mg capsule 300 mg PO DAILY losartan 50 mg tablet 50 mg PO DAILY spironolactone 25 mg tablet 25 mg PO BID omeprazole 20 mg capsule,delayed release 20 mg PO BID ipratropium 20 mcg-albuterol 100 mcg/actuation mist for inhalation 1 puff inhalation Q6H ibuprofen 200 mg tablet 200 mg PO BID ASK your surgeon for instructions ibuprofen 200 mg tablet 200 mg PO BID DO NOT take the morning of surgery furosemide 20 mg tablet 20 mg PO DAILY losartan 50 mg tablet 50 mg PO DAILY spironolactone 25 mg tablet 25 mg PO BID Take morning of surgery With a small sip of water, OTHERWISE NOTHING TO EAT OR DRINK AFTER MIDNIGHT: fluticasone 250 mcg-salmeterol 50 mcg/dose blistr powdr for inhalation 1 inh inhalation BID carvedilol 3.125 mg tablet 3.125 mg PO BID ondansetron 4 mg disintegrating tablet 4 mg PO Q8H PRN nausea and vomiting (if needed) hydrocodone 5 mg-acetaminophen 325 mg tablet 1 tab PO Q6H PRN pain (if needed) thyroid (pork) 120 mg tablet 120 mg PO DAILY sertraline 100 mg tablet 100 mg PO DAILY tramadol 50 mg tablet 50 mg PO TID PRN pain (if needed) gabapentin 100 mg capsule 100 mg PO DAILY gabapentin 300 mg capsule 300 mg PO DAILY omeprazole 20 mg capsule,delayed release 20 mg PO BID ipratropium 20 mcg-albuterol 100 mcg/actuation mist for inhalation 1 puff inhalation Q6H Take evening before surgery fluticasone 250 mcg-salmeterol 50 mcg/dose blistr powdr for inhalation 1 inh inhalation BID carvedilol 3.125 mg tablet 3.125 mg PO BID ondansetron 4 mg disintegrating tablet 4 mg PO Q8H PRN nausea and vomiting (if needed) hydrocodone 5 mg-acetaminophen 325 mg tablet 1 tab PO Q6H PRN pain (if needed) tramadol 50 mg tablet 50 mg PO TID PRN pain(if needed) spironolactone 25 mg tablet 25 mg PO BID omeprazole 20 mg capsule,delayed release 20 mg PO BID ipratropium 20 mcg-albuterol 100 mcg/actuation mist for inhalation 1 puff inhalation Q6H Other Notes If you have any questions please call us at [phone] or [phone] or [phone] or [phone]
--- NOTE | 2024-07-17 12:03 | Anesthesiology Consultation ---
Date of Service July 17, 2024 Assessment & Plan (1) Encounter for pre-operative examination: Plan - awaiting [place] PCP optimization response to workload note regarding hyponatremia at 130, hyperkalemia at 5.3. - cardiology optimization response: EKG tracing and optimization form to be faxed to [facility] cardiology. Surgeon's office made aware of both above pending responses to optimization forms. Chart Review Chart Review: Pending: Refer to Additional Notes / Consult section and Patient seen in Pre Admission Testing Teaching & Discussion Pre-Anesthesia Teaching/Discussion Notes: Instructed NPO after midnight before surgery, except medications with 15 cc of water. Medication instructions provided according to the PAT guidelines. History Surgery Operation Date: 07/27/24 12:10 Proposed Procedures p L4-L5 Laminectomy - Chan Beasley MD Height/Weight Height: 5 ft 7.32 in Weight: 100 kg Allergies Allergy/AdvReac Type Severity Reaction Status Date / Time tromethamine Allergy Severe kidney Verified 07/06/24 12:35 failure Iodinated Contrast Media Allergy Intermediate Rash Verified 07/06/24 12:35 [Iodinated Contrast- Oral and IV Dye] Penicillins Allergy Intermediate RASH, HIVES Verified 07/06/24 12:35 diclofenac [From Voltaren] Allergy Mild RASH ON Verified 07/06/24 12:35 HANDS latex Allergy Mild LOCAL RASH Verified 07/06/24 12:35 Citalopram Analogues Allergy Unknown CAN'T Verified 07/06/24 12:35 REMEMBER esomeprazole [From Nexium] Allergy Unknown CAN'T Verified 07/06/24 12:35 REMEMBER lisinopril Allergy Unknown CAN'T Verified 07/06/24 12:35 REMEMBER Sulfa (Sulfonamide Allergy Unknown Rash Verified 07/06/24 12:35 Antibiotics) ketorolac AdvReac Severe kidney Verified 07/06/24 12:35 failure aspirin AdvReac Intermediate UPSET Verified 07/06/24 12:35 STOMACH/STOMACH PAIN tramadol AdvReac Intermediate Vomiting Verified 07/06/24 12:59 codeine AdvReac Unknown upset Verified 07/06/24 12:35 stomach Medications Home Medications Medication Instructions Recorded Confirmed Last Taken fluticasone 250 mcg-salmeterol 50 1 inh inhalation BID #60 ea 12/06/22 07/06/24 03/14/24 mcg/dose blistr powdr for inhalation furosemide 20 mg tablet 20 mg PO DAILY #90 tabs 06/03/23 07/06/24 03/14/24 carvedilol 3.125 mg tablet 3.125 mg PO BID 10/09/23 07/06/24 03/14/24 ondansetron 4 mg disintegrating 4 mg PO Q8H PRN nausea and 10/17/23 07/06/24 Unknown tablet vomiting #20 tabs hydrocodone 5 mg-acetaminophen 325 1 tab PO Q6H PRN pain #30 tabs 01/24/24 07/06/24 03/14/24 mg tablet thyroid (pork) 120 mg tablet 120 mg PO DAILY #30 tabs 02/10/24 07/06/24 03/14/24 sertraline 100 mg tablet 100 mg PO DAILY #30 tabs 02/25/24 07/06/24 03/14/24 gabapentin 100 mg capsule 100 mg PO DAILY #90 caps 03/17/24 07/06/24 Unknown gabapentin 300 mg capsule 300 mg PO DAILY 03/17/24 07/06/24 Unknown losartan 50 mg tablet 50 mg PO DAILY #30 tabs 04/02/24 07/06/24 Unknown spironolactone 25 mg tablet 25 mg PO BID #180 tabs 04/21/24 07/06/24 Unknown omeprazole 20 mg capsule,delayed 20 mg PO BID #60 caps 04/29/24 07/06/24 Unknown release ipratropium 20 mcg-albuterol 100 1 puff inhalation Q6H #4 grams 05/27/24 07/06/24 Unknown mcg/actuation mist for inhalation ibuprofen 200 mg tablet 200 mg PO BID 07/02/24 07/06/24 Unknown levofloxacin 750 mg tablet 750 mg PO DAILY #5 tabs 07/06/24 07/06/24 Unknown prednisone 20 mg tablet 40 mg (2 x 20 mg) PO DAILY 5 days 07/06/24 07/06/24 Unknown #10 tabs Past Medical History Medical History (Updated 07/17/24 @ 14:44 by Tiffanie Tran PA-C) Anxiety Asthma controlled w/ daily inhaler use Bertolotti's syndrome Bronchospasm pt unaware Chronic cough CKD (chronic kidney disease) stage 3, GFR 30-59 ml/min Degenerative spondylolisthesis Disc degeneration, lumbar Diverticulosis of colon Dyspnea on exertion Elva's thyroiditis Hearing loss History of COVID-19 (~12/2020) hospitalized-symptoms resolved Hyperlipidemia Hypertension follows w/ Dr Jones Hypothyroid Low back pain Lumbar stenosis with neurogenic claudication Major depression Solitary pulmonary nodule on lung CT monitoring Takotsubo syndrome (1996) hx Thoracic aortic aneurysm pt unaware Patient denies h/o stroke, seizures, heart attack, heart failure, DM, blood clots/DVTs or blood transfusions. Exercise / Class Metabolic Activity III < 4 Walking/Shop/Light housework (denies chest discomfort or shortness of breath with usual activities, dyspnea with stairs) Past Family History Family History Mother Hypertension Breast cancer COPD (chronic obstructive pulmonary disease) Grandmother Breast cancer Denies family history of Colon cancer Ovarian cancer Prostate cancer Myocardial infarction Past Surgical History Surgical History History of cardiac cath 1996, 2006- no stents History of right cataract surgery History of right hip replacement History of surgery dental implants Hx of blepharoplasty Hx of left cataract extraction S/P ear surgery right ear Past Anesthesia History No Hx of Anesthesia Complications and No Family Hx of Anesthesia Complications History of PONV No Hx of PONV and Hx of Motion Sickness Social History Smoking Status: Never smoker Do You Dip or Chew Tobacco: No Hx Alcohol Use: Yes Alcohol type: beer alcohol intake frequency: holidays/special occasions only Hx Substance Use: No substance use type: does not use Review of Systems Patient denies chest pain, shortness of breath, dyspnea on exertion, snoring, witnessed apneas, reflux, fever, chills, cough, wheezing, or palpitations. Physical Exam Vital Signs Vitals BP 124/77 P 78 TEMP 98.3 SP02 94% on RA RESP 18 Physical Patient resting comfortably in chair in no acute distress, alert and oriented, responding appropriately throughout visit Full cervical extension range of motion without pain TMD 3.5 finger breadths Mallampati Score 2 Dentition: several implants; denies chipped or loose teeth, caps/crowns, or bridges Lungs: normal respiratory effort. Good air movement, clear throughout to auscultation, no adventitious breath sounds Cardiac: regular rate and rhythm, no murmurs noted Carotid arteries: negative bruit bilat Lab Results Anesthesia Preop Results Results Anesthesia Widget: WBC 10.54 K/ul (4.8-10.8) 07/17/24 Hgb 13.3 g/dl (12.0-16.0) 07/17/24 Hct 40.0 % (37.0-47.0) 07/17/24 Plt 250 K/uL (130-400) 07/17/24 Na 130 mmol/L (136-145) L 07/17/24 K 5.3 mmol/L (3.5-5.1) H 07/17/24 Cl 99 mmol/L (98-107) 07/17/24 CO2 28 mmol/L (21-32) 07/17/24 BUN 21 mg/dl (6-23) 07/17/24 Creat 1.05 mg/dl (0.6-1.2) 07/17/24 Glucose Level 104 mg/dl (70-99(Fasting)) H 07/17/24 Blood Type A Positive 07/17/24 Antibody Screen NEGATIVE 07/17/24 Testing Electrocardiogram Date: 07/17/24 NSR, rate 72 bpm Left axis deviation Moderate voltage criteria for LVH, may be normal variant T wave abnormality, consider lateral ischemia T wave inversion more evident in lateral leads when compared with 03/14/24 EKG Chest X-Ray Date: 07/07/24 No acute abnormalities and in particular no radiographic evidence of pneumonia. Echocardiogram Date: 10/10/23 EF 65-70% No LV regional wall motion abnormalities Mild mitral regurgitation Moderate cLVH Moderate LA dilation Mild dilated ascending aorta 4.3 cm Type II diastolic dysfunction
[~2024-07-27 09:36] MED LIST changes: -ALBINS INH; +ALLERGY Noted to ORDERED Medication SCH; -CARV25TA2 PO; -CITA10TA4 PO; +DEXAMETHASONE SOD INJ 4 MG/ML VIAL ONE; -DYZ PO; +GLYCOPYRROLATE 0.2 MG/ML VIAL ONE; +LIDOCAINE 2% 2 ML VIAL/AMP(20MG/ML) INFIL ONE; +ONDANSETRON INJ 2 MG/ML 2 ML VIAL ONE; -PANT1TAB3 PO; +PROPOFOL IV EMULSION 10 MG/ML 20 ML VIAL IV ONE; -RANI150T85 PO; +ROCURONIUM BROMIDE 10 MG/ML 5 ML VIAL IV ONE; +SUGAMMADEX SODIUM 200 MG/2 ML VIAL IV ONE; -THY30 PO; +fentaNYL citrate PF 100 MCG/2 ML VIAL ONE
[2024-07-27] MEDS: VANCOMYCIN 1,500 MG in D5W 500mL (Use w/ NSS Shortage) IV ONE (10:33)
[2024-07-27] MEDS: ACETAMINOPHEN 500 MG TAB PO SCH (11:05)
[2024-07-27] MEDS: GABAPENTIN 300 MG CAP PO SCH ×2 (11:05→19:41)
[2024-07-27] MEDS: LR 15ML/HR IV SCH (11:07)
[2024-07-27] MEDS: LR 60ML/HR IV SCH (11:08)
[2024-07-27] MEDS: VANCOMYCIN HCL 1,500 MG in SODIUM CHLORIDE 0.9% 500 ML IV SCH (11:08)
--- NOTE | 2024-07-27 11:23 | Anesthesiology Consultation ---
Date of Service July 27, 2024 Assessment & Plan Consults Requested medical & cardiac Pulmonary ASA ASA2 Proposed Anesthesia Anesthesia Type: General Risk / Benefits Reviewed With: Informed Consent Obtained History Surgery Operation Date: 07/27/24 11:55 Proposed Procedures p L4-L5 Laminectomy - Chan Beasley MD Height/Weight Height: 5 ft 6 in Weight: 98.8 kg Allergies Allergy/AdvReac Type Severity Reaction Status Date / Time tromethamine Allergy Severe kidney Verified 07/27/24 10:41 failure Iodinated Contrast Media Allergy Intermediate Rash Verified 07/27/24 10:41 [Iodinated Contrast- Oral and IV Dye] Penicillins Allergy Intermediate RASH, HIVES Verified 07/27/24 10:41 diclofenac [From Voltaren] Allergy Mild RASH ON Verified 07/27/24 10:41 HANDS latex Allergy Mild LOCAL RASH Verified 07/27/24 10:41 Citalopram Analogues Allergy Unknown CAN'T Verified 07/27/24 10:41 REMEMBER esomeprazole [From Nexium] Allergy Unknown CAN'T Verified 07/27/24 10:41 REMEMBER lisinopril Allergy Unknown CAN'T Verified 07/27/24 10:41 REMEMBER Sulfa (Sulfonamide Allergy Unknown Rash Verified 07/27/24 10:41 Antibiotics) ketorolac AdvReac Severe kidney Verified 07/27/24 10:41 failure aspirin AdvReac Intermediate UPSET Verified 07/27/24 10:41 STOMACH/STOMACH PAIN tramadol AdvReac Intermediate Vomiting Verified 07/27/24 10:41 codeine AdvReac Unknown upset Verified 07/27/24 10:41 stomach Medications Home Medications Medication Instructions Recorded Confirmed Last Taken carvedilol 3.125 mg tablet 3.125 mg PO BID 10/09/23 07/27/24 07/26/24 18:00 ondansetron 4 mg disintegrating 4 mg PO Q8H PRN nausea and 10/17/23 07/27/24 Unknown tablet vomiting #20 tabs thyroid (pork) 120 mg tablet 120 mg PO DAILY #30 tabs 02/10/24 07/27/24 07/26/24 07:00 sertraline 100 mg tablet 100 mg PO DAILY #30 tabs 02/25/24 07/27/24 07/26/24 07:00 gabapentin 300 mg capsule 300 mg PO BID 03/17/24 07/27/24 07/26/24 18:00 spironolactone 25 mg tablet 25 mg PO BID #180 tabs 04/21/24 07/27/24 07/26/24 18:00 omeprazole 20 mg capsule,delayed 20 mg PO BID #60 caps 04/29/24 07/27/24 07/26/24 18:00 release ipratropium 20 mcg-albuterol 100 1 puff inhalation Q6H #4 grams 05/27/24 07/27/24 07/27/24 07:00 mcg/actuation mist for inhalation ibuprofen 200 mg tablet 200 mg PO BID 07/02/24 07/27/24 07/25/24 losartan 50 mg tablet 50 mg PO DAILY #30 tabs 07/20/24 07/27/24 07/25/24 07:00 gabapentin 100 mg capsule 100 mg PO BID 07/27/24 07/27/24 07/26/24 18:00 Active Medications Generic Name Dose Route Start Last Admin Trade Name Andrewq PRN Reason Stop Dose Admin Acetaminophen 1,000 mg 07/27/24 06:00 07/27/24 11:05 Acetaminophen 500 Mg Tab PO 07/27/24 18:00 1,000 mg PREOP MEDINA Administration Gabapentin 300 mg 07/27/24 06:00 07/27/24 11:05 Gabapentin 300 Mg Cap PO 07/27/24 18:00 300 mg PREOP MEDINA Administration Lactated Ringer's 1,000 mls @ 15 mls/hr 07/27/24 06:00 07/27/24 11:08 Lr IV 07/28/24 05:59 0 mls/hr .Q24H MEDINA Infusion Lactated Ringer's 1,000 mls @ 60 mls/hr 07/27/24 06:00 07/27/24 11:08 Lr IV 07/27/24 22:39 Not Given .[id number] MEDINA Vancomycin HCl 1,500 mg/ 530 mls @ 200 mls/hr 07/27/24 06:00 07/27/24 11:08 Sodium Chloride IV 07/28/24 05:59 Not Given PREOP MEDINA NPO Date Last Intake of Fluids: 07/26/24 Time Last Intake of Fluids: 22:00 Date Last Intake of Solids: 07/26/24 Time Last Intake of Solids: 21:00 Past Medical History Medical History Low back pain Hearing loss Dyspnea on exertion Chronic cough Lumbar stenosis with neurogenic claudication Disc degeneration, lumbar Degenerative spondylolisthesis Bertolotti's syndrome Thoracic aortic aneurysm pt unaware History of COVID-19 (~12/2020) hospitalized-symptoms resolved Diverticulosis of colon Elva's thyroiditis Solitary pulmonary nodule on lung CT monitoring Hypothyroid Bronchospasm pt unaware CKD (chronic kidney disease) stage 3, GFR 30-59 ml/min Hypertension follows w/ Dr Jones Major depression Takotsubo syndrome (1996) hx Anxiety Hyperlipidemia Asthma controlled w/ daily inhaler use Past Family History Family History Mother Hypertension Breast cancer COPD (chronic obstructive pulmonary disease) Grandmother Breast cancer Denies family history of Colon cancer Ovarian cancer Prostate cancer Myocardial infarction Past Surgical History Surgical History Hx of left cataract extraction Hx of blepharoplasty History of right cataract surgery History of surgery dental implants History of cardiac cath 1996, 2006- no stents S/P ear surgery History of right hip replacement Past Anesthesia History No Hx of Anesthesia Complications and No Family Hx of Anesthesia Complications History of PONV No Hx of PONV Social History Smoking Status: Never smoker Do You Dip or Chew Tobacco: No Hx Alcohol Use: Yes Alcohol type: beer alcohol intake frequency: holidays/special occasions only Hx Substance Use: No substance use type: does not use Physical Exam Vital Signs Last Vital Signs Temp 36.6 C 07/27/24 10:49 Pulse 74 07/27/24 10:49 Resp 20 07/27/24 10:49 BP 185/81 H 07/27/24 10:49 Pulse Ox 97 07/27/24 10:49 O2 Del Method Room Air 07/27/24 10:49 ENMT Mouth: + dentures (Perm) Mallampati Class: I Neck normal visual inspection Respiratory normal respiratory effort Auscultation: lungs clear to auscultation bilaterally Cardiovascular Rate/Rhythm: regular rate and regular rhythm Testing Laboratory Results Blood Type A Positive 07/27/24 10:07 Antibody Screen NEGATIVE 07/27/24 10:07 Electrocardiogram Date: 07/17/24 NSR, rate 72 bpm Left axis deviation Moderate voltage criteria for LVH, may be normal variant T wave abnormality, consider lateral ischemia T wave inversion more evident in lateral leads when compared with 03/14/24 EKG Chest X-Ray Date: 07/07/24 No acute abnormalities and in particular no radiographic evidence of pneumonia. Echocardiogram Date: 10/10/23 EF 65-70% No LV regional wall motion abnormalities Mild mitral regurgitation Moderate cLVH Moderate LA dilation Mild dilated ascending aorta 4.3 cm Type II diastolic dysfunction
[2024-07-27] MEDS ORDERED: fentaNYL citrate PF 100 MCG/2 ML VIAL IV PRN (11:30)
[2024-07-27] MEDS ORDERED: ATROPINE SULFATE 0.1 MG/ML 10ML SYR IV PRN (11:30)
[2024-07-27] MEDS ORDERED: ONDANSETRON INJ 2 MG/ML 2 ML VIAL IV PRN ×2 (11:30→15:39)
[2024-07-27] MEDS ORDERED: HYDROmorphone INJ 1 MG/ML SYRINGE IV PRN (11:30)
[2024-07-27] MEDS ORDERED: ePHEDrine sulfate 50 MG/ML AMP IV PRN (11:30)
[2024-07-27] MEDS ORDERED: Nursing to Pharmacy Communication SCH (12:15)
--- NOTE | 2024-07-27 12:21 | History & Physical Bridge Note ---
Date of Service July 27, 2024 History & Physical Bridge Note I have examined the patient, reviewed the History & Physical and in the interval since the performance of the History & Physical I have noted the following changes of clinical significance: no changes noted
--- OUTSIDE RECORDS SUMMARY | 2024-07-27 13:03 | External Medical Summary | Continuity of Care Document ---
Author Name Unknown Organization [facility] [address] [facility] Address [address] [place], [place] [id number] Care Team Providers Care Feather Washer Name Role Phone Refugio Deirdre Rao Primary Care Physician [phone] [id number] Date(s): 07/23/24 - 07/23/24 [facility] [address], [address] [place] [address] [phone] Encounter Diagnosis Preop testing(Discharge Diagnosis) - 07/23/24 Abnormal EKG(Discharge Diagnosis) - 07/23/24 HTN (hypertension)(Discharge Diagnosis) - 07/23/24 Discharge Disposition: Home or Self Care Attending Physician: DOROTA Rutledge Sarah A Allergies, Adverse Reactions, Alerts Substance Criticality Severity Reaction Reaction Severity Status codeine vomiting Active aspirin Unable to assess criticality Mild Rash Active ketorolac Unknown Active penicillins hives Active sulfa drugs hives Active IVP dye hives Active traMADol kidney failure Activ e Assessment and Plan Extracted from: Title:Cardiology Office Visit Note Author:DOROTA Olivarez rd, Sarah A Date:07/23/24 Impression: 1. History of Takotsubo cardiomyopathy in 2006 and 2016. 2. Echocardiogram [facility] 09/2023: EF 60-65% dilated ascending aorta at 4.3 cm, and mild mitral regurgitation with normal pulmonary artery pressures. 3. Syncope in 2020 with an unremarkable MRI and normal carotid Dopplers and a normal 30-day monitor. 4. Hypertension. 5. Dilated ascending aorta 4.3 cm, 10/2021 and stable compared to 2019. 6. History of COVID infection receiving monoclonal antibodies December 2020. 7. Asthma. 8. Peripheral neuropathy. 9. Chronically elevated D-dimer. 10. Negative stress echo in 2014. 11. Normal BNP, 11/12/21.. Ms. Pichardo has some dyspnea with exertion but it has not changed much over the last year and is largely associated with her back pain. She is without chest pain. Her EKG is markedly abnormal but looking back over EKGs dating back to 2018, the T wave inversions in her marleny-lateral leads wax and wane but have been apparent for some time. Her echo in September showed normal LVF without WMA. She can ascend a flight of stairs. She does not need further cardiac testing prior to her surgery. She can proceed at a moderate cardiovascular complication risk. The NSQIP calculator puts her cardiac complication risk at 1.4% compared to 0.5% on average. We did discuss that back surgery is a significant stressor and so she risks another Takasubo event given that she has had two in her lifetime. She should take her beta blockers perioperatively. Her blood pressure is controlled. Medications Advair Diskus 250 mcg-50 mcg Start: 07/23/22 12:00:00 PM EDT, 1 puff, PO, bid, Disp# 1 each, Refills: 5, rinse mouth and throat after use, Pharmacy: [facility] Start Date: 07/23/22 Stop Date: 01/19/23 Status: Ordered albuterol-ipratropium 2.5 mg-0.5 mg/3 mL inhalation solution Start: 07/03/24 11:16:00 AM EDT, 1 vial, inhaled, q6h, Disp# 120 mL, Refills: 0, PRN: NEEDED FORSHORTNESS OF BREATH OR WHEEZING, Pharmacy: [facility] Start Date: 07/03/24 Stop Date: 07/13/24 Status: Ordered [place] Thyroid 60 mg oral tablet Start: 11/29/22 4:39:00 PM EST, See Instructions, Disp# 30 tab, Refills: 0, TAKE 2 TABLET BY MOUTH ONCE DAILY, Pharmacy: [facility] Start Date: 11/29/22 Status: Ordered carvedilol 3.125 mg oral tablet Start: 04/02/24 12:42:00 PM EDT, 1 tab, PO, bid, Disp# 60 tab, Refills: 2, Pharmacy: [facility] Start Date: 04/02/24 Status: Ordered furosemide 20 mg oral tablet Start: 06/24/23 4:28:00 PM EDT, 1 tab, PO, Daily Start Date: 06/24/23 Status: Ordered gabapentin 300 mg oral capsule Start: 02/24/24 9:57:00 AM EDT, 1 cap, PO, tid, Disp# 90 cap, Refills: 3, Pharmacy: [facility] Start Date: 02/24/24 Status: Ordered inhaler spacer Start: 08/21/21 12:13:00 PM EST, See Instructions, Disp# 1 each, use with Combivent inhaler, Pharmacy: [facility] Start Date: 08/21/21 Status: Ordered lisinopril 20 mg oral tablet Start: 06/24/23 4:28:00 PM EDT, 1 tab, PO, Daily Start Date: 06/24/23 Status: Ordered sertraline 100 mg oral tablet Start: 12/14/21 3:20:00 PM EDT, 1 tab, PO, Daily, Disp# 90 tab, Refills: 3, Pharmacy: [facility] Start Date: 12/14/21 Status: Ordered spironolactone 25 mg oral tablet Start: 04/23/24 10:01:00 AM EDT, 1 tab, PO, bid, Disp# 180 tab, Refills: 3, Pharmacy: [facility] Start Date: 04/23/24 Status: Ordered Mental Status 07/23/24 Barriers to Learning one year Hearing de ficit Mandatory Health Literacy Documentation Yes Health Literacy Communication Barriers N ever Primary Language [place] Problem List Condition Confirmation Course Effective Dates Status H ealth Status Informant Gait instability Confirmed Active Adjustment disorder with depressed mood Confirmed Active Ascending aortic aneurysm Confirmed Active Asthma Confirmed Active Chronic dyspnea Confirmed Active CKD (chronic kidney disease) Confirmed Active GERD (gastroesophageal reflux disease) Confirmed Active HTN (hypertension) Confirmed Active Hypothyroidism Confirmed Active 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 Olecranon bursitis, left elbow Confirmed Active Seborrheic keratosis Confirmed Active Spinal stenosis, lumbar region with neurogenic claudication Confirmed Active Weight disorder Confirmed Active Diagnosis Diagnosis Type Effective Dates Health Status Cl inical Service Informant Preop testing Discharge Diagnosis 07/23/24 Non-Specified Abnormal EKG Discharge Diagnosis 07/23/24 Non-Specified HTN (hypertension) Discharge Diagnosis 07/23/24 Non-Specified Procedures Procedure Date Related Diagnosis Body Site Status Bone density scan 1 06/11/22 Compl eted Mohs micrographic surgery 11/15/21 Completed Shave biopsy of skin 10/24/21 Comp leted Chest x-ray 2 10/05/21 Completed Echocardiogram 3 02/10/19 Complete d Hip replacement 4 2009 [facility] ed [address] [place] [address] Impression: 1. AP spine L2-L3 Tscore: 1.8 2. Femur neck T-score: -0.5 3. Femur total T-score: 0.[address] [place] [address] Impression: 1. No acute cardiopulmonary disease 3limited views were obtained left ventricular systolic function is normal the left ventricular wall motion is normal 4right Vital Signs Most recent to oldest [Reference Range]: 1 Patient Weight 100 kg (07/23/24 9:56 AM) Heart Rate 87 bpm (07/23/24 9:56 AM) Respiratory Rate 18 br/min (07/23/24 9:56 AM) Blood Pressure 136/72mmHg (07/23/24 9:56 AM) BP Location # 1 Left Arm (07/23/24 9:56 AM) Social History Social History Type Response Smoking Status Never smoked cigaret daxa Sex Female Sex Representation Female (finding) Cardiology Outpatient Note * DOROTA Rutledge Sarah A: PERFORM, MODIFY Event Display: Cardiology Outpt Note Authored Date: [id number] Primary Care Provider MARYELLEN Huff, Deirdre Yeh Chief Complaint Pre op back sx 11--24on going SOB with exertion - denies resent chest pain/ tightness, no heart racing or Palpations, no flutters no dizziness or light headedness No resent ER visits no unusual bleeding History of Present Illness Ms. Pichardo presents for preop evaluation in preparation for laminectomy. She has a lot of back pain and has been very sedentary over the last five years which she feels has contributed to some dyspnea on exertion. She notes that she has less dyspnea if she walks with awalker. She cannot walk very far due to back pain. She can ascend a flight of stairs and is a little winded at the top. No chest discomfort. No edema. Review of Systems All other systems reviewed and negative except as discussed in the HPI Physical Exam Vitals & Measurements HR:87(Monitored) RR:18 BP:136/72 SpO2:98% WT:100kg WT:100.000kg(Dosing) Physical Examination General: Alert and oriented, No acute distress. Respiratory: Lungs are clear to auscultation, Respirations are non-labored. Cardiovascular: Normal rate, Regular rhythm, No murmur, No edema, Integumentary: Warm, Dry, [place] Neurologic: Alert, Oriented. Cognition and Speech: Speech clear and coherent. Psychiatric: Cooperative, Appropriate mood & affect. Assessment/Plan Impression: 1. History of Takotsubo cardiomyopathy in 2006 and 2016. 2. Echocardiogram [facility] 09/2023: EF 60-65% dilated ascending aorta at 4.3 cm, and mild mitral regurgitation with normal pulmonary artery pressures. 3. Syncope in 2020 with an unremarkable MRI and normal carotid Dopplers and a normal 30-day monitor. 4. Hypertension. 5. Dilated ascending aorta 4.3 cm, 10/2021 and stable compared to 2018. 6. History of COVID infection receiving monoclonal antibodies December 2020. 7. Asthma. 8. Peripheral neuropathy. 9. Chronically elevated D-dimer. 10. Negative stress echo in 2014. 11. Normal BNP, 11/12/21.. Ms. Pichardo has some dyspnea with exertion but it has not changed much over the last year and is largely associated with her back pain. She is without chest pain. Her EKG is markedly abnormal but looking back over EKGs dating back to 2018, the T wave inversions in her marleny-lateral leads wax and wane but have been apparent for some time. Her echo in September showed normal LVF without WMA. She can ascend a flight of stairs. She does not need further cardiac testing prior to her surgery. She can proceed at a moderate cardiovascular complication risk. The NSQIP calculator puts her cardiac complication risk at 1.4% compared to 0.5% on average. We did discuss that back surgery is a significant stressor and so she risks another Takasubo event given that she has had two in her lifetime. She should take her beta blockers perioperatively. Her blood pressure is controlled. Problem List/Past Medical History Ongoing Adjustment disorder with depressed mood Ascending aortic aneurysm Asthma Chronic dyspnea CKD (chronic kidney disease) Degenerative joint disease (DJD) of lumbar spine Gait instability GERD (gastroesophageal reflux disease) HTN (hypertension) Hypothyroidism Olecranon bursitis, left elbow Seborrheic keratosis Spinal stenosis, lumbar region with neurogenic claudication Weight disorder Procedure/Surgical History Bone density scan| Service Date: 06/11/2022Mohs micrographic surgery| Service Date: 11/15/2021have biopsy of skin| Service Date: 10/24/2021hest x-ray| Service Date: 10/05/2021Echocardiogram| Service Date: 02/10/2019Hip replacement| Service Date: 2009 Medications albuterol-ipratropium(albuterol-ipratropium 2.5 mg-0.5 mg/3 mL inhalation solution), 1 vial, inhaled, q6h, PRN carvedilol(carvedilol 3.125 mg oral tablet), 1 tab, PO, bid fluticasone-salmeterol(Advair Diskus 250 mcg-50 mcg), 1 puff, PO, bid, 5 refills furosemide(furosemide 20 mg oral tablet), 20 mg= 1 tab, PO, Daily gabapentin(gabapentin 300 mg oral capsule), 1 cap, PO, tid inhalation accessory(inhaler spacer), See Instructions lisinopril(lisinopril 20 mg oral tablet), 20 mg= 1 tab, PO, Daily sertraline(sertraline 100 mg oral tablet), 100 mg= 1 tab, PO, Daily, 3 refills spironolactone(spironolactone 25 mg oral tablet), 1 tab, PO, bid thyroid desiccated([place] Thyroid 60 mg oral tablet), See Instructions Allergies aspirin (Mild)Rash IVP dyehives codeinevomiting ketorolacUnknown penicillinshives sulfa drugshives traMADolkidney failure Social History Smoking Status Never smoked cigarettes Alcohol Use:Current Type:Beer Frequency:1-2 times per month Substance Abuse - Denies Substance Abuse Tobacco - Denies Tobacco Use Family History Blood clot: Father. Factor V Leiden mutation: Father. Health Status Family Member(s) Electronic Signature on File CC: Chan Beasley MD [facility] [address] [facility] [id number] * CC: Amy Ulloa MD [address] [facility] [address] * Electronically Reviewed/Signed by: DOROTA Reis Author Signature Dt/Tm:07/23/2024 10:57 AM [facility] Patient Care team information Care Team Personnel Name: MARYELLEN Huff, Deirdre Yeh Position: Physician Nirmalt Leighann - Family Med Member Role: Primary Care Provider Address: [address] [place] [address] [address] [place] [address] [place] Care Team Related Persons Name: GISELLE SIDDIQUI"
[2024-07-27] MEDS ORDERED: fentaNYL citrate PF 100 MCG/2 ML VIAL ONE (14:45)
[2024-07-27] MEDS: VANCOMYCIN HCL 1000MG/20ML VIAL ONE (14:53)
[2024-07-27] MEDS: THROMBIN 5000 UNITS KIT ONE (15:13)
[2024-07-27] MEDS: GELATIN SPONGE 12-7MM ONE (15:13)
[2024-07-27] MEDS: methylPREDNISolone acetate 40 MG/ML VIAL ONE (15:22)
[2024-07-27] MEDS: FLOSEAL HEMOSTATIC MATRIX 5ML TOP ONE (15:22)
[2024-07-27] MEDS: BUPIVACAINE/EPINEPHRINE 0.5% MPF 1:200,000 30 ML VIAL ONE (15:23)
[2024-07-27] MEDS ORDERED: FAMOTIDINE 20 MG TAB PO PRN (15:39)
[2024-07-27] MEDS ORDERED: bisacodyL 10 MG SUPP PR PRN (15:39)
[2024-07-27] MEDS ORDERED: MAGNESIUM HYDROXIDE SUSP 30 ML UDC PO PRN (15:39)
[2024-07-27] MEDS ORDERED: diphenhydrAMINE Capsule 25 MG CAP PO PRN (15:39)
[2024-07-27] MEDS ORDERED: HYDROmorphone INJ 0.5 MG/0.5 ML SYR IV PRN (15:39)
[2024-07-27] MEDS ORDERED: LORazepam 2 MG/1 ML VIAL IV PRN (15:39)
[2024-07-27] MEDS ORDERED: ALUMINUM/MAGNESIUM SUSP 30 ML UDC PO PRN (15:39)
[2024-07-27] MEDS ORDERED: ACETAMINOPHEN 1,000 MG/100 ML VIAL IV PRN (15:39)
[2024-07-27] MEDS ORDERED: PROMETHAZINE 12.5 MG/50.5 ML BAG IV PRN (15:39)
[2024-07-27] MEDS ORDERED: VANCOMYCIN CONSULT ACTIVE PRN (15:39)
[2024-07-27] MEDS ORDERED: ONDANSETRON 4 MG OD TAB PO PRN ×2 (15:39→15:45)
[2024-07-27] MEDS ORDERED: NALOXONE HCL 0.4 MG/1 ML VIAL/CARP IV PRN (15:39)
[2024-07-27] MEDS ORDERED: DO NOT ADMINISTER PNEUMOCOCCAL VACCINE PRN (15:39)
[2024-07-27] MEDS ORDERED: DO NOT ADMINISTER FLU VACCINE PRN (15:39)
[2024-07-27] MEDS ORDERED: SOD PHOSPHATE/SOD BIPHOSPHATE ENEMA 132 ML BTL PR PRN (15:39)
[2024-07-27] MEDS ORDERED: METOCLOPRAMIDE HCL INJ 5 MG/ML 2 ML VIAL IV PRN (15:39)
[2024-07-27] MEDS ORDERED: LORazepam 0.5 MG TAB PO PRN (15:39)
[2024-07-27] MEDS ORDERED: ACETAMINOPHEN 500 MG TAB PO PRN (15:39)
[2024-07-27] MEDS ORDERED: hydrOXYzine HCl 25 MG TAB PO PRN (15:39)
--- NOTE | 2024-07-27 15:39 | Post Operative Brief Note ---
PG Immediate Post Op with CF Date of Surgery July 27, 2024 Pre & Post Diagnosis Operation Date: 07/27/24 11:55 Pre-Op Diagnosis: Bertolotti's Syndrome, Lumbar stenosis with neurogenic claudication Post-Op Diagnosis: Bertolotti's Syndrome, Lumbar stenosis with neurogenic claudication I identified the patient and participated in the time-out.: Yes Procedure Operation Date: 07/27/24 11:55 Actual Procedures p L4-L5 Laminectomy(Not Applicable) - Chan Beasley MD Surgeon Chan Beasley MD [employer] Supervisor none Estimated Blood Loss 20 Findings Consistent with Post-Op Diagnosis Specimens Specimen Description: None per surgeon
[2024-07-27] MEDS ORDERED: IPRATROPIUM BROMIDE/ALBUTEROL respimat INH INH SCH (15:45)
--- NOTE | 2024-07-27 17:00 | Anesthesiology Progress Note ---
Date of Service July 27, 2024 Anesthesia Post Procedure Vital Signs Vital Signs: Temp Pulse Resp BP Pulse Ox O2 Del Method O2 Flow Rate 07/27/24 16:45 80 12 179/97 H 96 Nasal Cannula 2 07/27/24 16:30 36.4 C L 83 12 178/96 H 97 Nasal Cannula 2 07/27/24 16:20 83 14 189/86 H 97 Nasal Cannula 2 07/27/24 16:10 88 16 176/99 H 95 Nasal Cannula 2 07/27/24 16:00 87 14 178/96 H 95 Oxymask 2 07/27/24 15:50 84 18 184/100 H 97 Oxymask 3 07/27/24 15:39 36 C L 95 H 14 183/96 H 95 Oxymask 6 07/27/24 10:49 36.6 C 74 20 185/81 H 97 Room Air Pain Intensity Back: Pain Intensity: 4 Transfer of Care Handoff Completed per policy Notes Mental Status: alert / awake / arousable Patient Amnestic to Procedure: Yes Nausea / Vomiting: adequately controlled Pain: adequately controlled Airway Patency, RR, SpO2: stable & adequate BP & HR: stable & adequate Hydration State: stable & adequate Anesthetic Complications: no major complications apparent
[2024-07-27] MEDS: oxyCODONE/ACETAMINOPHEN 5mg/325mg TAB PO PRN (17:54)
[2024-07-27 18:08] LABS: Hematocrit (blood only) 38.8 % (37.0-47.0); Hemoglobin 12.6 g/dl (12.0-16.0); Mean Corpuscular Hemoglobin 30.1 pg (25.0-34.0); Mean Corpuscular Hgb Conc 32.5 g/dL (32.0-36.0); Mean Corpuscular Volume 92.8 fL (80.0-100.0); Mean Platelet Volume 9.6 fL (9.4-12.4); Platelet Count 214 K/uL (130-400); RDW Coefficient of Variation 13.2 % (11.5-14.5); Red Blood Count 4.18 M/uL (4.20-5.40); White Blood Count 6.04 K/ul (4.8-10.8)
[2024-07-27 18:19] LABS: BUN Creatinine Ratio 15.3 (10-20); Calcium 9.5 mg/dl (8.6-10.3); Creatinine Clr Calc Pharmacy 43.1 ml/min; Magnesium 1.7 mg/dl (1.7-2.4); Potassium 4.5 mmol/L (3.5-5.1)
[2024-07-27 18:29] LABS: Basophils # (auto) 0.01 K/uL (0.00-0.20); Basophils % (auto) 0.2 %; Eosinophils # (auto) 0.03 K/uL (0.00-0.50); Eosinophils % (auto) 0.5 %; Immature Granulocytes # (auto) 0.05 K/uL (0.01-0.20); Immature Granulocytes % (auto) 0.8 %; Lymphocytes # (auto) 0.41 K/uL (1.20-3.40); Lymphocytes % (auto) 6.8 %; Monocytes # (auto) 0.09 K/uL (0.11-0.59); Monocytes % (auto) 1.5 %; Neutrophils # (auto) 5.45 K/uL (1.40-6.50); Neutrophils % (auto) 90.2 %; RBC Morphology Unremarkable
[2024-07-27] MEDS: carvediloL 3.125 MG TAB PO SCH (19:40)
[2024-07-27] MEDS: GABAPENTIN 100 MG CAP PO SCH (19:41)
[2024-07-27] MEDS: PANTOprazole 40 MG TAB PO SCH (19:42)
[2024-07-27] MEDS: SPIRONOLACTONE 25 MG TAB PO SCH (19:42)
[2024-07-27] MEDS: Ipratropium HFA Inhaler (Combivent Respimat P&T Subs) INH SCH (20:45)
[2024-07-27] MEDS: Albuterol HFA 8 GM Inhaler (Combivent Respimat P&T Subs) INH SCH (20:46)
[2024-07-27] MEDS: DOCUSATE SODIUM/SENNA 50/8.6MG TAB PO SCH (21:13)
[2024-07-28] MEDS: VANCOMYCIN HCL 1,500 MG in DEXTROSE 5% 500 ML IV SCH (02:00)
[2024-07-28] MEDS: POLYETHYLENE (MIRALAX) 17 GM PACK PO SCH (05:52)
[2024-07-28 06:11] LABS: Basophils # (auto) 0.01 K/uL (0.00-0.20); Basophils % (auto) 0.1 %; Hematocrit (blood only) 33.9 % (37.0-47.0); Hemoglobin 11.1 g/dl (12.0-16.0); Immature Granulocytes # (auto) 0.05 K/uL (0.01-0.20); Immature Granulocytes % (auto) 0.5 %; Lymphocytes # (auto) 0.68 K/uL (1.20-3.40); Lymphocytes % (auto) 6.8 %; Mean Corpuscular Hemoglobin 30.3 pg (25.0-34.0); Mean Corpuscular Hgb Conc 32.7 g/dL (32.0-36.0); Mean Corpuscular Volume 92.6 fL (80.0-100.0); Mean Platelet Volume 9.8 fL (9.4-12.4); Monocytes % (auto) 7.9 %; Neutrophils # (auto) 8.53 K/uL (1.40-6.50); Neutrophils % (auto) 84.7 %; Platelet Count 208 K/uL (130-400); RDW Coefficient of Variation 13.3 % (11.5-14.5); RDW Standard Deviation 45.6 fL (36.4-46.3); Red Blood Count 3.66 M/uL (4.20-5.40); White Blood Count 10.07 K/ul (4.8-10.8)
[2024-07-28 06:23] LABS: BUN Creatinine Ratio 15.8 (10-20); Creatinine Clr Calc Pharmacy 39.9 ml/min; Potassium 4.6 mmol/L (3.5-5.1)
[2024-07-28] MEDS: LOSARTAN POTASSIUM 50 MG TAB PO SCH (07:33)
[2024-07-28] MEDS: SERTRALINE HCL 100 MG TABLET PO SCH (07:33)
[2024-07-28] MEDS: ARMOUR THYROID 30 MG TAB PO SCH (07:34)
--- NOTE | 2024-07-28 08:16 | Hospitalist Consultation ---
Date of Consultation July 28, 2024 Assessment & Plan (1) Lumbar stenosis with neurogenic claudication: Presented for elective L4-L5 laminectomy with Dr. Beasley on 07/27/2024 - Pain management, DVT prophylaxis, activity level, discharge planning per primary team - Acute blood loss anemia secondary to surgery -- hgb stable at 11.1, not requiring blood transfusion at this time - Postop hyponatremia, suspect hypotonic hyponatremia -- will defer further lab testing at this time. Recommend outpatient repeat BMP in 1 week - Postop hypoxia requiring 2L supplemental O2 via NC -- resolved and stable on room air now - PT/OT recommending return home (2) Hypertension: Blood pressures elevated in perioperative setting, now WNL with most recent read being 127/74 - Continue losartan, carvedilol - Continue spironolactone (3) Asthma: Some postop hypoxia in low 90s requiring 2 L supplemental O2 via NC - Now stable on room air - Continue inhaler (4) Hypothyroidism: Last TSH WNL at 2.382 in September 2023 - Continue thyroid tab 120 mg daily (5) Anxiety: Continue sertraline 100 mg daily Plan Recommend repeat BMP in outpatient setting in ~1 week to ensure resolution in hyponatremia. Patient is medically stable for discharge from hospital medicine's perspective. We will sign off at this time. Please contact with any questions or concerns. CODE STATUS: Full code History of Present Illness Reason for Consultation: Postop medical management Requesting Physician: Chan Beasley MD Attending Physician: Chan Beasley MD History of Present Illness Mrs. Pichardo is a pleasant 84-year-old female with PMH of hypertension, CKD 3, hyperlipidemia, CAD, hypothyroidism, GERD, asthma, and Takotsubo cardiomyopathy in 2006 and 2016. She presented for L4-L5 laminectomy with Dr. Schwartz on 07/27/2024. Per review of operative report, EBL was listed as 20 cc, and there were no complications noted. Per review of patient's vitals postop, she had been hypoxic in the low 90s requiring 2L supplemental O2 via NC; vitals otherwise stable. Now stable on room air. She does not use supplemental oxygen at baseline. No CPAP at night. Patient reports that her pain is 1/10 at time of consult. She notes that her radiating symptoms down her legs have completely resolved since surgery. She has been voiding without difficulty and has passed gas. She reports she is eating and drinking okay since the procedure, and has no new complaints at this time. She worked with PT/OT earlier and they recommend return home without any additional services. She is eager for discharge home. She denies any fever, chills, sweats, dizziness, lightheadedness, headache, chest pain, pleuritic CP, SOB, cough, abdominal pain, N/V/D, changes in urinary/bowel habits, saddle anesthesia, or numbness or tingling down the legs. Allergies Allergy/AdvReac Type Severity Reaction Status Date / Time tromethamine Allergy Severe kidney Verified 07/27/24 10:41 failure Iodinated Contrast Media Allergy Intermediate Rash Verified 07/27/24 10:41 [Iodinated Contrast- Oral and IV Dye] Penicillins Allergy Intermediate RASH, HIVES Verified 07/27/24 10:41 diclofenac [From Voltaren] Allergy Mild RASH ON Verified 07/27/24 10:41 HANDS latex Allergy Mild LOCAL RASH Verified 07/27/24 10:41 Citalopram Analogues Allergy Unknown CAN'T Verified 07/27/24 10:41 REMEMBER esomeprazole [From Nexium] Allergy Unknown CAN'T Verified 07/27/24 10:41 REMEMBER lisinopril Allergy Unknown CAN'T Verified 07/27/24 10:41 REMEMBER Sulfa (Sulfonamide Allergy Unknown Rash Verified 07/27/24 10:41 Antibiotics) ketorolac AdvReac Severe kidney Verified 07/27/24 10:41 failure aspirin AdvReac Intermediate UPSET Verified 07/27/24 10:41 STOMACH/STOMACH PAIN tramadol AdvReac Intermediate Vomiting Verified 07/27/24 10:41 codeine AdvReac Unknown upset Verified 07/27/24 10:41 stomach Home Medications Medication Instructions Recorded Confirmed Type carvedilol 3.125 mg tablet 3.125 mg PO BID 10/09/23 07/27/24 History ondansetron 4 mg disintegrating 4 mg PO Q8H PRN nausea and 10/17/23 07/27/24 Rx tablet vomiting #20 tabs thyroid (pork) 120 mg tablet 120 mg PO DAILY #30 tabs 02/10/24 07/27/24 Rx sertraline 100 mg tablet 100 mg PO DAILY #30 tabs 02/25/24 07/27/24 Rx gabapentin 300 mg capsule 300 mg PO BID 03/17/24 07/27/24 History spironolactone 25 mg tablet 25 mg PO BID #180 tabs 04/21/24 07/27/24 Rx omeprazole 20 mg capsule,delayed 20 mg PO BID #60 caps 04/29/24 07/27/24 Rx release ipratropium 20 mcg-albuterol 100 1 puff inhalation Q6H #4 grams 05/27/24 07/27/24 Rx mcg/actuation mist for inhalation ibuprofen 200 mg tablet 200 mg PO BID 07/02/24 07/27/24 History losartan 50 mg tablet 50 mg PO DAILY #30 tabs 07/20/24 07/27/24 Rx gabapentin 100 mg capsule 100 mg PO BID 07/27/24 07/27/24 History oxycodone-acetaminophen 5 mg-325 1 tab PO TID #20 tabs 07/28/24 Rx mg tablet Patient History Medical History Low back pain Hearing loss Dyspnea on exertion Chronic cough Lumbar stenosis with neurogenic claudication Disc degeneration, lumbar Degenerative spondylolisthesis Bertolotti's syndrome Thoracic aortic aneurysm pt unaware History of COVID-19 (~12/2020) hospitalized-symptoms resolved Diverticulosis of colon Elva's thyroiditis Solitary pulmonary nodule on lung CT monitoring Hypothyroid Bronchospasm pt unaware CKD (chronic kidney disease) stage 3, GFR 30-59 ml/min Hypertension follows w/ Dr Jones Major depression Takotsubo syndrome (1996) hx Anxiety Hyperlipidemia Asthma controlled w/ daily inhaler use Surgical History Hx of left cataract extraction Hx of blepharoplasty History of right cataract surgery History of surgery dental implants History of cardiac cath 1996, 2006- no stents S/P ear surgery History of right hip replacement Family History Mother Hypertension Breast cancer COPD (chronic obstructive pulmonary disease) Grandmother Breast cancer Denies family history of Colon cancer Ovarian cancer Prostate cancer Myocardial infarction Social History Smoking Status: Never smoker Second Hand Exposure: No; Do You Dip or Chew Tobacco: No; Tobacco Cessation Education Requested by Patient: No Hx Alcohol Use: Yes Alcohol type: beer Hx Substance Use: No Preferred Language: [place] Communication Ability: Effective Visual Impairment: No Limitations Hearing Ability: Use of Hearing Aid 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: No Beliefs That Will Affect Care: None marital status: Current Living Situation: Alone current occupational status: retired How many Children do You have: 2 Other Information That Helps Us Care for You: Yes (possible rehab at discharge) Feels Safe at Home: Yes Safety Concerns: Feels Safe At This Time Childhood Exposure to Second-Hand Smoke: Yes Diet: regular caffeine: Yes during the past year weight has: remained stable Dental Care, Regularly: Yes Physical Activity Frequency: 5-6 Times per Week Seatbelt Use: always Sunscreen Use: No Assistive Devices: Walker Physical Exam Physical Exam: General: No acute distress, nondiaphoretic, well-developed, well-nourished. Skin: The skin was without rashes, erythema, edema, or bruising. Cardiac: Regular rate and rhythm without murmurs gallops or rubs. Pulm: Clear to auscultation bilaterally without wheezes, rales or rhonchi. No respiratory distress. 92% on room air. Abdominal: Soft, nontender, nondistended. Bowel sounds present. Neuro: A&O x3. No focal neurological deficits. Results & Data Results & Data Vital Signs (Past 12 Hours) Vital Signs Temp Pulse Resp BP Pulse Ox O2 Del Method O2 Flow Rate 07/28/24 07:13 17 98 Nasal Cannula 2 07/28/24 07:07 97.7 F 61 16 148/74 H 98 Nasal Cannula 2 07/28/24 03:42 97.7 F 68 18 121/73 95 Nasal Cannula 2 07/27/24 22:56 97.5 F L 82 18 118/68 94 Nasal Cannula 2 07/27/24 20:35 82 18 97 Nasal Cannula 2 07/27/24 20:16 98.1 F 86 18 148/77 H 94 Nasal Cannula 2 Laboratory Results Reviewed CBC Reviewed chemistries PG Care Time/CCT Total # of Minutes Spent Total Time Spent with Patient: Total time spent is greater than 50% in coordination of care (as documented) at patient's floor/unit and/or counseling patient: Coding Level of Care Code 45478 IN/OBS CONSULT LVL 3,45M Diagnoses Lumbar stenosis with neurogenic claudication M48.062 Hypertension I10 Mild intermittent asthma without complication J45.20 Asthma complication type: uncomplicated Asthma persistence: intermittent Asthma severity: mild 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
--- NOTE | 2024-07-28 08:18 | Discharge Summary ---
Date of Service July 28, 2024 Admission HPI (Per Admitting) lumbar stenosis Principal Diagnosis Same as "Discharge Diagnosis" noted below under Discharge Instructions. Discharge Data Consultations 07/27/24 15:39 Consult Hospitalist Routine Procedures Performed Operation Date: 07/27/24 11:55 Actual Procedures p L4-L5 Laminectomy(Not Applicable) - Chan Beasley MD Ordered Studies 07/27/24 [place] spine 1V any level Routine Hospital Course (1) Degenerative spondylolisthesis: PG Care Time/CCT Total # of Minutes Spent Total Time Spent with Patient: Total time spent is greater than 50% in coordination of care (as documented) at patient's floor/unit and/or counseling patient: Discharge Plan Discharge Items Patient Disposition: Home - Self-Care Reason For Visit: SURGERY Discharge Diagnosis: lumbar stenosis Activity: As commented below Lifting: No more than 10 pounds Bathing: May shower/bathe in 3 days Exercise/Sports: Wait until after follow-up appointment Driving/Machine Use: Resume 3 days after discharge Weightbearing: Full weightbearing Non-emergency contact: Surgeon Call non-emergency contact if: your pain is worsening Follow-up/Referrals: Amy Ulloa MD [Primary Care Provider] - Diet: Regular Ambulatory Orders: ECG 12 lead EKG (Routine) Timeframe: 20240717 Location: Determined by Patient Ordered By: Tiffanie Noel Attending Provider Instructions: Followup in 2 weeks Pending Studies at Discharge: No Stand-Alone Forms: [employer], Smoking Cessation Medications and DC Order Prescriptions: Continued thyroid (pork) 120 mg tablet 120 mg PO DAILY Qty: 30 5RF sertraline 100 mg tablet 100 mg PO DAILY Qty: 30 6RF spironolactone 25 mg tablet 25 mg PO BID Qty: 180 3RF omeprazole 20 mg capsule,delayed release(DR/EC) 20 mg PO BID Qty: 60 2RF ipratropium-albuterol 20-100 mcg/actuation mist 1 puff inhalation Q6H Qty: 4 2RF losartan 50 mg tablet 50 mg PO DAILY Qty: 30 2RF oxycodone-acetaminophen 5-325 mg tablet 1 tab PO TID Qty: 20 0RF ondansetron 4 mg tablet,disintegrating 4 mg PO Q8H PRN (Reason: nausea and vomiting) Qty: 20 0RF gabapentin 300 mg capsule 300 mg PO BID carvedilol 3.125 mg tablet 3.125 mg PO BID ibuprofen 200 mg Tablet 200 mg PO BID gabapentin 100 mg capsule 100 mg PO BID Rx Instructions: take in the morning along with the 300mg at night Discharge Orders: Discharge Order (Routine); Ordered 07/28/24 Ordered By: Chan Beasley Admission Data Admit Date/Time: 07/27/24 15:39 Attending Provider: Chan Beasley Admit Provider: Chan Beasley Primary Care Provider: Aym Ulloa Other Providers: Mitul Benavidez Other Interventions: Discharge Summary Assessment (RN) Last Done: 07/28/24 12:04
[2024-07-28 11:09] VITALS: BP 127/74; RESP 16; TEMP 98.8
[2024-07-28 11:20] VITALS: PULSE 78; O2SAT 92
--- NOTE | 2024-07-29 16:31 | Orthopedic Progress Note ---
Date of Service July 29, 2024 Subjective Patient seen and examined, she notes a distinct improvement in her lower extremities, and has been up ambulating now postop day from L4-5 lumbar decompression. Exam reveals the patient to have dry incisional area and motor intact. Impression/plan: Patient doing well postoperatively and is requesting to be discharged home, prescription will be provided., She can be discharged after clearance from occupational physical therapy and hospitalist. Review of Systems All systems reviewed & are unremarkable except as noted in HPI & below. Physical Exam . Results & Data Results & Data Laboratory Results . Diagnostic Findings . PG Care Time/CCT Total # of Minutes Spent Total Time Spent with Patient: Total time spent is greater than 50% in coordination of care (as documented) at patient's floor/unit and/or counseling patient: Coding Level of Care Code 02763 Post Operative Follow-Up
--- NOTE | 2024-07-29 16:38 | Operative Report ---
PG Post Operative Report Pre & Post Diagnosis Operation Date: 07/27/24 11:55 Pre-Op Diagnosis: Bertolotti's Syndrome, Lumbar stenosis with neurogenic claudication Post-Op Diagnosis: Bertolotti's Syndrome, Lumbar stenosis with neurogenic claudication I identified the patient and participated in the time-out.: Yes Procedure Operation Date: 07/27/24 11:55 Actual Procedures p L4-L5 Laminectomy(Not Applicable) - Chan Beasley MD Surgeon Chan Beasley MD Dynamite Reclaimer none Estimated Blood Loss 20 Findings Consistent with Post-Op Diagnosis Specimens None. Description of Procedure 1. L4-5 posterior lumbar decompression/laminectomy. (74464) Patient taken the operating room and after adequate anesthesia was carefully positioned prone on the Ramesh frame, and checked for positioning. Preprepped was performed, fluoroscopy was brought in where I marked for the incision at the L4-5 level. It is to note that this is the third from the inferior most disc space level, the inferior most is an S1-S2 disc space correctly labeled a previous CT scan but mislabeled on most recent MRI as an L5-S1 segment. Therefore the level decompressed is the L4-5 level above a degenerative L5-S1 disc space and above a transitional segment with an S1-S2 rudimentary disc. A longitudinal incision was made over the L4-5 disc space, and advanced down to the spinous processes where I then mobilized the tissues away from the interlaminar region at L4-5. Once confirming this radiographically with the fluoroscopy unit, I then performed the bilateral laminectomy at L4-5 with removal of the inferior aspect of the spinous process of L4, and then moving across the inferior laminar edge of L4 superior lamina edge of L5 along the medial facets bilaterally performing the laminectomies as stated. I then thinned the ligamentum flavum and then used a Kerrison punch to remove the remaining ligament and undercutting the facets bilaterally and decompressing the L4 and L5 nerve roots bilaterally. Once complete, I then evaluated the area, no issues were noted, local was injected, I then applied vancomycin powder and closed the operative site with 0 Vicryl sutures reattaching the supraspinous ligament, 2-0 Vicryl sutures and nicole for the skin. Sterile dressing was applied, the patient was taken recovery room satisfactory condition. I attest to the content of the Intraoperative Record and any orders documented therein. Any exceptions are noted below.
--- NOTE | 2024-07-30 07:08 | Fluoroscopy Report ---
FL spine 1V any level CLINICAL HISTORY: L4-L5 LAMINECTOMY COMPARISON STUDY: MRI 04/16/2024 FLUOROSCOPY TIME: 42.8 seconds FLUOROSCOPY IMAGES: 2 EXPOSURE DOSE: 35.07 mGy FINDINGS: Retractors are noted posterior to the L3-L4 level. Disc space narrowing and spondylotic spu rring noted at several levels within the lumbar spine. No additional images were submitted. Images we re cemented following completion of the surgery. IMPRESSION: Fluoroscopic assistance as above. ACT 112: Negative or not required by law. Electronically signed by: Rashawn Geller M.D. 07/30/2024 7:07 AM
--- NOTE | 2024-07-31 12:16 | Operative Report ---
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 Any exceptions are noted below.
== END 2024-07-28 13:08 | disposition home or self-care (01) | DRG 516 ==
LOC: ASU 09:36 → 3E 15:39

== ENCOUNTER 2025-04-07 10:01 | Observation (INO) ==
--- NOTE | 2025-04-07 10:08 | Emergency Department Note ---
Impression & Plan Neuropathic pain, Fatigue ED Provider Note Provider: Vic Denson MD CHIEF COMPLAINT: Weakness/burning HISTORY OF PRESENT ILLNESS: Patient is a 85-year-old female past medical history including CKD, GERD, hypothyroidism asthma, peripheral neuropathy, spinal stenosis presenting here today reporting that over the last couple of months she has been experiencing burning in her feet, groin, and mouth and having a bit of fuzziness/brain fog. Has been following with her outpatient doctors had blood work completed was told that she had low iron levels. Evidently did not tolerate oral iron supplementations due to GI side effects and thus is not taking these. Drinks mainly water but states she is does not think she has the best diet. [place] States she wants to live in that kind of setting. States that she is not having the easiest time getting around now and again she is experiencing is burning in her lower extremities about the groin region. Was seen in the outpatient setting referred to hematology and there was thoughts to set up outpatient iron infusions. Talked with her granddaughter who lives in [place] today via phone and granddaughter called 911 and had her brought here for evaluation. She asked if iron infusion could be given here in the ER. She denies chest pain or shortness of breath to me. No syncope or lightheadedness reported. PAST MEDICAL HISTORY: As noted above MEDICATIONS: Reviewed home medication list SOCIAL HISTORY: Lives by herself with dog PHYSICAL EXAM: GENERAL: alert and oriented in no acute distress on stretcher Head: normocephalic and atraumatic EYES: No injection, discharge or icterus. EOMI. NECK: Trachea midline. Good range of motion. ENT: Mucous membranes pink and moist. LUNGS: Airway patent. No retractions. Breath sounds clear with good air entry bilaterally. HEART: Regular rate and rhythm. No chest wall tenderness ABDOMEN: Soft and non-tender, without guarding or rebound. SKIN: Acyanotic, warm, dry, without rashes EXTREMITIES: Without swelling, tenderness or deformity NEUROLOGICAL: No focal deficits. No aphasia. No facial droop or slurred speech. Normal strength and tone in the extremities. Sensation to gross touch normal. EK bpm normal sinus rhythm. No PVC or PAC. Lead I, aVL, and diffuse anterior lateral T wave inversions with a QTc of 443. Left axis. Compared to previous from July 17, 2024 this appears similar. CONTINUOUS CARDIAC MONITORING: was ordered and showed a heart rate of 60s-70s bpm in normal sinus rhythm Patient's laboratory studies and imaging reviewed. Differential includes Infection, dehydration, metabolic abnormality, hypo/hyperglycemia, electrolyte disturbance, anemia, hypoxia, cardiac sources, intracerebral event, toxicologic, neurologic, as well as other pathologies. IMPRESSION/MEDICAL DECISION MAKING: Patient complains of some burning mouth groin and lower legs has been ongoing for some time with some generalized fatigue. Patient states she was not sure that coming here would be helpful but her granddaughter who she talk to via phone this morning called [phone] and had her brought here. She is in no obvious distress. Is noted to be hypertensive but states she does not check her blood pressure closely at home. No chest pain or shortness of breath reported. EKG noted but similar to previous. Troponin is checked for completeness. Basic electrolytes iron panel and B12 level is sent today. Did review prior labs including vitamin D testing. Ferritin on the low end of normal may be contributing but has not tolerated oral iron supplementation. Do not provide emergent iron infusions in the ER. Will give some thiamine as this level was on the low end on prior testing. Will attempt to obtain UA to exclude urinary infection but symptoms seem more generalized and diffuse. Nonfocal and I doubt CVA, ICH, or meningitis at this time. No findings this time concerning for oral infection. Chest x-ray here unremarkable radiology. No significant anemia or leukocytosis here today. Creatinine 1.3 just off baseline of 1.1 but doubt acute kidney injury. No severe electrolyte abnormalities. Unremarkable TSH and LFTs. Ferritin level today improving at 38 iron level 67, B12 level 216, CK 32, troponin 8.5. No severe abnormalities but I did provide her with an IV dose of thiamine here again. Urinalysis sent to exclude findings of infection. UA with leukocyte Estrace and white cells without epithelials questions infection. Prior micro without specific growth and with multiple allergies. Discussed with patient and family members findings. Patient still completing her Macrobid course. After long discussion saw the patient in discussion with friend wishes to stay for possible further workup and had some concerns about going home living by herself currently. Will reach out to the hospitalist for further observation. Defer any possible antibiotic change to the hospitalist team. DIAGNOSIS: Neuropathy, mouth and genital burning, leg burning, weakness/fatigue DISPOSITION: Hospitalist will evaluate Past Med/Surg History Problem List (Updated 04/07/25 @ 17:24 by Vic Denson M.D.) Fatigue (Acute) Neuropathic pain (Acute) Bertolotti's syndrome Degenerative spondylolisthesis Disc degeneration, lumbar Low back pain due to displacement of intervertebral disc Abnormal ECG (Acute) Hypertension (Acute) Lumbar stenosis with neurogenic claudication Chronic cough Dyspnea on exertion Routine health maintenance Adjustment disorder with depressed mood Chronic kidney disease, stage III (moderate) Post-COVID chronic fatigue Vaginal burning 12/27/20 Thoracic aortic aneurysm Elevated C-reactive protein (CRP) Spinal stenosis Non-occlusive coronary artery disease Hyperlipidemia LDL goal <70 (Acute) 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, bilateral Impaired fasting glucose (Chronic) Peripheral neuropathy (Chronic) Asthma (Chronic) Anxiety (Chronic) Hypothyroidism GERD (gastroesophageal reflux disease) Medical History Low back pain Hearing loss Dyspnea on exertion Chronic cough Lumbar stenosis with neurogenic claudication Disc degeneration, lumbar Degenerative spondylolisthesis Bertolotti's syndrome Thoracic aortic aneurysm History of COVID-19 (~12/2020) Diverticulosis of colon Elva's thyroiditis Solitary pulmonary nodule on lung CT Hypothyroid Bronchospasm CKD (chronic kidney disease) stage 3, GFR 30-59 ml/min Hypertension Major depression Takotsubo syndrome (1996) Anxiety Hyperlipidemia Asthma Surgical History Hx of left cataract extraction Hx of blepharoplasty History of right cataract surgery History of surgery History of cardiac cath S/P ear surgery History of right hip replacement Family History Mother Hypertension Breast cancer COPD (chronic obstructive pulmonary disease) Grandmother Breast cancer Denies family history of Colon cancer Ovarian cancer Prostate cancer Myocardial infarction Social History Smoking Status: Never smoker Second Hand Exposure: No; Do You Dip or Chew Tobacco: No; Hx Alcohol Use: No Hx Substance Use: No Preferred Language: Estonian Communication Ability: Effective Visual Impairment: No Limitations Hearing Ability: Use of Hearing Aid Knitter Machine Required: No Beliefs That Will Affect Care: None marital status: Current Living Situation: Alone current occupational status: retired How many Children do You have: 2 Feels Safe at Home: Yes Childhood Exposure to Second-Hand Smoke: Yes Diet: regular caffeine: Yes during the past year weight has: remained stable Dental Care, Regularly: Yes Physical Activity Frequency: 5-6 Times per Week Seatbelt Use: always Sunscreen Use: No Do you think of yourself as: straight/heterosexual Sexual Activity: has been sexually active, but not for at least 12 months Gender Identity: Female Assistive Devices: Cane, Hearing Aid - Bilateral and Walker Allergies Allergies Allergy/AdvReac Type Severity Reaction Status Date / Time tromethamine Allergy Severe kidney Verified 03/29/25 14:35 failure Iodinated Contrast Media Allergy Intermediate Rash Verified 03/29/25 14:35 [Iodinated Contrast- Oral and IV Dye] Penicillins Allergy Intermediate RASH, HIVES Verified 03/29/25 14:35 diclofenac [From Voltaren] Allergy Mild RASH ON Verified 03/29/25 14:35 HANDS latex Allergy Mild LOCAL RASH Verified 03/29/25 14:35 Citalopram Analogues Allergy Unknown CAN'T Verified 03/29/25 14:35 REMEMBER esomeprazole [From Nexium] Allergy Unknown CAN'T Verified 03/29/25 14:35 REMEMBER lisinopril Allergy Unknown CAN'T Verified 03/29/25 14:35 REMEMBER Sulfa (Sulfonamide Allergy Unknown Rash Verified 03/29/25 14:35 Antibiotics) ketorolac AdvReac Severe kidney Verified 03/29/25 14:35 failure aspirin AdvReac Intermediate UPSET Verified 03/29/25 14:35 STOMACH/STOMACH PAIN tramadol AdvReac Intermediate Vomiting Verified 03/29/25 14:35 codeine AdvReac Unknown upset Verified 03/29/25 14:35 stomach Home Meds Home Medications Medication Instructions Recorded Confirmed ibuprofen 200 mg tablet 0 mg PO BID 07/02/24 04/07/25 carvedilol 3.125 mg tablet 3.125 mg PO BID 04/07/25 04/07/25 omeprazole 20 mg capsule,delayed 20 mg PO UD 04/07/25 04/07/25 release sertraline 100 mg tablet 0 mg PO DAILY 04/07/25 04/07/25 trazodone 50 mg tablet 50 - 100 mg PO HS PRN Sleep 04/07/25 04/07/25 Previous Rx's Medication Instructions Recorded ondansetron 4 mg disintegrating 4 mg PO Q8H PRN nausea and 10/17/23 tablet vomiting #20 tabs ipratropium 20 mcg-albuterol 100 1 puff inhalation Q6H #4 grams 05/27/24 mcg/actuation mist for inhalation losartan 50 mg tablet 50 mg PO DAILY #90 tabs 10/15/24 spironolactone 25 mg tablet 25 mg PO BID #180 tabs 10/15/24 thyroid (pork) 120 mg tablet 120 mg PO DAILY #90 tabs 10/15/24 gabapentin 100 mg capsule 100 mg PO .QHS #30 caps 03/29/25 Results & Data (ED) Vital Signs Vital Signs - 24 hr 04/07/25 10:08 04/07/25 10:08 04/07/25 10:08 Temperature 37.0 C 37.0 C Temperature Source Oral Oral Pulse Rate 81 Pulse Rate [Apical] 81 Respiratory Rate 26 H 26 H Respiratory Effort / Characteristics Respiratory Depth Blood Pressure 174/109 H Blood Pressure [Right Arm] 174/109 H Blood Pressure Mean 130 Blood Pressure Mean [Right Arm] 130 Pulse Oximetry 94 94 94 Oxygen Delivery Method Room Air Room Air Room Air Sepsis Recent Fever Within 48 Hours No Sepsis New/Unexplained Change in Mental Status N/A Sepsis Action Taken by Nursing No Action Required 04/07/25 10:23 04/07/25 10:28 04/07/25 12:15 Temperature Temperature Source Pulse Rate 71 69 Pulse Rate [Apical] 69 Respiratory Rate 22 18 Respiratory Effort / Characteristics Respiratory Depth Blood Pressure Blood Pressure [Right Arm] 150/118 H Blood Pressure Mean Blood Pressure Mean [Right Arm] 128 Pulse Oximetry 94 94 Oxygen Delivery Method Room Air Room Air Sepsis Recent Fever Within 48 Hours Sepsis New/Unexplained Change in Mental Status Sepsis Action Taken by Nursing 04/07/25 14:05 04/07/25 14:25 Temperature Temperature Source Pulse Rate 65 Pulse Rate [Apical] 65 Respiratory Rate 18 Respiratory Effort / Characteristics Non-Labored Spontaneous Respiratory Depth Normal Blood Pressure Blood Pressure [Right Arm] 137/97 Blood Pressure Mean Blood Pressure Mean [Right Arm] 110 Pulse Oximetry 94 Oxygen Delivery Method Room Air Sepsis Recent Fever Within 48 Hours Sepsis New/Unexplained Change in Mental Status Sepsis Action Taken by Nursing Laboratory Data 04/07/25 10:28 04/07/25 10:28 Lab Results 07/16/25 07/16/25 Range/Units 10:28 11:48 WBC 8.50 (4.8-10.8) K/ul RBC 4.23 (4.20-5.40) M/uL Hgb 12.6 (12.0-16.0) g/dl Hct 38.1 (37.0-47.0) % MCV 90.1 (80.0-100.0) fL MCH 29.8 (25.0-34.0) pg MCHC 33.1 (32.0-36.0) g/dL RDW Std Deviation 42.6 (36.4-46.3) fL RDW Coeff of Virgilio 12.9 (11.5-14.5) % Plt Count 223 (130-400) K/uL MPV 9.9 (9.4-12.4) fL Immature Gran % (Auto) 0.2 % Neut % (Auto) 70.5 % Lymph % (Auto) 7.3 % [place] % (Auto) 12.2 % Eos % (Auto) 9.6 % Baso % (Auto) 0.2 % Neut # (Auto) 5.98 (1.40-6.50) K/uL Lymph # (Auto) 0.62 L (1.20-3.40) K/uL [place] # (Auto) 1.04 H (0.11-0.59) K/uL Eos # (Auto) 0.82 H (0.00-0.50) K/uL Baso # (Auto) 0.02 (0.00-0.20) K/uL Immature Gran # (Auto) 0.02 (0.01-0.20) K/uL PT 10.4 (9.0-12.0) Seconds INR 1.0 (0.9-1.1) Sodium 137 (136-145) mmol/L Potassium 4.5 (3.5-5.1) mmol/L Chloride 108 H (98-107) mmol/L Carbon Dioxide 22 (21-32) mmol/L Anion Gap 7 (3-11) BUN 24 H (6-23) mg/dl Creatinine 1.38 H (0.6-1.2) mg/dl Est Cr Clr Drug Dosing 34.3 ml/min eGFR 37.05 BUN/Creatinine Ratio 17.4 (10-20) Glucose 116 H (70-99(Fasting)) mg/dl Calcium 9.8 (8.6-10.3) mg/dl Magnesium 1.9 (1.7-2.4) mg/dl Iron 67 (35-150) mcg/dl TIBC 433 (250-450) mcg/dl Transferrin 309 (200-360) mg/dl Transferrin % Sat 15 (15-50) % Ferritin 38.7 (8-388) ng/ml Total Bilirubin 0.7 (0.2-1.0) mg/dl AST 15 (13-39) U/L ALT 13 (7-52) U/L Alkaline Phosphatase 106 H (34-104) U/L Total Creatine Kinase 32 (26-192) U/L Troponin I High Sens 8.5 (0-14) pg/ml C-Reactive Protein 3.80 H (0-0.5) mg/dl Total Protein 6.8 (6.0-8.3) gm/dl Albumin 3.6 (3.4-5.0) gm/dl Globulin 3.2 (2.5-4.0) gm/dl Albumin/Globulin Ratio 1.1 (0.9-2) Vitamin B12 216 (180-914) pg/ml Folate 18.87 (>5.38) ng/ml TSH 3.518 (0.300-4.500) uIu/ml Urine Color Yellow Urine Appearance Clear (Clear) Urine pH 5.5 (4.5-7.5) Ur Specific [place] 1.007 (1.000-1.030) Urine Protein Negative (Negative) Urine Glucose (UA) Negative (Negative) Urine Ketones Negative (Negative) Urine Blood Negative (Negative) Urine Nitrite Negative (Negative) Urine Bilirubin Negative (Negative) Urine Urobilinogen Negative (Negative) Ur Leukocyte Esterase 3+ H (Negative) Urine WBC (Auto) 21-50 H (0-5) /hpf Urine RBC (Auto) 0-2 (0-2) /hpf U Hyaline Cast (Auto) 0-2 (0-2) /lpf U Epithel Cells (Auto) 0-2 (0-2) /hpf Urine Bacteria (Auto) None Seen (None Seen) Urine Comment Anaplasma Smear See Comment Babesia Smear See Comment Administered Medications Discontinued Medications Thiamine HCl 100 mg/ Syringe 10 mls @ 2 mls/min IV NOW STA Stop: 04/07/25 10:23 Last Admin: 04/07/25 11:17 Dose: 2 mls/min Documented By: CARLA Imaging Data Radiologist's Impression: Chest X-Ray 04/07/25 10:19 SINGLE VIEW CHEST CLINICAL HISTORY: Generalized weakness FINDINGS: 2 AP, portable, upright chest radiographs are compared to study dated 07/07/2024 correlation is made with chest CT dated 11/06/2020. The examination is degraded by portable technique, apical lordotic positioning, and patient rotation. The heart is enlarged noting atherosclerotic calcification of the thoracic aorta. The pulmonary vasculature is noncongested. Chronic interstitial thickening is similar to previous. There is bibasilar scarring/atelectasis and chronic elevation of the right hemidiaphragm. No airspace consolidation or large pleural effusion is identified. No pneumothorax is seen. The skeletal structures are osteopenic. The bony thorax is grossly intact. Degenerative change is noted in the shoulders. IMPRESSION: Cardiomegaly with no active disease in the chest. ACT 112: Negative or not required by law. Electronically signed by: Satish Dyson M.D. 04/07/2025 10:42 AM Discharge Plan Visit Data Chief Complaint: Weakness ED Provider: Vic Denson Discharge Problem: Neuropathic pain, Fatigue Patient Disposition: Being Evaluated by Hospitalist Condition: Fair Forms Stand Alone Forms: [facility] Prescriptions Prescriptions: No Action ipratropium-albuterol 20-100 mcg/actuation mist 1 puff inhalation Q6H Qty: 4 2RF ondansetron 4 mg tablet,disintegrating 4 mg PO Q8H PRN (Reason: nausea and vomiting) Qty: 20 0RF Patient Comments: 04/07- Not on list from pharmacy unable to verify losartan 50 mg tablet 50 mg PO DAILY Qty: 90 3RF spironolactone 25 mg tablet 25 mg PO BID Qty: 180 3RF thyroid (pork) 120 mg tablet 120 mg PO DAILY Qty: 90 3RF Rx Instructions: [place] brand gabapentin 100 mg capsule 100 mg PO .QHS Qty: 30 2RF carvedilol 3.125 mg tablet 3.125 mg PO BID trazodone 50 mg tablet 50 - 100 mg PO HS PRN (Reason: Sleep) Rx Instructions: 50 mg orally 1 to 2 tabs orally at bedtime PRN; sertraline 100 mg tablet 0 mg PO DAILY Patient Comments: 04/07- Not on list from pharmacy. Original:100 mg po daily. omeprazole 20 mg capsule,delayed release(DR/EC) 20 mg PO UD Patient Comments: 04/07- OTC/not on list from pharmacy. unable to verify. Original: 20 mg po bid ibuprofen 200 mg Tablet 0 mg PO BID Patient Comments: 04/07- OTC unable to verify. original 200 mg po bid Referrals Referrals: Amy Ulloa MD [Primary Care Provider] -
--- NOTE | 2025-04-07 10:43 | XRay Report ---
SINGLE VIEW CHEST CLINICAL HISTORY: Generalized weakness FINDINGS: 2 AP, portable, upright chest radiographs are compared to study dated 07/07/2024 correlatio n is made with chest CT dated 11/06/2020. The examination is degraded by portable technique, apical lo rdotic positioning, and patient rotation. The heart is enlarged noting atherosclerotic calcification of the thoracic aorta. The pulmonary vasculature is noncongested. Chronic interstitial thickening is similar to previous. There is bibasilar scarring/atelectasis and chronic elevation of the right ray diaphragm. No airspace consolidation or large pleural effusion is identified. No pneumothorax is seen . The skeletal structures are osteopenic. The bony thorax is grossly intact. Degenerative change is n oted in the shoulders. IMPRESSION: Cardiomegaly with no active disease in the chest. ACT 112: Negative or not required by law. Electronically signed by: Satish Dyson M.D. 04/07/2025 10:42 AM
[2025-04-07 11:00] LABS: Hematocrit (blood only) 38.1 % (37.0-47.0); Hemoglobin 12.6 g/dl (12.0-16.0); Immature Granulocytes # (auto) 0.02 K/uL (0.01-0.20); Immature Granulocytes % (auto) 0.2 %; Mean Corpuscular Hemoglobin 29.8 pg (25.0-34.0); Mean Corpuscular Volume 90.1 fL (80.0-100.0); Platelet Count 223 K/uL (130-400); RDW Standard Deviation 42.6 fL (36.4-46.3); Red Blood Count 4.23 M/uL (4.20-5.40); White Blood Count 8.50 K/ul (4.8-10.8)
[2025-04-07] MEDS: THIAMINE HCL 100 MG in SYRINGE 9 ML IV STA (11:17)
[2025-04-07 11:20] LABS: Alanine Aminotransferase 13.0 U/L (7-52); Albumin Globulin Ratio 1.1 (0.9-2); Alkaline Phosphatase 106.0 U/L (34-104); Anion Gap 7.0 (3-11); Bilirubin,Total 0.7 mg/dl (0.2-1.0); Blood Urea Nitrogen 24.0 mg/dl (6-23); Calcium 9.8 mg/dl (8.6-10.3); Carbon Dioxide 22.0 mmol/L (21-32); Chloride 108.0 mmol/L (98-107); Creatine Kinase 32.0 U/L (26-192); Creatinine Clr Calc Pharmacy 34.3 ml/min; Globulin 3.2 gm/dl (2.5-4.0); Glucose 116.0 mg/dl (70-99(Fasting)); Iron 67.0 mcg/dl (35-150); Magnesium 1.9 mg/dl (1.7-2.4); Potassium 4.5 mmol/L (3.5-5.1); Sodium 137.0 mmol/L (136-145); Total Iron Binding Cap Calc 433.0 mcg/dl (250-450); Total Protein 6.8 gm/dl (6.0-8.3); Transferrin 309.0 mg/dl (200-360); Transferrin (FE) Percent Satur 15.0 % (15-50)
[2025-04-07 11:27] LABS: INR 1.0 (0.9-1.1); Prothrombin Time 10.4 Seconds (9.0-12.0)
[2025-04-07 11:33] LABS: Thyroid Stimulating Hormone 3.518 uIu/ml (0.300-4.500)
[2025-04-07 11:39] LABS: Ferritin 38.7 ng/ml (8-388)
[2025-04-07 12:07] LABS: Appearance Urine Clear (Clear); Bacteria Urine Automated None Seen (None Seen); Cast Urine Automated 0-2 /lpf (0-2); Epithelial Cell Urine Auto 0-2 /hpf (0-2); Glucose Urine UA Negative (Negative); RBC Urine Automated 0-2 /hpf (0-2); WBC Urine Automated 21-50 /hpf (0-5)
--- NOTE | 2025-04-07 14:08 | History & Physical Report ---
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 #Paresthesias | neuropathic pain in legs b/l | generalized fatigue This has been ongoing for extended period of time Reviewed PCP notes Treated with p.o. iron to replenish ferritin, however patient did not tolerate this supplement due to constipation She was told that she could potentially have an IV iron transfusion at the hospital Also recommended outpatient EMG with neurology, which patient may be able to get upon discharge FE panel WNL on arrival Ferritin 17.5 -> 38.7 Vitamin B12 level WNL Folate ordered, pending Vitamin B6 level ordered, pending Tickborne panel ordered, pending CRP and ESR ordered, pending Thiamine supplements 100mg p.o. daily Hold gabapentin, as patient reports that this makes her feel weak/lethargic and does not improve her pain Hold trazodone for generalized fatigue Melatonin HS PRN Initiate Cymbalta 20 mg p.o. daily Decrease sertraline 100 mg -> 50 mg p.o. daily PT/OT evaluations appreciated Fall precautions #HTN Continue losartan (monitor BMP; CrCl 34.3) Hold spironolactone as patient appears clinically dry on arrival #Recent UTI infection UA with 3+ leukocyte esterase on arrival in the setting of Macrobid treatment for UTI Macrobid prescribed on 03/29 No leukocytosis; afebrile Clinically, patient denies burning with urination Do not think UTI is contributing to patient's vaginal burning, as her vaginal symptoms have been ongoing for months #Urinary continence | burning vaginal/mouth pain Patient declined exam on arrival Patient appears to obfuscate when talking about her urinary incontinence, it appears that it either began or became worse over the past 2 months She denies saddle anesthesia Patient does have an upcoming gynecology appointment in 2 weeks She denies any itching, discharge, or bleeding from the vagina; do not suspect a fungal infection Not sexually active ? Atrophic vaginitis; she reports no burning at this time, but could consider adding on estrogen cream if burning returns Disposition: Obs - MedSurg DVT PPx: Lovenox 40mg SQ q24h History of Present Illness Chief Complaint: Weakness, neuropathic pain Primary Care Provider: Amy Ulloa MD Mrs. Pichardo is an 85yo female with PMH of degenerative spondylolithiasis, lumbar stenosis, Bertolotti's syndrome, post-COVID chronic fatigue, GERD, anxiety, asthma, hypothyroidism, and nonocclusive CAD. 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 Patient's granddaughter called the ambulance. Patient [place]. She reports that this has been an ongoing issue where she feels like she is starting to "lose her strength". She wakes up in the morning "on fire" with a burning sensation in her mouth, tongue, and vagina. This sensation is alleviated by swimming in her pool and drinking water. She also reports intense, burning pain in her legs which is hard to get rid of. Patient was told outpatient that she had low iron, and that iron pills would help. However she stopped taking these due to constipation. Patient was told that she could get an infusion via hematology, but this would take 2 to 4 weeks to get in, and patient reports she cannot wait that long as her pain and fatigue are worsening to the point where she has "stopped walking". She reports "everything in my body is so weak". No recent falls. Prior to this, she used to exercise regularly in her pool. Patient does report she had back surgery with Dr. Beasley on August 02, 2024. She does have a rollator at home, but does not need to walk around her house. At present, she reports that she is not having any neuropathic pain. She believes that the gabapentin has not been helping her pain, and is actually made her more weak/sleepy at home. Only new medications are that she was started on gabapentin for neuropathic pain, as well as Macrobid on 03/29 for presumed UTI. She does not have burning with urination, but does note her urine has been orange and malodorous recently. Additionally, she reports she has had urinary incontinence over the past 2 months, which is new for her. Patient denies smoking, drug use, recent alcohol use. Patient reports she is not sexually active. [place], and believes she might of had some bug and or tick bites recently; no rashes. No history of shingles. Patient's vitals are stable at time of admission. ED course: Thiamine 100 mg IV ROS: Patient endorses malaise, generalized fatigue, burning sensation in the mouth/groin region, new onset urinary incontinence, malodorous urine, ambulatory dysfunction, and neuropathic pain in the legs bilaterally. Patient denies fever, chest pain, chest palpitations, SOB, burning with urination, saddle anesthesia, or blood in the urine/stool. Allergies Allergy/AdvReac Type Severity Reaction Status Date / Time tromethamine Allergy Severe kidney Verified 03/29/25 14:35 failure Iodinated Contrast Media Allergy Intermediate Rash Verified 03/29/25 14:35 [Iodinated Contrast- Oral and IV Dye] Penicillins Allergy Intermediate RASH, HIVES Verified 03/29/25 14:35 diclofenac [From Voltaren] Allergy Mild RASH ON Verified 03/29/25 14:35 HANDS latex Allergy Mild LOCAL RASH Verified 03/29/25 14:35 Citalopram Analogues Allergy Unknown CAN'T Verified 03/29/25 14:35 REMEMBER esomeprazole [From Nexium] Allergy Unknown CAN'T Verified 03/29/25 14:35 REMEMBER lisinopril Allergy Unknown CAN'T Verified 03/29/25 14:35 REMEMBER Sulfa (Sulfonamide Allergy Unknown Rash Verified 03/29/25 14:35 Antibiotics) ketorolac AdvReac Severe kidney Verified 03/29/25 14:35 failure aspirin AdvReac Intermediate UPSET Verified 03/29/25 14:35 STOMACH/STOMACH PAIN tramadol AdvReac Intermediate Vomiting Verified 03/29/25 14:35 codeine AdvReac Unknown upset Verified 03/29/25 14:35 stomach Home Medications Medication Instructions Recorded Confirmed Type ondansetron 4 mg disintegrating 4 mg PO Q8H PRN nausea and 10/17/23 04/07/25 Rx tablet vomiting #20 tabs losartan 50 mg tablet 50 mg PO DAILY #90 tabs 10/15/24 04/07/25 Rx spironolactone 25 mg tablet 25 mg PO BID #180 tabs 10/15/24 04/07/25 Rx thyroid (pork) 120 mg tablet 120 mg PO DAILY #90 tabs 10/15/24 04/07/25 Rx carvedilol 3.125 mg tablet 3.125 mg PO BID 04/07/25 04/07/25 History trazodone 50 mg tablet 50 - 100 mg PO HS PRN Sleep 04/07/25 04/07/25 History cyanocobalamin (vitamin B-12) 1,000 mcg PO DAILY #90 tabs 04/08/25 Rx 1,000 mcg tablet duloxetine 20 mg capsule,delayed 20 mg PO QAM #30 caps 04/08/25 Rx release ipratropium 20 mcg-albuterol 100 1 puff inhalation Q6H PRN 04/08/25 04/07/25 Rx mcg/actuation mist for inhalation cough/congestion/wheezing #4 grams omeprazole 20 mg capsule,delayed 20 mg PO BID #0 caps 04/08/25 04/07/25 Rx release sertraline 25 mg tablet 25 mg PO .daily as directed #42 04/08/25 Rx tabs thiamine HCl (vitamin B1) 100 mg 200 mg (2 x 100 mg) PO BID 30 days 04/08/25 Rx tablet #120 tabs Past Med/Surg History Problem List (Updated 04/07/25 @ 17:24 by Vic Denson M.D.) Fatigue (Acute) Neuropathic pain (Acute) Bertolotti's syndrome Degenerative spondylolisthesis Disc degeneration, lumbar Low back pain due to displacement of intervertebral disc Abnormal ECG (Acute) Hypertension (Acute) Lumbar stenosis with neurogenic claudication Chronic cough Dyspnea on exertion Routine health maintenance Adjustment disorder with depressed mood Chronic kidney disease, stage III (moderate) Post-COVID chronic fatigue Vaginal burning 12/27/20 Thoracic aortic aneurysm Elevated C-reactive protein (CRP) Spinal stenosis Non-occlusive coronary artery disease Hyperlipidemia LDL goal <70 (Acute) 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, bilateral Impaired fasting glucose (Chronic) Peripheral neuropathy (Chronic) Asthma (Chronic) Anxiety (Chronic) Hypothyroidism GERD (gastroesophageal reflux disease) Medical History Low back pain Hearing loss Dyspnea on exertion Chronic cough Lumbar stenosis with neurogenic claudication Disc degeneration, lumbar Degenerative spondylolisthesis Bertolotti's syndrome Thoracic aortic aneurysm History of COVID-19 (~12/2020) Diverticulosis of colon Elva's thyroiditis Solitary pulmonary nodule on lung CT Hypothyroid Bronchospasm CKD (chronic kidney disease) stage 3, GFR 30-59 ml/min Hypertension Major depression Takotsubo syndrome (1996) Anxiety Hyperlipidemia Asthma Surgical History Hx of left cataract extraction Hx of blepharoplasty History of right cataract surgery History of surgery History of cardiac cath S/P ear surgery History of right hip replacement Family History Mother Hypertension Breast cancer COPD (chronic obstructive pulmonary disease) Grandmother Breast cancer Denies family history of Colon cancer Ovarian cancer Prostate cancer Myocardial infarction Social History Smoking Status: Never smoker Second Hand Exposure: No; Do You Dip or Chew Tobacco: No; Hx Alcohol Use: No Hx Substance Use: No Preferred Language: Croatian Communication Ability: Effective Visual Impairment: No Limitations Hearing Ability: Use of Hearing Aid Intelligence Analyst Required: No Beliefs That Will Affect Care: None marital status: Current Living Situation: Alone current occupational status: retired How many Children do You have: 2 Feels Safe at Home: Yes Childhood Exposure to Second-Hand Smoke: Yes Diet: regular caffeine: Yes during the past year weight has: remained stable Dental Care, Regularly: Yes Physical Activity Frequency: 5-6 Times per Week Seatbelt Use: always Sunscreen Use: No Do you think of yourself as: straight/heterosexual Sexual Activity: has been sexually active, but not for at least 12 months Gender Identity: Female Assistive Devices: Walker Review of Systems Review of Systems: See HPI above Physical Exam Physical Exam: General: no acute distress; pleasant affect; friend at bedside; non-toxic appearing; frail appearing; cooperative; SpO2 94% on RA HEENT: normocephalic, atraumatic; no scleral icterus; PERRLA; vision intact; hard of hearing Neck: supple; trachea midline Skin: warm, dry without signs of tenting; no cyanosis; no rashes, bruising, or erythema noted CV: chest wall NTP; RRR; S1/S2 normal; no murmurs/rubs/gallops; pulses intact and symmetric at radial, DP, and PT Lungs: no acute respiratory distress; symmetrical chest wall expansion; clear breath sounds across all lung marie w/o adventitious sounds; no wheezing ABD: Patient does have red spots on the right upper quadrant which may indicate bug bite; abdomen is soft, NTP; BS present; no rebound/guarding; no distention : Patient declines exam MSK: no tics or fasciculations; no edema noted in the LEs b/l, nonerythematous Neuro: A&Ox3; normal mood and affect; fluent speech; no focal deficits; patient reports sensation is intact and symmetric in the lower extremities bilaterally assessed via light touch Results & Data Results & Data Vital Signs (Past 12 Hours) Vital Signs Temp Pulse Pulse Resp BP BP Pulse Ox 04/07/25 14:05 65 18 137/97 94 04/07/25 12:15 69 18 150/118 H 94 04/07/25 10:28 69 04/07/25 10:23 71 22 94 04/07/25 10:08 37.0 C 81 26 H 174/109 H 94 04/07/25 10:08 94 04/07/25 10:08 37.0 C 81 26 H 174/109 H 94 O2 Del Method 04/07/25 14:05 Room Air 04/07/25 12:15 Room Air 04/07/25 10:28 04/07/25 10:23 Room Air 04/07/25 10:08 Room Air 04/07/25 10:08 Room Air 04/07/25 10:08 Room Air Laboratory Results Abnormal lab results 04/07/25 04/07/25 Range/Units 10:28 11:48 Lymph # (Auto) 0.62 L (1.20-3.40) K/uL [place] # (Auto) 1.04 H (0.11-0.59) K/uL Eos # (Auto) 0.82 H (0.00-0.50) K/uL Chloride 108 H (98-107) mmol/L BUN 24 H (6-23) mg/dl Creatinine 1.38 H (0.6-1.2) mg/dl Glucose 116 H (70-99(Fasting)) mg/dl Alkaline Phosphatase 106 H (34-104) U/L Ur Leukocyte Esterase 3+ H (Negative) Urine WBC (Auto) 21-50 H (0-5) /hpf Diagnostic Findings Chest X-Ray 04/07/25 10:19 SINGLE VIEW CHEST CLINICAL HISTORY: Generalized weakness FINDINGS: 2 AP, portable, upright chest radiographs are compared to study dated 07/07/2024 correlation is made with chest CT dated 11/06/2020. The examination is degraded by portable technique, apical lordotic positioning, and patient rotation. The heart is enlarged noting atherosclerotic calcification of the thoracic aorta. The pulmonary vasculature is noncongested. Chronic interstitial thickening is similar to previous. There is bibasilar scarring/atelectasis and chronic elevation of the right hemidiaphragm. No airspace consolidation or large pleural effusion is identified. No pneumothorax is seen. The skeletal structures are osteopenic. The bony thorax is grossly intact. Degenerative change is noted in the shoulders. IMPRESSION: Cardiomegaly with no active disease in the chest. ACT 112: Negative or not required by law. Electronically signed by: Satish Dyson M.D. 04/07/2025 10:42 AM ECG Additional Comments: ECG revealed NSR at 76 bpm; QTc 443 Code Status & VTE Plan Code Status DNR/DNI VTE Prophylaxis Plan VTE Prophylaxis will be ordered: Yes Supervising Physician Co-Signing Physician Notes Attending Attestation & Admit Note: Pt seen/examined, chart reviewed, admit care plan d/w ELIDA Zarate. I agree w/ the aponte components of his admission documentation. 85yo female with lumbar spinal stenosis, Bertolotti's syndrome, post-COVID chronic fatigue, GERD, anxiety, asthma, hypothyroidism, CKD stage 3, and nonocclusive CAD. Presented with worsening neuropathy of b/l LEs (mainly below the knees to the feet) and oral cavity/tongue. Also with burning sensation in the vaginal/vulvar region; denied any vaginal discharge or itching. PMH/PSH/allergies/meds/sochx - reviewed VSS, afebrile gen - pleasant, NAD neck - no JVD mouth - no glossitis, no lesions; MM mildly dry heart - RRR, s1 s2 lungs - CTA b/l abd - soft NT ND BS+ ext - pulses b/l feet 2+ neuro - strength 5/5 x 4 exts including distal legs/feet; DTRs 2+ b/l upper & lower exts labs reviewed imaging reviewed A/P: 1. b/l LE neuropathy 2. oral paresthesias 3. vaginal/vulvar burning 4. h/o lumbar spinal stenosis 5. 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 as previously scheduled -consider MRI l-spine given known h/o lumbar spinal stenosis Wilfrid Cade MD PG Care Time/CCT Total # of Minutes Spent Total Time Spent with Patient: Total time spent is greater than 50% in coordination of care (as documented) at patient's floor/unit and/or counseling patient: Coding [place] [address] INT INP/OBS CARE 3/75MIN Patient Type Established Medical Decision Making High Complexity Diagnoses Vaginal burning N94.9 Peripheral polyneuropathy G62.9 Peripheral neuropathy type: polyneuropathy, unspecified Neuropathic pain M79.2 (2) Peripheral neuropathy Peripheral neuropathy type: polyneuropathy, unspecified Qualified Code(s): G62.9 - Polyneuropathy, unspecified
[2025-04-07] MEDS ORDERED: ONDANSETRON 4 MG OD TAB PO PRN (18:06)
[2025-04-07] MEDS ORDERED: IPRATROPIUM BROMIDE/ALBUTEROL respimat INH INH SCH (18:06)
[2025-04-07] MEDS ORDERED: MELATONIN 3 MG TAB PO PRN (18:06)
[2025-04-07] MEDS: SODIUM CHLORIDE 0.9% 500 ML IV SCH (18:40)
[2025-04-07] MEDS: Albuterol HFA 8 GM Inhaler (Combivent Respimat P&T Subs) INH SCH (20:02)
[2025-04-07] MEDS: Ipratropium HFA Inhaler (Combivent Respimat P&T Subs) INH SCH (20:02)
[2025-04-07] MEDS: ACETAMINOPHEN 325 MG TAB PO PRN (23:39)
[2025-04-08 08:08] LABS: Anion Gap 8.0 (3-11); Blood Urea Nitrogen 27.0 mg/dl (6-23); Calcium 9.5 mg/dl (8.6-10.3); Carbon Dioxide 23.0 mmol/L (21-32); Chloride 110.0 mmol/L (98-107); Creatinine Clr Calc Pharmacy 35.1 ml/min; Glucose 101.0 mg/dl (70-99(Fasting)); Potassium 4.2 mmol/L (3.5-5.1); Sodium 141.0 mmol/L (136-145)
[2025-04-08] MEDS: ARMOUR THYROID 30 MG TAB PO SCH (08:51)
[2025-04-08] MEDS: CYANOCOBALAMIN (B-12) 500 MCG TABLET PO SCH (08:52)
[2025-04-08] MEDS: LOSARTAN POTASSIUM 50 MG TAB PO SCH (08:52)
[2025-04-08] MEDS: THIAMINE HCL 100 MG TAB PO SCH (08:52)
--- NOTE | 2025-04-08 08:53 | Magnetic Resonance Report ---
MR lumbar spine wo con CLINICAL HISTORY: DDD l-spine; b/l leg numbness, R foot weakness. COMPARISON: 04/16/2024 TECHNIQUE: Multiplanar, multi sequence MRI of the lumbar spine was performed without intravenous cont rast. FINDINGS: There is no conus or vertebral body lesion identified. There is no aortic aneurysm or peria ortic adenopathy. There are severe degenerative disc disease at T11-T12 with disc space narrowing, endplate irregularit y, and a central disc osteophyte protrusion which is basically unchanged. T12-L1 level unchanged demonstrating disc desiccation, mild annulus bulge, and hypertrophied facets a nd ligaments right greater than left. There is no definite evidence of significant neural compromise. L1-L2 demonstrates disc desiccation and a broad-based annular disc bulge. In conjunction with hypertr ophied posterior elements, there continues to be a moderate spinal stenosis with an AP canal measurem ent of approximately 7 mm. Hypertrophied facets and posterior ligaments are present as well. There is mild bilateral lateral recess and foraminal stenosis. L2-L3 level unchanged demonstrating a degenerated disc with disc space narrowing and a broad-based an nular disc bulge. In conjunction with hypertrophied posterior elements, there is persistence of mild central canal stenosis measuring 9 mm. There is moderate to severe right lateral recess stenosis and mild to moderate bilateral foraminal stenosis. L3-L4 level and demonstrates a large left paracentral disc protrusion and in conjunction with hypertr ophied facets and posterior ligaments, there is a pronounced is central canal stenosis, severe left l ateral recess stenosis, and moderate to severe bilateral foraminal stenosis. AP canal measurements me asures less than 4 mm in the midline. L4-5 level demonstrates a desiccated disc with disc space narrowing and a mild central annulus bulge. In association with hypertrophied posterior elements, there L5-S1 level demonstrates a desiccated disc area. There is moderate bilateral hypertrophic facet arthr osis and ligamentous thickening. There is no definite evidence of significant neural compromise at L5 -S1. Is mild bilateral recess and foraminal stenosis IMPRESSION: Stable exam demonstrating multilevel spinal stenosis. Please refer to the segmental anabela sis within the body of the report for additional detail. ACT 112: Negative or not required by law. The above report was generated using voice recognition software. It may contain grammatical, syntax o r spelling errors. Electronically signed by: Bethany yRan M.D. 04/08/2025 8:51 AM
[2025-04-08] MEDS: SERTRALINE HCL 50 MG TABLET PO SCH (08:55)
[2025-04-08 09:08] VITALS: BP 170/83; TEMP 97.9
[2025-04-08 11:07] VITALS: PULSE 65; RESP 16; O2SAT 96
--- NOTE | 2025-04-08 12:55 | Discharge Summary ---
Discharge Summary Date of Service date of admission - April 07, 2025 date of discharge - April 08, 2025 Principal Dx & Hospital Course #1 = Principal Diagnosis (1) Peripheral neuropathy: (2) Vaginal burning: (3) Numbness of tongue: (4) Neuropathic pain: (5) Disc degeneration, lumbar: (6) Vitamin B12 deficiency: (7) Vitamin B6 deficiency: Plan 85yo female who presented on 04/07 for worsening fatigue + worsening neuropathic pain of legs b/l + burning sensation in the mouth & groin regions x 2+ months. #Paresthesias | neuropathic pain in legs bilaterally | generalized fatigue - -symptoms present & worsening for several months -now also having oral cavity paresthesias and vaginal "burning" -neuropathic pain of legs is below the knees b/l and extending into the feet -vitamin B12 level - 216 (technically in normal range, but likely deficient) -vitamin B6 level - 3.7 (normal 3.4 to 65.2; per lab 3.7 is "marginal") -vitamin B1 level - 12 (normal 8 to 30) -copper level returned normal -lyme screen was negative -ESR 32 -CRP 3.8 -TSH 3.5 -stopped gabapentin as she reported increased fatigue after restarting it -started Cymbalta 20mg daily to help treat her neuropathy -patient takes sertraline 100mg daily; with initiation of Cymbalta will cut sertraline to 50mg/day -in 3-4 weeks can attempt to increase Cymbalta to 40mg daily -in 2 weeks can lower sertraline to 25mg/day; take 25mg/day of sertraline x 2 weeks then stop fully -advised the following regarding her vitamin deficiencies: -vitamin B1 (thiamine) - 200mg BID x 1 month -vitamin B12 - 1000mcg daily x 6 months -vitamin B6 level returned after hospital discharge; however, advise replacement - pyridoxine 50mg once daily -B6 level will need to be followed carefully as over-supplementation can lead to neurological side effects -to be complete patient underwent MRI lumbar spine as she has known lumbar spine stenosis/DDD -MRI showed chronic/stable findings -certainly her lumbar spinal stenosis could be contributing to lower leg neuropathic symptoms as well -patient has previously scheduled EMG studies on 05/12/25 with [facility] [place] Neurology -with respect to vulvar/vaginal burning patient has a scheduled appointment with [facility] on 04/15/25 #HTN - -Continue losartan -Continue spironolactone -Continue coreg #Recent UTI infection - -resolved; urine cx here was negative -has had issues with urinary incontinence of late - again MRI lumbar spine was stable in comparison to previous imaging; no signs of cord compromise patient seen by PT and cleared to return home at discharge outpatient PT was recommended Notes For Next Care Provider follow vitamin B6 and B12 levels over time Medication Changes From Visit 1. vitamin B1 - 200mg BID x 1 month 2. vitamin B12 - 1000mcg daily x 6 months 3. vitamin B6 - 50mg daily - time course uncertain 4. Cymbalta 20mg daily 5. Sertraline wean - cut to 50mg now, take for 2 weeks; then 25mg x 2 weeks, then stop Admission HPI Per Admitting Provider Mrs. Pichardo is an 85yo female with PMH of degenerative spondylolithiasis, lumbar stenosis, Bertolotti's syndrome, post-COVID chronic fatigue, GERD, anxiety, asthma, hypothyroidism, and nonocclusive CAD. She presented via EMS on 04/07 at the behest of her granddaughter for worsening neuropathic pain x 2 months [employer]. Patient's granddaughter called the ambulance. Patient [place] by herself [place] property. She reports that this has been an ongoing issue where she feels like she is starting to "lose her strength". She wakes up in the morning "on fire" with a burning sensation in her mouth, tongue, and vagina. This sensation is alleviated by swimming in her pool and drinking water. She also reports intense, burning pain in her legs which is hard to get rid of. Patient was told outpatient that she had low iron, and that iron pills would help. However she stopped taking these due to constipation. Patient was told that she could get an infusion via hematology, but this would take 2 to 4 weeks to get in, and patient reports she cannot wait that long as her pain and fatigue are worsening to the point where she has "stopped walking". She reports "everything in my body is so weak". No recent falls. Prior to this, she used to exercise regularly in her pool. Patient does report she had back surgery with Dr. Beasley on August 02, 2024. She does have a rollator at home, but does not need to walk around her house. At present, she reports that she is not having any neuropathic pain. She believes that the gabapentin has not been helping her pain, and is actually made her more weak/sleepy at home. Only new medications are that she was started on gabapentin for neuropathic pain, as well as Macrobid on 03/29 for presumed UTI. She does not have burning with urination, but does note her urine has been orange and malodorous recently. Additionally, she reports she has had urinary incontinence over the past 2 months, which is new for her. Patient denies smoking, drug use, recent alcohol use. Patient reports she is not sexually active. [place], and believes she might of had some bug and or tick bites recently; no rashes. No history of shingles. Patient's vitals are stable at time of admission. ED course: Thiamine 100 mg IV ROS: Patient endorses malaise, generalized fatigue, burning sensation in the mouth/groin region, new onset urinary incontinence, malodorous urine, ambulatory dysfunction, and neuropathic pain in the legs bilaterally. Patient denies fever, chest pain, chest palpitations, SOB, burning with urination, saddle anesthesia, or blood in the urine/stool. Discharge Exam gen - pleasant, NAD, looks well neck - no JVD mouth - no tongue irritation, thrush, or other lesions; MM mildly dry heart - RRR, s1 s2, no murmur lungs - CTA b/l abd - soft NT ND BS+ ext - pulses b/l feet 2+ neuro - strength 5/5 x 4 exts including distal legs/feet; DTRs 2+ b/l upper & lower exts Discharge Plan Discharge Items Patient Disposition: Home - Self-Care Reason For Visit: NEUROPATHIC PAIN, GENERALIZED FATIGUE Discharge Diagnosis: 1. neuropathy of both lower legs - possibly due to lumbar spinal stenosis, possibly due to nutritional deficiencies, other factors possible 2. recent burning sensation of mouth - nutritional deficiency possibly the cause 3. vitamin B12 deficiency 4. lumbar spinal stenosis - moderate to severe 5. vulvar burning - follow-up with gynecology as scheduled 6. hypertension 7. fatigue/weakness - due to side effects from gabapentin? Activity: Resume your previous activity Non-emergency contact: Primary Care Provider and Specialist Call non-emergency contact if: you have any medication questions and your symptoms worsen Follow-up/Referrals: Delma Justin MD, FACOG [Physician] - 04/15/25 1:30 pm (gynecology) Jean-Pierre Garces MD [Physician] - 05/12/25 4:00 pm (EMG (nerve) studies) Amy Ulloa MD [Primary Care Provider] - 04/14/25 1:00 pm Diet: Heart Healthy Addtl Attending Provider Instructions: Rg San presented to the hospital with complaints of fatigue, worsening neuropathy of your legs, burning sensation of the mouth, and burning sensation of the vulvar region. We rechecked an MRI of your lumbar spine. There is considerable degenerative disk disease of multiple lumbar levels. It is possible that some of your leg symptoms are due to lumbar disk disease. Overall, however, the MRI was similar in appearance to your old MRI from 2023. We checked a series of labs including nutritional labs. Nutritional deficiencies can lead to neuropathy & various "burning" sensations. Your vitamin B12 level was low at about 200. It is possible that B12 deficiency is causing some of the leg & mouth symptoms. For your neuropathy we suggested a trial of Cymbalta (Duloxetine). This is technically an anti-depressant, but it is used often for neuropathy of various causes. It takes several weeks to start helping your symptoms. Physical therapy saw you and they felt your walking is doing very well. They felt you can continue to live independently. They did recommend outpatient physical therapy. You can also continue with light walks and swimming. Recommendations - 1. We are going to wean you off your sertraline. Starting tomorrow, 04/09, please take 2 tablets of 25mg (total of 50mg) daily for 2 weeks. After 2 weeks reduce the sertraline to 1 tablet of 25mg daily. Do the 25mg daily for 2 weeks then stop the sertraline fully. 2. Duloxetine - take 20mg once daily starting 04/09. In 3-4 weeks your family doctor can increase the dose to 40mg. You may not notice any change in your neuropathy for 3-4 weeks as the medication has to build-up in your system. 3. STOP gabapentin. 4. START [id number] vitamin B12 supplement -- 1000mcg (1mg) daily for about 6 months. 5. START thiamine (vitamin B1) 200mg twice daily x 30 days. 6. Keep previously scheduled appointments with gynecology as well as your nerve studies (see separate section). 7. Outpatient PT as desired. Return to [facility] if - -you have fevers over 100 degrees -you have falls -you have uncontrolled pain in any location -you have difficulty walking -you have palpitations (fast heart rate), severe sweats, nausea, vomiting, tremors, or excessive sleepiness/lethargy -any other concerns It was our pleasure to care for you! -Wilfrid Cade, hospitalist Pending Studies at Discharge: Yes Studies:: vitamin B6 level; copper level; tick-borne tests Stand-Alone Forms: My [facility], Smoking Cessation Medications and DC Order Prescriptions: New duloxetine 20 mg Capsule,Delayed Release(Dr/Ec) 20 mg PO QAM Qty: 30 2RF thiamine HCl (vitamin B1) 100 mg Tablet 200 mg PO BID 30 Days Qty: 120 0RF cyanocobalamin (vitamin B-12) 1,000 mcg tablet 1,000 mcg PO DAILY Qty: 90 1RF Rx Instructions: take daily for 6 months pyridoxine (vitamin B6) 50 mg tablet 50 mg PO DAILY Qty: 90 0RF Rx Instructions: purchase [id number]-gudhffl Continued ondansetron 4 mg tablet,disintegrating 4 mg PO Q8H PRN (Reason: nausea and vomiting) Qty: 20 0RF Patient Comments: 04/07- Not on list from pharmacy unable to verify losartan 50 mg tablet 50 mg PO DAILY Qty: 90 3RF spironolactone 25 mg tablet 25 mg PO BID Qty: 180 3RF thyroid (pork) 120 mg tablet 120 mg PO DAILY Qty: 90 3RF Rx Instructions: [place] brand carvedilol 3.125 mg tablet 3.125 mg PO BID trazodone 50 mg tablet 50 - 100 mg PO HS PRN (Reason: Sleep) Rx Instructions: 50 mg orally 1 to 2 tabs orally at bedtime PRN; omeprazole 20 mg capsule,delayed release(DR/EC) 20 mg PO BID Qty: 0 0RF Patient Comments: 04/07- OTC/not on list from pharmacy. unable to verify. Original: 20 mg po bid Changed sertraline 25 mg tablet 25 mg PO .daily as directed Qty: 42 0RF Rx Instructions: 2 tablets PO QD x 2 weeks, then 1 tab PO QD x 2 weeks, then stop. ipratropium-albuterol 20-100 mcg/actuation mist 1 puff inhalation Q6H PRN (Reason: cough/congestion/wheezing) Qty: 4 2RF Discontinued gabapentin 100 mg capsule 100 mg PO .QHS Qty: 30 2RF ibuprofen 200 mg Tablet 0 mg PO BID Patient Comments: 04/07- OTC unable to verify. original 200 mg po bid Discharge Orders: Discharge Order (Routine); Ordered 04/08/25 Ordered By: Wilfrid Salas/Other Patient Handouts: What Is Peripheral Neuropathy, ED Degenerative Disk Disease Admission Data Admit Date/Time: 04/07/25 16:28 Attending Provider: Wilfrid Cade Admit Provider: Wilfrid Cade Primary Care Provider: Amy Ulloa Other Interventions: Discharge Summary Assessment (RN) Last Done: 04/08/25 12:47 Hospital Stay Data Consultations Physical therapy Diagnostic Imagining Performed Chest X-Ray 04/07/25 10:19 SINGLE VIEW CHEST CLINICAL HISTORY: Generalized weakness FINDINGS: 2 AP, portable, upright chest radiographs are compared to study dated 07/07/2024 correlation is made with chest CT dated 11/06/2020. The examination is degraded by portable technique, apical lordotic positioning, and patient rotation. The heart is enlarged noting atherosclerotic calcification of the thoracic aorta. The pulmonary vasculature is noncongested. Chronic interstitial thickening is similar to previous. There is bibasilar scarring/atelectasis and chronic elevation of the right hemidiaphragm. No airspace consolidation or large pleural effusion is identified. No pneumothorax is seen. The skeletal structures are osteopenic. The bony thorax is grossly intact. Degenerative change is noted in the shoulders. IMPRESSION: Cardiomegaly with no active disease in the chest. ACT 112: Negative or not required by law. Electronically signed by: Satish Dyson M.D. 04/07/2025 10:42 AM Lumbar Spine MRI 04/08/25 05:29 MR lumbar spine wo con CLINICAL HISTORY: DDD l-spine; b/l leg numbness, R foot weakness. COMPARISON: 04/16/2024 TECHNIQUE: Multiplanar, multi sequence MRI of the lumbar spine was performed without intravenous contrast. FINDINGS: There is no conus or vertebral body lesion identified. There is no aortic aneurysm or periaortic adenopathy. There are severe degenerative disc disease at T11-T12 with disc space narrowing, endplate irregularity, and a central disc osteophyte protrusion which is basically unchanged. T12-L1 level unchanged demonstrating disc desiccation, mild annulus bulge, and hypertrophied facets and ligaments right greater than left. There is no definite evidence of significant neural compromise. L1-L2 demonstrates disc desiccation and a broad-based annular disc bulge. In conjunction with hypertrophied posterior elements, there continues to be a moderate spinal stenosis with an AP canal measurement of approximately 7 mm. Hypertrophied facets and posterior ligaments are present as well. There is mild bilateral lateral recess and foraminal stenosis. L2-L3 level unchanged demonstrating a degenerated disc with disc space narrowing and a broad-based annular disc bulge. In conjunction with hypertrophied posterior elements, there is persistence of mild central canal stenosis measuring 9 mm. There is moderate to severe right lateral recess stenosis and mild to moderate bilateral foraminal stenosis. L3-L4 level and demonstrates a large left paracentral disc protrusion and in conjunction with hypertrophied facets and posterior ligaments, there is a pronounced is central canal stenosis, severe left lateral recess stenosis, and moderate to severe bilateral foraminal stenosis. AP canal measurements measures less than 4 mm in the midline. L4-5 level demonstrates a desiccated disc with disc space narrowing and a mild central annulus bulge. In association with hypertrophied posterior elements, there L5-S1 level demonstrates a desiccated disc area. There is moderate bilateral hypertrophic facet arthrosis and ligamentous thickening. There is no definite evidence of significant neural compromise at L5-S1. Is mild bilateral recess and foraminal stenosis IMPRESSION: Stable exam demonstrating multilevel spinal stenosis. Please refer to the segmental analysis within the body of the report for additional detail. ACT 112: Negative or not required by law. The above report was generated using voice recognition software. It may contain grammatical, syntax or spelling errors. Electronically signed by: Bethany Ryan M.D. 04/08/2025 8:51 AM Pending Results Patient Have Any Pending Studies at Discharge: Yes Discharge Instructions Given to Patient (Per Discharging Provider) Rg San presented to the hospital with complaints of fatigue, worsening neuropathy of your legs, burning sensation of the mouth, and burning sensation of the vulvar region. We rechecked an MRI of your lumbar spine. There is considerable degenerative disk disease of multiple lumbar levels. It is possible that some of your leg symptoms are due to lumbar disk disease. Overall, however, the MRI was similar in appearance to your old MRI from 2023. We checked a series of labs including nutritional labs. Nutritional deficiencies can lead to neuropathy & various "burning" sensations. Your vitamin B12 level was low at about 200. It is possible that B12 deficiency is causing some of the leg & mouth symptoms. For your neuropathy we suggested a trial of Cymbalta (Duloxetine). This is technically an anti-depressant, but it is used often for neuropathy of various causes. It takes several weeks to start helping your symptoms. Physical therapy saw you and they felt your walking is doing very well. They felt you can continue to live independently. They did recommend outpatient physical therapy. You can also continue with light walks and swimming. Recommendations - 1. We are going to wean you off your sertraline. Starting tomorrow, 04/09, please take 2 tablets of 25mg (total of 50mg) daily for 2 weeks. After 2 weeks reduce the sertraline to 1 tablet of 25mg daily. Do the 25mg daily for 2 weeks then stop the sertraline fully. 2. Duloxetine - take 20mg once daily starting 04/09. In 3-4 weeks your family d octor can increase the dose to 40mg. You may not notice any change in your neuropathy for 3-4 weeks as the medication has to build-up in your system. 3. STOP gabapentin. 4. START aydm-zcp-kzivjfk vitamin B12 supplement -- 1000mcg (1mg) daily for about 6 months. 5. START thiamine (vitamin B1) 200mg twice daily x 30 days. 6. Keep previously scheduled appointments with gynecology as well as your nerve studies (see separate section). 7. Outpatient PT as desired. Return to [facility] if - -you have fevers over 100 degrees -you have falls -you have uncontrolled pain in any location -you have difficulty walking -you have palpitations (fast heart rate), severe sweats, nausea, vomiting, tremors, or excessive sleepiness/lethargy -any other concerns It was our pleasure to care for you! -Wilfrid Cade, hospitalist Total Time Total Time Spent Total Time Spent (In Minutes): 40 Coding Level of Care Code 21184 INP/OBS DISCH >30 MIN Diagnoses Peripheral polyneuropathy G62.9 Peripheral neuropathy type: polyneuropathy, unspecified Vaginal burning N94.9 Numbness of tongue R20.0 Neuropathic pain M79.2 Disc degeneration, lumbar M51.36 Vitamin B12 deficiency E53.8 Vitamin B6 deficiency E53.1
--- NOTE | 2025-04-08 14:23 | Electrocardiogram Report ---
Test Reason : Blood Pressure : */* mmHG Vent. Rate : 76 BPM Atrial Rate : 76 BPM P-R Int : 200 ms QRS Dur : 104 ms QT Int : 394 ms P-R-T Axes : * -30 151 degrees QTcB Int : 443 ms Normal sinus rhythm Left axis deviation Moderate voltage criteria for LVH, may be normal variant ( R in aVL ) Abnormal ECG When compared with ECG of 17-Jul-2024 12:26, T wave inversion more evident in Anterior leads Confirmed by Marvin Bhat ([id number]) on 04/08/2025 2:23:01 PM Referred By: Confirmed By: Marvin Bhat
== END 2025-04-08 14:58 | disposition home or self-care (01) ==
LOC: 3E 10:01 → ED 10:01 → 3E 17:25

== ENCOUNTER 2025-07-27 06:07 | Inpatient (IN) ==
--- NOTE | 2025-07-06 09:48 | PAT Medication Instructions ---
Medication Instructions Date of Service July 06, 2025 Home Medications Medication Instructions Recorded ondansetron 4 mg disintegrating 4 mg PO Q8H PRN nausea and 10/17/23 tablet vomiting #20 tabs spironolactone 25 mg tablet 25 mg PO BID #180 tabs 10/15/24 cyanocobalamin (vitamin B-12) 1,000 mcg PO DAILY #90 tabs 04/08/25 1,000 mcg tablet ipratropium 20 mcg-albuterol 100 1 puff inhalation Q6H PRN 04/08/25 mcg/actuation mist for inhalation cough/congestion/wheezing #4 grams azithromycin 250 mg tablet See Rx Instructions PO .COMPLEX #6 07/02/25 tabs prednisone 20 mg tablet See Rx Instructions PO .COMPLEX 07/02/25 #30 tabs ondansetron 4 mg disintegrating tablet 4 mg PO Q8H PRN nausea and vomiting spironolactone 25 mg tablet 25 mg PO BID carvedilol 3.125 mg tablet 3.125 mg PO BID cyanocobalamin (vitamin B-12) 1,000 mcg tablet 1,000 mcg PO DAILY ipratropium 20 mcg-albuterol 100 mcg/actuation mist for inhalation 1 puff inhalation Q6H PRN cough/congestion/wheezing azithromycin 250 mg tablet See Rx Instructions PO .COMPLEX gabapentin 100 mg capsule 100 mg PO HS prednisone 20 mg tablet See Rx Instructions PO .COMPLEX losartan 50 mg tablet 50 mg PO QAM omeprazole 20 mg capsule,delayed release 20 mg PO QAM oxybutynin chloride 5 mg tablet,extended release 24 hr 5 mg PO HS thyroid (pork) 120 mg tablet 120 mg PO DAILY Continue as directed azithromycin 250 mg tablet See Rx Instructions PO .COMPLEX prednisone 20 mg tablet See Rx Instructions PO .COMPLEX DO NOT take the morning of surgery spironolactone 25 mg tablet 25 mg PO BID cyanocobalamin (vitamin B-12) 1,000 mcg tablet 1,000 mcg PO DAILY losartan 50 mg tablet 50 mg PO QAM Take morning of surgery With a small sip of water, OTHERWISE NOTHING TO EAT OR DRINK AFTER MIDNIGHT: ondansetron 4 mg disintegrating tablet 4 mg PO Q8H PRN nausea and vomiting (if needed) carvedilol 3.125 mg tablet 3.125 mg PO BID ipratropium 20 mcg-albuterol 100 mcg/actuation mist for inhalation 1 puff inhalation Q6H PRN cough/congestion/wheezing (if needed) omeprazole 20 mg capsule,delayed release 20 mg PO QAM thyroid (pork) 120 mg tablet 120 mg PO DAILY Take evening before surgery ondansetron 4 mg disintegrating tablet 4 mg PO Q8H PRN nausea and vomiting (if needed) spironolactone 25 mg tablet 25 mg PO BID carvedilol 3.125 mg tablet 3.125 mg PO BID ipratropium 20 mcg-albuterol 100 mcg/actuation mist for inhalation 1 puff inhalation Q6H PRN cough/congestion/wheezing (if needed) gabapentin 100 mg capsule 100 mg PO HS oxybutynin chloride 5 mg tablet,extended release 24 hr 5 mg PO HS Other Notes If you have any questions please call us at [phone] or [phone] or [phone] or [phone]
--- NOTE | 2025-07-15 12:06 | Anesthesiology Consultation ---
Date of Service July 15, 2025 Assessment & Plan (1) Encounter for pre-operative examination: - Check BSG DOS - Infectious disease screening: Per assessment on 07/15/25- No known recent infectious disease contacts. Previous URI symptoms (cough/congestion) with onset ~06/30/25; resolved. Symptom onset > 10 days prior to DOS. Nothing further needed at this time. - S/P L4-L5 decompression (07/27/24): Grade 1 view, Glidescope#3, ETT 7.0, [facility] [place] PCP note 07/08/25: "moderate risk. blood work ordered. pt to have cardio clearance.." - Acceptable risk for surgery pending surgeon-ordered cardiology preop evaluation ([facility] cardio, appt 07/23). Chart Review Chart Review: Patient seen in Pre Admission Testing Teaching & Discussion Pre-Anesthesia Teaching/Discussion Notes: Instructed NPO after midnight before surgery,except medications with 15 cc of water. Medication instructions provided according to the PAT guidelines. History Surgery Operation Date: 07/27/25 07:15 Proposed Procedures p L3-L4 Extreme Lateral Interbody Fusion, Posterion Perc Screws with Spinal Cord Monitoring and CT Navigation - Chan Beasley MD Height/Weight Height: 5 ft 7.32 in Weight: 98.8 kg Allergies Allergy/AdvReac Type Severity Reaction Status Date / Time tromethamine Allergy Severe Kidney Verified 07/06/25 14:26 failure Iodinated Contrast Media Allergy Intermediate Rash Verified 07/05/25 12:14 [Iodinated Contrast- Oral and IV Dye] Penicillins Allergy Intermediate Rash, hives Verified 07/06/25 14:26 diclofenac [From Voltaren] Allergy Mild Rash Verified 07/06/25 14:26 (hands) latex Allergy Mild Localized Verified 07/06/25 14:26 rash Citalopram Analogues Allergy Unknown Unknown Verified 07/06/25 14:26 esomeprazole [From Nexium] Allergy Unknown Unknown Verified 07/06/25 14:26 lisinopril Allergy Unknown Unknown Verified 07/06/25 14:26 Sulfa (Sulfonamide Allergy Unknown Rash Verified 07/05/25 12:14 Antibiotics) ketorolac AdvReac Severe Kidney Verified 07/06/25 14:26 failure aspirin AdvReac Intermediate Upset Verified 07/06/25 14:26 stomach/abdominal pain tramadol AdvReac Intermediate Vomiting Verified 07/05/25 12:14 codeine AdvReac Unknown Upset Verified 07/06/25 14:26 stomach Medications Home Medications Medication Instructions Recorded Confirmed Last Taken ondansetron 4 mg disintegrating 4 mg PO Q8H PRN nausea and 10/17/23 07/05/25 Unknown tablet vomiting #20 tabs spironolactone 25 mg tablet 25 mg PO BID #180 tabs 10/15/24 07/05/25 Unknown carvedilol 3.125 mg tablet 3.125 mg PO BID 04/07/25 07/05/25 Unknown cyanocobalamin (vitamin B-12) 1,000 mcg PO DAILY #90 tabs 04/08/25 07/05/25 Unknown 1,000 mcg tablet ipratropium 20 mcg-albuterol 100 1 puff inhalation Q6H PRN 04/08/25 07/05/25 07/27/24 07:00 mcg/actuation mist for inhalation cough/congestion/wheezing #4 grams azithromycin 250 mg tablet See Rx Instructions PO .COMPLEX #6 07/02/25 07/05/25 Unknown tabs gabapentin 100 mg capsule 100 mg PO HS 07/02/25 07/05/25 Unknown prednisone 20 mg tablet See Rx Instructions PO .COMPLEX 07/02/25 07/05/25 Unknown #30 tabs losartan 50 mg tablet 50 mg PO QAM 07/05/25 07/05/25 Unknown omeprazole 20 mg capsule,delayed 20 mg PO QAM 07/05/25 07/05/25 Unknown release oxybutynin chloride 5 mg 5 mg PO HS 07/05/25 07/05/25 Unknown tablet,extended release 24 hr thyroid (pork) 120 mg tablet 120 mg PO DAILY 07/05/25 07/05/25 Unknown Past Medical History Medical History (Updated 07/15/25 @ 13:48 by Zakiya Nelson) Anxiety Asthma Bertolotti's syndrome Bronchospasm Per remote records, patient unaware CKD (chronic kidney disease) stage 3, GFR 30-59 ml/min Degenerative spondylolisthesis Disc degeneration, lumbar Diverticulosis of colon Elevated hemoglobin A1c A1C 03/25/25: 6.2%, A1C 07/15/25 6.5% PCP monitoring Elva's thyroiditis Hearing loss History of COVID-19 (~2020) Hospitalized, symptoms resolved Hx of gastroesophageal reflux (GERD) Hyperlipidemia Hx Hypertension Follows with Dr. Jones Hypothyroid Lumbar stenosis with neurogenic claudication Major depression Neuropathic pain Non-occlusive coronary artery disease Per records Peripheral neuropathy Solitary pulmonary nodule on lung CT Under surveillance Takotsubo syndrome 1996, 2006; "Turned out to be Takosubo syndrome" Follows with Dr. Jones Thoracic aortic aneurysm Per records, patient unaware Urinary incontinence Exercise / Class Metabolic Activity III < 4 Walking/Shop/Light housework Past Family History Family History Mother Hypertension Breast cancer COPD (chronic obstructive pulmonary disease) Grandmother Breast cancer Denies family history of Colon cancer Ovarian cancer Prostate cancer Myocardial infarction Past Surgical History Surgical History History of cardiac cath 1996 ([place]) and 2006 ([place])- no stents History of right cataract surgery History of right hip replacement History of surgery Dental implants "in place of all teeth" Hx of blepharoplasty Hx of laminectomy L4-L5 decompression: Grade 1 view, Glidescope#3, ETT 7.0, [facility] (07/27/24) Hx of left cataract extraction S/P ear surgery Right ear stapedectomy Past Anesthesia History No Hx of Anesthesia Complications and No Family Hx of Anesthesia Complications History of PONV No Hx of PONV and No Hx of Motion Sickness Social History Smoking Status: Never smoker Do You Dip or Chew Tobacco: No Hx Alcohol Use: Yes (none for years) Alcohol type: beer alcohol intake frequency: holidays/special occasions only substance use type: marijuana (Hx medicinal marijuana- "tried once and didn't work") Review of Systems Patient denies chest pain, shortness of breath, fever, chills, cough, wheezing. Physical Exam Vital Signs BP 158/90 P 82 TEMP 98.0 SP02 98%RA RESP 16 Physical Full cervical extension range of motion. Full TMJ range of motion. TMD > 3.5 finger breaths Mallampati Score II Dentition: intact, several dental restorations/implants ("all over") Lungs: clear throughout to auscultation Cardiac: regular rate and rhythm, no murmurs noted Spine: normal Carotid arteries: negative bruit Extremities: non-pitting LE edema Lab Results Anesthesia Preop Results Results Anesthesia Widget: WBC 18.30 K/ul (4.8-10.8) H 07/15/25 Hgb 13.5 g/dl (12.0-16.0) 07/15/25 Hct 39.8 % (37.0-47.0) 07/15/25 Plt 256 K/uL (130-400) 07/15/25 Na 132 mmol/L (136-145) L 07/15/25 K 4.8 mmol/L (3.5-5.1) 07/15/25 Cl 100 mmol/L (98-107) 07/15/25 CO2 24 mmol/L (21-32) 07/15/25 BUN 38 mg/dl (6-23) H 07/15/25 Creat 0.94 mg/dl (0.6-1.2) 07/15/25 Glucose Level 105 mg/dl (70-99(Fasting)) H 07/15/25 PT 10.3 Seconds (9.0-12.0) 07/15/25 PTT 23 Seconds (21-31) 07/15/25 INR 1.0 (0.9-1.1) 07/15/25 HA1c 6.5 % (4.5-5.6) H 07/15/25 SARS-CoV-2, RNA, NAAT Negative 07/02/25 Blood Type A Positive 07/15/25 Antibody Screen NEGATIVE 07/15/25 Testing Laboratory Results Surgeon's office made aware of elevated WBC- Per Hilda Fuentes with surgeon's office, reviewed by Dr. Beasley. Electrocardiogram Date: 04/07/25 Normal sinus rhythm at 76 bpm. LAD. Moderate voltage criteria for LVH, may be normal variant (R in aVL). ST and T wave abnormality, consider anterolateral ischemia. Chest X-Ray Date: 04/07/25 FINDINGS: 2 AP, portable, upright chest radiographs are compared to study dated 07/07/2024 correlation is made with chest CT dated 11/06/2020. The examination is degraded by portable technique, apical lordotic positioning, and patient rotation. The heart is enlarged noting atherosclerotic calcification of the thoracic aorta. The pulmonary vasculature is noncongested. Chronic interstitial thickening is similar to previous. There is bibasilar scarring/atelectasis and chronic elevation of the right hemidiaphragm. No airspace consolidation or large pleural effusion is identified. No pneumothorax is seen. The skeletal structures are osteopenic. The bony thorax is grossly intact. Degenerative change is noted in the shoulders. IMPRESSION: Cardiomegaly with no active disease in the chest. Echocardiogram Date: 10/10/23 EF 65-70%. No RWMA. Moderate cLVH. Moderate LAD. Mild MR. Mildly dilated ascending aorta, 4.3cm. Type II DD.
[2025-07-27] MEDS: ACETAMINOPHEN 500 MG TAB PO SCH (06:49)
[2025-07-27] MEDS: LR 15ML/HR IV SCH (06:49)
[2025-07-27] MEDS: LR 60ML/HR IV SCH (06:49)
[2025-07-27] MEDS ORDERED: GLYCOPYRROLATE 0.2 MG/ML VIAL ONE (06:54)
[2025-07-27] MEDS ORDERED: DEXAMETHASONE SOD INJ 4 MG/ML VIAL ONE (06:54)
[2025-07-27] MEDS ORDERED: LIDOCAINE 2% 2 ML VIAL/AMP(20MG/ML) INFIL ONE (06:54)
[2025-07-27] MEDS ORDERED: PROPOFOL IV EMULSION 10 MG/ML 20 ML VIAL IV ONE (06:54)
[2025-07-27] MEDS ORDERED: ONDANSETRON INJ 2 MG/ML 2 ML VIAL ONE (06:54)
[2025-07-27] MEDS ORDERED: ROCURONIUM BROMIDE 10 MG/ML 5 ML VIAL IV ONE (06:54)
[2025-07-27] MEDS ORDERED: SUGAMMADEX SODIUM 200 MG/2 ML VIAL IV ONE (06:56)
[2025-07-27] MEDS ORDERED: PROPOFOL IV EMULSION 10 MG/ML 100 ML VIAL IV ONE ×3 (06:59→10:56)
[2025-07-27] MEDS ORDERED: REMIFENTANIL HCL 1 MG VIAL IV ONE ×2 (06:59→09:40)
[2025-07-27] MEDS ORDERED: PHENYLEPHRINE HCL 25 MG/250 ML NSS IV ONE (07:11)
[2025-07-27] MEDS ORDERED: Nursing to Pharmacy Communication SCH (07:15)
--- NOTE | 2025-07-27 07:20 | History & Physical Bridge Note ---
Date of Service July 27, 2025 History & Physical Bridge Note I have examined the patient, reviewed the History & Physical and in the interval since the performance of the History & Physical I have noted the following changes of clinical significance: no changes noted
[2025-07-27] MEDS ORDERED: PROMETHAZINE HCL 6.25 MG in SODIUM CHLORIDE 0.9% 50 ML IV PRN (07:22)
[2025-07-27] MEDS ORDERED: ONDANSETRON INJ 2 MG/ML 2 ML VIAL IV PRN ×2 (07:22→11:57)
[2025-07-27] MEDS ORDERED: ATROPINE SULFATE 0.1 MG/ML 10ML SYR IV PRN (07:22)
--- NOTE | 2025-07-27 07:22 | History & Physical Report ---
Date of Service July 27, 2025 History of Present Illness Chief Complaint: Lumbar stenosis Primary Care Provider: Amy Ulloa MD Patient returns today for follow-up, she underwent a lumbar disc decompression /discectomy on July 27, 2024 with resolution of her symptoms, follow-up in September revealed her to have been doing notably well with resolution of all symptoms. Approximately 3 months ago though she started developing new symptomatology this included some generalized burning and numbness and tingling in the lower extremities, more so in the left lateral lower leg, also some limited axial symptomatology and a return to some of the prior symptomatology. She did undergo a MRI in March 2025 on the , she is here for follow-up, she has a neighbor with her. Exam reveals the patient to indicate pain as noted, she still maintains reasonably appropriate strength for ankle plantar dorsiflexion, but she has a positive straight leg raise more so on the left than on the right. This includes pain into the lower extremity. She has some limited pain in around the left hip with rotation. 2 views of the lumbar spine AP and lateral views taken for today's office reveal the patient to have on AP view the right total hip replacement, there is notable loss of joint space in the left hip revealing degenerative arthritis in that region. She has some levoscoliosis in the lower lumbar levels with multilevel degenerative changes, of note is that she has 5 nonrib-bearing levels with a transitional segment which is lumbarized. It is to note that this lumbarized level is according to the MRI reports labeled as L5-S1 where is actually it is a S1 level, the L4-5 level is the level with the degenerative spondylolisthesis noted on the previous radiographs on March 09, 2024 and on the current rad iographs for today's office. The spondylolisthesis has progressed, still grade 1. Review of MRI images of the lumbar spine from [facility] from April 08, 2025, this is my separate interpretation, this reveals the patient to have the degenerative spondylolisthesis with severe stenosis at this level with a recurrent central left disc protrusion at what I would consider the L4-5 level, this is the third disc level from the sacrum, this was the level with the prior decompression, which I labeled as L4-5 properly. It is labeled as L3-4 though in the MRI. Impression: 11 months status post prior decompression at the L4-5 level, labeled as L3-4 and the MRI recent report, now with degenerative spondylolisthesis and high-grade stenosis, recurrent disc herniation. Plan: Today I reviewed the imaging studies with the patient and the family member/neighbor, I went over these in great detail, minimum 30 minutes was spent explaining the findings and how it is related to her current symptoms. The patient clearly states that she did quite well until this past summer when her symptoms returned, and I related her to that I think she has a central recurrent disc herniation causing the stenosis whereas she had been doing quite well before that was quite pleased with her postoperative result from last July. I then went on to explain options, at this time I think the patient should undergo arthrodesis at the operative level which is L4-5, this is the level at the iliac crest level, she has degenerative spondylolisthesis at this level. My recommendations are for a lateral cage placement at that level, probably attempting to try to get a [address], with percutaneous instrumentation posteriorly using navigation. I related that our goal will be indirect decompression and stabilization of this level and then we will see what kind of improvement she gets with her symptomatology. I did emphasize that back pain could be coming from it either of the adjacent levels but I do not think we need to get into a multilevel fusion, she was in agreement with the plan. I did discuss the technical details of the surgery, potential risk complications, hospital postoperative course, we will move ahead with the surgery according to her schedule in the near future. Allergies Allergy/AdvReac Type Severity Reaction Status Date / Time tramadol Allergy Severe kidney Verified 07/27/25 06:17 failure tromethamine Allergy Severe Kidney Verified 07/27/25 06:16 failure Iodinated Contrast Media Allergy Intermediate Rash Verified 07/27/25 06:16 [Iodinated Contrast- Oral and IV Dye] Penicillins Allergy Intermediate Rash, hives Verified 07/27/25 06:16 diclofenac [From Voltaren] Allergy Mild Rash Verified 07/27/25 06:17 (hands) latex Allergy Mild Localized Verified 07/27/25 06:17 rash Citalopram Analogues Allergy Unknown Unknown Verified 07/27/25 06:17 esomeprazole [From Nexium] Allergy Unknown Unknown Verified 07/27/25 06:17 lisinopril Allergy Unknown Unknown Verified 07/27/25 06:17 Sulfa (Sulfonamide Allergy Unknown Rash Verified 07/27/25 06:17 Antibiotics) ketorolac AdvReac Severe Kidney Verified 07/27/25 06:17 failure aspirin AdvReac Intermediate Upset Verified 07/27/25 06:17 stomach/abdominal pain codeine AdvReac Unknown Upset Verified 07/27/25 06:17 stomach Home Medications Medication Instructions Recorded Confirmed Type carvedilol 3.125 mg tablet 3.125 mg PO BID 04/07/25 07/27/25 History cyanocobalamin (vitamin B-12) 1,000 mcg PO DAILY #90 tabs 04/08/25 07/27/25 Rx 1,000 mcg tablet ipratropium 20 mcg-albuterol 100 1 puff inhalation Q6H PRN 04/08/25 07/27/25 Rx mcg/actuation mist for inhalation cough/congestion/wheezing #4 grams gabapentin 100 mg capsule 100 mg PO HS 07/02/25 07/27/25 History losartan 50 mg tablet 50 mg PO QAM 07/05/25 07/27/25 History omeprazole 20 mg capsule,delayed 20 mg PO QAM 07/05/25 07/27/25 History release thyroid (pork) 120 mg tablet 120 mg PO DAILY 07/05/25 07/27/25 History spironolactone 25 mg tablet 25 mg PO BID 07/27/25 07/27/25 History (Aldactone) Past Med/Surg History Problem List Encounter for pre-operative examination Urinary incontinence Recurrent herniation of lumbar disc Lumbosacral radiculopathy Idiopathic polyneuropathy Vitamin B6 deficiency Vitamin B12 deficiency Numbness of tongue Bertolotti's syndrome Degenerative spondylolisthesis Disc degeneration, lumbar Hypertension (Acute) Lumbar stenosis with neurogenic claudication Adjustment disorder with depressed mood Chronic kidney disease, stage III (moderate) Thoracic aortic aneurysm Elevated C-reactive protein (CRP) Spinal stenosis Hyperlipidemia LDL goal <70 (Acute) 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, bilateral Impaired fasting glucose (Chronic) Asthma (Chronic) Anxiety (Chronic) Hypothyroidism GERD (gastroesophageal reflux disease) Medical History Elevated hemoglobin A1c A1C 03/25/25: 6.2%, A1C 07/15/25 6.5% PCP monitoring Urinary incontinence Non-occlusive coronary artery disease Per records Hx of gastroesophageal reflux (GERD) Neuropathic pain Peripheral neuropathy Hearing loss Lumbar stenosis with neurogenic claudication Disc degeneration, lumbar Degenerative spondylolisthesis Bertolotti's syndrome Thoracic aortic aneurysm Per records, patient unaware History of COVID-19 (~2020) Hospitalized, symptoms resolved Diverticulosis of colon Elva's thyroiditis Solitary pulmonary nodule on lung CT Under surveillance Hypothyroid Bronchospasm Per remote records, patient unaware CKD (chronic kidney disease) stage 3, GFR 30-59 ml/min Hypertension Follows with Dr. Jones Major depression Takotsubo syndrome 1996, 2006; "Turned out to be Takosubo syndrome" Follows with Dr. Jones Anxiety Hyperlipidemia Hx Asthma Surgical History Hx of laminectomy L4-L5 decompression: Grade 1 view, Glidescope#3, ETT 7.0, [facility] (07/27/24) Hx of left cataract extraction Hx of blepharoplasty History of right cataract surgery History of surgery Dental implants "in place of all teeth" History of cardiac cath 1996 ([place]) and 2006 ([place])- no stents S/P ear surgery Right ear stapedectomy History of right hip replacement Family History Mother Hypertension Breast cancer COPD (chronic obstructive pulmonary disease) Grandmother Breast cancer Denies family history of Colon cancer Ovarian cancer Prostate cancer Myocardial infarction Social History Smoking Status: Never smoker Second Hand Exposure: No; Do You Dip or Chew Tobacco: No; Tobacco Cessation Education Requested by Patient: No Hx Alcohol Use: Yes (none for years) Alcohol type: beer Preferred Language: Romansh Communication Ability: Effective Visual Impairment: No Limitations Hearing Ability: Use of Hearing Aid Foundation Assistant Required: No Beliefs That Will Affect Care: None marital status: Current Living Situation: Alone current occupational status: retired How many Children do You have: 2 Other Information That Helps Us Care for You: No Feels Safe at Home: Yes Safety Concerns: Feels Safe At This Time Childhood Exposure to Second-Hand Smoke: Yes Diet: regular caffeine: Yes during the past year weight has: remained stable Dental Care, Regularly: Yes Physical Activity Frequency: 5-6 Times per Week Seatbelt Use: always Sunscreen Use: No Do you think of yourself as: straight/heterosexual Sexual Activity: has been sexually active, but not for at least 12 months Gender Identity: Female Assistive Devices: Cane, Glasses and Hearing Aid - Left Assistive Devices Comment: teeth are full implants Review of Systems All systems reviewed & are unremarkable except as noted in HPI & below. Physical Exam . Results & Data Results & Data Laboratory Results . Diagnostic Findings . PG Care Time/CCT Total # of Minutes Spent Total Time Spent with Patient: Total time spent is greater than 50% in coordination of care (as documented) at patient's floor/unit and/or counseling patient: Coding Level of Care Code 00311 INT INP/OBS CARE 1MIN
[2025-07-27] MEDS ORDERED: ESMOLOL HCL INJ 10 MG/ML 10ML VIAL IV ONE (07:48)
[2025-07-27] MEDS ORDERED: KETAMINE HCL 10MG/ML SYR ONE (07:49)
[2025-07-27] MEDS: THROMBIN 5000 UNITS KIT ONE (11:31)
[2025-07-27] MEDS: GELATIN SPONGE 12-7MM ONE (11:31)
[2025-07-27] MEDS: BUPIVACAINE/EPINEPHRINE 0.5% MPF 1:200,000 30 ML VIAL ONE (11:31)
[2025-07-27] MEDS: VANCOMYCIN HCL 1000MG/20ML VIAL ONE (11:31)
--- NOTE | 2025-07-27 11:56 | Post Operative Brief Note ---
PG Immediate Post Op with CF Date of Surgery July 27, 2025 Pre & Post Diagnosis Operation Date: 07/27/25 07:30 Pre-Op Diagnosis: Lumbar stenosis Post-Op Diagnosis: Lumbar stenosis I identified the patient and participated in the time-out.: Yes Procedure Operation Date: 07/27/25 07:30 Actual Procedures p L3-L4 Extreme Lateral Interbody Fusion, Posterior Percutaneous Screws with Spinal Cord Monitoring and CT Navigation(Not Applicable) - Chan Beasley MD Surgeon Chan Beasley MD Mining Helper none Estimated Blood Loss 30 Findings Consistent with Post-Op Diagnosis Specimens Specimen Description: None per surgeon Drains Blood Catheter (16 fr latex free catheter inserted by Paola Reed without complication - draining clear, yellow urine)
[2025-07-27] MEDS ORDERED: diphenhydrAMINE Capsule 25 MG CAP PO PRN (11:57)
[2025-07-27] MEDS ORDERED: HYDROmorphone INJ 0.5 MG/0.5 ML SYR IV PRN (11:57)
[2025-07-27] MEDS ORDERED: HYDROmorphone INJ 1 MG/ML SYRINGE IV PRN (11:57)
[2025-07-27] MEDS ORDERED: DO NOT ADMINISTER PNEUMOCOCCAL VACCINE PRN (11:57)
[2025-07-27] MEDS ORDERED: METOCLOPRAMIDE HCL INJ 5 MG/ML 2 ML VIAL IV PRN (11:57)
[2025-07-27] MEDS ORDERED: MAGNESIUM HYDROXIDE SUSP 30 ML UDC PO PRN (11:57)
[2025-07-27] MEDS ORDERED: ACETAMINOPHEN 500 MG TAB PO PRN (11:57)
[2025-07-27] MEDS ORDERED: SOD PHOSPHATE/SOD BIPHOSPHATE ENEMA 132 ML BTL PR PRN (11:57)
[2025-07-27] MEDS ORDERED: PROMETHAZINE 12.5 MG/50.5 ML BAG IV PRN (11:57)
[2025-07-27] MEDS ORDERED: DO NOT ADMINISTER FLU VACCINE PRN (11:57)
[2025-07-27] MEDS ORDERED: ACETAMINOPHEN 1,000 MG/100 ML VIAL IV PRN (11:57)
[2025-07-27] MEDS ORDERED: LORazepam Inj 0.5 MG in SYRINGE 0.25 ML IV PRN (11:57)
[2025-07-27] MEDS ORDERED: NALOXONE HCL 0.4 MG/1 ML VIAL/CARP IV PRN (11:57)
[2025-07-27] MEDS ORDERED: LORazepam 0.5 MG TAB PO PRN (11:57)
[2025-07-27] MEDS ORDERED: ALUMINUM/MAGNESIUM SUSP 30 ML UDC PO PRN (11:57)
[2025-07-27] MEDS ORDERED: FAMOTIDINE 20 MG TAB PO PRN (11:57)
--- NOTE | 2025-07-27 12:28 | Fluoroscopy Report ---
FL lumbar spine 2-3V CLINICAL HISTORY: L3-L4 LATERAL INTERBODY FUSION COMPARISON STUDY: None FLUOROSCOPY TIME: 108 seconds FLUOROSCOPY IMAGES: 11 EXPOSURE DOSE: 95 mGy FINDINGS: Fluoroscopy was provided for lumbar surgery. IMPRESSION: Intraoperative fluoroscopy. ACT 112: Negative or not required by law. Electronically signed by: Rivas Garcia M.D. 07/27/2025 12:26 PM
[2025-07-27] MEDS: HYDROmorphone INJ 1 MG/ML SYRINGE IV PRN (12:33)
--- NOTE | 2025-07-27 13:37 | Anesthesiology Progress Note ---
Date of Service July 27, 2025 Anesthesia Post Procedure Vital Signs Vital Signs: Temp Pulse Resp BP Pulse Ox O2 Del Method O2 Flow Rate 07/27/25 12:50 100 H 12 165/101 H 96 Oxymask 4 07/27/25 12:40 94 H 14 172/103 H 98 Oxymask 4 07/27/25 12:30 98 H 16 160/91 H 98 Oxymask 4 07/27/25 12:20 90 12 160/82 H 98 Oxymask 6 07/27/25 12:10 89 12 166/100 H 96 Oxymask 6 07/27/25 12:00 36.3 C L 92 H 12 145/73 H 97 Oxymask 6 07/27/25 06:37 36.6 C 93 H 20 175/95 H 96 Room Air Pain Intensity Bilateral Leg: Pain Intensity: 3 Transfer of Care Handoff Completed per policy Notes Mental Status: alert / awake / arousable Patient Amnestic to Procedure: Yes Nausea / Vomiting: adequately controlled Pain: adequately controlled Airway Patency, RR, SpO2: stable & adequate BP & HR: stable & adequate Hydration State: stable & adequate Anesthetic Complications: no major complications apparent
[2025-07-27] MEDS ORDERED: IPRATROPIUM BROMIDE/ALBUTEROL respimat INH INH PRN (15:26)
[2025-07-27] MEDS ORDERED: ALBUTEROL HFA 8 GM INHALER INH PRN (15:34)
--- NOTE | 2025-07-27 17:33 | Hospitalist Consultation ---
Date of Consultation July 27, 2025 Assessment & Plan (1) Lumbar spinal stenosis: Assessment: 1. Advanced lumbar spinal stenosis. Status post lumbar spinal fusion at L3-L4 today with orthospine service. Postoperative day 0. Doing well postoperatively. 2. History hypertension. Continue home medications as appropriate. 3. History of GERD. Continue home PPI. 4. Hypothyroidism. Continue thyroid replacement therapy as at home. Check a TSH in the morning. 5. Obesity. Plan: As discussed above. Please refer to orders for further planning. We thank you for the opportunity to to participate in the care of Korin as she continues to convalesce her lumbar spine procedure. Will continue to follow with you daily and as needed. History of Present Illness Reason for Consultation: Medical management Attending Physician: Chan Beasley MD History of Present Illness This is a 85-year-old female [place] who has a history of significant lumbar spinal stenosis who presented to [facility] today to undergo elective lumbar spine surgery. She underwent L3-L4 fusion. Please refer to op report for further details. The patient tolerated the procedure well and was admitted to orthospine surgery's service and hospitalist consult was obtained for medical management. Allergies Allergy/AdvReac Type Severity Reaction Status Date / Time tramadol Allergy Severe kidney Verified 07/27/25 06:17 failure tromethamine Allergy Severe Kidney Verified 07/27/25 06:16 failure Iodinated Contrast Media Allergy Intermediate Rash Verified 07/27/25 06:16 [Iodinated Contrast- Oral and IV Dye] Penicillins Allergy Intermediate Rash, hives Verified 07/27/25 06:16 diclofenac [From Voltaren] Allergy Mild Rash Verified 07/27/25 06:17 (hands) latex Allergy Mild Localized Verified 07/27/25 06:17 rash Citalopram Analogues Allergy Unknown Unknown Verified 07/27/25 06:17 esomeprazole [From Nexium] Allergy Unknown Unknown Verified 07/27/25 06:17 lisinopril Allergy Unknown Unknown Verified 07/27/25 06:17 Sulfa (Sulfonamide Allergy Unknown Rash Verified 07/27/25 06:17 Antibiotics) ketorolac AdvReac Severe Kidney Verified 07/27/25 06:17 failure aspirin AdvReac Intermediate Upset Verified 07/27/25 06:17 stomach/abdominal pain codeine AdvReac Unknown Upset Verified 07/27/25 06:17 stomach Home Medications Medication Instructions Recorded Confirmed Type carvedilol 3.125 mg tablet 3.125 mg PO BID 04/07/25 07/27/25 History cyanocobalamin (vitamin B-12) 1,000 mcg PO DAILY #90 tabs 04/08/25 07/27/25 Rx 1,000 mcg tablet ipratropium 20 mcg-albuterol 100 1 puff inhalation Q6H PRN 04/08/25 07/27/25 Rx mcg/actuation mist for inhalation cough/congestion/wheezing #4 grams gabapentin 100 mg capsule 100 mg PO HS 07/02/25 07/27/25 History losartan 50 mg tablet 50 mg PO QAM 07/05/25 07/27/25 History omeprazole 20 mg capsule,delayed 20 mg PO QAM 07/05/25 07/27/25 History release thyroid (pork) 120 mg tablet 120 mg PO DAILY 07/05/25 07/27/25 History spironolactone 25 mg tablet 25 mg PO BID 07/27/25 07/27/25 History (Aldactone) Patient History Medical History (Updated 07/27/25 @ 17:36 by Jacob Cagle, PhD, DO) Elevated hemoglobin A1c A1C 03/25/25: 6.2%, A1C 07/15/25 6.5% PCP monitoring Urinary incontinence Non-occlusive coronary artery disease Per records Hx of gastroesophageal reflux (GERD) Neuropathic pain Peripheral neuropathy Hearing loss Lumbar stenosis with neurogenic claudication Disc degeneration, lumbar Degenerative spondylolisthesis Bertolotti's syndrome Thoracic aortic aneurysm Per records, patient unaware History of COVID-19 (~2020) Hospitalized, symptoms resolved Diverticulosis of colon Elva's thyroiditis Solitary pulmonary nodule on lung CT Under surveillance Hypothyroid Bronchospasm Per remote records, patient unaware CKD (chronic kidney disease) stage 3, GFR 30-59 ml/min Hypertension Follows with Dr. Jones Major depression Takotsubo syndrome 1996, 2006; "Turned out to be Takosubo syndrome" Follows with Dr. Jones Anxiety Hyperlipidemia Hx Asthma Surgical History Hx of laminectomy L4-L5 decompression: Grade 1 view, Glidescope#3, ETT 7.0, [facility] (07/27/24) Hx of left cataract extraction Hx of blepharoplasty History of right cataract surgery History of surgery Dental implants "in place of all teeth" History of cardiac cath 1996 ([place]) and 2006 ([place])- no stents S/P ear surgery Right ear stapedectomy History of right hip replacement Family History Mother Hypertension Breast cancer COPD (chronic obstructive pulmonary disease) Grandmother Breast cancer Denies family history of Colon cancer Ovarian cancer Prostate cancer Myocardial infarction Social History Smoking Status: Never smoker Second Hand Exposure: No; Do You Dip or Chew Tobacco: No; Tobacco Cessation Education Requested by Patient: No Hx Alcohol Use: Yes (none for years) Alcohol type: beer Preferred Language: Serbian Communication Ability: Effective Visual Impairment: No Limitations Hearing Ability: Use of Hearing Aid Hr Systems Analyst Required: No Beliefs That Will Affect Care: None marital status: Current Living Situation: Alone current occupational status: retired How many Children do You have: 2 Other Information That Helps Us Care for You: No Feels Safe at Home: Yes Safety Concerns: Feels Safe At This Time Childhood Exposure to Second-Hand Smoke: Yes Diet: regular caffeine: Yes during the past year weight has: remained stable Dental Care, Regularly: Yes Physical Activity Frequency: 5-6 Times per Week Seatbelt Use: always Sunscreen Use: No Do you think of yourself as: straight/heterosexual Sexual Activity: has been sexually active, but not for at least 12 months Gender Identity: Female Assistive Devices: Cane, Glasses and Hearing Aid - Left Assistive Devices Comment: teeth are full implants Review of Systems Review of Systems: A 10 point review of system was obtained and unless otherwise stated here or in history of present illness are negative and noncontributory to chief complaint. Physical Exam Physical Exam: In General: In general this is a very pleasant 85-year-old female who is alert and oriented x 3 at the time of my exam. She does have what appears to be some presbycusis but does interact appropriately otherwise. HEENT: Normocephalic atraumatic pupils are equal round and reactive to light bilaterally. No scleral icterus no conjunctival injection external auditory canals are patent septum is in the midline nose is without discharge oral mucosa is pink and dry without lesion. NECK: Supple no rigidity no lymphadenopathy no thyromegaly no carotid bruits no JVD no masses. HEART: Regular rate and rhythm I do not appreciate any ectopy or rub. No murmur. LUNGS: Clear to auscultation bilaterally and anteriorly with no evidence of adventitious sounds/wheezes rales or rhonchi. ABDOMEN: Soft nontender, no rebound, no peritoneal signs, positive bowel sounds, no appreciable organomegaly. EXTREMITIES: Intact, no peripheral cyanosis, clubbing or edema. Neurovascular the extremities are intact with good movement. NEUROLOGICAL: Cranial nerves II through XII are grossly intact with no focal deficit elicited upon examination. Results & Data Results & Data Vital Signs (Past 12 Hours) Vital Signs Temp Pulse Pulse Resp BP BP Pulse Ox 07/27/25 17:19 36.3 C L 94 H 16 135/84 973 H 07/27/25 16:12 36.3 C L 93 H 16 139/84 97 07/27/25 15:47 36.3 C L 90 16 159/91 H 98 07/27/25 15:15 36.3 C L 96 H 16 164/91 H 98 07/27/25 15:15 36.3 C L 82 15 167/84 H 98 07/27/25 14:40 36 C L 103 H 12 148/88 H 94 07/27/25 14:30 75 16 167/74 H 95 07/27/25 14:20 85 12 123/51 L 95 07/27/25 14:10 89 12 120/56 L 96 07/27/25 14:00 104 H 20 207/76 H 96 07/27/25 13:50 109 H 22 199/110 H 96 07/27/25 13:40 107 H 18 195/109 H 97 07/27/25 13:30 112 H 18 133/101 H 96 07/27/25 13:20 108 H 20 204/108 H 95 07/27/25 13:10 106 H 12 180/122 H 97 07/27/25 13:00 101 H 18 180/107 H 96 07/27/25 12:50 100 H 12 165/101 H 96 07/27/25 12:40 94 H 14 172/103 H 98 07/27/25 12:30 98 H 16 160/91 H 98 07/27/25 12:20 90 12 160/82 H 98 07/27/25 12:10 89 12 166/100 H 96 07/27/25 12:00 36.3 C L 92 H 12 145/73 H 97 07/27/25 06:37 36.6 C 93 H 20 175/95 H 96 O2 Del Method O2 Flow Rate 07/27/25 17:19 Nasal Cannula 3 07/27/25 16:12 Nasal Cannula 3 07/27/25 15:47 Nasal Cannula 3 07/27/25 15:15 Nasal Cannula 3 07/27/25 15:15 Nasal Cannula 3 07/27/25 14:40 Nasal Cannula 3 07/27/25 14:30 Oxymask 3 07/27/25 14:20 Oxymask 3 07/27/25 14:10 Oxymask 3 07/27/25 14:00 Oxymask 3 07/27/25 13:50 Oxymask 4 07/27/25 13:40 Oxymask 4 07/27/25 13:30 Oxymask 4 07/27/25 13:20 Oxymask 4 07/27/25 13:10 Oxymask 4 07/27/25 13:00 Oxymask 4 07/27/25 12:50 Oxymask 4 07/27/25 12:40 Oxymask 4 07/27/25 12:30 Oxymask 4 07/27/25 12:20 Oxymask 6 07/27/25 12:10 Oxymask 6 07/27/25 12:00 Oxymask 6 07/27/25 06:37 Room Air PG Care Time/CCT Total # of Minutes Spent Total Time Spent with Patient: Total time spent is greater than 50% in coordination of care (as documented) at patient's floor/unit and/or counseling patient: Coding Level of Care Code 36654 IN/OBS CONSULT LVL 4,60M Diagnoses Lumbar spinal stenosis M48.061
[2025-07-27] MEDS: DOCUSATE SODIUM/SENNA 50/8.6MG TAB PO SCH (20:01)
[2025-07-27] MEDS: GABAPENTIN 100 MG CAP PO SCH (20:02)
[2025-07-27] MEDS: SPIRONOLACTONE 25 MG TAB PO SCH (20:02)
[2025-07-28] MEDS: POLYETHYLENE (MIRALAX) 17 GM PACK PO SCH (05:56)
--- NOTE | 2025-07-28 07:41 | Hospitalist Progress Note ---
Date of Service July 28, 2025 Assessment & Plan (1) Chronic heart failure with preserved ejection fraction: (2) Idiopathic polyneuropathy: (3) Hypertension: (4) Chronic kidney disease, stage III (moderate): (5) Thoracic aortic aneurysm: (6) Hypothyroidism: Plan In summary this is an 85-year-old female admitted for postoperative evaluation and observation, we were consulted for management the patient's chronic medical conditions The patient remains on their chronic medications without complication; recommend continuation of this during their hospitalization; there is no indication for routine daily laboratory assessment at this time Admission and Anticipated Discharge Date Admission Date: July 27, 2025 Subjective Ms. Pichardo is an 85-year-old female who underwent posterior L3-L4 lateral interbody fusion without complication; we have been consulted for medical management of the patient's chronic conditions. No acute overnight events; the patient's preoperative symptoms have improved Review of Systems Review of Systems: Review of constitutional, neurologic, cardiovascular, pulmonary systems was unremarkable except for pertinent positive and negative findings discussed above Physical Exam Physical Exam: General: Elderly female in no acute distress Vital Signs: Reviewed Pulmonary: Symmetric chest wall excursion without restriction; clear to auscultation bilaterally Cardiovascular: Regular rate and rhythm without murmurs, rubs, or gallops; right radial pulse 2+ Gastrointestinal: Soft, nondistended Neurologic: Cranial nerves II through XII grossly intact; no discernible focal weakness no paresthesia Results & Data Results & Data Vital Signs (Past 12 Hours) Vital Signs Temp Pulse Resp BP Pulse Ox O2 Del Method 07/28/25 07:14 36.5 C 78 18 139/82 93 Room Air 07/28/25 03:31 36.4 C L 72 16 126/76 94 Room Air 07/28/25 00:06 36.7 C 77 18 145/83 H 92 Room Air 07/27/25 22:08 36.3 C L 91 H 18 150/76 H 98 Room Air PG Care Time/CCT Total # of Minutes Spent Total Time Spent with Patient: Total time spent is greater than 50% in coordination of care (as documented) at patient's floor/unit and/or counseling patient: Coding Level of Care Code 03210 SUB INP/OBS CARE 10/17MIN Diagnoses Chronic heart failure with preserved ejection fraction I50.32 Idiopathic polyneuropathy G60.9 Primary hypertension I10 Hypertension type: primary hypertension Stage 3 chronic kidney disease, unspecified whether stage 3a or 3b CKD N18.30 Chronic kidney disease stage 3 subtype: unspecified whether 3a or 3b Aneurysm of ascending aorta without rupture I71.21 Thoracic aorta location: ascending aorta Presence of rupture: without rupture 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; E06.3 Hypothyroidism type: due to Elva's thyroiditis (3) Hypertension Hypertension type: primary hypertension Qualified Code(s): I10 - Essential (primary) hypertension (4) Chronic kidney disease, stage III (moderate) Chronic kidney disease stage 3 subtype: unspecified whether 3a or 3b Qualified Code(s): N18.30 - Chronic kidney disease, stage 3 unspecified (5) Thoracic aortic aneurysm Thoracic aorta location: ascending aorta Presence of rupture: without rupture Qualified Code(s): I71.21 - Aneurysm of the ascending aorta, without rupture (6) Hypothyroidism Hypothyroidism type: due to Elva's thyroiditis Qualified Code(s): E03.8 - Other specified hypothyroidism; E06.3 - Autoimmune thyroiditis
[2025-07-28 07:45] LABS: Hematocrit (blood only) 34.9 % (37.0-47.0); Hemoglobin 11.7 g/dl (12.0-16.0); Mean Corpuscular Hemoglobin 30.7 pg (25.0-34.0); Mean Corpuscular Volume 91.6 fL (80.0-100.0); Platelet Count 187 K/uL (130-400); RDW Standard Deviation 47.6 fL (36.4-46.3); Red Blood Count 3.81 M/uL (4.20-5.40); White Blood Count 11.92 K/ul (4.8-10.8)
[2025-07-28] MEDS: LOSARTAN POTASSIUM 50 MG TAB PO SCH (07:49)
[2025-07-28] MEDS: ARMOUR THYROID 30 MG TAB PO SCH (07:49)
[2025-07-28 08:09] LABS: Immature Granulocytes # (auto) 0.06 K/uL (0.01-0.20); Immature Granulocytes % (auto) 0.5 %
[2025-07-28 08:17] LABS: Alanine Aminotransferase 14.0 U/L (7-52); Albumin Globulin Ratio 1.4 (0.9-2); Albumin Level 3.4 gm/dl (3.4-5.0); Alkaline Phosphatase 59.0 U/L (34-104); Anion Gap 6.0 (3-11); Bilirubin,Total 0.7 mg/dl (0.2-1.0); Blood Urea Nitrogen 19.0 mg/dl (6-23); Calcium 9.5 mg/dl (8.6-10.3); Carbon Dioxide 26.0 mmol/L (21-32); Chloride 101.0 mmol/L (98-107); Creatinine Clr Calc Pharmacy 46.5 ml/min; Globulin 2.4 gm/dl (2.5-4.0); Glucose 146.0 mg/dl (70-99(Fasting)); Magnesium 1.6 mg/dl (1.7-2.4); Potassium 4.6 mmol/L (3.5-5.1); Sodium 133.0 mmol/L (136-145); Total Protein 5.8 gm/dl (6.0-8.3)
[2025-07-28 08:32] LABS: Thyroid Stimulating Hormone 0.66 uIu/ml (0.300-4.500)
--- NOTE | 2025-07-28 09:21 | Orthopedic Progress Note ---
Date of Service July 28, 2025 Assessment & Plan (1) Lumbar stenosis with neurogenic claudication: * Continue Current Treatment * Disposition: home * Daily treatment: Physical Therapy/ Occupational Therapy per protocol * Weight bearing status: WBAT, limit bending/lifting/twisting motions * Continue to monitor for ABLA * Pain control * Office/hospital f/u 2 weeks for progress check and staple/suture removal * Okay for dressing change prior to discharge * Plan for discharge today pending PT/OT clearance * * Patient seen and examined, notes distinct improvement of preoperative lower extremity symptoms with minimal incisional symptoms. Plan as dictated above. Subjective . Active Problems: S/p L3-L4 Extreme Lateral Interbody Fusion, Posterior Percutaneous Screws POD 1 85 y/o female s/p L3-L4 Extreme Lateral Interbody Fusion, Posterior Percutaneous Screws. Doing well overall, pain managed and improved function. Denies fever/chills, chest pain/SOB, nausea/vomiting. Otherwise no complaints. Review of Systems All systems reviewed & are unremarkable except as noted in HPI & below. Physical Exam . * General: Alert and oriented, no acute distress * Constitutional: well-developed, well-nourished. * Respiratory: Normal respiratory effort, no distress * Gastrointestinal: No tenderness to palpation, no rigidity or guarding. * Skin: No rash or lesion. * Neurologic: Grossly normal * Musculoskeletal: Surgical dressing CDI. Lumbar spine region without obvious deformity or overlying skin changes. Minimal tenderness of surgical region, otherwise no tenderness b/l buttock or LE. Lumbar flexion/extension and rotation ROM with minimal pain. AROM b/l hip flexion, knee flexion/extension, ankle flexion/extension intact. Sensation intact plantar/dorsal foot. Brisk capillary refill. Results & Data Results & Data Laboratory Results . Diagnostic Findings . PG Care Time/CCT Total # of Minutes Spent Total Time Spent with Patient: Total time spent is greater than 50% in coordination of care (as documented) at patient's floor/unit and/or counseling patient: Coding Level of Care Code 68013 Post Operative Follow-Up Diagnoses Lumbar stenosis with neurogenic claudication M48.062
[2025-07-28 09:51] LABS: Hemoglobin A1C 6.4 % (4.5-5.6)
--- NOTE | 2025-07-29 08:40 | Orthopedic Progress Note ---
Date of Service July 29, 2025 Assessment & Plan (1) Lumbar stenosis with neurogenic claudication: * Continue Current Treatment * Disposition: Home with home services versus rehab * Daily treatment: Physical Therapy/ Occupational Therapy per protocol * Weight bearing status: WBAT, limit bending/lifting/twisting motions * Continue to monitor for ABLA * Pain control * Office/hospital f/u 2 weeks for progress check and staple/suture removal * Okay for dressing change prior to discharge * Overall stable for discharge. Ongoing planning regarding placement, patient is hesitant to return home without assistance and is interested in rehab. Will discuss with case management team * * Patient seen and examined, notes remain issue has some pain in her right side but only in the minimal range, has concerns about returning to home. As noted above we will look into rehab placement. Subjective Active Problems: S/p L3-L4 Extreme Lateral Interbody Fusion, Posterior Percutaneous Screws POD 1 85 y/o female s/p L3-L4 Extreme Lateral Interbody Fusion, Posterior Percutaneous Screws. Doing well overall, pain managed and improved function. Denies fever/chills, chest pain/SOB, nausea/vomiting. Otherwise no complaints. Review of Systems All systems reviewed & are unremarkable except as noted in HPI & below. Physical Exam * Musculoskeletal: Surgical dressing CDI. Lumbar spine region without obvious deformity or overlying skin changes. Minimal tenderness of surgical region, otherwise no tenderness b/l buttock or LE. Lumbar flexion/extension and rotation ROM with minimal pain. AROM b/l hip flexion, knee flexion/extension, ankle flexion/extension intact. Sensation intact plantar/dorsal foot. Brisk capillary refill. Results & Data Results & Data Laboratory Results . Diagnostic Findings . PG Care Time/CCT Total # of Minutes Spent Total Time Spent with Patient: Total time spent is greater than 50% in coordination of care (as documented) at patient's floor/unit and/or counseling patient: Coding Level of Care Code 29105 Post Operative Follow-Up Diagnoses Lumbar stenosis with neurogenic claudication M48.062
--- NOTE | 2025-07-29 09:28 | Operative Report ---
PG Post Operative Report Pre & Post Diagnosis Operation Date: 07/27/25 07:30 Pre-Op Diagnosis: Lumbar stenosis Post-Op Diagnosis: Lumbar stenosis I identified the patient and participated in the time-out.: Yes Procedure Operation Date: 07/27/25 07:30 Actual Procedures p L3-L4 Extreme Lateral Interbody Fusion, Posterior Percutaneous Screws with Spinal Cord Monitoring and CT Navigation(Not Applicable) - Chan Beasley MD Surgeon Chan Beasley MD Supervisor Edging none Estimated Blood Loss 30 Findings Consistent with Post-Op Diagnosis Specimens none Description of Procedure 1. L3-4 right lateral interbody arthrodesis. (86772) 2. L3-4 lateral interbody cage, NuVasive cohere XL 12 x 18 x 60 mm lordotic. (26241) 3. Posterior nonsegmental instrumentation, Medtronic Voyager. (84489) 4. Stereotactic CT guided navigation for instrumentation. (16027) Patient taken the operating room and after adequate anesthesia was carefully po sitioned in the left lateral decubitus position right side up on the Yvette table. After carefully checking for positioning, I just at the table and secured the patient in routine fashion for a lateral approach to the L3-4 level. Fluoroscopy was brought into make adjustments, a preprepped was performed followed by then securing the patient prep and drape. Transverse incision was then made over the iliac crest on the right side, and from here is able to carefully dissect out into the retroperitoneal region and then advanced the initial dilator from the NuVasive set on to the lateral aspect of the L3-4 disc space confirmed fluoroscopically. Utilizing monitoring, is able to place a guidewire followed by the additional dilators and the access apparatus without issue. Adjustments were made to the positioning followed by then securing it with a bruno, I then inspected the area visually with the probe, and after doing so then incised the annulus. A thorough discectomy was then performed removing disc material and cartilage from the endplates. I followed this we then trials, selecting a size cage as noted. This was packed with fusion materials and then additional fusion materials were placed within the disc space. I inserted the cage without any issue with excellent position on AP and lateral views. The access apparatus was then removed no issues were noted. The patient was then repositioned prone on the Percy table, and checked for positioning. Prep and drape was performed, followed by insertion of the post for the right iliac crest for the navigation system. The O-arm was brought in, scan was completed, and then I began the procedure with navigated instrumentation, for starting at the L4 level. Small incisions were made for the insertion of the bur followed by the gearshift probe, the tap and then insertion of 6.5 millimeter screws, 50 mm in length at all 4 locations for L3 and L4 without incident. A new scan was then performed revealing proper placement of the instrumentation. No issues were noted on monitoring, at this time I then inserted the rods after measuring, these were placed slightly proud for the L3 screws to allow for some additional slight reduction of the spondylolisthesis, all setscrews were tightened down properly. Irrigation was performed followed by vancomycin powder, local had been injected, all areas were then closed using 0 and/or 2-0 Vicryl sutures followed by nicole for the skin. Sterile dressings were applied, the patient tolerated procedure well was taken recovery room satisfactory condition. I attest to the content of the Intraoperative Record and any orders documented therein. Any exceptions are noted below.
[2025-07-29] MEDS: IPRATROPIUM BROMIDE HFA INHALER INH PRN (20:19)
--- NOTE | 2025-07-30 07:48 | Orthopedic Progress Note ---
Date of Service July 30, 2025 Assessment & Plan (1) Lumbar stenosis with neurogenic claudication: * Continue Current Treatment * Disposition: rehab, pending placement * Daily treatment: Physical Therapy/ Occupational Therapy per protocol * Weight bearing status: WBAT, limit bending/lifting/twisting motions * Continue to monitor for ABLA * Pain control * Office/hospital f/u 2 weeks for progress check and staple/suture removal * Okay for dressing change prior to discharge * Overall stable for discharge. Ongoing planning regarding placement, patient is hesitant to return home without assistance and is interested in rehab. Will discuss with case management team Subjective Active Problems: S/p L3-L4 Extreme Lateral Interbody Fusion, Posterior Percutaneous Screws POD 3 85 y/o female s/p L3-L4 Extreme Lateral Interbody Fusion, Posterior Percutaneous Screws. Doing well overall, pain managed and improved function. Denies fever/chills, chest pain/SOB, nausea/vomiting. Otherwise no complaints. Per discussion with patient yesterday she is hesitant to return home, exploring rehab options Review of Systems All systems reviewed & are unremarkable except as noted in HPI & below. Physical Exam Musculoskeletal: Surgical dressing CDI. Lumbar spine region without obvious deformity or overlying skin changes. Minimal tenderness of surgical region, otherwise no tenderness b/l buttock or LE. Lumbar flexion/extension and rotation ROM with minimal pain. AROM b/l hip flexion, knee flexion/extension, ankle flexion/extension intact. Sensation intact plantar/dorsal foot. Brisk capillary refill. Results & Data Results & Data Laboratory Results . Diagnostic Findings . PG Care Time/CCT Total # of Minutes Spent Total Time Spent with Patient: Total time spent is greater than 50% in coordination of care (as documented) at patient's floor/unit and/or counseling patient: Coding Level of Care Code 61895 Post Operative Follow-Up Diagnoses Lumbar stenosis with neurogenic claudication M48.062
[2025-07-30 07:51] VITALS: BP 129/76; PULSE 84; RESP 17; TEMP 97.9; O2SAT 91
--- NOTE | 2025-07-30 08:13 | Hospitalist Progress Note ---
Date of Service July 30, 2025 Assessment & Plan (1) Chronic heart failure with preserved ejection fraction: (2) Idiopathic polyneuropathy: (3) Hypertension: (4) Chronic kidney disease, stage III (moderate): (5) Thoracic aortic aneurysm: (6) Hypothyroidism: Plan In summary this is an 85-year-old female admitted for postoperative evaluation and observation, we were consulted for management the patient's chronic medical conditions The patient remains on their chronic medications without complication; recommend continuation of this during their hospitalization; there is no indication for routine daily laboratory assessment at this time Admission and Anticipated Discharge Date Admission Date: July 27, 2025 Subjective Ms. Pichardo is an 85-year-old female who underwent posterior L3-L4 lateral interbody fusion without complication; we have been consulted for medical management of the patient's chronic conditions. No acute overnight events; the patient's preoperative symptoms have improved Review of Systems Review of Systems: Review of constitutional, neurologic, cardiovascular, pulmonary systems was unremarkable except for pertinent positive and negative findings discussed above Physical Exam Physical Exam: General: Elderly female in no acute distress Vital Signs: Reviewed Pulmonary: Symmetric chest wall excursion without restriction; clear to auscultation bilaterally Cardiovascular: Regular rate and rhythm without murmurs, rubs, or gallops; right radial pulse 2+ Gastrointestinal: Soft, nondistended Neurologic: Cranial nerves II through XII grossly intact; no discernible focal weakness no paresthesia Results & Data Results & Data Vital Signs (Past 12 Hours) Vital Signs Temp Pulse Resp BP BP Pulse Ox O2 Del Method 07/30/25 07:51 36.6 C 84 17 129/76 91 Room Air 07/29/25 20:25 Room Air 07/29/25 20:16 37.0 C 87 18 127/74 93 Room Air PG Care Time/CCT Total # of Minutes Spent Total Time Spent with Patient: Total time spent is greater than 50% in coordination of care (as documented) at patient's floor/unit and/or counseling patient: Coding Level of Care Code 86269 SUB INP/OBS CARE 10/17MIN Diagnoses Chronic heart failure with preserved ejection fraction I50.32 Idiopathic polyneuropathy G60.9 Primary hypertension I10 Hypertension type: primary hypertension Stage 3 chronic kidney disease, unspecified whether stage 3a or 3b CKD N18.30 Chronic kidney disease stage 3 subtype: unspecified whether 3a or 3b Aneurysm of ascending aorta without rupture I71.21 Thoracic aorta location: ascending aorta Presence of rupture: without rupture 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; E06.3 Hypothyroidism type: due to Elva's thyroiditis (3) Hypertension Hypertension type: primary hypertension Qualified Code(s): I10 - Essential (primary) hypertension (4) Chronic kidney disease, stage III (moderate) Chronic kidney disease stage 3 subtype: unspecified whether 3a or 3b Qualified Code(s): N18.30 - Chronic kidney disease, stage 3 unspecified (5) Thoracic aortic aneurysm Thoracic aorta location: ascending aorta Presence of rupture: without rupture Qualified Code(s): I71.21 - Aneurysm of the ascending aorta, without rupture (6) Hypothyroidism Hypothyroidism type: due to Elva's thyroiditis Qualified Code(s): E03.8 - Other specified hypothyroidism; E06.3 - Autoimmune thyroiditis
[2025-07-30] MEDS: ONDANSETRON 4 MG OD TAB PO PRN (12:06)
--- NOTE | 2025-08-02 11:45 | Discharge Summary ---
Date of Service August 02, 2025 Admission HPI (Per Admitting) Patient returns today for follow-up, she underwent a lumbar disc decompression/discectomy on July 27, 2024 with resolution of her symptoms, follow-up in September revealed her to have been doing notably well with resolution of all symptoms. Approximately 3 months ago though she started developing new symptomatology this included some generalized burning and numbness and tingling in the lower extremities, more so in the left lateral lower leg, also some limited axial symptomatology and a return to some of the prior symptomatology. She did undergo a MRI in March 2025 on the , she is here for follow-up, she has a neighbor with her. Exam reveals the patient to indicate pain as noted, she still maintains reasonably appropriate strength for ankle plantar dorsiflexion, but she has a positive straight leg raise more so on the left than on the right. This includes pain into the lower extremity. She has some limited pain in around the left hip with rotation. 2 views of the lumbar spine AP and lateral views taken for today's office reveal the patient to have on AP view the right total hip replacement, there is notable loss of joint space in the left hip revealing degenerative arthritis in that region. She has some levoscoliosis in the lower lumbar levels with multilevel degenerative changes, of note is that she has 5 nonrib-bearing levels with a transitional segment which is lumbarized. It is to note that this lumbarized le bent[place] is according to the MRI reports labeled as L5-S1 where is actually it is a S1 level, the L4-5 level is the level with the degenerative spondylolisthesis noted on the previous radiographs on March 09, 2024 and on the current radiographs for today's office. The spondylolisthesis has progressed, still grade 1. Review of MRI images of the lumbar spine from [facility] from April 08, 2025, this is my separate interpretation, this reveals the patient to have the degenerative spondylolisthesis with severe stenosis at this level with a recurrent central left disc protrusion at what I would consider the L4-5 level, this is the third disc level from the sacrum, this was the level with the prior decompression, which I labeled as L4-5 properly. It is labeled as L3-4 though in the MRI. Impression: 11 months status post prior decompression at the L4-5 level, labeled as L3-4 and the MRI recent report, now with degenerative spondylolisthesis and high-grade stenosis, recurrent disc herniation. Plan: Today I reviewed the imaging studies with the patient and the family member/neighbor, I went over these in great detail, minimum 30 minutes was spent explaining the findings and how it is related to her current symptoms. The patient clearly states that she did quite well until this past summer when her symptoms returned, and I related her to that I think she has a central recurrent disc herniation causing the stenosis whereas she had been doing quite well before that was quite pleased with her postoperative result from last July. I then went on to explain options, at this time I think the patient should undergo arthrodesis at the operative level which is L4-5, this is the level at the iliac crest level, she has degenerative spondylolisthesis at this level. My recommendations are for a lateral cage placement at that level, probably attempting to try to get a [address], with percutaneous instrumentation posteriorly using navigation. I related that our goal will be indirect decompression and stabilization of this level and then we will see what kind of improvement she gets with her symptomatology. I did emphasize that back pain could be coming from it either of the adjacent levels but I do not think we need to get into a multilevel fusion, she was in agreement with the plan. I did discuss the technical details of the surgery, potential risk complications, hos pital postoperative course, we will move ahead with the surgery according to her schedule in the near future. Admission Exam (Per Admitting) . Principal Diagnosis Same as "Discharge Diagnosis" noted below under Discharge Instructions. Discharge Exam Musculoskeletal: Surgical dressing CDI. Lumbar spine region without obvious deformity or overlying skin changes. Minimal tenderness of surgical region, otherwise no tenderness b/l buttock or LE. Lumbar flexion/extension and rotation ROM with minimal pain. AROM b/l hip flexion, knee flexion/extension, ankle flexion/extension intact. Sensation intact plantar/dorsal foot. Brisk capillary refill. Discharge Data Consultations 07/27/25 11:57 Consult Hospitalist Routine Procedures Performed Operation Date: 07/27/25 07:30 Actual Procedures p L3-L4 Extreme Lateral Interbody Fusion, Posterior Percutaneous Screws with Spinal Cord Monitoring and CT Navigation(Not Applicable) - Chan Beasley MD Ordered Studies 07/27/25 07:30 CT lumbar spine wo con Routine FL lumbar spine 2-3V Routine PG Care Time/CCT Total # of Minutes Spent Total Time Spent with Patient: Total time spent is greater than 50% in coordination of care (as documented) at patient's floor/unit and/or counseling patient: Discharge Plan Discharge Items Patient Disposition: Home - Home Health Services Reason For Visit: Lumbosacral Radiculopathy, Degenerative Spondyloli Discharge Diagnosis: s/p lumbar fusion Activity: Per Instructions section Weightbearing: Full weightbearing Non-emergency contact: Surgeon Call non-emergency contact if: your symptoms worsen, your temperature is above 101.5, your wound has increased redness and your wound has increased drainage Follow-up/Referrals: Amy Ulloa MD [Primary Care Provider] - 08/06/25 11:30 am Chan Beasley MD [Surgeon] - 08/18/25 Diet: Regular Addtl Attending Provider Instructions: May shower on 3rd day after surgery. You can wash the incision and surgical site with soap and water briefly and then blot dry with a clean towel/cloth. Cover with a new, sterile dry dressing. If unable to change your dressing, then leave hospital dressing intact and cover the area for showering. Do NOT soak incision. No strenuous activity, lifting, or exercise until further instructed. Use the prescribed pain medication, or [id number] Tylenol, as needed for pain relief -- follow directions on the bottle; limit Tylenol to 4,000 mg maximum in a 24-hour period. No use of NSAIDs (i.e ibuprofen/Advil/Motrin, naproxen/Aleve, etc.) for at least 2 months after surgery Pending Studies at Discharge: No Stand-Alone Forms: My [facility] Clinical Ink, Smoking Cessation Medications and DC Order Prescriptions: New oxycodone 5 mg tablet 5 mg PO Q6H PRN (Reason: pain) Qty: 20 0RF Continued gabapentin 100 mg capsule 100 mg PO HS carvedilol 3.125 mg tablet 3.125 mg PO BID cyanocobalamin (vitamin B-12) 1,000 mcg tablet 1,000 mcg PO DAILY Qty: 90 1RF Rx Instructions: take daily for 6 months ipratropium-albuterol 20-100 mcg/actuation mist 1 puff inhalation Q6H PRN (Reason: cough/congestion/wheezing) Qty: 4 2RF losartan 50 mg tablet 50 mg PO QAM omeprazole 20 mg capsule,delayed release(DR/EC) 20 mg PO QAM thyroid (pork) 120 mg tablet 120 mg PO DAILY Patient Comments: sometimes in the morning, sometimes before lunch Rx Instructions: [place] brand spironolactone [Aldactone] 25 mg tablet 25 mg PO BID Discharge Orders: Discharge Order (Routine); Ordered 07/30/25 Ordered By: Pawel Salas/Other Patient Handouts: Prediabetes, 5 Steps for Eating Healthier Admission Data Admit Date/Time: 07/27/25 11:57 Attending Provider: Chan Beasley Admit Provider: Chan Beasley Primary Care Provider: Amy Ulloa Other Providers: Junito Tamayo; [place]; [facility]; Jacob Cagle Other Interventions: Discharge Summary Assessment (RN) Last Done: 07/30/25 14:37
== END 2025-07-30 15:14 | DRG 451 ==
LOC: ASU 06:07 → 3W 11:57